=== PATIENT | female | born 1985 | race Caucasian/White ===

== ENCOUNTER 2016-10-15 13:54 | Inpatient (IN) | payer MEDICAID, OTHER ==
[2016-10-15 13:54] VITALS: BMI 33.5
[2016-10-15] MEDS ORDERED: Sodium Chloride 0.9% 2,000 ML IV ONE (14:35)
[2016-10-15 14:48] LABS: BASO # 0.1 K/uL (0.0-0.2); BASO % 0.8 % (0.0-2.0); EOS % 0.3 % (0.0-4.0); HEMATOCRIT 39.5 % (34.0-47.0); LYMPH # 0.7 K/uL (1.0-4.3); LYMPH % 10.8 % (20.0-40.0); MEAN CELL VOLUME 84.7 fL (81.0-99.0); MEAN CORPUSCULAR HEMOGLOBIN 28.5 pg (27.0-31.0); MEAN CORPUSCULAR HGB CONC 33.6 g/dL (33.0-37.0); MEAN PLATELET VOLUME 8.3 fL (7.2-11.7); MONO # 0.4 K/uL (0.0-0.8); MONO % 6.1 % (0.0-10.0); RED CELL DISTRIBUTION WIDTH 13.5 % (11.5-14.5)
[2016-10-15 14:50] LABS: WHITE BLOOD COUNT 6.9 K/uL (4.8-10.8)
[2016-10-15 14:55] LABS: CHLORIDE 94 mmol/L (98-107); SODIUM 136 mmol/L (132-148)
[2016-10-15 14:56] LABS: POTASSIUM 3.1 mmol/L (3.6-5.2)
[2016-10-15 14:57] LABS: INR 1.3
[2016-10-15 14:58] LABS: ALB/GLOB RATIO 1.3 (1.0-2.1); ALKALINE PHOSPHATASE 117 U/L (38-126); ALT/SGPT 96 U/L (9-52); AST/SGOT 76 U/L (14-36); BILIRUBIN,TOTAL 1.1 mg/dL (0.2-1.3); BLOOD UREA NITROGEN 10 mg/dL (7-17); CARBON DIOXIDE 25 mmol/L (22-30); GFR AFRICAN-AMERICAN > 60; GLUCOSE,RANDOM 154 mg/dL (65-105); TOTAL PROTEIN 7.4 g/dL (6.3-8.3)
[2016-10-15 14:59] LABS: CALCIUM 9.6 mg/dl (8.6-10.4)
[2016-10-15] MEDS ORDERED: Metoprolol 1 mg/ml Inj IVP ONE (15:03)
[2016-10-15] MEDS ORDERED: Sodium Chloride 0.9% 1,000 ML IV ONE (15:05)
--- NOTE | 2016-10-15 15:19 | C.PDOC ---
History Of Present Illness 30-year-old female (), PMHx includes Gastritis and Anemia, presents to the emergency department with complaints of recurring syncope x2 days. Patient has prior eval in ER for nausea/vomiting. Prior ultrasound showed (+)IUP. Patient is hypotensive and tachycardic. No vaginal bleeding. Time Seen by Provider: 10/15/16 14:30 Chief Complaint (Nursing): Dizziness/Lightheaded History Per: Patient History/Exam Limitations: no limitations Past Medical History Reviewed: Historical Data, Nursing Documentation, Vital Signs Vital Signs: Last Vital Signs Temp 97.9 F 10/16/16 00:00 Pulse 103 H 10/15/16 23:23 Resp 22 10/15/16 23:23 BP 101/63 10/15/16 23:23 Pulse Ox 100 10/15/16 23:23 - Medical History PMH: Anemia (Takes iron; No h/o transfusion), Gastritis Surgical History: Endoscopy Family History: States: Unknown Family Hx - Social History Hx Tobacco Use: No Hx Alcohol Use: No Hx Substance Use: No - Immunization History Hx Tetanus Toxoid Vaccination: Yes Hx Influenza Vaccination: Yes Hx Pneumococcal Vaccination: Yes Review Of Systems Except As Marked, All Systems Reviewed And Found Negative. Constitutional: Negative for: Fever Respiratory: Negative for: Shortness of Breath Gastrointestinal: Positive for: Nausea, Vomiting Musculoskeletal: Negative for: Back Pain Skin: Negative for: Rash Neurological: Positive for: Dizziness, Other (SYNCOPE). Negative for: Weakness , Numbness, Headache Physical Exam - Physical Exam Appears: Non-toxic, No Acute Distress, Other (HYPOTENSIVE) Skin: Warm, Dry, Pale, No Rash Head: Atraumatic, Normacephalic Eye(s): bilateral: Normal Inspection Nose: Normal Oral Mucosa: Moist Lips: Normal Appearing Neck: Normal ROM Chest: Symmetrical Cardiovascular: Rhythm Regular (TACHYCARDIC) Respiratory: Other (TACHYPNEA CONSISTENT W/ SHOCK) Gastrointestinal/Abdominal: Soft, No Tenderness (OBESE. NON-GRAVID) Extremity: Normal ROM Neurological/Psych: Oriented x3, Normal Speech ED Course And Treatment - Laboratory Results Result Diagrams: 10/15/16 14:43 10/15/16 14:43 Lab Interpretation: Abnormal (trop 1.85H) ECG: Interpreted By Me ECG Rhythm: Sinus Rhythm, Atrial Flutter ECG Interpretation: Abnormal Rate From EC (after Cardizem IV bolus became NST @ [address] depressions in II, III, AVF) O2 Sat by Pulse Oximetry: 95 Pulse Ox Interpretation: Abnormal - Radiology CXR: Interpreted by Me CXR Interpretation: Yes: No Acute Disease - CT Scan/US OBSTETRICS US Other Rad Studies (CT/US): Read By Radiologist, Radiology Report Reviewed CT/US Interpretation: Accession No. : [id number]. Patient Name / ID : BAUDILIO CLANCY / [id number]. Exam Date : 10/15/2016 14:53:37 ( Approved ). Study Comment : Sex / Age : F / 30Y. Creator : Asha Reed MD. Dictator : Asha Reed MD. Station Agent : Grain Elevator Man : Asha Reed MD. Approver2 : Report Date : 10/15/2016 15:23:08. My Comment : . PROCEDURE: OB Pelvic Ultrasound. HISTORY: shock- ? ectopic preg. COMPARISON: None available. FINDINGS: UTERUS: Gestational sac: Single intrauterine gestation. Heart rate: 163 bpm. age (Ultrasound estimated): The crown-rump length measures 2.6 cm corresponding to 9 weeks and 3 days of gestational age. June- gestational hemorrhage: None. Date of delivery (Ultrasound estimated) : 2016. Uterus measures 11.0 x 6.6 x 9.1 cm. Normal in size. There is a small subchorionic hemorrhage measuring 2.1 x 1.9 x 1.0 cm. RIGHT OVARY: Measures 3.9 x 2.8 x 4.4 cm. No mass lesion. Normal flow. There is a 3.6 cm corpus luteum cyst. LEFT OVARY: Measures 2.6 x 1.6 x 2.2 cm. No solid mass. Normal flow. FREE FLUID: None. OTHER FINDINGS: None. IMPRESSION: Single live intrauterine gestation with mean gestational age of 9 weeks and 3 days. Estimated date of delivery is 05/17/2017. Small subchorionic hemorrhage measuring 2.1 x 1.9 x 1.0 cm. Clinical follow-up is advised. CT CHEST Other Rad Studies (CT/US): Read By Radiologist, Radiology Report Reviewed CT/US Interpretation: Accession No. : [id number]. Patient Name / ID : BAUDILIO CLANCY / [id number]. Exam Date : 10/15/2016 14:53:37 ( Approved ). Study Comment : Sex / Age : F / 30Y. Creator : Asha Reed MD. Dictator : Asha Reed MD. Station Agent : Grain Elevator Man : Asha Reed MD. Approver2 : Report Date : 10/15/2016 15:23:08. My Comment : . PROCEDURE: OB Pelvic Ultrasound. HISTORY: shock- ? ectopic preg. COMPARISON: None available. FINDINGS: UTERUS: Gestational sac: Single intrauterine gestation. Heart rate: 163 bpm. age (Ultrasound estimated): The crown-rump length measures 2.6 cm corresponding to 9 weeks and 3 days of gestational age. June- gestational hemorrhage: None. Date of delivery (Ultrasound estimated) : 2016. Uterus measures 11.0 x 6.6 x 9.1 cm. Normal in size. There is a small subchorionic hemorrhage measuring 2.1 x 1.9 x 1.0 cm. RIGHT OVARY: Measures 3.9 x 2.8 x 4.4 cm. No mass lesion. Normal flow. There is a 3.6 cm corpus luteum cyst. LEFT OVARY: Measures 2.6 x 1.6 x 2.2 cm. No solid mass. Normal flow. FREE FLUID: None. OTHER FINDINGS: None. IMPRESSION: Single live intrauterine gestation with mean gestational age of 9 weeks and 3 days. Estimated date of delivery is 05/17/2017. Small subchorionic hemorrhage measuring 2.1 x 1.9 x 1.0 cm. Clinical follow-up is advised. Progress Note: 1430: pt seen and examined. 1435: d/w Dr. Bah- OB Chief Of Safety And Protection- will advise Surgical team of suspected ectopic . 1610: d/w Dr. Burks- Cardio Chief Of Safety And Protection- defers to Dr. Hanson. 1610: d/w Dr. Hanson- aware of abnormal trop and pending CTA. 1615: d/w Dr. Thompson- IR- will evaluate. 1645: d/w Dr. Sethi- ICU- ok to ICU. 1650: d/w Dr. Barbosa- Hospitalist Chief Of Safety And Protection- ok to ICU. discussion with pt, IR, ICU, and Cards pending to decide best course of action of pt (9 wks) with large acute symptomatic b/l pulmonary emboli. Critical Care Time - Critical Care Note Total Time (in mins): 120 Documented critical care: time excludes all time spent performing seperately billable procedures. Medical Decision Making Medical Decision Making: Initial EKG Rate 150bpm Rate Sinus Tachycardia vs Aflutter Rhythm No acute ST/T wave changes Patient required my immediate attention. STAT bedside echo shows +iup and no free fluid. Patients HGB is 18 1435 The case was discussed w/ Dr Bah. Pending CT Scan. Disposition Doctor Will See Patient In The: Hospital Counseled Patient/Family Regarding: Studies Performed, Diagnosis - Disposition Disposition: HOSPITALIZED Disposition Time: 17:00 Condition: CRITICAL - Clinical Impression Clinical Impression: Pulmonary embolism affecting - Scribe Statement The provider has reviewed the documentation as recorded by the Paresh Smart All medical record entries made by the Armondibjing were at my direction and personally dictated by me. I have reviewed the chart and agree that the record accurately reflects my personal performance of the history, physical exam, medical decision making, and the department course for this patient. I have also personally directed, reviewed, and agree with the discharge instructions and disposition.
--- NOTE | 2016-10-15 15:24 | US ---
PROCEDURE: OB Pelvic Ultrasound HISTORY: shock- ? ectopic preg COMPARISON: None available. FINDINGS: UTERUS: Gestational sac: Single intrauterine gestation. Heart rate: 163 bpm. age (Ultrasound estimated): The crown-rump length measures 2.6 cm corresponding to 9 weeks and 3 days of gestational age. June-gestational hemorrhage: None. Date of delivery (Ultrasound estimated) : 05/17/2017 Uterus measures 11.0 x 6.6 x 9.1 cm. Normal in size. There is a small subchorionic hemorrhage measuring 2.1 x 1.9 x 1.0 cm. RIGHT OVARY: Measures 3.9 x 2.8 x 4.4 cm. No mass lesion. Normal flow. There is a 3.6 cm corpus luteum cyst. LEFT OVARY: Measures 2.6 x 1.6 x 2.2 cm. No solid mass. Normal flow. FREE FLUID: None. OTHER FINDINGS: None. IMPRESSION: Single live intrauterine gestation with mean gestational age of 9 weeks and 3 days. Estimated date of delivery is 05/17/2017. Small subchorionic hemorrhage measuring 2.1 x 1.9 x 1.0 cm. Clinical follow-up is advised.
[2016-10-15 15:26] LABS: RBC URINE 1 /hpf (0-3); URINE BACTERIA FEW (<OCC); URINE BILIRUBIN 2+ (NEGATIVE); URINE BLOOD 1+ (NEGATIVE); URINE COLOR Amber (YELLOW); URINE GLUCOSE (UA) 1+ mg/dL (Normal); URINE KETONE 1+ mg/dL (NEGATIVE); URINE LEUKOCYTE ESTERASE TRACE Leu/uL (Negative); URINE PROTEIN 3+ mg/dL (NEGATIVE); WBC URINE 8 /hpf (0-5)
--- NOTE | 2016-10-15 15:31 | CP.PCM.CON ---
History of Present Illness - History of Present Illness History of Present Illness: Chief complaint-light headedness, diziness HPI 30 Y/O female with LMP 08/21/2016 , presents to er with c/o having lightheadedness and dizziness at home.States that she had lower abdominal pain this morning which is resolved now but she still feels light headed and cold. In the ER patient hypotensive and heart rate in 150s. Patient denies any vaginal bleeding Review of records indicated that patient was admitted at [facility] for nausea and vomiting and discharge on 10/07/2016 pmh -anemia, gastritis PSH endoscopy OBGYN HX ; [id number] Social hx denies tobacco,alcohol or illicit drug use Review of Systems - Constitutional Constitutional: Chills - Reproductive: Female Reproductive:Female: Amenorrhea Past Patient History - Infectious Disease Hx of Infectious Diseases: None - Past Medical History & Family History Past Medical History?: Yes - Past Social History Smoking Status: Never Smoked - CARDIAC Hx Cardiac Disorders: No - PULMONARY Hx Respiratory Disorders: No - NEUROLOGICAL Hx Neurological Disorder: No - HEENT Hx HEENT Problems: No - RENAL Hx Chronic Kidney Disease: No - ENDOCRINE/METABOLIC Hx Endocrine Disorders: No - HEMATOLOGICAL/ONCOLOGICAL Hx Anemia: Yes (Takes iron; No h/o transfusion) - INTEGUMENTARY Hx Dermatological Problems: No - MUSCULOSKELETAL/RHEUMATOLOGICAL Hx Musculoskeletal Disorders: No Hx Falls: No - GASTROINTESTINAL Hx Gastritis: Yes - GENITOURINARY/GYNECOLOGICAL Hx Genitourinary Disorders: Yes Hx Urinary Tract Infection: Yes LMP:: 08/21/2016 : 4 Para: 3 Termination of : 0 - PSYCHIATRIC Hx Substance Use: No - SURGICAL HISTORY Hx Surgeries: Yes Other/Comment: Endoscopy - ANESTHESIA Hx Anesthesia: Yes Hx Anesthesia Reactions: No Hx Malignant Hyperthermia: No Meds Allergies/Adverse Reactions: Allergies Allergy/AdvReac Type Severity Reaction Status Date / Time tramadol HCl [From [facility]] Allergy Intermediate DIZZINESS Verified 10/15/16 14: 24 - Medications Medications: Current Medications Sodium Chloride (Sodium Chloride 0.9%) 2,000 mls @ 1,000 mls/hr IV .Q2H ONE Stop: 10/15/16 16:34 Physical Exam - Constitutional Appears: Non-toxic - Head Exam Head Exam: ATRAUMATIC - Cardiovascular Exam Cardiovascular Exam: Tachycardia - GI/Abdominal Exam GI & Abdominal Exam: Soft. absent: Guarding, Rebound, Rigid, Tenderness - Extremities Exam Extremities exam: Negative for: calf tenderness - Skin Skin Exam: Normal Color Results - Vital Signs Recent Vital Signs: Last Vital Signs Temp 98.5 F 10/15/16 14:24 Pulse 153 H 10/15/16 14:24 Resp 22 10/15/16 14:24 BP 114/69 10/15/16 14:24 Pulse Ox 98 10/15/16 15:19 - Labs Result Diagrams: 10/15/16 14:43 10/15/16 14:43 Labs: Laboratory Results - last 24 hr 10/15/16 14:43 WBC 6.9 D RBC 4.66 Hgb 13.3 Hct 39.5 MCV 84.7 MCH 28.5 MCHC 33.6 RDW 13.5 Plt Count 258 MPV 8.3 Neut % (Auto) 82.0 H Lymph % (Auto) 10.8 L [place] % (Auto) 6.1 Eos % (Auto) 0.3 Baso % (Auto) 0.8 Neut # 5.6 Lymph # 0.7 L [place] # 0.4 Eos # 0.0 Baso # 0.1 PT 14.3 H INR 1.3 APTT 29 Sodium 136 Potassium 3.1 L Chloride 94 L Carbon Dioxide 25 Anion Gap 20 BUN 10 Creatinine 0.8 Est GFR ( Amer) > 60 Est GFR (Non-Af Amer) > 60 Random Glucose 154 H Calcium 9.6 Total Bilirubin 1.1 AST 76 H D ALT 96 H D Alkaline Phosphatase 117 Total Protein 7.4 Albumin 4.2 Globulin 3.2 Albumin/Globulin Ratio 1.3 Beta HCG, Quant 505873.00 Urine HCG, Qual Positive Assessment & Plan (1) Status: Acute Comment: 30 y/o female with lmp 08/21/2016.Limited ob ultrasound done today shows viable IUP. (2) Hypotension Status: Acute Comment: Patient with hypotension and tachycardia on presentation to ER.BP improved with iv fluids.UA 1+Ketones.?dehydration.Hematocrit stable.Continue management as per ER team (3) Tachycardia Status: Acute Comment: patient persistently tachycardiac despite improved bp.patient given diltiazem after which the heart rate improved.Continue management as per ER team
[2016-10-15] MEDS ORDERED: Sodium Chloride 0.9% 3,000 ML ONE (15:52)
[2016-10-15] MEDS ORDERED: Heparin 25,000units in D5W 250 ML IV ONE (16:29)
--- NOTE | 2016-10-15 16:45 | CT ---
PROCEDURE: CT Chest with contrast (Pulmonary Angiogram) HISTORY: ? PE COMPARISON: None available. TECHNIQUE: Axial computed tomography images were obtained of the chest in the pulmonary arterial phase of enhancement. Coronal and sagittal reformatted images were created and reviewed. Intravenous contrast dose: 100 mL Visipaque Radiation dose: Total exam DLP = 449.62 mGy-cm. FINDINGS: PULMONARY ARTERIES: There are large central filling defects in the distal right pulmonary artery and distal left pulmonary artery. On the right, there are also filling defects in the right upper lobe pulmonary arteries and on the left, there are filling defects in the lobar and segmental pulmonary arteries. AORTA: The aorta is normal in caliber without evidence of aneurysm or dissection. LUNGS: There is a small peripheral calcification in the right lower lobe. No nodule, mass or pulmonary consolidation. PLEURAL SPACES: Unremarkable. No effusion or pneumothorax. HEART: No cardiomegaly. No significant pericardial effusion. LYMPH NODES: No pathologic lymphadenopathy. BONES, CHEST WALL: Within normal limits. No fracture or destructive lesion OTHER FINDINGS: Unremarkable. IMPRESSION: Acute pulmonary embolism in distal right and left pulmonary arteries, right upper lobe and left lobar and segmental branches with larger burden of embolism on the left. Critical findings were discussed with Dr. Ignacio Reyes on 10/15/2016 at 4:35 p.m.
[2016-10-15] MEDS ORDERED: Heparin25000 units/250ml 1/2NS 250 ML IV PRN (16:51)
--- NOTE | 2016-10-15 18:43 | CP.PCM.HP ---
History of Present Illness - History of Present Illness History of Present Illness: ICU Note Patient is a 30 y/o female, , currently 9 weeks and 3 days confirmed on ultrasound who presents to the ED for history of chest pain, shortness of breath, lightheadedness and dizziness x1 week. Patient states she was home with her mother when she became dizzy this morning and fainted. She admits to similar episodes x 1 week. Pt admits to lower abdominal pain earlier today which has since resolved. She describes chest pain as sharp and exacerbated with deep inspiration, radiating to her back. Pt notes she was seen at [facility] for chest pain and was told low potassium was the cause of her symptoms. She currently continues to feel lightheaded, cold, and nauseated. Pt is having multiple episodes of emesis of clear fluid at bedside. She denies vaginal bleeding. Patient states she has not had a bowel movement in 2 weeks. PMH: Anemia, Gastritis Medications: multivitamin Allergies: Tramadol HCl PSH: Endoscopy Social history: denies tobacco, alcohol, drug use Present on Admission - Present on Admission Any Indicators Present on Admission: Yes History of DVT/PE: Yes History of Uncontrolled Diabetes: No Urinary Catheter: No Decubitus Ulcer Present: No Review of Systems - Constitutional Constitutional: Chills. absent: Headache - EENT Eyes: absent: Blurred Vision - Cardiovascular Cardiovascular: Chest Pain, Chest Pain at Rest, Dyspnea, Lightheadedness, Syncope - Respiratory Respiratory: Dyspnea on Exertion - Gastrointestinal Gastrointestinal: Change in Bowel Habits, Constipation, Nausea, Vomiting. absent: Abdominal Pain - Genitourinary Genitourinary: absent: Change in Urinary Stream - Reproductive: Female Reproductive:Female: Amenorrhea Additional comments: 9 weeks - Integumentary Integumentary: absent: New Lesions, Rash - Neurological Neurological: Dizziness, Syncope - Psychiatric Psychiatric: absent: Anxiety Past Patient History - Infectious Disease Hx of Infectious Diseases: None - Past Medical History & Family History Past Medical History?: Yes - Past Social History Smoking Status: Never Smoked - CARDIAC Hx Cardiac Disorders: No - PULMONARY Hx Respiratory Disorders: No - NEUROLOGICAL Hx Neurological Disorder: No - HEENT Hx HEENT Problems: No - RENAL Hx Chronic Kidney Disease: No - ENDOCRINE/METABOLIC Hx Endocrine Disorders: No - HEMATOLOGICAL/ONCOLOGICAL Hx Anemia: Yes (Takes iron; No h/o transfusion) - INTEGUMENTARY Hx Dermatological Problems: No - MUSCULOSKELETAL/RHEUMATOLOGICAL Hx Musculoskeletal Disorders: No Hx Falls: No - GASTROINTESTINAL Hx Gastritis: Yes - GENITOURINARY/GYNECOLOGICAL Hx Genitourinary Disorders: Yes Hx Urinary Tract Infection: Yes LMP:: 08/21/2016 : 4 Para: 3 Termination of : 0 - PSYCHIATRIC Hx Substance Use: No - SURGICAL HISTORY Hx Surgeries: Yes Other/Comment: Endoscopy - ANESTHESIA Hx Anesthesia: Yes Hx Anesthesia Reactions: No Hx Malignant Hyperthermia: No Meds Allergies/Adverse Reactions: Allergies Allergy/AdvReac Type Severity Reaction Status Date / Time tramadol HCl [From Ultram] Allergy Intermediate DIZZINESS Verified 10/15/16 14: 24 Physical Exam - Constitutional Appears: No Acute Distress, Other - Head Exam Head Exam: ATRAUMATIC, NORMOCEPHALIC - Eye Exam Eye Exam: EOMI, Normal appearance - ENT Exam ENT Exam: Mucous Membranes Moist - Neck Exam Neck exam: Positive for: Normal Inspection - Respiratory Exam Respiratory Exam: absent: NORMAL BREATHING PATTERN Additional comments: tachypnea - Cardiovascular Exam Cardiovascular Exam: Tachycardia, +S1, +S2 - GI/Abdominal Exam GI & Abdominal Exam: Normal Bowel Sounds, Soft. absent: Tenderness - Extremities Exam Extremities exam: Positive for: normal inspection - Back Exam Back exam: tenderness - Neurological Exam Neurological exam: Alert, Oriented x3 - Psychiatric Exam Psychiatric exam: Anxious - Skin Skin Exam: Intact, Normal Color Results - Vital Signs Recent Vital Signs: Last Vital Signs Temp 98.3 F 10/15/16 17:53 Pulse 128 H 10/15/16 17:53 Resp 26 H 10/15/16 17:53 BP 105/75 10/15/16 17:53 Pulse Ox 98 10/15/16 18:28 - Labs Result Diagrams: 10/15/16 14:43 10/15/16 14:43 Assessment & Plan - Assessment and Plan (Free Text) Assessment: Pt is a 30 F, 9 weeks , with bilateral pulmonary embolism Plan: 1. Bilateral Pulmonary Embolism - CT angio: Acute PE, distal right and left pulmonary artery to RUL and L lobe and segmental branches; larger burden on left. - IRDr. Thompson, consulted - Patient to have thrombectomy by IR , systemic tPA - patient understands risks - Start Heparin drip - Monitor Vitals 2. Shock secondary to bilateral PE tachycardia, tachypnea, temperature 97.4 F Continue to monitor vitals 3. Positive troponin trop I 1.8500 f/u ANATOLIY x 3 f/u Echocargiogram Cardiology Consult: Dr. Frias 4. Nausea Start Zofran 4 mg IVP q6h 5. Intrauterine - Obstetric Ultrasound: 9 weeks, 3 days IUP - Discussed critical state with patient and associated risks to . Pt in agreement with therapy. - OBGYN consult, Dr. Bah - Date & Time Date: 10/15/16 Time: 19:18
[2016-10-15] MEDS ORDERED: Iodixanol 320 mg/ml 150 ml Bottle IV ONE (18:55)
[2016-10-15] MEDS ORDERED: Sodium Chloride 0.9% 1,000 ML IV SCH ×2 (19:00→19:30)
[2016-10-15] MEDS ORDERED: [UNRECOGNIZED DRUG - OTHER] IV ONE (19:09)
--- NOTE | 2016-10-15 19:16 | CP.CCUPN ---
CCU Subjective - Physician Review Events Since Last Encounter (Free Text): 10/15/16 19:10 30-year-old female came to the emergency room with the repeated episodes of syncopal attack, and near passing out today, and brought in to the emergency room with the family member. Initially in the emergency room patient was severely tachycardic, and also hypotensive, and tachypneic. During the evaluation patient was found to have a large pulmonary embolism bilateral major pulmonary arteries. Patient received at least 3 L of fluid. Blood pressure is slightly stabilized. But patient is having increasing episodes of shortness of breath, and tachypnea , acute cardiac, and also the blood pressure is systolic is in 100. Troponin was positive. There are there was no echocardiogram I spoke to the resource director. Most likely patient has a right heart strain with a large pulmonary embolism bilaterally, and resource director agreed that the patient did definitely need a form of . thrombolysis. But patient is currently 9 weeks with the 4 I spoke to the yard jacker. I also spoke to the high-risk medical attending for , With the experts opinion saying that patient is at high risk for high mortality , and cardiac event. She will definitely need thrombolysis. Though there is a risk of demise, bleeding, family's understanding him a and the and patient is understanding the situation. They agreed to have the catheter directed thrombolysis and equals. She understands that there is a risk of radiation, and also risk of fatal risk with the TPA and radiation and bleeding. Definitely there is a definitely the benefit is higher than the risk and patient will be going to have catheter directed thrombolysis immediately. I spoke to the interventional radiologist. CCU Objective - Vital Signs / Intake & Output Vital Signs (Last 4 hours): Vital Signs Temp Pulse Resp BP Pulse Ox 10/15/16 18:49 27 H 95 10/15/16 18:28 98 10/15/16 18:15 97.4 F L 126 H 27 H 111/70 98 10/15/16 17:53 98.3 F 128 H 26 H 105/75 100 10/15/16 17:32 130 H 26 H 103/74 97 10/15/16 17:00 129 H 26 H 91/59 L 96 Intake and Output (Last 8hrs): Intake & Output 10/15/16 10/15/16 10/15/16 06:59 14:59 22:59 Weight 193 lb 6.4 oz - Medications Active Medications: Active Medications Generic Name Dose Route Start Last Admin Trade Name Freq PRN Reason Stop Dose Admin Heparin Sodium/Sodium Chloride 250 mls @ 4 mls/hr 10/15/16 16:51 10/15/16 16:59 Heparin 31770 Units/250ml 1/2 Normal Saline IV 4 mls/hr ONCE PRN Administration Sodium Chloride 1,000 mls @ 100 mls/hr 10/15/16 19:00 Sodium Chloride 0.9% IV .Q10H RAVEN
[2016-10-15] MEDS ORDERED: SODIUM CHLORIDE 0.9% IV ONE ×3 (19:21→20:06)
[2016-10-15] MEDS ORDERED: ALTEPLASE IV ONE (19:21)
[2016-10-15] MEDS ORDERED: HEPARIN IV ONE ×2 (19:25→20:06)
--- NOTE | 2016-10-15 19:27 | PCM.IRPREO ---
Pre Procedure Note - History Proposed Procedure: Catheter directed thrombolysis for symptomatic PE with hemodynamic instability. Pre-Op Diagnosis: Pulmonary embolism. - Previous Medical/Surgical History Misc: (Pt is 9 weeks . ) - Pre Procedure Were any radiologic studies performed in the last 12 months: Yes (Pulmonary CT angiogram showed RIGHT AND LEFT main PA embolissm.) List of radiologic studies performed: CT angiogram PE protocol. Was medical management performed in the past 24 months: Not Applicable Clinical indication for the procedure: Pulmonary embolism and hemodynamic instability. Have risks and benefits been explained to the patient: Yes (Risk are bleeding, loss of baby, placental bleed, subchorionic hemorrhage. Benefits include improved clot burden and decrease right heart strain.) Risks and benefits been explained to the patient: Risk are bleeding, loss of baby, placental bleed, subchorionic hemorrhage. Benefits include improved clot burden and decrease right heart strain. Have alternatives to surgery explained to the patient as applicable: Yes ( Heparin IV. Catheter directed maceration of blood clot without use of TPA. Pt and would like TPA.) - Allergies Allergies: Allergies tramadol HCl [From Ultram] Allergy (Intermediate, Verified 10/15/16 14:24) DIZZINESS - Physical Exam Vital Signs: Vital Signs 10/15/16 10/15/16 10/15/16 17:00 17:32 17:53 Temperature 98.3 F Pulse Rate 129 H 130 H 128 H Respiratory 26 H 26 H 26 H Rate Blood Pressure 91/59 L 103/74 105/75 O2 Sat by Pulse 96 97 100 Oximetry 10/15/16 10/15/16 10/15/16 18:15 18:28 18:49 Temperature 97.4 F L Pulse Rate 126 H Respiratory 27 H 27 H Rate Blood Pressure 111/70 O2 Sat by Pulse 98 98 95 Oximetry
[2016-10-15] MEDS ORDERED: Lidocaine 2% Inj (20ml) ONE (19:33)
--- NOTE | 2016-10-15 19:55 | PCM.SURG1 ---
Surgeon's Initial Post Op Note - Surgeon's Notes Surgeon: Richard Thompson MD Firestopper Technician: NONE Type of Anesthesia: Local Pre-Operative Diagnosis: Pulmonary embolism Operative Findings: Pulmonary angiogram showed right main PA thrombus with flow to lower lobe. Increased perfusion to left lung. Post-Operative Diagnosis: Pulmonary embolism Operation Performed: EKOS catheter placement for catheter directed thrombolysis. Specimen/Specimens Removed: none Estimated Blood Loss: EBL {In ML}: 2 Blood Products Given: N/A Drains Used: No Drains Post-Op Condition: Poor Date of Surgery/Procedure: 10/15/16 Time of Surgery/Procedure: 19:50
[2016-10-15] MEDS: Sodium Chloride 0.9% 1,000 ML IV SCH (20:56)
--- NOTE | 2016-10-15 21:27 | CP.PCM.CON ---
History of Present Illness - History of Present Illness History of Present Illness: ICU Consult Note Patient is a 30 y/o female, , currently 9 weeks and 3 days confirmed on ultrasound who presents to the ED for history of chest pain, shortness of breath, lightheadedness and dizziness x1 week. Patient states she was home with her mother when she became dizzy this morning and fainted. She admits to similar episodes x 1 week. Pt admits to lower abdominal pain earlier today which has since resolved. She describes chest pain as sharp and exacerbated with deep inspiration, radiating to her back. Pt notes she was seen at [facility] for chest pain and was told low potassium was the cause of her symptoms. She currently continues to feel lightheaded, cold, and nauseated. Pt is having multiple episodes of emesis of clear fluid at bedside. She denies vaginal bleeding. Patient states she has not had a bowel movement in 2 weeks. PMH: Anemia, Gastritis Medications: multivitamin Allergies: Tramadol HCl PSH: Endoscopy Social history: denies tobacco, alcohol, drug use Review of Systems - Constitutional Constitutional: Chills. absent: Headache - EENT Eyes: absent: Change in Vision - Cardiovascular Cardiovascular: Chest Pain, Dyspnea, Lightheadedness, Palpitations, Syncope Additional comments: Chest Pain with deep inspiration - Respiratory Respiratory: Dyspnea - Gastrointestinal Gastrointestinal: Abdominal Pain, Constipation - Genitourinary Genitourinary: absent: Change in Urinary Stream - Reproductive: Female Reproductive:Female: Amenorrhea Additional comments: 9 weeks - Menstruation Menstruation: Amenorrhea. absent: Abnormal Vaginal Bleeding - Integumentary Integumentary: absent: New Lesions, Non-Healing Lesions - Neurological Neurological: Dizziness, Headaches, Syncope Past Patient History - Infectious Disease Hx of Infectious Diseases: None - Past Medical History & Family History Past Medical History?: Yes - Past Social History Smoking Status: Never Smoked - CARDIAC Hx Cardiac Disorders: No - PULMONARY Hx Respiratory Disorders: No - NEUROLOGICAL Hx Neurological Disorder: No - HEENT Hx HEENT Problems: No - RENAL Hx Chronic Kidney Disease: No - ENDOCRINE/METABOLIC Hx Endocrine Disorders: No - HEMATOLOGICAL/ONCOLOGICAL Hx Anemia: Yes (Takes iron; No h/o transfusion) - INTEGUMENTARY Hx Dermatological Problems: No - MUSCULOSKELETAL/RHEUMATOLOGICAL Hx Musculoskeletal Disorders: No Hx Falls: No - GASTROINTESTINAL Hx Gastritis: Yes - GENITOURINARY/GYNECOLOGICAL Hx Genitourinary Disorders: Yes Hx Urinary Tract Infection: Yes LMP:: 08/21/2016 : 4 Para: 3 Termination of : 0 - PSYCHIATRIC Hx Substance Use: No - SURGICAL HISTORY Hx Surgeries: Yes Other/Comment: Endoscopy - ANESTHESIA Hx Anesthesia: Yes Hx Anesthesia Reactions: No Hx Malignant Hyperthermia: No Meds Allergies/Adverse Reactions: Allergies Allergy/AdvReac Type Severity Reaction Status Date / Time tramadol HCl [From Ultra] Allergy Intermediate DIZZINESS Verified 10/15/16 14: 24 - Medications Medications: Current Medications Alteplase, Recombinant 12.5 mg (/ Sodium Chloride) 250 mls @ 25 mls/hr IV ONCE ONE Stop: 10/16/16 05:20 Sodium Chloride (Sodium Chloride 0.9%) 1,000 mls @ 35 mls/hr IV .Q24H RAVEN Heparin Sodium (Porcine) 1,000 (units/ Sodium Chloride) 1,000 mls @ 5 mls/hr IV ONCE ONE Stop: 10/24/16 04:05 Sodium Chloride (Sodium Chloride 0.9%) 1,000 mls @ 50 mls/hr IV .Q20H RAVEN Last Admin: 10/15/16 20:56 Dose: 50 mls/hr Ondansetron HCl (Zofran Inj) 4 mg IVP Q6 PRN PRN Reason: Nausea/Vomiting Last Admin: 10/15/16 20:56 Dose: 4 mg Physical Exam - Constitutional Appears: No Acute Distress Additional comments: , 9 weeks - Head Exam Head Exam: ATRAUMATIC, NORMAL INSPECTION - Eye Exam Eye Exam: EOMI, Normal appearance - ENT Exam ENT Exam: Mucous Membranes Moist - Neck Exam Neck exam: Positive for: Normal Inspection - Respiratory Exam Respiratory Exam: absent: NORMAL BREATHING PATTERN Additional comments: tachypnea - Cardiovascular Exam Cardiovascular Exam: Tachycardia, +S1, +S2 - GI/Abdominal Exam GI & Abdominal Exam: Normal Bowel Sounds, Soft. absent: Tenderness - Extremities Exam Extremities exam: Positive for: normal inspection - Neurological Exam Neurological exam: Alert, Oriented x3 - Psychiatric Exam Psychiatric exam: Anxious - Skin Skin Exam: Intact, Normal Color Results - Vital Signs Recent Vital Signs: Last Vital Signs Temp 97.4 F L 10/15/16 18:15 Pulse 116 H 10/15/16 21:23 Resp 21 10/15/16 21:23 BP 103/64 10/15/16 21:23 Pulse Ox 100 10/15/16 21:23 - Labs Result Diagrams: 10/15/16 14:43 10/15/16 14:43 Assessment & Plan - Assessment and Plan (Free Text) Assessment: Pt is a 30 F, 9 weeks , with bilateral pulmonary embolism Plan: 1. Bilateral Pulmonary Embolism - CT angio: Acute PE, distal right and left pulmonary artery to RUL and L lobe and segmental branches; larger burden on left. - IR, Dr. Thompson, consulted - Patient to have thrombectomy by IR , systemic tPA - patient understands risks - Start Heparin drip - Monitor Vitals 2. Shock secondary to bilateral PE tachycardia, tachypnea, temperature 97.4 F Continue to monitor vitals 3. Positive troponin trop I 1.8500 f/u ANATOLIY x 3 f/u Echocargiogram Cardiology Consult: Dr. Frias 4. Nausea Start Zofran 4 mg IVP q6h 5. Intrauterine - Obstetric Ultrasound: 9 weeks, 3 days IUP - Discussed critical state with patient and associated risks to . Pt in agreement with therapy. - OBGYN consult, Dr. Bah - Date & Time Date: 10/15/16 Time: 21:33
[2016-10-16 06:19] LABS: BASO % 0.3 % (0.0-2.0); EOS % 0.2 % (0.0-4.0); HEMATOCRIT 31.5 % (34.0-47.0); LYMPH # 1.1 K/uL (1.0-4.3); LYMPH % 19.2 % (20.0-40.0); MEAN CELL VOLUME 85.1 fL (81.0-99.0); MEAN CORPUSCULAR HEMOGLOBIN 28.2 pg (27.0-31.0); MEAN CORPUSCULAR HGB CONC 33.1 g/dL (33.0-37.0); MEAN PLATELET VOLUME 8.4 fL (7.2-11.7); MONO # 0.5 K/uL (0.0-0.8); MONO % 8.1 % (0.0-10.0); NRBC % 0.1 % (0.0-2.0); RED CELL DISTRIBUTION WIDTH 13.4 % (11.5-14.5); WHITE BLOOD COUNT 5.6 K/uL (4.8-10.8)
[2016-10-16 06:26] LABS: CHLORIDE 104 mmol/L (98-107); SODIUM 138 mmol/L (132-148)
[2016-10-16 06:28] LABS: ALB/GLOB RATIO 1.2 (1.0-2.1); ALKALINE PHOSPHATASE 73 U/L (38-126); AST/SGOT 105 U/L (14-36); BLOOD UREA NITROGEN 6 mg/dL (7-17); CARBON DIOXIDE 22 mmol/L (22-30); GFR AFRICAN-AMERICAN > 60; TOTAL PROTEIN 5.4 g/dL (6.3-8.3)
[2016-10-16 06:29] LABS: ALT/SGPT 95 U/L (9-52); CALCIUM 7.9 mg/dl (8.6-10.4); GLUCOSE,RANDOM 97 mg/dL (65-105); MAGNESIUM 1.7 mg/dL (1.6-2.3); PHOSPHOROUS 2.7 mg/dL (2.5-4.5)
[2016-10-16] MEDS ORDERED: Potassium Chloride 10 mEq 100 ML IVPB ONE (10:00)
[2016-10-16] MEDS ORDERED: Potassium Chloride 20 mEq ER Tab PO STA ×2 (11:15→18:53)
--- NOTE | 2016-10-16 12:51 | CP.PCM.PN ---
Subjective - Date & Time of Evaluation Date of Evaluation: 10/16/16 Time of Evaluation: 13:30 - Subjective Subjective: Patient was seen and examined at bedside in ICU Patient stated that shortness of breath is improving She denies any abdominal or chest pain. Objective - Vital Signs/Intake and Output Vital Signs (last 24 hours): Temp Pulse Resp BP Pulse Ox 98.7 F 111 H 27 H 127/77 93 L 10/16/16 12:00 10/16/16 12:40 10/16/16 12:40 10/16/16 12:40 10/16/16 12:40 Intake and Output: 10/16/16 10/16/16 06:59 18:59 Intake Total 1355.0 690.6 Output Total 250 150 Balance 1105.0 540.6 - Medications Medications: Current Medications Sodium Chloride (Sodium Chloride 0.9%) 1,000 mls @ 35 mls/hr IV .Q24H RAVEN Heparin Sodium (Porcine) 1,000 (units/ Sodium Chloride) 1,001 mls @ 5 mls/hr IV ONCE ONE Stop: 10/24/16 04:17 Sodium Chloride (Sodium Chloride 0.9%) 1,000 mls @ 50 mls/hr IV .Q20H RAVEN Last Admin: 10/15/16 20:56 Dose: 50 mls/hr Ondansetron HCl (Zofran Inj) 4 mg IVP Q6 PRN PRN Reason: Nausea/Vomiting Last Admin: 10/16/16 08:06 Dose: 4 mg - Labs Labs: 10/16/16 06:08 10/16/16 06:08 PT 14.3 SECONDS (9.7-12.2) H 10/15/16 14:43 INR 1.3 10/15/16 14:43 APTT 29 SECONDS (21-34) 10/15/16 14:43 - Head Exam Head Exam: ATRAUMATIC, NORMOCEPHALIC - Eye Exam Eye Exam: Normal appearance, PERRL - ENT Exam ENT Exam: Mucous Membranes Moist - Neck Exam Neck Exam: Normal Inspection - Respiratory Exam Respiratory Exam: Clear to Ausculation Bilateral - Cardiovascular Exam Cardiovascular Exam: Tachycardia, +S1, +S2 - GI/Abdominal Exam GI & Abdominal Exam: Soft. absent: Tenderness - Extremities Exam Extremities Exam: absent: Pedal Edema - Neurological Exam Neurological Exam: Alert, Awake, Oriented x3 Assessment and Plan (1) Pulmonary embolism affecting Assessment & Plan: Patient was admitted to ICU and catheter directed the thrombolytic therapy was administered. Patient will be started on long-term anticoagulation Current management as per ICU team Status: Acute
[2016-10-16] MEDS ORDERED: Iodixanol 320 MG/ML 100 ML BOTTLE IV ONE (14:46)
[2016-10-16] MEDS ORDERED: Lidocaine 2% Inj (20ml) ONE (14:46)
--- NOTE | 2016-10-16 15:28 | CP.CCUPN ---
<Candice Jordan - Last Filed: 10/16/16 15:24> CCU Subjective - Physician Review Subjective (Free Text): 10/16/16 15:24 Pt seen and examined at bedside. Pt states her condition feels improved since last night. She denies shortness of breath, chest pain, dizziness, palpitations , headache, abdominal pain or vaginal bleeding. Pt admits to nausea and emesis. Pt states she has non-radiating tenderness rated 8/10 to post-auricular region that started when she presented to the ED. Pt states she has not had a bowel movement in 2 weeks. Pt continues on catheter directed thrombolysis Critical Care Time Spent (in minutes): 31 CCU Objective - Vital Signs / Intake & Output Vital Signs (Last 4 hours): Vital Signs Temp Pulse Resp BP Pulse Ox 10/16/16 13:00 103 H 22 93 L 10/16/16 12:59 104 H 31 H 103/77 94 L 10/16/16 12:46 100 H 16 99 10/16/16 12:40 111 H 27 H 127/77 93 L 10/16/16 12:00 98.7 F 99 H 27 H 100 Intake and Output (Last 8hrs): Intake & Output 10/16/16 10/16/16 10/16/16 06:59 14:59 22:59 Intake Total 1020.8 805.7 Output Total 200 350 Balance 820.8 455.7 Weight 193 lb 3.2 oz Intake: Intake, IV Amount 920.8 805.7 Left Antecubital 400 350 Right Femoral 40.8 35.7 Right Femoral- EKOS 200 175 Rt Femoral 280 245 Oral 100 Output: Urine 200 350 Urine, Voided 200 350 - Physical Exam Head: Positive for: Atraumatic, Normocephalic Pupils: Positive for: PERRL Extroacular Muscles: Positive for: EOMI Conjunctiva: Positive for: Normal Ears: Positive for: Other (postauricular tenderness to palpation ) Mouth: Positive for: Moist Mucous Membranes Nose (Internal): Positive for: Normal Inspection Neck: Positive for: Normal Range of Motion Respiratory/Chest: Positive for: Clear to Auscultation. Negative for: Respiratory Distress, Wheezes, Rhonchi Cardiovascular: Positive for: Normal S1, S2 Abdomen: Positive for: Tenderness (RLQ abdominal tenderness to deep palpation ) , Normal Bowel Sounds. Negative for: Distention Upper Extremity: Positive for: Normal Inspection Lower Extremity: Positive for: Normal Inspection Skin: Positive for: Warm, Normal Color Psychiatric: Positive for: Alert, Oriented x 3, Normal Insight, Normal Concentration Other physical findings (Free Text): EKOS catheter for thrombolysis to right inguinal region - Medications Active Medications: Active Medications Generic Name Dose Route Start Last Admin Trade Name Freq PRN Reason Stop Dose Admin Sodium Chloride 1,000 mls @ 35 mls/hr 10/15/16 19:30 Sodium Chloride 0.9% IV .Q24H RAVEN Heparin Sodium (Porcine) 1,000 1,001 mls @ 5 mls/hr 10/15/16 20:06 units/ Sodium Chloride IV 10/24/16 04:17 ONCE ONE Sodium Chloride 1,000 mls @ 50 mls/hr 10/15/16 20:43 10/15/16 20:56 Sodium Chloride 0.9% IV 50 mls/hr .Q20H RAVEN Administration Ondansetron HCl 4 mg 10/15/16 19:11 10/16/16 08:06 Zofran Inj IVP 4 mg Q6 PRN Administration Nausea/Vomiting - Patient Studies Lab Studies: Lab Studies 10/16/16 10/15/16 Range/Units 06:08 22:17 WBC 5.6 (4.8-10.8) K/uL RBC 3.71 L (3.80-5.20) Mil/uL Hgb 10.4 L D (11.0-16.0) g/dL Hct 31.5 L (34.0-47.0) % MCV 85.1 (81.0-99.0) fL MCH 28.2 (27.0-31.0) pg MCHC 33.1 (33.0-37.0) g/dL RDW 13.4 (11.5-14.5) % Plt Count 213 (130-400) K/uL MPV 8.4 (7.2-11.7) fL Neut % (Auto) 72.2 (50.0-75.0) % Lymph % (Auto) 19.2 L (20.0-40.0) % Marin % (Auto) 8.1 (0.0-10.0) % Eos % (Auto) 0.2 (0.0-4.0) % Baso % (Auto) 0.3 (0.0-2.0) % Neut # 4.0 (1.8-7.0) K/uL Lymph # 1.1 (1.0-4.3) K/uL Marin # 0.5 (0.0-0.8) K/uL Eos # 0.0 (0.0-0.7) K/uL Baso # 0.0 (0.0-0.2) K/uL Sodium 138 (132-148) mmol/L Potassium 3.0 L (3.6-5.2) mmol/L Chloride 104 (98-107) mmol/L Carbon Dioxide 22 (22-30) mmol/L Anion Gap 15 (10-20) BUN 6 L (7-17) mg/dL Creatinine 0.5 L (0.7-1.2) MG/DL Est GFR ( Amer) > 60 Est GFR (Non-Af Amer) > 60 Random Glucose 97 (65-105) mg/dL Calcium 7.9 L (8.6-10.4) mg/dl Phosphorus 2.7 (2.5-4.5) mg/dL Magnesium 1.7 (1.6-2.3) mg/dL Total Bilirubin 1.0 (0.2-1.3) mg/dL AST 105 H D (14-36) U/L ALT 95 H (9-52) U/L Alkaline Phosphatase 73 (38-126) U/L Total Creatine Kinase 144 H 164 H (30-135) U/L CK-MB (Mass) 7.14 H 6.55 H (0.0-3.38) ng/mL Troponin I, Quant 1.1700 H* 1.7500 H* (0.00-0.120) ng/mL Total Protein 5.4 L (6.3-8.3) g/dL Albumin 3.0 L D (3.5-5.0) g/dL Globulin 2.5 (2.2-3.9) gm/dL Albumin/Globulin Ratio 1.2 (1.0-2.1) Laboratory Results - last 24 hr 10/15/16 10/16/16 22:17 06:08 WBC 5.6 RBC 3.71 L Hgb 10.4 L D Hct 31.5 L MCV 85.1 MCH 28.2 MCHC 33.1 RDW 13.4 Plt Count 213 MPV 8.4 Neut % (Auto) 72.2 Lymph % (Auto) 19.2 L Marin % (Auto) 8.1 Eos % (Auto) 0.2 Baso % (Auto) 0.3 Neut # 4.0 Lymph # 1.1 Marin # 0.5 Eos # 0.0 Baso # 0.0 Sodium 138 Potassium 3.0 L Chloride 104 Carbon Dioxide 22 Anion Gap 15 BUN 6 L Creatinine 0.5 L Est GFR ( Amer) > 60 Est GFR (Non-Af Amer) > 60 Random Glucose 97 Calcium 7.9 L Phosphorus 2.7 Magnesium 1.7 Total Bilirubin 1.0 AST 105 H D ALT 95 H Alkaline Phosphatase 73 Total Creatine Kinase 164 H 144 H CK-MB (Mass) 6.55 H 7.14 H Troponin I, Quant 1.7500 H* 1.1700 H* Total Protein 5.4 L Albumin 3.0 L D Globulin 2.5 Albumin/Globulin Ratio 1.2 Review of Systems - Constitutional Constitutional: absent: Fever, Chills - EENT Eyes: absent: Change in Vision Ears: Other (post-auricular tenderness ) - Cardiovascular Cardiovascular: absent: Chest Pain - Respiratory Respiratory: absent: Dyspnea, Wheezing - Gastrointestinal Gastrointestinal: Constipation, Nausea, Vomiting. absent: Abdominal Pain - Genitourinary Genitourinary: absent: Difficulty Urinating - Reproductive: Female Reproductive:Female: Amenorrhea Additional comments: 9 weeks, 4 days - Integumentary Integumentary: absent: New Lesions, Rash - Neurological Neurological: absent: Dizziness Critical Care Progress Note - Extremities/Vascular Does the Patient have a Central Venous Catheter?: Yes (EKOS catheter right inguinal region ) - Prophylaxis DVT Prophylaxis DVT: Heparin SQ, Not Indicated (Heparin drip ) - Nutrition Nutrition: Nutrition Category Date Time Status Liquid Diet [DIET] Diets 10/15/16 Dinner Active Assessment/Plan - Assessment and Plan (Free Text) Assessment: Pt is a 30 F, 9 weeks 4 days , with bilateral pulmonary embolism s/p EKOS catheter placement by IR for thrombolysis Plan: Neuro: Awake, alert, and oriented x3 Monitor Cardiac: Elevated troponins - trending down 1.8 1.75 1.117 f/u ECHO Pulmonary: Bilateral PE confirmed via CT angiogram Heparin drip Continue catheter directed thrombolysis, s/p removal of EKOS catheter start Lovenox, which will be continued throughout term of F/U Venous dopplers b/l LE Nephro: BUN/CR:6/6.5 K+ 3.0, Mg+ 1.7, replete : Monitor UOP GI: Nausea - Zofran Lactulose - Category B Prophylaxis Heparin drip Zofran - Date & Time Date: 10/16/16 Time: 15:43 <Gordy Mena S - Last Filed: 10/16/16 16:36> CCU Objective - Vital Signs / Intake & Output Vital Signs (Last 4 hours): Vital Signs Temp Pulse Resp BP Pulse Ox 10/16/16 16:13 103 H 24 114/78 97 10/16/16 16:00 98.3 F 101 H 28 H 96 10/16/16 15:57 114 H 28 H 112/77 85 L 10/16/16 15:49 102 H 20 112/77 97 10/16/16 15:47 98 H 21 98 10/16/16 15:44 105 H 23 110/74 96 10/16/16 15:35 106 H 21 120/75 95 10/16/16 15:34 111 H 19 113/74 95 10/16/16 15:33 111 H 16 95 10/16/16 14:00 117 H 37 H 97 10/16/16 13:58 119 H 23 91 L 10/16/16 13:00 103 H 22 93 L 10/16/16 12:59 104 H 31 H 103/77 94 L 10/16/16 12:46 100 H 16 99 10/16/16 12:40 111 H 27 H 127/77 93 L Intake and Output (Last 8hrs): Intake & Output 10/16/16 10/16/16 10/16/16 06:59 14:59 22:59 Intake Total 1020.8 805.7 50 Output Total 200 350 Balance 820.8 455.7 50 Weight 193 lb 3.2 oz Intake: Intake, IV Amount 920.8 805.7 50 Left Antecubital 400 350 50 Right Femoral 40.8 35.7 Right Femoral- EKOS 200 175 Rt Femoral 280 245 Oral 100 Output: Urine 200 350 Urine, Voided 200 350 - Medications Active Medications: Active Medications Generic Name Dose Route Start Last Admin Trade Name Freq PRN Reason Stop Dose Admin Sodium Chloride 1,000 mls @ 35 mls/hr 10/15/16 19:30 Sodium Chloride 0.9% IV .Q24H [facility]EN Heparin Sodium (Porcine) 1,000 1,001 mls @ 5 mls/hr 10/15/16 20:06 units/ Sodium Chloride IV 10/24/16 04:17 ONCE ONE Sodium Chloride 1,000 mls @ 50 mls/hr 10/15/16 20:43 10/15/16 20:56 Sodium Chloride 0.9% IV 50 mls/hr .Q20H [facility]EN Administration Heparin Sodium/Sodium Chloride 250 mls @ 10.516 mls/hr 10/16/16 16:27 Heparin 68683 Units/250ml 1/2 Normal Saline IV .[id number] PRN PROTOCOL Protocol 12 UNITS/KG/HR Ondansetron HCl 4 mg 10/15/16 19:11 10/16/16 15:38 Zofran Inj IVP 4 mg Q6 PRN Administration Nausea/Vomiting - Patient Studies Lab Studies: Lab Studies 10/16/16 10/15/16 Range/Units 06:08 22:17 WBC 5.6 (4.8-10.8) K/uL RBC 3.71 L (3.80-5.20) Mil/uL Hgb 10.4 L D (11.0-16.0) g/dL Hct 31.5 L (34.0-47.0) % MCV 85.1 (81.0-99.0) fL MCH 28.2 (27.0-31.0) pg MCHC 33.1 (33.0-37.0) g/dL RDW 13.4 (11.5-14.5) % Plt Count 213 (130-400) K/uL MPV 8.4 (7.2-11.7) fL Neut % (Auto) 72.2 (50.0-75.0) % Lymph % (Auto) 19.2 L (20.0-40.0) % Marin % (Auto) 8.1 (0.0-10.0) % Eos % (Auto) 0.2 (0.0-4.0) % Baso % (Auto) 0.3 (0.0-2.0) % Neut # 4.0 (1.8-7.0) K/uL Lymph # 1.1 (1.0-4.3) K/uL Marin # 0.5 (0.0-0.8) K/uL Eos # 0.0 (0.0-0.7) K/uL Baso # 0.0 (0.0-0.2) K/uL Sodium 138 (132-148) mmol/L Potassium 3.0 L (3.6-5.2) mmol/L Chloride 104 (98-107) mmol/L Carbon Dioxide 22 (22-30) mmol/L Anion Gap 15 (10-20) BUN 6 L (7-17) mg/dL Creatinine 0.5 L (0.7-1.2) MG/DL Est GFR ( Amer) > 60 Est GFR (Non-Af Amer) > 60 Random Glucose 97 (65-105) mg/dL Calcium 7.9 L (8.6-10.4) mg/dl Phosphorus 2.7 (2.5-4.5) mg/dL Magnesium 1.7 (1.6-2.3) mg/dL Total Bilirubin 1.0 (0.2-1.3) mg/dL AST 105 H D (14-36) U/L ALT 95 H (9-52) U/L Alkaline Phosphatase 73 (38-126) U/L Total Creatine Kinase 144 H 164 H (30-135) U/L CK-MB (Mass) 7.14 H 6.55 H (0.0-3.38) ng/mL Troponin I, Quant 1.1700 H* 1.7500 H* (0.00-0.120) ng/mL Total Protein 5.4 L (6.3-8.3) g/dL Albumin 3.0 L D (3.5-5.0) g/dL Globulin 2.5 (2.2-3.9) gm/dL Albumin/Globulin Ratio 1.2 (1.0-2.1) Laboratory Results - last 24 hr 10/15/16 10/16/16 22:17 06:08 WBC 5.6 RBC 3.71 L Hgb 10.4 L D Hct 31.5 L MCV 85.1 MCH 28.2 MCHC 33.1 RDW 13.4 Plt Count 213 MPV 8.4 Neut % (Auto) 72.2 Lymph % (Auto) 19.2 L Marin % (Auto) 8.1 Eos % (Auto) 0.2 Baso % (Auto) 0.3 Neut # 4.0 Lymph # 1.1 Marin # 0.5 Eos # 0.0 Baso # 0.0 Sodium 138 Potassium 3.0 L Chloride 104 Carbon Dioxide 22 Anion Gap 15 BUN 6 L Creatinine 0.5 L Est GFR ( Amer) > 60 Est GFR (Non-Af Amer) > 60 Random Glucose 97 Calcium 7.9 L Phosphorus 2.7 Magnesium 1.7 Total Bilirubin 1.0 AST 105 H D ALT 95 H Alkaline Phosphatase 73 Total Creatine Kinase 164 H 144 H CK-MB (Mass) 6.55 H 7.14 H Troponin I, Quant 1.7500 H* 1.1700 H* Total Protein 5.4 L Albumin 3.0 L D Globulin 2.5 Albumin/Globulin Ratio 1.2 Critical Care Progress Note - Nutrition Nutrition: Nutrition Category Date Time Status Liquid Diet [DIET] Diets 10/15/16 Dinner Active Attending/Attestation - Attestation I have personally seen and examined this patient.: Yes I have fully participated in the care of the patient.: Yes I have reviewed all pertinent clinical information: Yes Notes (Text): 10/16/16 16:35 Patient seen and examined in the intensive care unit. Case discussed with house staff in the morning rounds Previous events noted. status post catheter directed thrombolysis for submassive PE Echo consistent with right-sided dilatation Continue heparin and follow-up normogram
--- NOTE | 2016-10-16 15:32 | PCM.SURG1 ---
Surgeon's Initial Post Op Note - Surgeon's Notes Surgeon: Richard Thompson MD Jewelry Salesperson: None Type of Anesthesia: Local Pre-Operative Diagnosis: Pulmonary embolism Operative Findings: Follow up pulmonary artery angiogram showed moderate persistent right pulmonary artery embolism. There is improved flow to the upper and mid lung. There is great perfusion to the left lung. Catheter macerate was attempted to break up the clot. Given increased risk of bleed, further catheter directed thrombolysis was not performed. Post-Operative Diagnosis: Pulmonary embolism Operation Performed: Pulmonary artery angiogram. Specimen/Specimens Removed: none Estimated Blood Loss: EBL {In ML}: 2 Blood Products Given: N/A Drains Used: No Drains Post-Op Condition: Poor Date of Surgery/Procedure: 10/16/16 Time of Surgery/Procedure: 15:25
[2016-10-16] MEDS ORDERED: Heparin25000 units/250ml 1/2NS 250 ML IV PRN (16:27)
[2016-10-16 17:51] LABS: POTASSIUM 3.7 mmol/L (3.6-5.2)
[2016-10-16 17:54] LABS: MAGNESIUM 1.6 mg/dL (1.6-2.3)
[2016-10-16] MEDS: Sodium Chloride 0.9% 1,000 ML IV SCH (18:08)
[2016-10-17 00:04] LABS: INR 1.3
[2016-10-17 06:25] LABS: CHLORIDE 103 mmol/L (98-107); SODIUM 135 mmol/L (132-148)
[2016-10-17 06:26] LABS: POTASSIUM 3.2 mmol/L (3.6-5.2)
[2016-10-17 06:27] LABS: GFR AFRICAN-AMERICAN > 60
[2016-10-17 06:28] LABS: ALKALINE PHOSPHATASE 70 U/L (38-126); ALT/SGPT 99 U/L (9-52); AST/SGOT 89 U/L (14-36); BILIRUBIN,TOTAL 0.6 mg/dL (0.2-1.3); BLOOD UREA NITROGEN 4 mg/dL (7-17); CARBON DIOXIDE 22 mmol/L (22-30); GLUCOSE,RANDOM 85 mg/dL (65-105); TOTAL PROTEIN 5.5 g/dL (6.3-8.3)
[2016-10-17 06:29] LABS: MAGNESIUM 1.9 mg/dL (1.6-2.3); PHOSPHOROUS 2.5 mg/dL (2.5-4.5)
[2016-10-17 06:32] LABS: INR 1.2
[2016-10-17 07:06] LABS: BASO % 0.4 % (0.0-2.0); EOS % 0.7 % (0.0-4.0); HEMATOCRIT 28.9 % (34.0-47.0); LYMPH # 0.9 K/uL (1.0-4.3); LYMPH % 18.3 % (20.0-40.0); MEAN CORPUSCULAR HEMOGLOBIN 28.6 pg (27.0-31.0); MEAN CORPUSCULAR HGB CONC 33.7 g/dL (33.0-37.0); MEAN PLATELET VOLUME 8.4 fL (7.2-11.7); MONO # 0.3 K/uL (0.0-0.8); MONO % 6.9 % (0.0-10.0); NRBC % 0.3 % (0.0-2.0); RED CELL DISTRIBUTION WIDTH 13.2 % (11.5-14.5)
[2016-10-17] MEDS ORDERED: Potassium Chloride 20 mEq ER Tab PO ONE (08:00)
[2016-10-17] MEDS: Enoxaparin 80 mg Syringe SC SCH ×2 (11:43→22:27)
--- NOTE | 2016-10-17 13:26 | CP.PCM.PN ---
Subjective - Date & Time of Evaluation Date of Evaluation: 10/17/16 Time of Evaluation: 13:30 - Subjective Subjective: Patient was seen and examined at bedside in ICU Still complains of for pain in the chest upon breathing However clinically improving Objective - Vital Signs/Intake and Output Vital Signs (last 24 hours): Temp Pulse Resp BP Pulse Ox 97.8 F 100 H 22 117/70 99 10/17/16 08:00 10/17/16 13:00 10/17/16 13:00 10/17/16 12:50 10/17/16 13:00 Intake and Output: 10/17/16 10/17/16 06:59 18:59 Intake Total 1475.8 402.5 Output Total 200 150 Balance 1275.8 252.5 - Medications Medications: Current Medications Enoxaparin Sodium (Lovenox) 80 mg SC Q12 [facility] Last Admin: 10/17/16 11:43 Dose: 80 mg Sodium Chloride (Sodium Chloride 0.9%) 1,000 mls @ 50 mls/hr IV .Q20H [facility] Last Admin: 10/16/16 18:08 Dose: 50 mls/hr Ondansetron HCl (Zofran Inj) 4 mg IVP Q6 [facility] Stop: 10/19/16 00:01 Last Admin: 10/17/16 11:40 Dose: 4 mg Pantoprazole Sodium (Protonix Ec Tab) 40 mg PO DAILY RAVEN - Labs Labs: 10/17/16 06:02 10/17/16 06:02 PT 13.9 SECONDS (9.7-12.2) H 10/17/16 06:00 INR 1.2 10/17/16 06:00 APTT 53 SECONDS (21-34) H D 10/17/16 06:00 - Head Exam Head Exam: ATRAUMATIC, NORMOCEPHALIC - Eye Exam Eye Exam: Normal appearance - ENT Exam ENT Exam: Mucous Membranes Moist - Respiratory Exam Respiratory Exam: Clear to Ausculation Bilateral - Cardiovascular Exam Cardiovascular Exam: Tachycardia, REGULAR RHYTHM, +S1, +S2 - GI/Abdominal Exam GI & Abdominal Exam: Soft. 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
--- NOTE | 2016-10-17 14:26 | CP.CCUPN ---
<ZachCandice smith - Last Filed: 10/17/16 14:20> CCU Subjective - Physician Review Subjective (Free Text): 10/17/16 14:20 Pt examined at bedside. Pt states her condition has stayed the same since last night. She denies vomiting, chest pain, palpitations, headache, dizziness, abdominal pain and vaginal bleeding. Pt is nauseous and has shortness of breath on exertion. Pt had small BM but still feels constipated. Pt continues to have pre-auricular pain that is unchanged since the ED. Critical Care Time Spent (in minutes): 31 CCU Objective - Vital Signs / Intake & Output Vital Signs (Last 4 hours): Vital Signs Pulse Resp BP Pulse Ox 10/17/16 13:00 100 H 22 99 10/17/16 12:50 107 H 24 117/70 97 10/17/16 12:35 102 H 19 116/80 96 10/17/16 12:20 100 H 16 122/80 100 10/17/16 12:09 95 H 23 95 10/17/16 12:08 100 H 22 96 10/17/16 12:05 103 H 21 121/76 98 10/17/16 12:00 100 H 25 H 98 10/17/16 11:49 113 H 21 119/83 88 L 10/17/16 11:35 100 H 20 111/81 94 L 10/17/16 11:20 99 H 17 111/74 95 10/17/16 11:11 99 H 19 91 L 10/17/16 11:05 103 H 31 H 116/75 97 10/17/16 11:00 102 H 21 92 L 10/17/16 10:49 109 H 21 118/81 96 10/17/16 10:34 97 H 23 111/74 96 Intake and Output (Last 8hrs): Intake & Output 10/16/16 10/17/16 10/17/16 22:59 06:59 14:59 Intake Total 662.6 984.0 402.5 Output Total 200 150 Balance 662.6 784.0 252.5 Weight 193 lb Intake: Intake, IV Amount 462.6 484.0 402.5 Left Antecubital 400 400 350 Right Forearm 62.6 84.0 52.5 Oral 200 500 Output: Urine 200 150 Urine, Voided 200 150 Other: # Bowel Movements 1 - Physical Exam Head: Positive for: Atraumatic, Normocephalic Pupils: Positive for: PERRL Extroacular Muscles: Positive for: EOMI Conjunctiva: Positive for: Normal Ears: Positive for: Other (postauricular tenderness to palpation ) Mouth: Positive for: Moist Mucous Membranes Nose (Internal): Positive for: Normal Inspection Neck: Positive for: Normal Range of Motion Respiratory/Chest: Positive for: Clear to Auscultation. Negative for: Respiratory Distress, Wheezes, Rhonchi Cardiovascular: Positive for: Normal S1, S2 Abdomen: Positive for: Tenderness (RLQ abdominal tenderness to deep palpation ) , Normal Bowel Sounds. Negative for: Distention Upper Extremity: Positive for: Normal Inspection Lower Extremity: Positive for: Normal Inspection Skin: Positive for: Warm, Normal Color Psychiatric: Positive for: Alert, Oriented x 3, Normal Insight, Normal Concentration - Medications Active Medications: Active Medications Generic Name Dose Route Start Last Admin Trade Name Freq PRN Reason Stop Dose Admin Enoxaparin Sodium 80 mg 10/17/16 11:30 10/17/16 11:43 Lovenox SC 80 mg Q12 RAVEN Administration Sodium Chloride 1,000 mls @ 50 mls/hr 10/15/16 20:43 10/16/16 18:08 Sodium Chloride 0.9% IV 50 mls/hr .Q20H RAVEN Administration Ondansetron HCl 4 mg 10/17/16 00:00 10/17/16 11:40 Zofran Inj IVP 10/19/16 00:01 4 mg Q6 RAVEN Administration Pantoprazole Sodium 40 mg 10/18/16 10:00 Protonix Ec Tab PO DAILY RAVEN - Patient Studies Lab Studies: Microbiology Studies 10/15/16 18:26 MRSA Culture (Admit) - Final Naris MRSA NOT DETECTED Lab Studies 10/17/16 10/17/16 10/16/16 Range/Units 06:02 06:00 23:58 WBC 5.0 (4.8-10.8) K/uL RBC 3.40 L (3.80-5.20) Mil/uL Hgb 9.7 L (11.0-16.0) g/dL Hct 28.9 L (34.0-47.0) % MCV 85.0 (81.0-99.0) fL MCH 28.6 (27.0-31.0) pg MCHC 33.7 (33.0-37.0) g/dL RDW 13.2 (11.5-14.5) % Plt Count 183 (130-400) K/uL MPV 8.4 (7.2-11.7) fL Neut % (Auto) 73.7 (50.0-75.0) % Lymph % (Auto) 18.3 L (20.0-40.0) % Sargent % (Auto) 6.9 (0.0-10.0) % Eos % (Auto) 0.7 (0.0-4.0) % Baso % (Auto) 0.4 (0.0-2.0) % Neut # 3.7 (1.8-7.0) K/uL Lymph # 0.9 L (1.0-4.3) K/uL Sargent # 0.3 (0.0-0.8) K/uL Eos # 0.0 (0.0-0.7) K/uL Baso # 0.0 (0.0-0.2) K/uL PT 13.9 H 14.3 H (9.7-12.2) SECONDS INR 1.2 1.3 APTT 53 H D 64 H D (21-34) SECONDS Sodium 135 (132-148) mmol/L Potassium 3.2 L (3.6-5.2) mmol/L Chloride 103 (98-107) mmol/L Carbon Dioxide 22 (22-30) mmol/L Anion Gap 13 (10-20) BUN 4 L (7-17) mg/dL Creatinine 0.5 L (0.7-1.2) MG/DL Est GFR ( Amer) > 60 Est GFR (Non-Af Amer) > 60 Random Glucose 85 (65-105) mg/dL Calcium 8.0 L (8.6-10.4) mg/dl Phosphorus 2.5 (2.5-4.5) mg/dL Magnesium 1.9 (1.6-2.3) mg/dL Total Bilirubin 0.6 (0.2-1.3) mg/dL AST 89 H (14-36) U/L ALT 99 H (9-52) U/L Alkaline Phosphatase 70 (38-126) U/L Total Protein 5.5 L (6.3-8.3) g/dL Albumin 2.8 L (3.5-5.0) g/dL Globulin 2.7 (2.2-3.9) gm/dL Albumin/Globulin Ratio 1.0 (1.0-2.1) 10/16/16 Range/Units 17:39 WBC (4.8-10.8) K/uL RBC (3.80-5.20) Mil/uL Hgb (11.0-16.0) g/dL Hct (34.0-47.0) % MCV (81.0-99.0) fL MCH (27.0-31.0) pg MCHC (33.0-37.0) g/dL RDW (11.5-14.5) % Plt Count (130-400) K/uL MPV (7.2-11.7) fL Neut % (Auto) (50.0-75.0) % Lymph % (Auto) (20.0-40.0) % Sargent % (Auto) (0.0-10.0) % Eos % (Auto) (0.0-4.0) % Baso % (Auto) (0.0-2.0) % Neut # (1.8-7.0) K/uL Lymph # (1.0-4.3) K/uL Sargent # (0.0-0.8) K/uL Eos # (0.0-0.7) K/uL Baso # (0.0-0.2) K/uL PT (9.7-12.2) SECONDS INR APTT (21-34) SECONDS Sodium (132-148) mmol/L Potassium 3.7 (3.6-5.2) mmol/L Chloride (98-107) mmol/L Carbon Dioxide (22-30) mmol/L Anion Gap (10-20) BUN (7-17) mg/dL Creatinine (0.7-1.2) MG/DL Est GFR ( Amer) Est GFR (Non-Af Amer) Random Glucose (65-105) mg/dL Calcium (8.6-10.4) mg/dl Phosphorus (2.5-4.5) mg/dL Magnesium 1.6 (1.6-2.3) mg/dL Total Bilirubin (0.2-1.3) mg/dL AST (14-36) U/L ALT (9-52) U/L Alkaline Phosphatase (38-126) U/L Total Protein (6.3-8.3) g/dL Albumin (3.5-5.0) g/dL Globulin (2.2-3.9) gm/dL Albumin/Globulin Ratio (1.0-2.1) Laboratory Results - last 24 hr 10/16/16 10/16/16 10/17/16 17:39 23:58 06:00 WBC RBC Hgb Hct MCV MCH MCHC RDW Plt Count MPV Neut % (Auto) Lymph % (Auto) Sargent % (Auto) Eos % (Auto) Baso % (Auto) Neut # Lymph # Sargent # Eos # Baso # PT 14.3 H 13.9 H INR 1.3 1.2 APTT 64 H D 53 H D Sodium Potassium 3.7 Chloride Carbon Dioxide Anion Gap BUN Creatinine Est GFR ( Amer) Est GFR (Non-Af Amer) Random Glucose Calcium Phosphorus Magnesium 1.6 Total Bilirubin AST ALT Alkaline Phosphatase Total Protein Albumin Globulin Albumin/Globulin Ratio 10/17/16 06:02 WBC 5.0 RBC 3.40 L Hgb 9.7 L Hct 28.9 L MCV 85.0 MCH 28.6 MCHC 33.7 RDW 13.2 Plt Count 183 MPV 8.4 Neut % (Auto) 73.7 Lymph % (Auto) 18.3 L Sargent % (Auto) 6.9 Eos % (Auto) 0.7 Baso % (Auto) 0.4 Neut # 3.7 Lymph # 0.9 L Sargent # 0.3 Eos # 0.0 Baso # 0.0 PT INR APTT Sodium 135 Potassium 3.2 L Chloride 103 Carbon Dioxide 22 Anion Gap 13 BUN 4 L Creatinine 0.5 L Est GFR ( Amer) > 60 Est GFR (Non-Af Amer) > 60 Random Glucose 85 Calcium 8.0 L Phosphorus 2.5 Magnesium 1.9 Total Bilirubin 0.6 AST 89 H ALT 99 H Alkaline Phosphatase 70 Total Protein 5.5 L Albumin 2.8 L Globulin 2.7 Albumin/Globulin Ratio 1.0 Critical Care Progress Note - Extremities/Vascular Does the Patient have a Garcia Catheter?: No Does the Patient need a Garcia Catheter?: No - Prophylaxis GI Prophylaxis GI: PPI - Prophylaxis DVT Prophylaxis DVT: Lovenox - Nutrition Nutrition: Nutrition Category Date Time Status Liquid Diet [DIET] Diets 10/15/16 Dinner Active Assessment/Plan - Assessment and Plan (Free Text) Assessment: Pt is a 30 F, 9 weeks 5 days, with bilateral pulmonary embolism with heparin drip. Plan: Neuro Alert Awake Conversational CVS: normal heart rate f/u ECHO Pulmonary: d/c heparin drip Start Therapeutic Lovenox f/u Venous dopplers b/l LE : Monitor Output GI: Liquid Diet Lactulose for constipation Protonix for GERD Zofran - nausea Nephro: BUN/CR: 4/0.5 K+3.2, Mg+ 1.9 - replete Prophylaxis: Lovenox Zofran - Date & Time Date: 10/17/16 Time: 14:36 <Gordy Mena - Last Filed: 10/17/16 17:36> CCU Objective - Vital Signs / Intake & Output Vital Signs (Last 4 hours): Vital Signs Pulse Resp BP Pulse Ox 10/17/16 16:17 107 H 28 H 99 10/17/16 16:00 100 H 22 93 L 10/17/16 15:50 103 H 18 108/71 95 10/17/16 15:35 101 H 19 113/68 94 L 10/17/16 15:22 102 H 20 113/75 93 L 10/17/16 15:13 100 H 17 95 10/17/16 15:00 97 H 17 95 10/17/16 14:25 99 H 22 93 L 10/17/16 14:00 99 H 21 95 Intake and Output (Last 8hrs): Intake & Output 10/17/16 10/17/16 10/17/16 06:59 14:59 22:59 Intake Total 984.0 452.5 100 Output Total 200 150 Balance 784.0 302.5 100 Weight 193 lb Intake: Intake, IV Amount 484.0 452.5 100 Left Antecubital 400 400 100 Right Forearm 84.0 52.5 Oral 500 Output: Urine 200 150 Urine, Voided 200 150 Other: # Bowel Movements 1 - Medications Active Medications: Active Medications Generic Name Dose Route Start Last Admin Trade Name Freq PRN Reason Stop Dose Admin Enoxaparin Sodium 80 mg 02/15/17 11:30 10/17/16 11:43 Lovenox SC 80 mg Q12 RAVEN Administration Sodium Chloride 1,000 mls @ 50 mls/hr 10/15/16 20:43 10/17/16 15:09 Sodium Chloride 0.9% IV 50 mls/hr .Q20H RAVEN Administration Ondansetron HCl 4 mg 10/17/16 00:00 10/17/16 11:40 Zofran Inj IVP 10/19/16 00:01 4 mg Q6 RAVEN Administration Pantoprazole Sodium 40 mg 10/18/16 10:00 Protonix Ec Tab PO DAILY RAVEN Pantoprazole Sodium 40 mg 10/17/16 14:45 10/17/16 15:07 Protonix Ec Tab PO 40 mg DAILY RAVEN Administration - Patient Studies Lab Studies: Microbiology Studies 10/15/16 18:26 MRSA Culture (Admit) - Final Naris MRSA NOT DETECTED Lab Studies 10/17/16 10/17/16 10/16/16 Range/Units 06:02 06:00 23:58 WBC 5.0 (4.8-10.8) K/uL RBC 3.40 L (3.80-5.20) Mil/uL Hgb 9.7 L (11.0-16.0) g/dL Hct 28.9 L (34.0-47.0) % MCV 85.0 (81.0-99.0) fL MCH 28.6 (27.0-31.0) pg MCHC 33.7 (33.0-37.0) g/dL RDW 13.2 (11.5-14.5) % Plt Count 183 (130-400) K/uL MPV 8.4 (7.2-11.7) fL Neut % (Auto) 73.7 (50.0-75.0) % Lymph % (Auto) 18.3 L (20.0-40.0) % Sargent % (Auto) 6.9 (0.0-10.0) % Eos % (Auto) 0.7 (0.0-4.0) % Baso % (Auto) 0.4 (0.0-2.0) % Neut # 3.7 (1.8-7.0) K/uL Lymph # 0.9 L (1.0-4.3) K/uL Sargent # 0.3 (0.0-0.8) K/uL Eos # 0.0 (0.0-0.7) K/uL Baso # 0.0 (0.0-0.2) K/uL PT 13.9 H 14.3 H (9.7-12.2) SECONDS INR 1.2 1.3 APTT 53 H D 64 H D (21-34) SECONDS Sodium 135 (132-148) mmol/L Potassium 3.2 L (3.6-5.2) mmol/L Chloride 103 (98-107) mmol/L Carbon Dioxide 22 (22-30) mmol/L Anion Gap 13 (10-20) BUN 4 L (7-17) mg/dL Creatinine 0.5 L (0.7-1.2) MG/DL Est GFR ( Amer) > 60 Est GFR (Non-Af Amer) > 60 Random Glucose 85 (65-105) mg/dL Calcium 8.0 L (8.6-10.4) mg/dl Phosphorus 2.5 (2.5-4.5) mg/dL Magnesium 1.9 (1.6-2.3) mg/dL Total Bilirubin 0.6 (0.2-1.3) mg/dL AST 89 H (14-36) U/L ALT 99 H (9-52) U/L Alkaline Phosphatase 70 (38-126) U/L Total Protein 5.5 L (6.3-8.3) g/dL Albumin 2.8 L (3.5-5.0) g/dL Globulin 2.7 (2.2-3.9) gm/dL Albumin/Globulin Ratio 1.0 (1.0-2.1) 10/16/16 Range/Units 17:39 WBC (4.8-10.8) K/uL RBC (3.80-5.20) Mil/uL Hgb (11.0-16.0) g/dL Hct (34.0-47.0) % MCV (81.0-99.0) fL MCH (27.0-31.0) pg MCHC (33.0-37.0) g/dL RDW (11.5-14.5) % Plt Count (130-400) K/uL MPV (7.2-11.7) fL Neut % (Auto) (50.0-75.0) % Lymph % (Auto) (20.0-40.0) % Sargent % (Auto) (0.0-10.0) % Eos % (Auto) (0.0-4.0) % Baso % (Auto) (0.0-2.0) % Neut # (1.8-7.0) K/uL Lymph # (1.0-4.3) K/uL Sargent # (0.0-0.8) K/uL Eos # (0.0-0.7) K/uL Baso # (0.0-0.2) K/uL PT (9.7-12.2) SECONDS INR APTT (21-34) SECONDS Sodium (132-148) mmol/L Potassium 3.7 (3.6-5.2) mmol/L Chloride (98-107) mmol/L Carbon Dioxide (22-30) mmol/L Anion Gap (10-20) BUN (7-17) mg/dL Creatinine (0.7-1.2) MG/DL Est GFR ( Amer) Est GFR (Non-Af Amer) Random Glucose (65-105) mg/dL Calcium (8.6-10.4) mg/dl Phosphorus (2.5-4.5) mg/dL Magnesium 1.6 (1.6-2.3) mg/dL Total Bilirubin (0.2-1.3) mg/dL AST (14-36) U/L ALT (9-52) U/L Alkaline Phosphatase (38-126) U/L Total Protein (6.3-8.3) g/dL Albumin (3.5-5.0) g/dL Globulin (2.2-3.9) gm/dL Albumin/Globulin Ratio (1.0-2.1) Laboratory Results - last 24 hr 10/16/16 10/16/16 10/17/16 17:39 23:58 06:00 WBC RBC Hgb Hct MCV MCH MCHC RDW Plt Count MPV Neut % (Auto) Lymph % (Auto) Sargent % (Auto) Eos % (Auto) Baso % (Auto) Neut # Lymph # Sargent # Eos # Baso # PT 14.3 H 13.9 H INR 1.3 1.2 APTT 64 H D 53 H D Sodium Potassium 3.7 Chloride Carbon Dioxide Anion Gap BUN Creatinine Est GFR ( Amer) Est GFR (Non-Af Amer) Random Glucose Calcium Phosphorus Magnesium 1.6 Total Bilirubin AST ALT Alkaline Phosphatase Total Protein Albumin Globulin Albumin/Globulin Ratio 10/17/16 06:02 WBC 5.0 RBC 3.40 L Hgb 9.7 L Hct 28.9 L MCV 85.0 MCH 28.6 MCHC 33.7 RDW 13.2 Plt Count 183 MPV 8.4 Neut % (Auto) 73.7 Lymph % (Auto) 18.3 L Sargent % (Auto) 6.9 Eos % (Auto) 0.7 Baso % (Auto) 0.4 Neut # 3.7 Lymph # 0.9 L Sargent # 0.3 Eos # 0.0 Baso # 0.0 PT INR APTT Sodium 135 Potassium 3.2 L Chloride 103 Carbon Dioxide 22 Anion Gap 13 BUN 4 L Creatinine 0.5 L Est GFR ( Amer) > 60 Est GFR (Non-Af Amer) > 60 Random Glucose 85 Calcium 8.0 L Phosphorus 2.5 Magnesium 1.9 Total Bilirubin 0.6 AST 89 H ALT 99 H Alkaline Phosphatase 70 Total Protein 5.5 L Albumin 2.8 L Globulin 2.7 Albumin/Globulin Ratio 1.0 Critical Care Progress Note - Nutrition Nutrition: Nutrition Category Date Time Status Liquid Diet [DIET] Diets 10/15/16 Dinner Active Attending/Attestation - Attestation I have personally seen and examined this patient.: Yes I have fully participated in the care of the patient.: Yes I have reviewed all pertinent clinical information: Yes Notes (Text): 10/17/16 17:36 Patient seen and examined in the intensive care unit. Case discussed with house staff in the morning rounds. Status post catheter directed thrombolysis Condition much improved Denies shortness of breath, denies fever chills, denies chest pain. Started on Lovenox Echocardiogram noted Continue present treatment
--- NOTE | 2016-10-17 14:30 | CARD ---
APPROVED REPORT EXAM: Two-dimensional and M-mode echocardiogram with Doppler and color Doppler. Other Information Quality : GoodRhythm : INDICATION CVA/TIA Dyspnea Pulmonary Embolism Surgery/Intervention : 9WEEKS RISK FACTORS Hypertension Hyperlipidemia M-Mode DIMENSIONS Left Atrium (MM)3.23 (2.5-4.0cm)IVSd0.73 (0.7-1.1cm) Aortic Root2.71 (2.2-3.7cm)LVDd3.19 (4.0-5.6cm) Aortic Cusp Exc.2.19 (1.5-2.0cm)PWd1.18 (0.7-1.1cm) FS (%) 17 %LVDs2.64 (2.0-3.8cm) LVEF (%)37 (>50%) Mitral Valve MV E Qrryslug43.5cm/sMV A Yptxaado89.4cm/sE/A ratio0.8 TDI E/Lateral E'0.0E/Medial E'0.0 Tricuspid Valve TR Peak [id number] Peak [id number] LEFT VENTRICLE The left ventricle is normal size. There is normal left ventricular wall thickness. The left ventricular function is normal. The left ventricular ejection fraction is within the normal range. No regional wall motion abnormalities noted. Transmitral Doppler flow pattern is Grade I-abnormal relaxation pattern. No left ventricle thrombus noted on this study. There is no ventricular septal defect visualized. There is no left ventricular aneurysm. There is no mass noted in the left ventricle. RIGHT VENTRICLE The right ventricle is moderately dilated. There is normal right ventricular wall thickness. .Systolic function is moderately reduced.TAPSE IS REDUCED Right Ventricular septal motion is consistent with pressure overload. BASE IS HYPOKINETIC AND APEX APPEARS NORMAL, Tse SIGN, SUGGEST PULM. EMBOLI ATRIA The left atrium size is normal. The right atrium is moderately dilated. The interatrial septum is intact with no evidence for an atrial septal defect. AORTIC VALVE The aortic valve is normal in structure and function. No aortic regurgitation is present. There is no aortic valvular stenosis. There is no aortic valvular vegetation. MITRAL VALVE The mitral valve is normal in structure and function. There is no evidence of mitral valve prolapse. There is no mitral valve stenosis. There is no mitral valve regurgitation noted. TRICUSPID VALVE The tricuspid valve is normal in structure and function. There is moderate tricuspid regurgitation. Right ventricular systolic pressure is estimated at greater than 60 mmHg. There is no tricuspid valve prolapse or vegetation. There is no tricuspid valve stenosis. PULMONIC VALVE The pulmonary valve is normal in structure and function. There is no pulmonic valvular regurgitation. There is no pulmonic valvular stenosis. GREAT VESSELS The aortic root is normal in size. The ascending aorta is normal in size. The pulmonary artery is normal. The IVC is normal in size and collapses >50% with inspiration. PERICARDIAL EFFUSION The pericardium appears normal. There is no pleural effusion. <Conclusion> The left ventricular function is normal. The left ventricular ejection fraction is within the normal range. No regional wall motion abnormalities noted. .Systolic function is moderately reduced.TAPSE IS REDUCED Right Ventricular septal motion is consistent with pressure overload. BASE IS HYPOKINETIC AND APEX APPEARS NORMAL, Tse SIGN, SUGGEST PULM. EMBOLI The right atrium is moderately dilated. There is moderate tricuspid regurgitation. Right ventricular systolic pressure is estimated at greater than 60 mmHg. ASD was not demonstrated in the present study.( ) due to CVA and Pulm. emboli , ASD should be ruled out with SOMMER
[2016-10-17] MEDS: Pantoprazole 40 mg EC Tab PO SCH (15:07)
[2016-10-17] MEDS: Sodium Chloride 0.9% 1,000 ML IV SCH (15:09)
--- NOTE | 2016-10-17 17:03 | VASCLAB ---
PROCEDURE: Lower Extremity Venous Duplex Exam. HISTORY: PE PRIORS: None. TECHNIQUE: Bilateral common femoral, femoral, popliteal and posterior tibial, peroneal and great saphenous veins were evaluated. Flow was assessed with color Doppler, compressibility, assessment of phasic flow and augmentation response. Report prepared by James Jean, LÓPEZ, RVT FINDINGS: RIGHT: 1. Common Femoral Vein: 1.1. Compressibility - Fully compressible: Thrombus - None : Flow - Phasic: Augmentation -Normal: Reflux - None. 2. Femoral Vein: 2.1. Compressibility - Fully compressible: Thrombus - None : Flow - Phasic: Augmentation -Normal: Reflux - None. 3. Popliteal Vein: 3.1. Compressibility - Fully compressible: Thrombus - None : Flow - Phasic: Augmentation -Normal: Reflux - None. 4. Posterior Tibial Vein: 4.1. Compressibility - Fully compressible: Thrombus - None: Flow - Phasic: Augmentation -Normal: Reflux - None. 5. Peroneal Vein: 5.1. Compressibility - Fully compressible: Thrombus - None: Flow - Phasic: Augmentation -Normal: Reflux - None. 6. Great Saphenous Vein: 6.1. Compressibility - Fully compressible: Thrombus - None: Flow - Phasic: Augmentation - Normal: Reflux - None. LEFT: 1. Common Femoral Vein: 1.1. Compressibility - Fully compressible: Thrombus - None: Flow - Phasic: Augmentation -Normal: Reflux - None. 2. Femoral Vein: 2.1. Compressibility - Fully compressible: Thrombus - None: Flow - Phasic: Augmentation -Normal: Reflux - None. 3. Popliteal Vein: 3.1. Compressibility - Fully compressible: Thrombus - None : Flow - Phasic: Augmentation -Normal: Reflux - None. 4. Posterior Tibial Vein: 4.1. Compressibility - Fully compressible: Thrombus - None: Flow - Phasic: Augmentation -Normal: Reflux - None. 5. Peroneal Vein: 5.1. Compressibility - Fully compressible: Thrombus - None: Flow - Phasic: Augmentation -Normal: Reflux - None. 6. Great Saphenous Vein: 6.1. Compressibility - Fully compressible: Thrombus - None: Flow - Phasic: Augmentation - Normal: Reflux - None. OTHER FINDINGS: Right: None significant. Left: None significant. IMPRESSION: Right: No evidence of deep or superficial vein thrombosis of the right lower extremity. Normal valve function noted of the right side. Left: No evidence of deep or superficial vein thrombosis of the left lower extremity. Normal valve function noted of the left side.
--- NOTE | 2016-10-18 05:30 | CP.CCUPN ---
<Candice Jordan - Last Filed: 10/18/16 15:36> CCU Subjective - Physician Review Events Since Last Encounter (Free Text): 10/18/16 08:11 Pt seen and examined at bedside. She continues to complain of chest pain exacerbated with deep inspiration. She is anxious regarding her medical state. Pt denies vaginal bleeding. She did not have a BM yesterday. Subjective (Free Text): 10/17/16 14:20 Pt examined at bedside. Pt states her condition has stayed the same since last night. She denies vomiting, chest pain, palpitations, headache, dizziness, abdominal pain and vaginal bleeding. Pt is nauseous and has shortness of breath on exertion. Pt had small BM but still feels constipated. Pt continues to have pre-auricular pain that is unchanged since the ED. 10/18/16 15:36 Pt S&E at bedside. Pt states she continues to have chest pain radiating to her back with movement and deep inspiration. She also complains of right upper abdominal pain. Pt admits to nausea with liquid diet. Denies BM. Critical Care Time Spent (in minutes): 31 CCU Objective - Vital Signs / Intake & Output Vital Signs (Last 4 hours): Vital Signs Pulse Resp BP Pulse Ox 10/18/16 03:07 81 14 116/84 100 10/18/16 02:07 80 20 115/81 100 Intake and Output (Last 8hrs): Intake & Output 10/17/16 10/17/16 10/18/16 14:59 22:59 06:59 Intake Total 452.5 550 375 Output Total 150 750 100 Balance 302.5 -200 275 Intake: Intake, IV Amount 452.5 400 250 Left Antecubital 400 250 Right Forearm 52.5 150 250 Oral 150 125 Output: Urine 150 750 Urine, Voided 150 750 Emesis 100 Other: # Bowel Movements 1 0 0 - Physical Exam Head: Positive for: Atraumatic, Normocephalic Pupils: Positive for: PERRL Extroacular Muscles: Positive for: EOMI Conjunctiva: Positive for: Normal Ears: Positive for: Other (postauricular tenderness to palpation ) Mouth: Positive for: Moist Mucous Membranes Nose (Internal): Positive for: Normal Inspection Neck: Positive for: Normal Range of Motion Respiratory/Chest: Positive for: Clear to Auscultation. Negative for: Respiratory Distress, Accessory Muscle Use, Wheezes, Rhonchi, Tachypneic Cardiovascular: Positive for: Normal S1, S2. Negative for: Tachycardic Abdomen: Positive for: Tenderness (RLQ abdominal tenderness to deep palpation ) , Normal Bowel Sounds, Other (RUQ abdominal pain ). Negative for: Distention Genitourinary/Pelvic Exam: Positive for: Other (right dressing to catheter site c/d/i) Upper Extremity: Positive for: Normal Inspection Lower Extremity: Positive for: Normal Inspection. Negative for: Edema Skin: Positive for: Warm, Normal Color Psychiatric: Positive for: Alert, Oriented x 3, Normal Insight, Normal Concentration - Medications Active Medications: Active Medications Generic Name Dose Route Start Last Admin Trade Name Freq PRN Reason Stop Dose Admin Enoxaparin Sodium 80 mg 10/17/16 11:30 10/17/16 22:27 Lovenox SC 80 mg Q12 [facility] Administration Sodium Chloride 1,000 mls @ 50 mls/hr 10/15/16 20:43 10/17/16 15:09 Sodium Chloride 0.9% IV 50 mls/hr .Q20H [facility] Administration Ondansetron HCl 4 mg 10/17/16 00:00 10/17/16 23:52 Zofran Inj IVP 10/19/16 00:01 4 mg Q6 [facility] Administration Pantoprazole Sodium 40 mg 10/18/16 10:00 Protonix Ec Tab PO DAILY [facility] Pantoprazole Sodium 40 mg 10/17/16 14:45 10/17/16 15:07 Protonix Ec Tab PO 40 mg DAILY [facility] Administration - Patient Studies Lab Studies: Lab Studies 10/17/16 10/17/16 Range/Units 06:02 06:00 WBC 5.0 (4.8-10.8) K/uL RBC 3.40 L (3.80-5.20) Mil/uL Hgb 9.7 L (11.0-16.0) g/dL Hct 28.9 L (34.0-47.0) % MCV 85.0 (81.0-99.0) fL MCH 28.6 (27.0-31.0) pg MCHC 33.7 (33.0-37.0) g/dL RDW 13.2 (11.5-14.5) % Plt Count 183 (130-400) K/uL MPV 8.4 (7.2-11.7) fL Neut % (Auto) 73.7 (50.0-75.0) % Lymph % (Auto) 18.3 L (20.0-40.0) % [place] % (Auto) 6.9 (0.0-10.0) % Eos % (Auto) 0.7 (0.0-4.0) % Baso % (Auto) 0.4 (0.0-2.0) % Neut # 3.7 (1.8-7.0) K/uL Lymph # 0.9 L (1.0-4.3) K/uL [place] # 0.3 (0.0-0.8) K/uL Eos # 0.0 (0.0-0.7) K/uL Baso # 0.0 (0.0-0.2) K/uL PT 13.9 H (9.7-12.2) SECONDS INR 1.2 APTT 53 H D (21-34) SECONDS Sodium 135 (132-148) mmol/L Potassium 3.2 L (3.6-5.2) mmol/L Chloride 103 (98-107) mmol/L Carbon Dioxide 22 (22-30) mmol/L Anion Gap 13 (10-20) BUN 4 L (7-17) mg/dL Creatinine 0.5 L (0.7-1.2) MG/DL Est GFR ( Amer) > 60 Est GFR (Non-Af Amer) > 60 Random Glucose 85 (65-105) mg/dL Calcium 8.0 L (8.6-10.4) mg/dl Phosphorus 2.5 (2.5-4.5) mg/dL Magnesium 1.9 (1.6-2.3) mg/dL Total Bilirubin 0.6 (0.2-1.3) mg/dL AST 89 H (14-36) U/L ALT 99 H (9-52) U/L Alkaline Phosphatase 70 (38-126) U/L Total Protein 5.5 L (6.3-8.3) g/dL Albumin 2.8 L (3.5-5.0) g/dL Globulin 2.7 (2.2-3.9) gm/dL Albumin/Globulin Ratio 1.0 (1.0-2.1) Laboratory Results - last 24 hr 10/17/16 10/17/16 06:00 06:02 WBC 5.0 RBC 3.40 L Hgb 9.7 L Hct 28.9 L MCV 85.0 MCH 28.6 MCHC 33.7 RDW 13.2 Plt Count 183 MPV 8.4 Neut % (Auto) 73.7 Lymph % (Auto) 18.3 L [place] % (Auto) 6.9 Eos % (Auto) 0.7 Baso % (Auto) 0.4 Neut # 3.7 Lymph # 0.9 L [place] # 0.3 Eos # 0.0 Baso # 0.0 PT 13.9 H INR 1.2 APTT 53 H D Sodium 135 Potassium 3.2 L Chloride 103 Carbon Dioxide 22 Anion Gap 13 BUN 4 L Creatinine 0.5 L Est GFR ( Amer) > 60 Est GFR (Non-Af Amer) > 60 Random Glucose 85 Calcium 8.0 L Phosphorus 2.5 Magnesium 1.9 Total Bilirubin 0.6 AST 89 H ALT 99 H Alkaline Phosphatase 70 Total Protein 5.5 L Albumin 2.8 L Globulin 2.7 Albumin/Globulin Ratio 1.0 Review of Systems - Review of Systems Review of Systems: ROS: + CP with deep inspiration, constipation - Constitutional Constitutional: absent: Fever, Chills - EENT Eyes: absent: Change in Vision Ears: Other. absent: Ear Pain - Cardiovascular Cardiovascular: Chest Pain with Activity. absent: Dyspnea, Leg Edema - Gastrointestinal Gastrointestinal: Constipation. absent: Abdominal Pain - Genitourinary Genitourinary: absent: Difficulty Urinating - Reproductive: Female Reproductive:Female: absent: Abnormal Vaginal Bleeding - Neurological Neurological: absent: Dizziness, Headaches - Psychiatric Psychiatric: Anxiety Critical Care Progress Note - Extremities/Vascular Does the Patient have a Garcia Catheter?: No Does the Patient need a Garcia Catheter?: No - Prophylaxis GI Prophylaxis GI: PPI - Prophylaxis DVT Prophylaxis DVT: Lovenox - Nutrition Nutrition: Nutrition Category Date Time Status Liquid Diet [DIET] Diets 10/15/16 Dinner Active Assessment/Plan - Assessment and Plan (Free Text) Assessment: Pt is a 30 F, 9 weeks 6 days, with bilateral pulmonary embolism s/p EKOS catheter directed thrombolysis currently on therapeutic Lovenox Plan: Neuro Alert Awake Conversational but anxious CVS: normal heart rate f/u ECHO Pulmonary: Therapeutic Lovenox Venous dopplers b/l LE - negative OB US: Clot to R internal iliac vein Heme: Hgb/Hemat: 8.4/25.0 PT/PTT: 15.2/37 Monitor Endo: Sugar WNL GI: Liquid Diet -- c/o nausea Lactulose for constipation Protonix for GERD Zofran - nausea : Monitor Output OBGYN: No vaginal bleeding High Risk OBGYN, Dr. Flores, consulted Recommends hypercoagable work up and follow-up in high risk ob clinic Agrees with Lovenox 100 mg SC BID on discharge OB US: Single intrauterine gestation with normal cardiac activity whose US age is approximately 9 weeks 6 days. Msk/Integumentary: Monitor for skin break down Nephro: BUN/CR: 3/0.5 K+2.9, Mg+ 1.5 - replete Monitor Prophylaxis: Lovenox 90 mg SC BID Zofran - Date & Time Date: 10/18/16 Time: 08:22 <Byron Alamo - Last Filed: 10/18/16 18:03> CCU Objective - Vital Signs / Intake & Output Vital Signs (Last 4 hours): Vital Signs Temp Pulse Resp BP Pulse Ox 10/18/16 17:00 94 H 22 108/44 L 98 10/18/16 16:00 98.3 F 104 H 24 117/72 95 10/18/16 15:00 109 H 24 121/78 96 Intake and Output (Last 8hrs): Intake & Output 10/18/16 10/18/16 10/18/16 06:59 14:59 22:59 Intake Total 625 1160 270 Output Total 350 450 0 Balance 275 710 270 Weight 204 lb 8 oz Intake: Intake, IV Amount 400 500 150 Right Forearm 400 500 150 Oral 225 660 120 Output: Urine 250 450 0 Urine, Voided 250 450 0 Emesis 100 Other: # Bowel Movements 0 - Medications Active Medications: Active Medications Generic Name Dose Route Start Last Admin Trade Name Freq PRN Reason Stop Dose Admin Acetaminophen 650 mg 10/18/16 16:59 10/18/16 17:19 Tylenol 325mg Tab PO 650 mg Q6 PRN Administration Pain, moderate (4-7) Enoxaparin Sodium 90 mg 10/18/16 22:00 Lovenox SC Q12H [facility] Sodium Chloride 1,000 mls @ 50 mls/hr 10/15/16 20:43 10/18/16 09:26 Sodium Chloride 0.9% IV 50 mls/hr .Q20H [facility] Administration Ondansetron HCl 4 mg 10/17/16 00:00 10/18/16 17:15 Zofran Inj IVP 10/19/16 00:01 4 mg Q6 [facility] Administration Pantoprazole Sodium 40 mg 10/18/16 10:00 10/18/16 09:20 Protonix Ec Tab PO 40 mg DAILY [facility] Administration Pantoprazole Sodium 40 mg 10/17/16 14:45 10/18/16 09:22 Protonix Ec Tab PO Not Given DAILY [facility] - Patient Studies Lab Studies: Lab Studies 10/18/16 Range/Units 06:24 WBC 3.3 L (4.8-10.8) K/uL RBC 2.97 L (3.80-5.20) Mil/uL Hgb 8.4 L (11.0-16.0) g/dL Hct 25.0 L (34.0-47.0) % MCV 84.2 (81.0-99.0) fL MCH 28.3 (27.0-31.0) pg MCHC 33.6 (33.0-37.0) g/dL RDW 13.2 (11.5-14.5) % Plt Count 178 (130-400) K/uL MPV 8.4 (7.2-11.7) fL Neut % (Auto) 70.1 (50.0-75.0) % Lymph % (Auto) 20.5 (20.0-40.0) % [place] % (Auto) 7.7 (0.0-10.0) % Eos % (Auto) 1.4 (0.0-4.0) % Baso % (Auto) 0.3 (0.0-2.0) % Neut # 2.3 (1.8-7.0) K/uL Lymph # 0.7 L (1.0-4.3) K/uL [place] # 0.3 (0.0-0.8) K/uL Eos # 0.0 (0.0-0.7) K/uL Baso # 0.0 (0.0-0.2) K/uL PT 15.2 H (9.7-12.2) SECONDS INR 1.4 APTT 37 H D (21-34) SECONDS Sodium 137 (132-148) mmol/L Potassium 2.9 L (3.6-5.2) mmol/L Chloride 106 (98-107) mmol/L Carbon Dioxide 25 (22-30) mmol/L Anion Gap 9 L (10-20) BUN 3 L (7-17) mg/dL Creatinine 0.5 L (0.7-1.2) MG/DL Est GFR ( Amer) > 60 Est GFR (Non-Af Amer) > 60 Random Glucose 80 (65-105) mg/dL Calcium 7.4 L (8.6-10.4) mg/dl Phosphorus 2.2 L (2.5-4.5) mg/dL Magnesium 1.5 L (1.6-2.3) mg/dL Total Bilirubin 0.6 (0.2-1.3) mg/dL AST 63 H D (14-36) U/L ALT 92 H (9-52) U/L Alkaline Phosphatase 63 (38-126) U/L Total Protein 4.5 L (6.3-8.3) g/dL Albumin 2.4 L (3.5-5.0) g/dL Globulin 2.0 L (2.2-3.9) gm/dL Albumin/Globulin Ratio 1.2 (1.0-2.1) Laboratory Results - last 24 hr 10/18/16 06:24 WBC 3.3 L RBC 2.97 L Hgb 8.4 L Hct 25.0 L MCV 84.2 MCH 28.3 MCHC 33.6 RDW 13.2 Plt Count 178 MPV 8.4 Neut % (Auto) 70.1 Lymph % (Auto) 20.5 [place] % (Auto) 7.7 Eos % (Auto) 1.4 Baso % (Auto) 0.3 Neut # 2.3 Lymph # 0.7 L [place] # 0.3 Eos # 0.0 Baso # 0.0 PT 15.2 H INR 1.4 APTT 37 H D Sodium 137 Potassium 2.9 L Chloride 106 Carbon Dioxide 25 Anion Gap 9 L BUN 3 L Creatinine 0.5 L Est GFR ( Amer) > 60 Est GFR (Non-Af Amer) > 60 Random Glucose 80 Calcium 7.4 L Phosphorus 2.2 L Magnesium 1.5 L Total Bilirubin 0.6 AST 63 H D ALT 92 H Alkaline Phosphatase 63 Total Protein 4.5 L Albumin 2.4 L Globulin 2.0 L Albumin/Globulin Ratio 1.2 Critical Care Progress Note - Nutrition Nutrition: Nutrition Category Date Time Status Liquid Diet [DIET] Diets 10/15/16 Dinner Active Attending/Attestation - Attestation I have personally seen and examined this patient.: Yes I have fully participated in the care of the patient.: Yes I have reviewed all pertinent clinical information: Yes Notes (Text): 10/18/16 18:03 Today: October Patient seen and examined, Medical records reviewed Pain issues, skin care, head of the bed elevation, GI/DVT prophylaxis, glycemic control were addressed, And management discussed and formulated. Continue current medications, reviewed Agree with above treatment plans as transcribed in Dr. Hwang note
[2016-10-18 06:35] LABS: BASO % 0.3 % (0.0-2.0); EOS % 1.4 % (0.0-4.0); LYMPH # 0.7 K/uL (1.0-4.3); LYMPH % 20.5 % (20.0-40.0); MEAN CELL VOLUME 84.2 fL (81.0-99.0); MEAN CORPUSCULAR HEMOGLOBIN 28.3 pg (27.0-31.0); MEAN CORPUSCULAR HGB CONC 33.6 g/dL (33.0-37.0); MEAN PLATELET VOLUME 8.4 fL (7.2-11.7); MONO # 0.3 K/uL (0.0-0.8); MONO % 7.7 % (0.0-10.0); NRBC % 0.2 % (0.0-2.0); RED CELL DISTRIBUTION WIDTH 13.2 % (11.5-14.5); WHITE BLOOD COUNT 3.3 K/uL (4.8-10.8)
[2016-10-18 06:49] LABS: CHLORIDE 106 mmol/L (98-107); POTASSIUM 2.9 mmol/L (3.6-5.2); SODIUM 137 mmol/L (132-148)
[2016-10-18 06:51] LABS: BILIRUBIN,TOTAL 0.6 mg/dL (0.2-1.3); CARBON DIOXIDE 25 mmol/L (22-30); GFR AFRICAN-AMERICAN > 60
[2016-10-18 06:52] LABS: ALB/GLOB RATIO 1.2 (1.0-2.1); ALKALINE PHOSPHATASE 63 U/L (38-126); ALT/SGPT 92 U/L (9-52); AST/SGOT 63 U/L (14-36); BLOOD UREA NITROGEN 3 mg/dL (7-17); CALCIUM 7.4 mg/dl (8.6-10.4); GLUCOSE,RANDOM 80 mg/dL (65-105); PHOSPHOROUS 2.2 mg/dL (2.5-4.5); TOTAL PROTEIN 4.5 g/dL (6.3-8.3)
[2016-10-18 06:53] LABS: MAGNESIUM 1.5 mg/dL (1.6-2.3)
[2016-10-18 06:55] LABS: INR 1.4
[2016-10-18] MEDS ORDERED: Potassium Chloride 20 mEq ER Tab PO STA (07:26)
[2016-10-18] MEDS: Enoxaparin 80 mg Syringe SC SCH (09:20)
[2016-10-18] MEDS: Pantoprazole 40 mg EC Tab PO SCH ×2 (09:20→09:22)
[2016-10-18] MEDS: Sodium Chloride 0.9% 1,000 ML IV SCH (09:26)
--- NOTE | 2016-10-18 12:38 | CP.PCM.PN ---
Subjective - Date & Time of Evaluation Date of Evaluation: 10/18/16 Time of Evaluation: 11:00 - Subjective Subjective: Patient was seen and examined at bedside in ICU She is complaining of pain in the chest which is radiating to back She appears anxious Objective - Vital Signs/Intake and Output Vital Signs (last 24 hours): Temp Pulse Resp BP Pulse Ox 98.5 F 101 H 24 114/82 94 L 10/18/16 08:00 10/18/16 11:00 10/18/16 11:00 10/18/16 11:00 10/18/16 11:00 Intake and Output: 10/18/16 10/18/16 06:59 18:59 Intake Total 975 830 Output Total 600 200 Balance 375 630 - Medications Medications: Current Medications Enoxaparin Sodium (Lovenox) 80 mg SC Q12 [facility] Last Admin: 10/18/16 09:20 Dose: 80 mg Sodium Chloride (Sodium Chloride 0.9%) 1,000 mls @ 50 mls/hr IV .Q20H [facility] Last Admin: 10/18/16 09:26 Dose: 50 mls/hr Ondansetron HCl (Zofran Inj) 4 mg IVP Q6 [facility] Stop: 10/19/16 00:01 Last Admin: 10/18/16 11:49 Dose: 4 mg Pantoprazole Sodium (Protonix Ec Tab) 40 mg PO DAILY [facility] Last Admin: 10/18/16 09:20 Dose: 40 mg Pantoprazole Sodium (Protonix Ec Tab) 40 mg PO DAILY [facility] Last Admin: 10/18/16 09:22 Dose: Not Given - Labs Labs: 10/18/16 06:24 10/18/16 06:24 PT 15.2 SECONDS (9.7-12.2) H 10/18/16 06:24 INR 1.4 10/18/16 06:24 APTT 37 SECONDS (21-34) H D 10/18/16 06:24 - Head Exam Head Exam: ATRAUMATIC, NORMOCEPHALIC - Eye Exam Eye Exam: Normal appearance - ENT Exam ENT Exam: Mucous Membranes Moist - Respiratory Exam Respiratory Exam: Clear to Ausculation Bilateral - Cardiovascular Exam Cardiovascular Exam: REGULAR RHYTHM, +S1, +S2 - GI/Abdominal Exam GI & Abdominal Exam: Soft. absent: Tenderness - Neurological Exam Neurological Exam: Alert, Awake, Oriented x3 - Psychiatric Exam Psychiatric exam: Anxious Assessment and Plan (1) Pulmonary embolism affecting Assessment & Plan: Status post-catheter directed thrombolysis. Now patient is on therapeutic Lovenox Status: Acute (2) Assessment & Plan: We will request to high risk consultation with Dr. Flores Status: Acute - Assessment and Plan (Free Text) Plan: Discussed the plan of care with the ICU resident
--- NOTE | 2016-10-18 15:18 | US ---
PROCEDURE: OB Pelvic Ultrasound HISTORY: evaluate fetus COMPARISON: None available. FINDINGS: UTERUS: Gestational sac: Single intrauterine gestation. Heart rate: 165 bpm. age (Ultrasound estimated): 9 weeks 6 days June-gestational hemorrhage: None. Date of delivery (Ultrasound estimated) : 05/17/2017 Uterus measures 13.6 by 8.4 x 8.6 cm. No uterine masses noted CERVIX: Long and closed. No cervical abnormality seen. RIGHT OVARY: Measures 4.8 x 3.3 x 4.6 cm. Normal flow. 3.7 x 3.3 x 3.8 cm right ovarian cyst likely a corpus luteal cyst is a trace amount of free fluid around it LEFT OVARY: Not visualized FREE FLUID: Minimal free fluid around the right ovary. No additional free fluid seen OTHER FINDINGS: There is clot seen in the right internal iliac vein. IMPRESSION: Single intrauterine gestation with normal cardiac activity whose ultrasound age is approximately 9 weeks 6 days. Patient's age by LMP is 8 weeks 2 days. Right ovarian cyst as above Clot seen in the right internal iliac vein as noted above. Patient is noted to have acute pulmonary emboli noted on her 10/15/[address] exam. These findings in the right internal iliac vein were called in to the ICU and given directly to Dr. Jordan on 10/18/2016 at 3:13 p.m.
[2016-10-18] MEDS: Enoxaparin 100 mg Syringe SC SCH (22:23)
[2016-10-19] MEDS: Sodium Chloride 0.9% 1,000 ML IV SCH ×2 (05:53→15:05)
[2016-10-19 06:42] LABS: CHLORIDE 107 mmol/L (98-107); SODIUM 137 mmol/L (132-148)
[2016-10-19 06:43] LABS: BASO % 0.9 % (0.0-2.0); EOS # 0.1 K/uL (0.0-0.7); EOS % 1.4 % (0.0-4.0); HEMATOCRIT 25.6 % (34.0-47.0); LYMPH # 0.7 K/uL (1.0-4.3); MEAN CELL VOLUME 84.9 fL (81.0-99.0); MEAN CORPUSCULAR HEMOGLOBIN 29.2 pg (27.0-31.0); MEAN CORPUSCULAR HGB CONC 34.3 g/dL (33.0-37.0); MEAN PLATELET VOLUME 8.5 fL (7.2-11.7); MONO # 0.3 K/uL (0.0-0.8); MONO % 6.6 % (0.0-10.0); NRBC % 0.2 % (0.0-2.0); POTASSIUM 2.9 mmol/L (3.6-5.2); RED CELL DISTRIBUTION WIDTH 13.2 % (11.5-14.5); WHITE BLOOD COUNT 3.8 K/uL (4.8-10.8)
[2016-10-19 06:44] LABS: GFR AFRICAN-AMERICAN > 60
[2016-10-19 06:45] LABS: ALKALINE PHOSPHATASE 61 U/L (38-126); ALT/SGPT 82 U/L (9-52); AST/SGOT 43 U/L (14-36); BILIRUBIN,TOTAL 0.5 mg/dL (0.2-1.3); CALCIUM 7.1 mg/dl (8.6-10.4); CARBON DIOXIDE 22 mmol/L (22-30); GLUCOSE,RANDOM 77 mg/dL (65-105); PHOSPHOROUS 2.5 mg/dL (2.5-4.5); TOTAL PROTEIN 4.8 g/dL (6.3-8.3)
[2016-10-19 06:46] LABS: MAGNESIUM 1.4 mg/dL (1.6-2.3)
[2016-10-19 06:51] LABS: ALB/GLOB RATIO 0.9 (1.0-2.1); BLOOD UREA NITROGEN 2 mg/dL (7-17)
[2016-10-19 06:56] LABS: INR 1.4
[2016-10-19] MEDS ORDERED: Potassium Chloride 20 mEq ER Tab PO STA (07:20)
[2016-10-19] MEDS: Potassium Chloride 20 mEq ER Tab PO SCH ×2 (08:00→13:00)
[2016-10-19] MEDS: Pantoprazole 40 mg EC Tab PO SCH (09:50)
[2016-10-19] MEDS: Enoxaparin 100 mg Syringe SC SCH ×2 (09:55→21:31)
--- NOTE | 2016-10-19 15:58 | CP.PCM.PN ---
Subjective - Date & Time of Evaluation Date of Evaluation: 10/19/16 Time of Evaluation: 16:00 - Subjective Subjective: Patient was seen and examined at bedside in ICU Patient still becomes short of breath on minimal exertion Objective - Vital Signs/Intake and Output Vital Signs (last 24 hours): Temp Pulse Resp BP Pulse Ox 97.4 F L 86 21 121/88 98 10/19/16 08:00 10/19/16 11:00 10/19/16 11:00 10/19/16 11:00 10/19/16 11:00 Intake and Output: 10/19/16 10/19/16 06:59 18:59 Intake Total 700 400 Output Total 850 Balance -150 400 - Medications Medications: Current Medications Enoxaparin Sodium (Lovenox) 90 mg SC [facility]12[facility] Last Admin: 10/19/16 09:55 Dose: 90 mg Sodium Chloride (Sodium Chloride 0.9%) 1,000 mls @ 50 mls/hr IV .Q20H [facility] Last Admin: 10/19/16 05:53 Dose: Not Given Folic Acid 1 mg/ Thiamine HCl 100 mg/ Multivitamins/Vitamin C 10 ml/ Dextrose 1 ,011.2 mls @ 50 mls/hr IV .[id number] [facility] Ondansetron HCl (Zofran Inj) 4 mg IVP Q6 PRN PRN Reason: Nausea/Vomiting Pantoprazole Sodium (Protonix Inj) 40 mg IVP DAILY [facility] - Labs Labs: 10/19/16 06:27 10/19/16 06:27 PT 15.6 SECONDS (9.7-12.2) H 10/19/16 06:27 INR 1.4 10/19/16 06:27 APTT 35 SECONDS (21-34) H 10/19/16 06:27 - Head Exam Head Exam: ATRAUMATIC, NORMOCEPHALIC - Eye Exam Eye Exam: Normal appearance, PERRL - ENT Exam ENT Exam: Mucous Membranes Moist - Respiratory Exam Respiratory Exam: Clear to Ausculation Bilateral - Cardiovascular Exam Cardiovascular Exam: REGULAR RHYTHM, +S1, +S2 - GI/Abdominal Exam GI & Abdominal Exam: Soft. 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
[2016-10-19] MEDS ORDERED: Folic Acid 1 MG, Thiamine 100 MG, Multivitamin (MVI) 10 ML in Dextrose 5% In Water 1,00... IV SCH (16:00)
--- NOTE | 2016-10-19 17:06 | CP.CCUPN ---
CCU Subjective - Physician Review Events Since Last Encounter (Free Text): 10/19/16 16:59 Patient seen and examined in am, anxious, symptomatic, sen she transfers to the chair she gets tachycardia 140 mmhg and desaturatest ot 95% on ra, gets sob. 10 ros asked and negative except for above and nausea with vomiting pe; bp 122/88 mmhg, hr 89 bpm, rr 17 bpm, O2 93% on 2 L NC, afebrile. alert awake, oriented X3 s1, s2 rrr lungs good bilateral air of entry abdomen soft, non tender no edema skin no openings a/p: PE: still cloth burden presnet, for now continue only full anticoagulation with lovenox, avoid transfer to the chair for now nad reevaluate daily. Explain to patient and the management that she has received. Vomit and nausea due to , previous pregnancies have been the same, continue liquid diet and can introduce foods that she likes as tolerated. add MVT to iv fluids and ofirvem X1 given head ache. CCU Objective - Vital Signs / Intake & Output Vital Signs (Last 4 hours): Vital Signs Temp Pulse Resp BP Pulse Ox 10/19/16 16:00 97.3 F L 81 19 124/90 98 10/19/16 15:00 88 21 99 10/19/16 14:00 76 20 98 10/19/16 13:00 91 H 20 123/85 98 Intake and Output (Last 8hrs): Intake & Output 10/19/16 10/19/16 10/19/16 06:59 14:59 22:59 Intake Total 500 820 110 Output Total 450 975 Balance 50 -155 110 Weight 202 lb 3.2 oz Intake: Intake, IV Amount 400 700 50 Right Forearm 400 700 50 Oral 100 120 60 Output: Urine 450 875 Urine, Voided 450 875 Emesis 100 - Physical Exam Head: Positive for: Atraumatic, Normocephalic Pupils: Positive for: PERRL Extroacular Muscles: Positive for: EOMI Conjunctiva: Positive for: Normal Ears: Positive for: Other (postauricular tenderness to palpation ) Mouth: Positive for: Moist Mucous Membranes Nose (Internal): Positive for: Normal Inspection Neck: Positive for: Normal Range of Motion Respiratory/Chest: Positive for: Clear to Auscultation. Negative for: Respiratory Distress, Accessory Muscle Use, Wheezes, Rhonchi, Tachypneic Cardiovascular: Positive for: Normal S1, S2. Negative for: Tachycardic Abdomen: Positive for: Tenderness (RLQ abdominal tenderness to deep palpation ) , Normal Bowel Sounds, Other (RUQ abdominal pain ). Negative for: Distention Genitourinary/Pelvic Exam: Positive for: Other (right dressing to catheter site c/d/i) Upper Extremity: Positive for: Normal Inspection Lower Extremity: Positive for: Normal Inspection. Negative for: Edema Skin: Positive for: Warm, Normal Color Psychiatric: Positive for: Alert, Oriented x 3, Normal Insight, Normal Concentration - Medications Active Medications: Active Medications Generic Name Dose Route Start Last Admin Trade Name Freq PRN Reason Stop Dose Admin Enoxaparin Sodium 90 mg 10/18/16 22:00 10/19/16 09:55 Lovenox SC 90 mg Q12H [facility] Administration Sodium Chloride 1,000 mls @ 50 mls/hr 10/15/16 20:43 10/19/16 05:53 Sodium Chloride 0.9% IV Not Given .Q20H [facility] Folic Acid 1 mg/ Thiamine HCl 1,011.2 mls @ 50 mls/hr 10/19/16 16:00 100 mg/ Multivitamins/Vitamin IV C 10 ml/ Dextrose .[id number] [facility] Ondansetron HCl 4 mg 10/19/16 14:07 Zofran Inj IVP Q6 PRN Nausea/Vomiting Pantoprazole Sodium 40 mg 10/20/16 10:00 Protonix Inj IVP DAILY [facility] - Patient Studies Lab Studies: Lab Studies 10/19/16 10/18/16 Range/Units 06:27 15:32 WBC 3.8 L (4.8-10.8) K/uL RBC 3.01 L (3.80-5.20) Mil/uL Hgb 8.8 L (11.0-16.0) g/dL Hct 25.6 L (34.0-47.0) % MCV 84.9 (81.0-99.0) fL MCH 29.2 (27.0-31.0) pg MCHC 34.3 (33.0-37.0) g/dL RDW 13.2 (11.5-14.5) % Plt Count 202 (130-400) K/uL MPV 8.5 (7.2-11.7) fL Neut % (Auto) 73.1 (50.0-75.0) % Lymph % (Auto) 18.0 L (20.0-40.0) % [place] % (Auto) 6.6 (0.0-10.0) % Eos % (Auto) 1.4 (0.0-4.0) % Baso % (Auto) 0.9 (0.0-2.0) % Neut # 2.8 (1.8-7.0) K/uL Lymph # 0.7 L (1.0-4.3) K/uL [place] # 0.3 (0.0-0.8) K/uL Eos # 0.1 (0.0-0.7) K/uL Baso # 0.0 (0.0-0.2) K/uL PT 15.6 H (9.7-12.2) SECONDS INR 1.4 APTT 35 H (21-34) SECONDS Sodium 137 (132-148) mmol/L Potassium 2.9 L (3.6-5.2) mmol/L Chloride 107 (98-107) mmol/L Carbon Dioxide 22 (22-30) mmol/L Anion Gap 11 (10-20) BUN 2 L (7-17) mg/dL Creatinine 0.5 L (0.7-1.2) MG/DL Est GFR ( Amer) > 60 Est GFR (Non-Af Amer) > 60 Random Glucose 77 (65-105) mg/dL Calcium 7.1 L (8.6-10.4) mg/dl Phosphorus 2.5 (2.5-4.5) mg/dL Magnesium 1.4 L (1.6-2.3) mg/dL Total Bilirubin 0.5 (0.2-1.3) mg/dL AST 43 H D (14-36) U/L ALT 82 H (9-52) U/L Alkaline Phosphatase 61 (38-126) U/L Total Protein 4.8 L (6.3-8.3) g/dL Albumin 2.3 L (3.5-5.0) g/dL Globulin 2.5 (2.2-3.9) gm/dL Albumin/Globulin Ratio 0.9 L (1.0-2.1) Anti-Cardiolipin IgG Ab <14 (<=14) GPL Anti-Cardiolipin IgM Ab <12 (<=12) MPL Laboratory Results - last 24 hr 10/18/16 10/19/16 15:32 06:27 WBC 3.8 L RBC 3.01 L Hgb 8.8 L Hct 25.6 L MCV 84.9 MCH 29.2 MCHC 34.3 RDW 13.2 Plt Count 202 MPV 8.5 Neut % (Auto) 73.1 Lymph % (Auto) 18.0 L [place] % (Auto) 6.6 Eos % (Auto) 1.4 Baso % (Auto) 0.9 Neut # 2.8 Lymph # 0.7 L [place] # 0.3 Eos # 0.1 Baso # 0.0 PT 15.6 H INR 1.4 APTT 35 H Sodium 137 Potassium 2.9 L Chloride 107 Carbon Dioxide 22 Anion Gap 11 BUN 2 L Creatinine 0.5 L Est GFR ( Amer) > 60 Est GFR (Non-Af Amer) > 60 Random Glucose 77 Calcium 7.1 L Phosphorus 2.5 Magnesium 1.4 L Total Bilirubin 0.5 AST 43 H D ALT 82 H Alkaline Phosphatase 61 Total Protein 4.8 L Albumin 2.3 L Globulin 2.5 Albumin/Globulin Ratio 0.9 L Anti-Cardiolipin IgG Ab <14 Anti-Cardiolipin IgM Ab <12 Critical Care Progress Note - Nutrition Nutrition: Nutrition Category Date Time Status Liquid Diet [DIET] Diets 10/15/16 Dinner Active
[2016-10-19] MEDS ORDERED: Potassium Chloride 20 mEq ER Tab PO ONE (18:56)
[2016-10-20 06:59] LABS: BASO % 0.5 % (0.0-2.0); EOS # 0.1 K/uL (0.0-0.7); EOS % 1.6 % (0.0-4.0); HEMATOCRIT 27.4 % (34.0-47.0); INR 1.2; LYMPH # 0.7 K/uL (1.0-4.3); LYMPH % 16.6 % (20.0-40.0); MEAN CELL VOLUME 84.7 fL (81.0-99.0); MEAN CORPUSCULAR HEMOGLOBIN 28.4 pg (27.0-31.0); MEAN CORPUSCULAR HGB CONC 33.5 g/dL (33.0-37.0); MEAN PLATELET VOLUME 8.4 fL (7.2-11.7); MONO # 0.3 K/uL (0.0-0.8); MONO % 7.8 % (0.0-10.0); NRBC % 0.6 % (0.0-2.0); RED CELL DISTRIBUTION WIDTH 13.3 % (11.5-14.5); WHITE BLOOD COUNT 4.3 K/uL (4.8-10.8)
[2016-10-20 07:02] LABS: CHLORIDE 101 mmol/L (98-107); POTASSIUM 3.5 mmol/L (3.6-5.2); SODIUM 134 mmol/L (132-148)
[2016-10-20 07:04] LABS: BILIRUBIN,TOTAL 0.7 mg/dL (0.2-1.3); GFR AFRICAN-AMERICAN > 60
[2016-10-20 07:05] LABS: ALB/GLOB RATIO 0.8 (1.0-2.1); ALKALINE PHOSPHATASE 71 U/L (38-126); ALT/SGPT 78 U/L (9-52); AST/SGOT 38 U/L (14-36); BLOOD UREA NITROGEN < 2 mg/dL (7-17); CARBON DIOXIDE 26 mmol/L (22-30); GLUCOSE,RANDOM 113 mg/dL (65-105); PHOSPHOROUS 2.4 mg/dL (2.5-4.5); TOTAL PROTEIN 5.7 g/dL (6.3-8.3)
[2016-10-20 07:06] LABS: MAGNESIUM 1.7 mg/dL (1.6-2.3)
[2016-10-20] MEDS ORDERED: Potassium Chloride 20 mEq/15 ml LIQ UD PO ONE (08:56)
[2016-10-20] MEDS: Enoxaparin 100 mg Syringe SC SCH ×2 (10:48→21:30)
--- NOTE | 2016-10-20 14:10 | CP.PCM.PN ---
Subjective - Date & Time of Evaluation Date of Evaluation: 10/20/16 Time of Evaluation: 13:00 - Subjective Subjective: Patient was seen and examined at bedside in ICU She is feeling slightly better today Patient is sitting in the reclining chair Objective - Vital Signs/Intake and Output Vital Signs (last 24 hours): Temp Pulse Resp BP Pulse Ox 98.2 F 107 H 28 H 117/74 95 10/20/16 00:00 10/20/16 12:00 10/20/16 12:00 10/20/16 10:13 10/20/16 12:00 Intake and Output: 10/20/16 10/20/16 06:59 18:59 Intake Total 1135 580 Output Total 650 200 Balance 485 380 - Medications Medications: Current Medications Acetaminophen (Tylenol 325mg Tab) 650 mg PO Q6 PRN PRN Reason: Pain, Mild (1-3) Enoxaparin Sodium (Lovenox) 90 mg SC Q12H [facility] Last Admin: 10/20/16 10:48 Dose: 90 mg Ondansetron HCl (Zofran Inj) 4 mg IVP Q6 PRN PRN Reason: Nausea/Vomiting Last Admin: 10/20/16 13:40 Dose: 4 mg Pantoprazole Sodium (Protonix Inj) 40 mg IVP DAILY [facility] Last Admin: 10/20/16 10:48 Dose: 40 mg - Labs Labs: 10/20/16 06:46 10/20/16 06:46 PT 13.9 SECONDS (9.7-12.2) H 10/20/16 06:46 INR 1.2 10/20/16 06:46 APTT 32 SECONDS (21-34) 10/20/16 06:46 - Head Exam Head Exam: ATRAUMATIC, NORMOCEPHALIC - Eye Exam Eye Exam: Normal appearance - ENT Exam ENT Exam: Mucous Membranes Moist - Respiratory Exam Respiratory Exam: Clear to Ausculation Bilateral - Cardiovascular Exam Cardiovascular Exam: REGULAR RHYTHM, +S1, +S2 - GI/Abdominal Exam GI & Abdominal Exam: Soft. absent: Tenderness - Extremities Exam Extremities Exam: absent: Pedal Edema Assessment and Plan (1) Pulmonary embolism affecting Assessment & Plan: Continue therapeutic anticoagulation Patient to follow-up the with high-risk OB after discharge Status: Acute (2) Assessment & Plan: Patient to follow with high-risk OB after discharge Status: Acute (3) Iliac vein thrombosis, right Assessment & Plan: Continue therapeutic anticoagulant Status: Acute - Assessment and Plan (Free Text) Plan: Discussed with ICU staff. Advance diet as tolerated
--- NOTE | 2016-10-20 21:28 | CP.CCUPN ---
CCU Subjective - Physician Review Events Since Last Encounter (Free Text): 10/20/16 21:27 30-year-old female with history of 9 weeks , complicated with acute pulmonary embolism. Patient is able to status post a TPA, and also currently on Lovenox. Patient is currently stable currently. But still having exertional dyspnea. Mild exertional tachycardia noted Temp Pulse Resp BP Pulse Ox 98.8 F 87 19 109/73 100 10/20/16 12:06 10/20/16 20:00 10/20/16 20:00 10/20/16 18:13 10/20/16 20:00 Chest bilateral good air entry. Regular heart sound. Nontender abdomen. 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 Currently stable. Monitor the H&H, and a platelets CCU Objective - Vital Signs / Intake & Output Vital Signs (Last 4 hours): Vital Signs Pulse Resp BP Pulse Ox 10/20/16 20:00 87 19 100 10/20/16 19:00 92 H 18 94 L 10/20/16 18:13 89 22 109/73 95 10/20/16 18:00 94 H 21 94 L 10/20/16 17:57 102 H 24 105/71 96 10/20/16 17:29 87 13 95 Intake and Output (Last 8hrs): Intake & Output 10/20/16 10/20/16 10/20/16 06:59 14:59 22:59 Intake Total 675 780 260 Output Total 650 600 100 Balance 25 180 160 Weight 198 lb 14.4 oz Intake: Intake, IV Amount 400 400 200 Right Forearm 400 400 200 Oral 275 380 60 Output: Urine 650 600 Urine, Voided 650 600 Emesis 0 100 - Physical Exam Head: Positive for: Atraumatic, Normocephalic Pupils: Positive for: PERRL Extroacular Muscles: Positive for: EOMI Conjunctiva: Positive for: Normal Ears: Positive for: Other (postauricular tenderness to palpation ) Mouth: Positive for: Moist Mucous Membranes Nose (Internal): Positive for: Normal Inspection Neck: Positive for: Normal Range of Motion Respiratory/Chest: Positive for: Clear to Auscultation. Negative for: Respiratory Distress, Accessory Muscle Use, Wheezes, Rhonchi, Tachypneic Cardiovascular: Positive for: Normal S1, S2. Negative for: Tachycardic Abdomen: Positive for: Tenderness (RLQ abdominal tenderness to deep palpation ) , Normal Bowel Sounds, Other (RUQ abdominal pain ). Negative for: Distention Genitourinary/Pelvic Exam: Positive for: Other (right dressing to catheter site c/d/i) Upper Extremity: Positive for: Normal Inspection Lower Extremity: Positive for: Normal Inspection. Negative for: Edema Skin: Positive for: Warm, Normal Color Psychiatric: Positive for: Alert, Oriented x 3, Normal Insight, Normal Concentration - Medications Active Medications: Active Medications Generic Name Dose Route Start Last Admin Trade Name Freq PRN Reason Stop Dose Admin Acetaminophen 650 mg 10/20/16 12:33 10/20/16 15:02 Tylenol 325mg Tab PO 650 mg Q6 PRN Administration Pain, Mild (1-3) Enoxaparin Sodium 90 mg 10/18/16 22:00 10/20/16 10:48 Lovenox SC 90 mg Q12H [facility] Administration Ondansetron HCl 4 mg 10/19/16 14:07 10/20/16 13:40 Zofran Inj IVP 4 mg Q6 PRN Administration Nausea/Vomiting Pantoprazole Sodium 40 mg 10/20/16 10:00 10/20/16 10:48 Protonix Inj IVP 40 mg DAILY [facility] Administration - Patient Studies Lab Studies: Lab Studies 10/20/16 Range/Units 06:46 WBC 4.3 L (4.8-10.8) K/uL RBC 3.24 L (3.80-5.20) Mil/uL Hgb 9.2 L (11.0-16.0) g/dL Hct 27.4 L (34.0-47.0) % MCV 84.7 (81.0-99.0) fL MCH 28.4 (27.0-31.0) pg MCHC 33.5 (33.0-37.0) g/dL RDW 13.3 (11.5-14.5) % Plt Count 223 (130-400) K/uL MPV 8.4 (7.2-11.7) fL Neut % (Auto) 73.5 (50.0-75.0) % Lymph % (Auto) 16.6 L (20.0-40.0) % [place] % (Auto) 7.8 (0.0-10.0) % Eos % (Auto) 1.6 (0.0-4.0) % Baso % (Auto) 0.5 (0.0-2.0) % Neut # 3.2 (1.8-7.0) K/uL Lymph # 0.7 L (1.0-4.3) K/uL [place] # 0.3 (0.0-0.8) K/uL Eos # 0.1 (0.0-0.7) K/uL Baso # 0.0 (0.0-0.2) K/uL PT 13.9 H (9.7-12.2) SECONDS INR 1.2 APTT 32 (21-34) SECONDS Sodium 134 (132-148) mmol/L Potassium 3.5 L (3.6-5.2) mmol/L Chloride 101 (98-107) mmol/L Carbon Dioxide 26 (22-30) mmol/L Anion Gap 11 (10-20) BUN < 2 L (7-17) mg/dL Creatinine 0.5 L (0.7-1.2) MG/DL Est GFR ( Amer) > 60 Est GFR (Non-Af Amer) > 60 Random Glucose 113 H (65-105) mg/dL Calcium 8.0 L (8.6-10.4) mg/dl Phosphorus 2.4 L (2.5-4.5) mg/dL Magnesium 1.7 (1.6-2.3) mg/dL Total Bilirubin 0.7 (0.2-1.3) mg/dL AST 38 H (14-36) U/L ALT 78 H (9-52) U/L Alkaline Phosphatase 71 (38-126) U/L Total Protein 5.7 L (6.3-8.3) g/dL Albumin 2.6 L (3.5-5.0) g/dL Globulin 3.1 (2.2-3.9) gm/dL Albumin/Globulin Ratio 0.8 L (1.0-2.1) Laboratory Results - last 24 hr 10/20/16 06:46 WBC 4.3 L RBC 3.24 L Hgb 9.2 L Hct 27.4 L MCV 84.7 MCH 28.4 MCHC 33.5 RDW 13.3 Plt Count 223 MPV 8.4 Neut % (Auto) 73.5 Lymph % (Auto) 16.6 L [place] % (Auto) 7.8 Eos % (Auto) 1.6 Baso % (Auto) 0.5 Neut # 3.2 Lymph # 0.7 L [place] # 0.3 Eos # 0.1 Baso # 0.0 PT 13.9 H INR 1.2 APTT 32 Sodium 134 Potassium 3.5 L Chloride 101 Carbon Dioxide 26 Anion Gap 11 BUN < 2 L Creatinine 0.5 L Est GFR ( Amer) > 60 Est GFR (Non-Af Amer) > 60 Random Glucose 113 H Calcium 8.0 L Phosphorus 2.4 L Magnesium 1.7 Total Bilirubin 0.7 AST 38 H ALT 78 H Alkaline Phosphatase 71 Total Protein 5.7 L Albumin 2.6 L Globulin 3.1 Albumin/Globulin Ratio 0.8 L Critical Care Progress Note - Nutrition Nutrition: Nutrition Category Date Time Status Regular Diet [DIET] Diets 10/20/16 Lunch Active
[2016-10-21 06:40] LABS: BASO % 0.3 % (0.0-2.0); EOS # 0.1 K/uL (0.0-0.7); EOS % 1.2 % (0.0-4.0); HEMATOCRIT 29.3 % (34.0-47.0); LYMPH # 0.7 K/uL (1.0-4.3); LYMPH % 13.3 % (20.0-40.0); MEAN CELL VOLUME 84.5 fL (81.0-99.0); MEAN CORPUSCULAR HEMOGLOBIN 28.7 pg (27.0-31.0); MEAN CORPUSCULAR HGB CONC 33.9 g/dL (33.0-37.0); MEAN PLATELET VOLUME 8.2 fL (7.2-11.7); MONO # 0.4 K/uL (0.0-0.8); MONO % 7.6 % (0.0-10.0); NRBC % 0.4 % (0.0-2.0); RED CELL DISTRIBUTION WIDTH 13.5 % (11.5-14.5); WHITE BLOOD COUNT 5.6 K/uL (4.8-10.8)
[2016-10-21 07:07] LABS: CHLORIDE 102 mmol/L (98-107)
[2016-10-21 07:08] LABS: POTASSIUM 3.3 mmol/L (3.6-5.2); SODIUM 136 mmol/L (132-148)
[2016-10-21 07:10] LABS: ALB/GLOB RATIO 0.9 (1.0-2.1); ALKALINE PHOSPHATASE 79 U/L (38-126); ALT/SGPT 75 U/L (9-52); AST/SGOT 55 U/L (14-36); BILIRUBIN,TOTAL 0.5 mg/dL (0.2-1.3); BLOOD UREA NITROGEN 3 mg/dL (7-17); CARBON DIOXIDE 27 mmol/L (22-30); GFR AFRICAN-AMERICAN > 60; GLUCOSE,RANDOM 80 mg/dL (65-105); TOTAL PROTEIN 6.2 g/dL (6.3-8.3)
[2016-10-21 07:11] LABS: CALCIUM 8.5 mg/dl (8.6-10.4); MAGNESIUM 1.5 mg/dL (1.6-2.3); PHOSPHOROUS 2.6 mg/dL (2.5-4.5)
[2016-10-21] MEDS ORDERED: Potassium Chloride 20 mEq ER Tab PO ONE (09:15)
--- NOTE | 2016-10-21 09:20 | CP.CCUPN ---
CCU Subjective - Physician Review Events Since Last Encounter (Free Text): 10/21/16 09:19 Patient is still having episodes of SOB, mild chest discomfort. But vital signs otherwise stable. Yesterday patient was not able to eat well. Nausea noted. 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 Admitted with acute pulmonary embolism, status post a local TPA. On Lovenox. Patient is clinical stable transferred to telemetry. CCU Objective - Vital Signs / Intake & Output Vital Signs (Last 4 hours): Vital Signs Pulse Resp BP Pulse Ox 10/21/16 07:31 115/78 10/21/16 07:30 90 22 10/21/16 07:00 90 21 94 L 10/21/16 06:31 90 15 117/88 99 10/21/16 06:00 91 H 15 10/21/16 05:31 81 20 121/83 98 Intake and Output (Last 8hrs): Intake & Output 10/20/16 10/21/16 10/21/16 22:59 06:59 14:59 Intake Total 410 220 25 Output Total 700 400 0 Balance -290 -180 25 Weight 205 lb Intake: Intake, IV Amount 200 Right Forearm 200 Oral 210 220 25 Output: Urine 600 400 0 Urine, Voided 600 400 0 Emesis 100 0 - Physical Exam Head: Positive for: Atraumatic, Normocephalic Pupils: Positive for: PERRL Extroacular Muscles: Positive for: EOMI Conjunctiva: Positive for: Normal Ears: Positive for: Other (postauricular tenderness to palpation ) Mouth: Positive for: Moist Mucous Membranes Nose (Internal): Positive for: Normal Inspection Neck: Positive for: Normal Range of Motion Respiratory/Chest: Positive for: Clear to Auscultation. Negative for: Respiratory Distress, Accessory Muscle Use, Wheezes, Rhonchi, Tachypneic Cardiovascular: Positive for: Normal S1, S2. Negative for: Tachycardic Abdomen: Positive for: Tenderness (RLQ abdominal tenderness to deep palpation ) , Normal Bowel Sounds, Other (RUQ abdominal pain ). Negative for: Distention Genitourinary/Pelvic Exam: Positive for: Other (right dressing to catheter site c/d/i) Upper Extremity: Positive for: Normal Inspection Lower Extremity: Positive for: Normal Inspection. Negative for: Edema Skin: Positive for: Warm, Normal Color Psychiatric: Positive for: Alert, Oriented x 3, Normal Insight, Normal Concentration - Medications Active Medications: Active Medications Generic Name Dose Route Start Last Admin Trade Name Freq PRN Reason Stop Dose Admin Acetaminophen 650 mg 10/20/16 12:33 10/20/16 15:02 Tylenol 325mg Tab PO 650 mg Q6 PRN Administration Pain, Mild (1-3) Enoxaparin Sodium 90 mg 10/18/16 22:00 10/20/16 21:30 Lovenox SC 90 mg Q12H [facility] Administration Magnesium Sulfate 6 gm/ 262 mls @ 349.333 mls/hr 10/21/16 09:09 Dextrose IVPB 10/21/16 09:53 ONCE ONE Pantoprazole Sodium 40 mg 10/20/16 10:00 10/20/16 10:48 Protonix Inj IVP 40 mg DAILY [facility] Administration - Patient Studies Lab Studies: Lab Studies 10/21/16 Range/Units 06:24 WBC 5.6 (4.8-10.8) K/uL RBC 3.47 L (3.80-5.20) Mil/uL Hgb 9.9 L (11.0-16.0) g/dL Hct 29.3 L (34.0-47.0) % MCV 84.5 (81.0-99.0) fL MCH 28.7 (27.0-31.0) pg MCHC 33.9 (33.0-37.0) g/dL RDW 13.5 (11.5-14.5) % Plt Count 248 (130-400) K/uL MPV 8.2 (7.2-11.7) fL Neut % (Auto) 77.6 H (50.0-75.0) % Lymph % (Auto) 13.3 L (20.0-40.0) % [place] % (Auto) 7.6 (0.0-10.0) % Eos % (Auto) 1.2 (0.0-4.0) % Baso % (Auto) 0.3 (0.0-2.0) % Neut # 4.4 (1.8-7.0) K/uL Lymph # 0.7 L (1.0-4.3) K/uL Yell # 0.4 (0.0-0.8) K/uL Eos # 0.1 (0.0-0.7) K/uL Baso # 0.0 (0.0-0.2) K/uL Sodium 136 (132-148) mmol/L Potassium 3.3 L (3.6-5.2) mmol/L Chloride 102 (98-107) mmol/L Carbon Dioxide 27 (22-30) mmol/L Anion Gap 10 (10-20) BUN 3 L (7-17) mg/dL Creatinine 0.5 L (0.7-1.2) MG/DL Est GFR ( Amer) > 60 Est GFR (Non-Af Amer) > 60 Random Glucose 80 (65-105) mg/dL Calcium 8.5 L (8.6-10.4) mg/dl Phosphorus 2.6 (2.5-4.5) mg/dL Magnesium 1.5 L (1.6-2.3) mg/dL Total Bilirubin 0.5 (0.2-1.3) mg/dL AST 55 H D (14-36) U/L ALT 75 H (9-52) U/L Alkaline Phosphatase 79 (38-126) U/L Total Protein 6.2 L (6.3-8.3) g/dL Albumin 2.9 L (3.5-5.0) g/dL Globulin 3.4 (2.2-3.9) gm/dL Albumin/Globulin Ratio 0.9 L (1.0-2.1) Laboratory Results - last 24 hr 10/21/16 06:24 WBC 5.6 RBC 3.47 L Hgb 9.9 L Hct 29.3 L MCV 84.5 MCH 28.7 MCHC 33.9 RDW 13.5 Plt Count 248 MPV 8.2 Neut % (Auto) 77.6 H Lymph % (Auto) 13.3 L [place] % (Auto) 7.6 Eos % (Auto) 1.2 Baso % (Auto) 0.3 Neut # 4.4 Lymph # 0.7 L [place] # 0.4 Eos # 0.1 Baso # 0.0 Sodium 136 Potassium 3.3 L Chloride 102 Carbon Dioxide 27 Anion Gap 10 BUN 3 L Creatinine 0.5 L Est GFR ( Amer) > 60 Est GFR (Non-Af Amer) > 60 Random Glucose 80 Calcium 8.5 L Phosphorus 2.6 Magnesium 1.5 L Total Bilirubin 0.5 AST 55 H D ALT 75 H Alkaline Phosphatase 79 Total Protein 6.2 L Albumin 2.9 L Globulin 3.4 Albumin/Globulin Ratio 0.9 L Critical Care Progress Note - Nutrition Nutrition: Nutrition Category Date Time Status Regular Diet [DIET] Diets 10/20/16 Lunch Active
--- NOTE | 2016-10-21 09:43 | CP.PCM.PN ---
Subjective - Date & Time of Evaluation Date of Evaluation: 10/21/16 Time of Evaluation: 09:00 - Subjective Subjective: patient was seen and examined at bedside She still complains of chest pain on breathing Objective - Vital Signs/Intake and Output Vital Signs (last 24 hours): Temp Pulse Resp BP Pulse Ox 98.3 F 90 22 115/78 94 L 10/21/16 04:00 10/21/16 07:30 10/21/16 07:30 10/21/16 07:31 10/21/16 07:00 Intake and Output: 10/21/16 10/21/16 06:59 18:59 Intake Total 370 25 Output Total 1000 0 Balance -630 25 - Medications Medications: Current Medications Acetaminophen (Tylenol 325mg Tab) 650 mg PO Q6 PRN PRN Reason: Pain, Mild (1-3) Last Admin: 10/20/16 15:02 Dose: 650 mg Enoxaparin Sodium (Lovenox) 90 mg SC Q12H [facility] Last Admin: 10/20/16 21:30 Dose: 90 mg Magnesium Sulfate 6 gm/ (Dextrose) 262 mls @ 87.333 mls/hr IVPB ONCE ONE Stop: 10/21/16 12:59 Pantoprazole Sodium (Protonix Inj) 40 mg IVP DAILY [facility] Last Admin: 10/20/16 10:48 Dose: 40 mg - Labs Labs: 10/21/16 06:24 10/21/16 06:24 PT 13.9 SECONDS (9.7-12.2) H 10/20/16 06:46 INR 1.2 10/20/16 06:46 APTT 32 SECONDS (21-34) 10/20/16 06:46 - Head Exam Head Exam: ATRAUMATIC, NORMOCEPHALIC - Eye Exam Eye Exam: EOMI, Normal appearance, PERRL - ENT Exam ENT Exam: Mucous Membranes Moist - Respiratory Exam Respiratory Exam: Clear to Ausculation Bilateral. absent: Rales, Rhonchi, Wheezes - Cardiovascular Exam Cardiovascular Exam: REGULAR RHYTHM, +S1, +S2 - Extremities Exam Extremities Exam: absent: Pedal Edema - Neurological Exam Neurological Exam: Alert, Awake, Oriented x3 Assessment and Plan (1) Pulmonary embolism affecting Assessment & Plan: patient is on therapeutic anticoagulation Status post catheter directed thrombolysis Status: Acute (2) Assessment & Plan: patient to follow up with high-risk OB on discharge Status: Acute (3) Iliac vein thrombosis, right Assessment & Plan: on therapeutic anticoagulation Status: Acute (4) Hypokalemia Assessment & Plan: replace and check again Status: Acute (5) Hypomagnesemia Assessment & Plan: replaced Status: Acute
[2016-10-21] MEDS: Enoxaparin 100 mg Syringe SC SCH ×2 (09:49→22:16)
[2016-10-21] MEDS ORDERED: Magnesium Sulfate 6 GM in Dextrose 5% In Water 250 ML IVPB ONE (10:00)
[2016-10-21 16:03] LABS: CARDIOLIPIN AB (IGA) <11 APL (<=11)
[2016-10-21] MEDS: Prenatal Multivit/Folic Acid/Iron Tab PO SCH (18:15)
[2016-10-22 02:49] LABS: PHOSPHATIDYLSERINE AB IGM <25 U/mL (<25)
[2016-10-22 05:49] LABS: B2 GLYCOPROTEIN I AB(IGA) <9 SAU (<=20); B2 GLYCOPROTEIN I AB(IGG) <9 SGU (<=20); B2 GLYCOPROTEIN I AB(IGM) <9 SMU (<=20); PHOSPHATIDYLSERINE AB IGA <20 U/mL (<20)
[2016-10-22] MEDS: Prenatal Multivit/Folic Acid/Iron Tab PO SCH (10:50)
[2016-10-22] MEDS: Enoxaparin 100 mg Syringe SC SCH ×2 (10:50→22:20)
[2016-10-23 07:31] LABS: CHLORIDE 104 mmol/L (98-107)
[2016-10-23 07:32] LABS: SODIUM 136 mmol/L (132-148)
[2016-10-23 07:34] LABS: ALB/GLOB RATIO 1.2 (1.0-2.1); ALKALINE PHOSPHATASE 80 U/L (38-126); ALT/SGPT 60 U/L (9-52); AST/SGOT 49 U/L (14-36); BILIRUBIN,TOTAL 0.3 mg/dL (0.2-1.3); BLOOD UREA NITROGEN 3 mg/dL (7-17); CARBON DIOXIDE 26 mmol/L (22-30); GFR AFRICAN-AMERICAN > 60; GLUCOSE,RANDOM 80 mg/dL (65-105); PHOSPHOROUS 3.5 mg/dL (2.5-4.5); TOTAL PROTEIN 5.2 g/dL (6.3-8.3)
[2016-10-23 07:35] LABS: CALCIUM 8.7 mg/dl (8.6-10.4); MAGNESIUM 1.6 mg/dL (1.6-2.3)
[2016-10-23] MEDS: POLYETHYLENE GLYCOL 3350 17 GM/Dose PACKET PO PRN (11:00)
[2016-10-23] MEDS: Sodium Chloride 0.9% 1,000 ML IV SCH ×3 (11:00→21:15)
[2016-10-23] MEDS: Enoxaparin 100 mg Syringe SC SCH ×2 (11:01→22:00)
[2016-10-23] MEDS: Prenatal Multivit/Folic Acid/Iron Tab PO SCH (11:01)
--- NOTE | 2016-10-23 12:41 | CP.PCM.PN ---
Subjective - Date & Time of Evaluation Date of Evaluation: 10/22/16 Time of Evaluation: 14:57 - Subjective Subjective: still with cp with deep breaths tachy with exertion Objective - Vital Signs/Intake and Output Vital Signs (last 24 hours): Temp Pulse Resp BP Pulse Ox 98.2 F 80 21 107/66 96 10/23/16 04:00 10/23/16 08:15 10/23/16 08:00 10/23/16 04:00 10/23/16 08:00 Intake and Output: 10/23/16 10/23/16 06:59 18:59 Intake Total 120 Output Total 600 Balance -480 - Medications Medications: Current Medications Acetaminophen (Tylenol 325mg Tab) 650 mg PO Q6 PRN PRN Reason: Pain, Mild (1-3) Last Admin: 10/21/16 09:50 Dose: 650 mg Enoxaparin Sodium (Lovenox) 90 mg SC Q12H [facility] Last Admin: 10/23/16 11:01 Dose: 90 mg Sodium Chloride (Sodium Chloride 0.9%) 1,000 mls @ 100 mls/hr IV .Q10H [facility] Last Admin: 10/23/16 11:00 Dose: 100 mls/hr Pantoprazole Sodium (Protonix Inj) 40 mg IVP DAILY [facility] Last Admin: 10/23/16 11:01 Dose: 40 mg Polyethylene Glycol (Miralax) 17 gm PO DAILY PRN PRN Reason: Constipation Last Admin: 10/23/16 11:00 Dose: 17 gm Multivit/Folic Acid/Iron () 1 tab PO DAILY [facility] Last Admin: 10/23/16 11:01 Dose: 1 tab - Labs Labs: 10/21/16 06:24 10/23/16 06:58 PT 13.9 SECONDS (9.7-12.2) H 10/20/16 06:46 INR 1.2 10/20/16 06:46 APTT 32 SECONDS (21-34) 10/20/16 06:46 - Constitutional Appears: Well, No Acute Distress - Head Exam Head Exam: ATRAUMATIC, NORMAL INSPECTION - Eye Exam Eye Exam: Normal appearance - ENT Exam ENT Exam: Mucous Membranes Moist - Neck Exam Neck Exam: Full ROM - Respiratory Exam Respiratory Exam: Clear to Ausculation Bilateral, NORMAL BREATHING PATTERN - Cardiovascular Exam Cardiovascular Exam: Tachycardia, +S1, +S2. absent: Murmur - GI/Abdominal Exam GI & Abdominal Exam: Soft, Normal Bowel Sounds. absent: Tenderness - Neurological Exam Neurological Exam: Alert, Awake, Oriented x3 - Psychiatric Exam Psychiatric exam: Normal Affect, Normal Mood Assessment and Plan - Assessment and Plan (Free Text) Assessment: Assessment and Plan (1) Pulmonary embolism affecting Assessment & Plan: patient is on therapeutic anticoagulation Status post catheter directed thrombolysis Status: Acute (2) Assessment & Plan: patient to follow up with high-risk OB on discharge Status: Acute (3) Iliac vein thrombosis, right Assessment & Plan: on therapeutic anticoagulation Status: Acute (4) Hypokalemia Assessment & Plan: replaced and will monitor Status: Acute (5) Hypomagnesemia Assessment & Plan: replaced Status: Acute
[2016-10-23 15:00] LABS: ARTERIAL BLOOD HGB O2 SAT 96.1 % (95.0-98.0); CARBOXYHEMOGLOBIN 1.8 % (0.5-1.5); DRAW SITE RB; HHB 0.9 % (0.0-5.0); METHEMOGLOBIN 1.2 % (0.0-3.0)
--- NOTE | 2016-10-23 16:25 | CP.PCM.PN ---
<Emerson Thomas - Last Filed: 10/23/16 16:06> Subjective - Date & Time of Evaluation Date of Evaluation: 10/23/16 Time of Evaluation: 16:25 - Subjective Subjective: Internal Medicine Progress Note Dr. Leong Patient seen and examined at the bedside. No acute distress. No acute events overnight. The nursing staff reports no issues. The patient reports continued chest pain, SOB, and nausea. The patient also reports not having had a BM since admission. The patient is concerned about the intermediate manager use of lovenox and how it may affect her bleeding during delivery. The patient was explained all the risks and benefits of her current medication regimen. The patient is in agreement with the current treatment plan, and fully understands and consents to the current medication regimen. The patient denies fever, chills, headache, changes in urination, and extremity paresthesias. Objective - Vital Signs/Intake and Output Vital Signs (last 24 hours): Temp Pulse Resp BP Pulse Ox 98.2 F 80 21 107/66 96 10/23/16 04:00 10/23/16 08:15 10/23/16 08:00 10/23/16 04:00 10/23/16 08:00 Intake and Output: 10/23/16 10/23/16 06:59 18:59 Intake Total 120 Output Total 600 Balance -480 - Medications Medications: Current Medications Acetaminophen (Tylenol 325mg Tab) 650 mg PO Q6 PRN PRN Reason: Pain, Mild (1-3) Last Admin: 10/21/16 09:50 Dose: 650 mg Enoxaparin Sodium (Lovenox) 90 mg SC Q12H [facility] Last Admin: 10/23/16 11:01 Dose: 90 mg Sodium Chloride (Sodium Chloride 0.9%) 1,000 mls @ 100 mls/hr IV .Q10H [facility] Last Admin: 10/23/16 11:00 Dose: 100 mls/hr Metoclopramide HCl (Reglan) 10 mg IVP DAILY@ONCE PRN PRN Reason: Nausea/Vomiting Pantoprazole Sodium (Protonix Inj) 40 mg IVP DAILY [facility] Last Admin: 10/23/16 11:01 Dose: 40 mg Polyethylene Glycol (Miralax) 17 gm PO DAILY PRN PRN Reason: Constipation Last Admin: 10/23/16 11:00 Dose: 17 gm Multivit/Folic Acid/Iron () 1 tab PO DAILY [facility] Last Admin: 10/23/16 11:01 Dose: 1 tab - Labs Labs: 10/21/16 06:24 10/23/16 06:58 PT 13.9 SECONDS (9.7-12.2) H 10/20/16 06:46 INR 1.2 10/20/16 06:46 APTT 32 SECONDS (21-34) 10/20/16 06:46 - Constitutional Appears: Well, No Acute Distress - Head Exam Head Exam: ATRAUMATIC, NORMAL INSPECTION, NORMOCEPHALIC - Eye Exam Eye Exam: EOMI - ENT Exam ENT Exam: Mucous Membranes Moist - Neck Exam Neck Exam: Full ROM, Normal Inspection. absent: Lymphadenopathy - Respiratory Exam Respiratory Exam: Rales (Right sided basilar), NORMAL BREATHING PATTERN. absent : Clear to Ausculation Bilateral, Rhonchi, Wheezes - Cardiovascular Exam Cardiovascular Exam: REGULAR RHYTHM, RRR, +S1, +S2. absent: Diastolic murmur, Murmur - GI/Abdominal Exam GI & Abdominal Exam: Soft, Tenderness, Normal Bowel Sounds. absent: Distended, Firm, Guarding, Rigid - Extremities Exam Extremities Exam: Full ROM, Normal Capillary Refill, Normal Inspection. absent : Joint Swelling, Pedal Edema - Neurological Exam Neurological Exam: Alert, Awake, CN II-XII Intact, Oriented x3 - Skin Skin Exam: Dry, Intact, Normal Color, Warm Assessment and Plan - Assessment and Plan (Free Text) Plan: 1.) Pulmonary embolism affecting - Therapeutic lovenox 90mg SC q12 - s/p catheter directed thrombolysis 10/16/16 - 10/22/16 Echo- report pending - 10/18/16 Obstetrics US- single intrauterine gestation with normal cardiac activity. US age 9wks 6days. Age by LMP 8wks 2 days. Right ovarian cyst. Clot in right internal iliac vein. - 10/16/16 LE Doppler- Right/Left: no evidence of deep/superficial vein thrombosis, normal valve function - 10/15/16 Echo- normal LV function with normal EF. Right ventricular septal motion consistent with pressure overload. Moderate right atrium dilation. Moderate tricuspid regurgitatio. RV systomic pressure estimated >60mmHg. ASD should be ruled out with SOMMER - 10/15/[address]- Acute pulmonary embolism in distal right and left pulmonary arteries, right upper lobe and left lobar and segmental branches with larger burden of embolism on the left. - 10/15/16 Obstetrics US- single intrauterine gestation with normal cardiac activity. US age 9wks 3days. Estimated delivery 05/17/17. Small sub chorionic hemorrhage measuring 2.1x1.9x1.0cm. 2.) - patient to follow up with high-risk OB on discharge - continue nutritional care 3.) Iliac vein thrombosis, right - Therapeutic lovenox 90mg SC q12 4.) Hypokalemia - replace as needed - monitor on CMP 5.) Hypomagnesemia - replace as needed - monitor on CMP 6.) Nausea/Vomiting - Reglan 10mg IV daily PRN - risks discussed with use of reglan vs zofran. Zofran risk of teratogenicity in first trimester explained. Patient fully acknowledged the risks associated with the medication and opted to have reglan PRN since it has not been shown to be associated with teratogenicity or harm. The patient was counselled on all risks and fully understand and agrees with the addition of PRN reglan to her regimen. 7.) Respiratory ALkalosis - mild respiratory alkalosis on 10/23/16 ABG - CO2- 30 - HCO3- 22.6 - O2- 94 - pH- 7.44 8.) Prophylaxis - Lovenox 90mg SC q12 - Protonix 40mg IVP daily - IVF- NS @ 100ml/hr - Constipation- Miralax 17g po daily prn - Pain- tylenol 650mg po q6 prn - PT/OT eval and treat Ramesh Collazondi PGY1 [id number] <Elie Leong - Last Filed: 10/24/16 14:55> Objective - Vital Signs/Intake and Output Vital Signs (last 24 hours): Temp Pulse Resp BP Pulse Ox 97.6 F 84 16 98/49 L 98 10/24/16 06:00 10/24/16 13:48 10/24/16 13:03 10/24/16 13:03 10/24/16 13:48 Intake and Output: 10/24/16 10/24/16 06:59 18:59 Intake Total 1050 700 Output Total 1300 350 Balance -250 350 - Medications Medications: Current Medications Acetaminophen (Tylenol 325mg Tab) 650 mg PO Q6 PRN PRN Reason: Pain, Mild (1-3) Last Admin: 10/24/16 00:42 Dose: 650 mg Enoxaparin Sodium (Lovenox) 90 mg SC Q12H [facility] Last Admin: 10/24/16 10:10 Dose: 90 mg Sodium Chloride (Sodium Chloride 0.9%) 1,000 mls @ 100 mls/hr IV .Q10H [facility] Last Admin: 10/24/16 05:00 Dose: Not Given Metoclopramide HCl (Reglan) 10 mg IVP DAILY PRN PRN Reason: Nausea/Vomiting Pantoprazole Sodium (Protonix Ec Tab) 40 mg PO DAILY [facility] Last Admin: 10/24/16 10:10 Dose: 40 mg Polyethylene Glycol (Miralax) 17 gm PO DAILY PRN PRN Reason: Constipation Last Admin: 10/24/16 11:05 Dose: 17 gm Multivit/Folic Acid/Iron () 1 tab PO DAILY [facility] Last Admin: 10/24/16 10:10 Dose: 1 tab - Labs Labs: 10/24/16 06:12 10/24/16 06:12 PT 13.9 SECONDS (9.7-12.2) H 10/20/16 06:46 INR 1.2 10/20/16 06:46 APTT 32 SECONDS (21-34) 10/20/16 06:46 Attending/Attestation - Attestation I have personally seen and examined this patient.: Yes I have fully participated in the care of the patient.: Yes I have reviewed all pertinent clinical information, including history, physical exam and plan: Yes Notes (Text): patient seen and examined with the resident. agree with the resident's assessment, eval and plan. 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
--- NOTE | 2016-10-23 19:11 | CARD ---
APPROVED REPORT EXAM: LIMITED Two-dimensional and M-mode echocardiogram with Doppler and color Doppler. Other Information Quality : GoodRhythm : INDICATION FOLLOW UP S/P EKOS CATHETER ,COMMENT ON RV FUNCTION Mitral Valve MV E Hrxlyzsu84.0cm/sMV A Gvmchvai80.2cm/sE/A ratio1.2 TDI E/Lateral E'0.0E/Medial E'0.0 Tricuspid Valve TR Peak [id number]/sTR Peak Gr.[id number] LEFT VENTRICLE The left ventricle is normal size. There is normal left ventricular wall thickness. The left ventricular function is normal. The left ventricular ejection fraction is within the normal range. There is normal LV segmental wall motion. The left ventricular diastolic function is normal. RIGHT VENTRICLE The right ventricle is mildly dilated. ATRIA The left atrium size is normal. The right atrium is mildly dilated. TRICUSPID VALVE There is moderate tricuspid regurgitation. <Conclusion> Normal LV systolic function. Dilated RA and RV. Moderat epulmonary hypertension.
--- NOTE | 2016-10-24 02:08 | CP.PCM.CON ---
History of Present Illness - History of Present Illness History of Present Illness: 30 year old female with no past medical history, 8 weeks , admitted with chest pain and shortness of breath, found to have PE. The patient denies abnormal bleeding and bruising. She has never had blood clots before. She has 3 children and denies complications during prior . She is currently receiving therapeutic lovenox and reports to feeling better. Past medical history: None Past surgical history: None Family history: Denies hematologic and oncologic problems Social history: Denies tobacco, alcohol, and illicit drug use. Allergies: Tramadol Review of systems: All remaining review of systems including HEENT, cardiovascular, respiratory, gastrointestinal, genitourinary, musculoskeletal, dermatologic, neurologic, and psychiatric are negative unless mentioned in the HPI. Past Patient History - Infectious Disease Hx of Infectious Diseases: None - Past Medical History & Family History Past Medical History?: Yes - Past Social History Smoking Status: Never Smoked - CARDIAC Hx Cardiac Disorders: No - PULMONARY Hx Respiratory Disorders: No - NEUROLOGICAL Hx Neurological Disorder: No - HEENT Hx HEENT Problems: No - RENAL Hx Chronic Kidney Disease: No - ENDOCRINE/METABOLIC Hx Endocrine Disorders: No - HEMATOLOGICAL/ONCOLOGICAL Hx Anemia: Yes (Takes iron; No h/o transfusion) - INTEGUMENTARY Hx Dermatological Problems: No - MUSCULOSKELETAL/RHEUMATOLOGICAL Hx Musculoskeletal Disorders: No Hx Falls: No - GASTROINTESTINAL Hx Gastritis: Yes - GENITOURINARY/GYNECOLOGICAL Hx Genitourinary Disorders: Yes Hx Urinary Tract Infection: Yes LMP:: 08/21/2016 : 4 Para: 3 Termination of : 0 - PSYCHIATRIC Hx Substance Use: No - SURGICAL HISTORY Hx Surgeries: Yes Other/Comment: Endoscopy - ANESTHESIA Hx Anesthesia: Yes Hx Anesthesia Reactions: No Hx Malignant Hyperthermia: No Meds Allergies/Adverse Reactions: Allergies Allergy/AdvReac Type Severity Reaction Status Date / Time tramadol HCl [From [facility]] Allergy Intermediate DIZZINESS Verified 10/15/16 14: 24 - Medications Medications: Current Medications Acetaminophen (Tylenol 325mg Tab) 650 mg PO Q6 PRN PRN Reason: Pain, Mild (1-3) Last Admin: 10/24/16 00:42 Dose: 650 mg Enoxaparin Sodium (Lovenox) 90 mg SC Q12H [facility] Last Admin: 10/23/16 22:00 Dose: 90 mg Sodium Chloride (Sodium Chloride 0.9%) 1,000 mls @ 100 mls/hr IV .Q10H [facility] Last Admin: 10/23/16 21:15 Dose: 100 mls/hr Metoclopramide HCl (Reglan) 10 mg IVP DAILY PRN PRN Reason: Nausea/Vomiting Pantoprazole Sodium (Protonix Ec Tab) 40 mg PO DAILY [facility] Polyethylene Glycol (Miralax) 17 gm PO DAILY PRN PRN Reason: Constipation Last Admin: 10/23/16 11:00 Dose: 17 gm Multivit/Folic Acid/Iron () 1 tab PO DAILY [facility] Last Admin: 10/23/16 11:01 Dose: 1 tab Physical Exam - Head Exam Head Exam: ATRAUMATIC - Eye Exam Eye Exam: Normal appearance - ENT Exam ENT Exam: Mucous Membranes Dry - Respiratory Exam Respiratory Exam: NORMAL BREATHING PATTERN - Cardiovascular Exam Cardiovascular Exam: +S1, +S2 - GI/Abdominal Exam GI & Abdominal Exam: Normal Bowel Sounds - Extremities Exam Extremities exam: Positive for: normal inspection - Neurological Exam Neurological exam: Oriented x3 - Psychiatric Exam Psychiatric exam: Normal Affect, Normal Mood - Skin Skin Exam: Warm Results - Vital Signs Recent Vital Signs: Last Vital Signs Temp 97.4 F L 10/23/16 20:00 Pulse 65 10/23/16 23:00 Resp 17 10/23/16 23:00 BP 98/73 L 10/23/16 20:10 Pulse Ox 100 10/23/16 23:00 - Labs Result Diagrams: 10/21/16 06:24 10/23/16 06:58 Labs: Laboratory Results - last 24 hr 10/23/16 10/23/16 06:58 14:57 Puncture Site Rb pCO2 30 L pO2 94 HCO3 22.6 ABG pH 7.44 ABG Total CO2 21.3 L ABG O2 Saturation 99.1 H ABG Base Excess -3.0 L ABG Hemoglobin 9.9 L ABG Carboxyhemoglobin 1.8 H POC ABG HHb (Measured) 0.9 ABG Methemoglobin 1.2 Jamarcus Test Na A-a O2 Difference 18.0 Respiratory Index 0.2 Hgb O2 Saturation 96.1 FiO2 21.0 Sodium 136 Potassium 4.0 Chloride 104 Carbon Dioxide 26 Anion Gap 10 BUN 3 L Creatinine 0.5 L Est GFR ( Amer) > 60 Est GFR (Non-Af Amer) > 60 Random Glucose 80 Calcium 8.7 Phosphorus 3.5 Magnesium 1.6 Total Bilirubin 0.3 AST 49 H ALT 60 H Alkaline Phosphatase 80 Total Protein 5.2 L Albumin 2.9 L Globulin 2.4 Albumin/Globulin Ratio 1.2 Assessment & Plan (1) Pulmonary embolism affecting Assessment and Plan: agree with therapeutic lovenox (1mg/kg BID) rule out inherited thrombophilia will require lovenox treatment during entire and 6-12 weeks post delivery coumadin contraindicated during Thank you for this interesting consult. Status: Acute
[2016-10-24] MEDS: Sodium Chloride 0.9% 1,000 ML IV SCH ×2 (05:00→15:46)
[2016-10-24 06:15] LABS: BASO % 0.5 % (0.0-2.0); EOS # 0.1 K/uL (0.0-0.7); EOS % 1.6 % (0.0-4.0); HEMATOCRIT 29.5 % (34.0-47.0); LYMPH # 0.8 K/uL (1.0-4.3); LYMPH % 15.8 % (20.0-40.0); MEAN CELL VOLUME 84.3 fL (81.0-99.0); MEAN CORPUSCULAR HEMOGLOBIN 29.1 pg (27.0-31.0); MEAN CORPUSCULAR HGB CONC 34.6 g/dL (33.0-37.0); MEAN PLATELET VOLUME 7.4 fL (7.2-11.7); MONO # 0.4 K/uL (0.0-0.8); MONO % 7.7 % (0.0-10.0); NRBC % 0.2 % (0.0-2.0); WHITE BLOOD COUNT 5.3 K/uL (4.8-10.8)
[2016-10-24 06:29] LABS: CHLORIDE 104 mmol/L (98-107)
[2016-10-24 06:30] LABS: POTASSIUM 4.1 mmol/L (3.6-5.2); SODIUM 137 mmol/L (132-148)
[2016-10-24 06:32] LABS: GFR AFRICAN-AMERICAN > 60
[2016-10-24 06:33] LABS: ALB/GLOB RATIO 0.9 (1.0-2.1); ALKALINE PHOSPHATASE 71 U/L (38-126); ALT/SGPT 60 U/L (9-52); AST/SGOT 44 U/L (14-36); BILIRUBIN,TOTAL 0.2 mg/dL (0.2-1.3); BLOOD UREA NITROGEN 3 mg/dL (7-17); CARBON DIOXIDE 25 mmol/L (22-30); GLUCOSE,RANDOM 81 mg/dL (65-105); TOTAL PROTEIN 6.4 g/dL (6.3-8.3)
[2016-10-24 06:34] LABS: CALCIUM 8.5 mg/dl (8.6-10.4); MAGNESIUM 1.7 mg/dL (1.6-2.3)
[2016-10-24] MEDS: Prenatal Multivit/Folic Acid/Iron Tab PO SCH (10:10)
[2016-10-24] MEDS: Enoxaparin 100 mg Syringe SC SCH ×2 (10:10→22:00)
[2016-10-24] MEDS: Pantoprazole 40 mg EC Tab PO SCH (10:10)
[2016-10-24] MEDS: POLYETHYLENE GLYCOL 3350 17 GM/Dose PACKET PO PRN (11:05)
--- NOTE | 2016-10-24 15:11 | CP.PCM.PN ---
Subjective - Date & Time of Evaluation Date of Evaluation: 10/24/16 Time of Evaluation: 11:30 - Subjective Subjective: Patient seen and examined at bedside this AM; denies any complaints other than mild pain in her chest in the back that is worse on deep inspiration but markedly improved from when she first found out she had a PE. Denies any other symptoms: fevers/chills, FISHMAN, SOB, abdominal pain, cough, hemoptysis, abdominal pain, N/V/D, dysuria/freq/urg, or lower extremity swelling/pain, vaginal discharge/bleeding, depression/anxiety. Objective - Vital Signs/Intake and Output Vital Signs (last 24 hours): Temp Pulse Resp BP Pulse Ox 97.6 F 84 16 98/49 L 98 10/24/16 06:00 10/24/16 13:48 10/24/16 13:03 10/24/16 13:03 10/24/16 13:48 Intake and Output: 10/24/16 10/24/16 06:59 18:59 Intake Total 1050 700 Output Total 1300 350 Balance -250 350 - Medications Medications: Current Medications Acetaminophen (Tylenol 325mg Tab) 650 mg PO Q6 PRN PRN Reason: Pain, Mild (1-3) Last Admin: 10/24/16 00:42 Dose: 650 mg Enoxaparin Sodium (Lovenox) 90 mg SC Q12H [facility] Last Admin: 10/24/16 10:10 Dose: 90 mg Sodium Chloride (Sodium Chloride 0.9%) 1,000 mls @ 100 mls/hr IV .Q10H [facility] Last Admin: 10/24/16 05:00 Dose: Not Given Metoclopramide HCl (Reglan) 10 mg IVP DAILY PRN PRN Reason: Nausea/Vomiting Pantoprazole Sodium (Protonix Ec Tab) 40 mg PO DAILY [facility] Last Admin: 10/24/16 10:10 Dose: 40 mg Polyethylene Glycol (Miralax) 17 gm PO DAILY PRN PRN Reason: Constipation Last Admin: 10/24/16 11:05 Dose: 17 gm Multivit/Folic Acid/Iron () 1 tab PO DAILY [facility] Last Admin: 10/24/16 10:10 Dose: 1 tab - Labs Labs: 10/24/16 06:12 10/24/16 06:12 PT 13.9 SECONDS (9.7-12.2) H 10/20/16 06:46 INR 1.2 10/20/16 06:46 APTT 32 SECONDS (21-34) 10/20/16 06:46 - Constitutional Appears: Well, Non-toxic - Head Exam Head Exam: ATRAUMATIC, NORMAL INSPECTION - Eye Exam Eye Exam: EOMI - ENT Exam ENT Exam: Mucous Membranes Moist - Neck Exam Neck Exam: Full ROM. absent: Lymphadenopathy - Respiratory Exam Respiratory Exam: Clear to Ausculation Bilateral, NORMAL BREATHING PATTERN. absent: Rales, Rhonchi, Wheezes - Cardiovascular Exam Cardiovascular Exam: REGULAR RHYTHM, +S1, +S2 - GI/Abdominal Exam GI & Abdominal Exam: Soft, Normal Bowel Sounds. absent: Tenderness - Rectal Exam Rectal Exam: Deferred - Extremities Exam Extremities Exam: Full ROM. absent: Calf Tenderness - Back Exam Back Exam: NORMAL INSPECTION. absent: CVA tenderness (L), CVA tenderness (R) - Neurological Exam Neurological Exam: Alert, Awake, CN II-XII Intact, Normal Gait, Oriented x3 - Psychiatric Exam Psychiatric exam: Normal Affect, Normal Mood - Skin Skin Exam: Warm Assessment and Plan - Assessment and Plan (Free Text) Assessment: 1.) Pulmonary embolism affecting - Therapeutic lovenox 90mg SC q12 - s/p catheter directed thrombolysis 10/16/16 - 10/22/16 Echo- shows only mild pulm HTN - 10/18/16 Obstetrics US- single intrauterine gestation with normal cardiac activity. US age 9wks 6days. Age by LMP 8wks 2 days. Right ovarian cyst. Clot in right internal iliac vein. - 10/16/16 LE Doppler- Right/Left: no evidence of deep/superficial vein thrombosis, normal valve function - 10/15/16 Echo- normal LV function with normal EF. Right ventricular septal motion consistent with pressure overload. Moderate right atrium dilation. Moderate tricuspid regurgitatio. RV systomic pressure estimated >60mmHg. ASD should be ruled out with SOMMER - 10/15/[address]- Acute pulmonary embolism in distal right and left pulmonary arteries, right upper lobe and left lobar and segmental branches with larger burden of embolism on the left. - 10/15/16 Obstetrics US- single intrauterine gestation with normal cardiac activity. US age 9wks 3days. Estimated delivery 05/17/17. Small sub chorionic hemorrhage measuring 2.1x1.9x1.0cm. 2.) - patient to follow up with high-risk OB on discharge - continue nutritional care 10/24: no changes in management 3.) Iliac vein thrombosis, right - Therapeutic lovenox 90mg SC q12; continued 10/24 4.) Hypokalemia - replace as needed - monitor on CMP 5.) Hypomagnesemia - replace as needed - monitor on CMP 6.) Nausea/Vomiting - Reglan 10mg IV daily PRN - risks discussed with use of reglan vs zofran. Zofran risk of teratogenicity in first trimester explained. Patient fully acknowledged the risks associated with the medication and opted to have reglan PRN since it has not been shown to be associated with teratogenicity or harm. The patient was counselled on all risks and fully understand and agrees with the addition of PRN reglan to her regimen. 10/24; no changes in management 7.) Respiratory ALkalosis - mild respiratory alkalosis on 10/23/16 ABG; common in - CO2- 30 - HCO3- 22.6 - O2- 94 - pH- 7.44 8.) Prophylaxis - Lovenox 90mg SC q12 - Protonix 40mg IVP daily - IVF- NS @ 100ml/hr - Constipation- Miralax 17g po daily prn - Pain- tylenol 650mg po q6 prn - PT/OT eval and treat Case Discussed and seen with Dr. Nataliya Whitley PGY1 Hospitalist Service
[2016-10-24 16:18] LABS: RBC URINE 1 /hpf (0-3); TRANSITIONAL EPITHIAL < 1 /hpf (0-3); URINE BACTERIA FEW (<OCC); URINE BILIRUBIN NEGATIVE (NEGATIVE); URINE BLOOD NEGATIVE (NEGATIVE); URINE COLOR Yellow (YELLOW); URINE GLUCOSE (UA) NORMAL (Normal); URINE KETONE NEGATIVE (NEGATIVE); URINE PROTEIN NEGATIVE (NEGATIVE); URINE UROBILINOGEN NORMAL mg/dL (0.2-1.0); WBC URINE 16 /hpf (0-5)
[2016-10-24 16:19] LABS: URINE LEUKOCYTE ESTERASE 2+ Leu/uL (Negative)
[2016-10-24 16:29] LABS: CREATININE, RANDOM URINE 56.6 mg/dL
--- NOTE | 2016-10-24 21:20 | CP.PCM.PN ---
Subjective - Date & Time of Evaluation Date of Evaluation: 10/24/16 Time of Evaluation: 14:00 - Subjective Subjective: Feeling better but still has pain radiating to back Objective - Vital Signs/Intake and Output Vital Signs (last 24 hours): Temp Pulse Resp BP Pulse Ox 97.6 F 82 17 110/64 100 10/24/16 06:00 10/24/16 17:00 10/24/16 17:00 10/24/16 16:50 10/24/16 17:00 Intake and Output: 10/24/16 10/25/16 18:59 06:59 Intake Total 850 150 Output Total 600 0 Balance 250 150 - Medications Medications: Current Medications Acetaminophen (Tylenol 325mg Tab) 650 mg PO Q6 PRN PRN Reason: Pain, Mild (1-3) Last Admin: 10/24/16 17:57 Dose: 650 mg Enoxaparin Sodium (Lovenox) 90 mg SC Q12H [facility] Last Admin: 10/24/16 10:10 Dose: 90 mg Sodium Chloride (Sodium Chloride 0.9%) 1,000 mls @ 100 mls/hr IV .Q10H [facility] Last Admin: 10/24/16 15:46 Dose: Not Given Metoclopramide HCl (Reglan) 10 mg IVP DAILY PRN PRN Reason: Nausea/Vomiting Pantoprazole Sodium (Protonix Ec Tab) 40 mg PO DAILY [facility] Last Admin: 10/24/16 10:10 Dose: 40 mg Polyethylene Glycol (Miralax) 17 gm PO DAILY PRN PRN Reason: Constipation Last Admin: 10/24/16 11:05 Dose: 17 gm Multivit/Folic Acid/Iron () 1 tab PO DAILY [facility] Last Admin: 10/24/16 10:10 Dose: 1 tab - Labs Labs: 10/24/16 06:12 10/24/16 06:12 PT 13.9 SECONDS (9.7-12.2) H 10/20/16 06:46 INR 1.2 10/20/16 06:46 APTT 32 SECONDS (21-34) 10/20/16 06:46 - Head Exam Head Exam: ATRAUMATIC - Eye Exam Eye Exam: Normal appearance - ENT Exam ENT Exam: Mucous Membranes Dry - Respiratory Exam Respiratory Exam: NORMAL BREATHING PATTERN - Cardiovascular Exam Cardiovascular Exam: +S1, +S2 - GI/Abdominal Exam GI & Abdominal Exam: Normal Bowel Sounds - Extremities Exam Extremities Exam: Normal Inspection Assessment and Plan (1) Pulmonary embolism affecting Assessment & Plan: inherited thrombophilia w/u sent ? hyperocoagulable from malignancy thereapeutic lovenox/heparin throughout coumadin for 6-12 weeks post delivery Status: Acute
[2016-10-25 06:28] LABS: BASO % 0.5 % (0.0-2.0); EOS # 0.1 K/uL (0.0-0.7); EOS % 1.7 % (0.0-4.0); LYMPH # 0.9 K/uL (1.0-4.3); LYMPH % 17.3 % (20.0-40.0); MEAN CELL VOLUME 84.4 fL (81.0-99.0); MEAN CORPUSCULAR HGB CONC 34.3 g/dL (33.0-37.0); MEAN PLATELET VOLUME 7.7 fL (7.2-11.7); MONO # 0.5 K/uL (0.0-0.8); MONO % 8.9 % (0.0-10.0); NRBC % 0.1 % (0.0-2.0); RED CELL DISTRIBUTION WIDTH 13.9 % (11.5-14.5); WHITE BLOOD COUNT 5.1 K/uL (4.8-10.8)
[2016-10-25 06:52] LABS: CHLORIDE 102 mmol/L (98-107)
[2016-10-25 06:53] LABS: POTASSIUM 3.9 mmol/L (3.6-5.2); SODIUM 137 mmol/L (132-148)
[2016-10-25 06:55] LABS: BILIRUBIN,TOTAL 0.2 mg/dL (0.2-1.3); CARBON DIOXIDE 24 mmol/L (22-30); GFR AFRICAN-AMERICAN > 60
[2016-10-25 06:56] LABS: ALB/GLOB RATIO 1.1 (1.0-2.1); ALKALINE PHOSPHATASE 78 U/L (38-126); ALT/SGPT 47 U/L (9-52); AST/SGOT 34 U/L (14-36); BLOOD UREA NITROGEN 3 mg/dL (7-17); CALCIUM 8.8 mg/dl (8.6-10.4); GLUCOSE,RANDOM 80 mg/dL (65-105); PHOSPHOROUS 4.7 mg/dL (2.5-4.5); TOTAL PROTEIN 6.4 g/dL (6.3-8.3)
[2016-10-25 06:57] LABS: MAGNESIUM 1.7 mg/dL (1.6-2.3)
[2016-10-25] MEDS: Prenatal Multivit/Folic Acid/Iron Tab PO SCH (09:20)
[2016-10-25] MEDS: Pantoprazole 40 mg EC Tab PO SCH (09:20)
[2016-10-25] MEDS: Enoxaparin 100 mg Syringe SC SCH ×2 (12:06→21:45)
--- NOTE | 2016-10-25 14:22 | CP.PCM.PN ---
Subjective - Date & Time of Evaluation Date of Evaluation: 10/25/16 Time of Evaluation: 15:00 - Subjective Subjective: Patient seen and examined at bedside this AM; denies any acute complaints other than continued pain on deep inspiration; denies fevers/chills, FISHMAN, CP, SOB, N/V/ D, abdominal pain, dysuria/freq/urg, or lower extremity pain/swelling, denies SI /HI or depression/anxiety. Objective - Vital Signs/Intake and Output Vital Signs (last 24 hours): Temp Pulse Resp BP Pulse Ox 97.7 F 78 15 128/73 99 10/25/16 07:00 10/25/16 13:00 10/25/16 13:00 10/25/16 07:00 10/25/16 13:00 Intake and Output: 10/25/16 10/25/16 06:59 18:59 Intake Total 500 240 Output Total 1000 Balance -500 240 - Medications Medications: Current Medications Acetaminophen (Tylenol 325mg Tab) 650 mg PO Q6 PRN PRN Reason: Pain, Mild (1-3) Last Admin: 10/25/16 03:45 Dose: 650 mg Enoxaparin Sodium (Lovenox) 90 mg SC Q12 [facility] Last Admin: 10/25/16 12:06 Dose: 90 mg Metoclopramide HCl (Reglan) 10 mg IVP DAILY PRN PRN Reason: Nausea/Vomiting Pantoprazole Sodium (Protonix Ec Tab) 40 mg PO DAILY [facility] Last Admin: 10/25/16 09:20 Dose: 40 mg Polyethylene Glycol (Miralax) 17 gm PO DAILY PRN PRN Reason: Constipation Last Admin: 10/24/16 11:05 Dose: 17 gm Multivit/Folic Acid/Iron () 1 tab PO DAILY [facility] Last Admin: 10/25/16 09:20 Dose: 1 tab - Labs Labs: 10/25/16 06:22 10/25/16 06:22 PT 13.9 SECONDS (9.7-12.2) H 10/20/16 06:46 INR 1.2 10/20/16 06:46 APTT 32 SECONDS (21-34) 10/20/16 06:46 - Constitutional Appears: Well, Non-toxic - Head Exam Head Exam: ATRAUMATIC, NORMAL INSPECTION - Eye Exam Eye Exam: EOMI Pupil Exam: PERRL - ENT Exam ENT Exam: Mucous Membranes Moist - Neck Exam Neck Exam: Full ROM. absent: Lymphadenopathy - Respiratory Exam Respiratory Exam: Clear to Ausculation Bilateral, NORMAL BREATHING PATTERN. absent: Rales, Rhonchi, Wheezes - Cardiovascular Exam Cardiovascular Exam: REGULAR RHYTHM, +S1, +S2 - GI/Abdominal Exam GI & Abdominal Exam: Soft, Normal Bowel Sounds. absent: Tenderness - Rectal Exam Rectal Exam: Deferred - Extremities Exam Extremities Exam: Full ROM. absent: Calf Tenderness - Back Exam Back Exam: NORMAL INSPECTION. absent: CVA tenderness (L), CVA tenderness (R) - Neurological Exam Neurological Exam: Alert, Awake, CN II-XII Intact, Oriented x3 - Psychiatric Exam Psychiatric exam: Normal Affect, Normal Mood - Skin Skin Exam: Warm Assessment and Plan - Assessment and Plan (Free Text) Assessment: 1.) Pulmonary embolism affecting - Therapeutic lovenox 90mg SC q12; c/w treatment during the entirety of -10/25 incentive spirometer - s/p catheter directed thrombolysis 10/16/16 - 10/22/16 Echo- shows only mild pulm HTN - 10/18/16 Obstetrics US- single intrauterine gestation with normal cardiac activity. US age 9wks 6days. Age by LMP 8wks 2 days. Right ovarian cyst. Clot in right internal iliac vein. - 10/16/16 LE Doppler- Right/Left: no evidence of deep/superficial vein thrombosis, normal valve function - 10/15/16 Echo- normal LV function with normal EF. Right ventricular septal motion consistent with pressure overload. Moderate right atrium dilation. Moderate tricuspid regurgitatio. RV systomic pressure estimated >60mmHg. ASD should be ruled out with SOMMER - 10/15/[address]- Acute pulmonary embolism in distal right and left pulmonary arteries, right upper lobe and left lobar and segmental branches with larger burden of embolism on the left. - 10/15/16 Obstetrics US- single intrauterine gestation with normal cardiac activity. US age 9wks 3days. Estimated delivery 05/17/17. Small sub chorionic hemorrhage measuring 2.1x1.9x1.0cm. 2)Asympotmatic Bacturia -+LE on UA 10/24 -will give Augmentin 500mg BID for 5 days -will re-test urine on the 3.) - patient to follow up with high-risk OB on discharge - continue nutritional care 10/24: no changes in management 4.) Iliac vein thrombosis, right - Therapeutic lovenox 90mg SC q12; continued 10/24 5.) Hypokalemia - replace as needed - monitor on CMP 6.) Hypomagnesemia - replace as needed - monitor on CMP 7.) Nausea/Vomiting - Reglan 10mg IV daily PRN - risks discussed with use of reglan vs zofran. Zofran risk of teratogenicity in first trimester explained. Patient fully acknowledged the risks associated with the medication and opted to have reglan PRN since it has not been shown to be associated with teratogenicity or harm. The patient was counselled on all risks and fully understand and agrees with the addition of PRN reglan to her regimen. 10/24; no changes in management 8.) Respiratory ALkalosis - mild respiratory alkalosis on 10/23/16 ABG; common in - CO2- 30 - HCO3- 22.6 - O2- 94 - pH- 7.44 9.) Prophylaxis - Lovenox 90mg SC q12 - Protonix 40mg IVP daily - IVF- NS @ 100ml/hr - Constipation- Miralax 17g po daily prn - Pain- tylenol 650mg po q6 prn - PT/OT eval and treat Case Discussed and seen with Dr. Nataliya Whitley PGY1 Hospitalist Service
--- NOTE | 2016-10-25 20:25 | CP.PCM.PN ---
Subjective - Date & Time of Evaluation Date of Evaluation: 10/25/16 Time of Evaluation: 18:00 - Subjective Subjective: No complaints. Objective - Vital Signs/Intake and Output Vital Signs (last 24 hours): Temp Pulse Resp BP Pulse Ox 97.7 F 65 27 H 116/68 89 L 10/25/16 07:00 10/25/16 20:18 10/25/16 20:11 10/25/16 20:11 10/25/16 20:11 Intake and Output: 10/25/16 10/26/16 18:59 06:59 Intake Total 360 Balance 360 - Medications Medications: Current Medications Acetaminophen (Tylenol 325mg Tab) 650 mg PO Q6 PRN PRN Reason: Pain, Mild (1-3) Last Admin: 10/25/16 18:07 Dose: 650 mg Enoxaparin Sodium (Lovenox) 90 mg SC Q12 [facility] Last Admin: 10/25/16 12:06 Dose: 90 mg Metoclopramide HCl (Reglan) 10 mg IVP DAILY PRN PRN Reason: Nausea/Vomiting Pantoprazole Sodium (Protonix Ec Tab) 40 mg PO DAILY [facility] Last Admin: 10/25/16 09:20 Dose: 40 mg Polyethylene Glycol (Miralax) 17 gm PO DAILY PRN PRN Reason: Constipation Last Admin: 10/24/16 11:05 Dose: 17 gm Multivit/Folic Acid/Iron () 1 tab PO DAILY [facility] Last Admin: 10/25/16 09:20 Dose: 1 tab - Labs Labs: 10/25/16 06:22 10/25/16 06:22 PT 13.9 SECONDS (9.7-12.2) H 10/20/16 06:46 INR 1.2 10/20/16 06:46 APTT 32 SECONDS (21-34) 10/20/16 06:46 - Head Exam Head Exam: ATRAUMATIC - Eye Exam Eye Exam: Normal appearance - ENT Exam ENT Exam: Mucous Membranes Dry - Respiratory Exam Respiratory Exam: NORMAL BREATHING PATTERN - Cardiovascular Exam Cardiovascular Exam: +S1, +S2 - GI/Abdominal Exam GI & Abdominal Exam: Normal Bowel Sounds - Extremities Exam Extremities Exam: Normal Inspection Assessment and Plan (1) Pulmonary embolism affecting Assessment & Plan: Internal iliac DVT on therapeutic lovenox (1mg/kg q12). Coumadin contraindicated throughout . 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
[2016-10-26 06:02] LABS: BASO % 0.7 % (0.0-2.0); EOS # 0.1 K/uL (0.0-0.7); EOS % 1.8 % (0.0-4.0); HEMATOCRIT 27.8 % (34.0-47.0); LYMPH # 0.9 K/uL (1.0-4.3); LYMPH % 19.3 % (20.0-40.0); MEAN CORPUSCULAR HEMOGLOBIN 29.3 pg (27.0-31.0); MEAN CORPUSCULAR HGB CONC 34.9 g/dL (33.0-37.0); MEAN PLATELET VOLUME 7.5 fL (7.2-11.7); MONO # 0.4 K/uL (0.0-0.8); NRBC % 0.1 % (0.0-2.0); RED CELL DISTRIBUTION WIDTH 13.8 % (11.5-14.5); WHITE BLOOD COUNT 4.9 K/uL (4.8-10.8)
[2016-10-26 06:12] LABS: CHLORIDE 96 mmol/L (98-107); POTASSIUM 3.9 mmol/L (3.6-5.2); SODIUM 136 mmol/L (132-148)
[2016-10-26 06:14] LABS: ALKALINE PHOSPHATASE 72 U/L (38-126); ALT/SGPT 40 U/L (9-52); AST/SGOT 33 U/L (14-36); BILIRUBIN,TOTAL 0.2 mg/dL (0.2-1.3); BLOOD UREA NITROGEN 3 mg/dL (7-17); CARBON DIOXIDE 24 mmol/L (22-30); GFR AFRICAN-AMERICAN > 60; TOTAL PROTEIN 6.5 g/dL (6.3-8.3)
[2016-10-26 06:15] LABS: CALCIUM 8.9 mg/dl (8.6-10.4); GLUCOSE,RANDOM 82 mg/dL (65-105); MAGNESIUM 1.8 mg/dL (1.6-2.3); PHOSPHOROUS 4.3 mg/dL (2.5-4.5)
[2016-10-26] MEDS: Pantoprazole 40 mg EC Tab PO SCH (10:23)
[2016-10-26] MEDS: Prenatal Multivit/Folic Acid/Iron Tab PO SCH (10:24)
[2016-10-26] MEDS: Enoxaparin 100 mg Syringe SC SCH ×2 (10:24→21:08)
--- NOTE | 2016-10-26 14:23 | CP.PCM.PN ---
<Venu Whitley - Last Filed: 10/26/16 14:21> Subjective - Date & Time of Evaluation Date of Evaluation: 10/26/16 Time of Evaluation: 10:40 - Subjective Subjective: Pt seen and examined at bedside this AM; no acute complaints and no overnight events. Patient states she feels weak in general from being hospitalized for so long but other than that has no acute or overnight complaitns. Denies fevers/ chills, FISHMAN, CP, SOb, abdominal pain, N/V/D, dysuria/freq/urg, or lower extremity pain/swelling, denies contractions/vaginal bleeding. Objective - Vital Signs/Intake and Output Vital Signs (last 24 hours): Temp Pulse Resp BP Pulse Ox 98.2 F 98 H 21 103/78 99 10/26/16 12:00 10/26/16 12:00 10/26/16 12:00 10/26/16 12:00 10/26/16 12:00 Intake and Output: 10/26/16 10/26/16 06:59 18:59 Intake Total 360 675 Balance 360 675 - Medications Medications: Current Medications Acetaminophen (Tylenol 325mg Tab) 650 mg PO Q6 PRN PRN Reason: Pain, Mild (1-3) Last Admin: 10/25/16 18:07 Dose: 650 mg Enoxaparin Sodium (Lovenox) 90 mg SC Q12 [facility] Last Admin: 10/26/16 10:24 Dose: 90 mg Metoclopramide HCl (Reglan) 10 mg IVP DAILY PRN PRN Reason: Nausea/Vomiting Pantoprazole Sodium (Protonix Ec Tab) 40 mg PO DAILY [facility] Last Admin: 10/26/16 10:23 Dose: 40 mg Polyethylene Glycol (Miralax) 17 gm PO DAILY PRN PRN Reason: Constipation Last Admin: 10/24/16 11:05 Dose: 17 gm Multivit/Folic Acid/Iron () 1 tab PO DAILY [facility] Last Admin: 10/26/16 10:24 Dose: 1 tab - Labs Labs: 10/26/16 05:56 10/26/16 05:56 PT 13.9 SECONDS (9.7-12.2) H 10/20/16 06:46 INR 1.2 10/20/16 06:46 APTT 32 SECONDS (21-34) 10/20/16 06:46 - Constitutional Appears: Well, Non-toxic - Head Exam Head Exam: ATRAUMATIC, NORMAL INSPECTION - Eye Exam Eye Exam: EOMI, Normal appearance Pupil Exam: PERRL - ENT Exam ENT Exam: Mucous Membranes Moist - Neck Exam Neck Exam: Full ROM. absent: Lymphadenopathy - Respiratory Exam Respiratory Exam: Clear to Ausculation Bilateral, NORMAL BREATHING PATTERN. absent: Accessory Muscle Use, Chest Wall Tenderness, Decreased Breath Sounds, Prolonged Expiratory Phase, Rales, Rhonchi, Wheezes, Respiratory Distress, Stridor - Cardiovascular Exam Cardiovascular Exam: REGULAR RHYTHM, +S1, +S2 - GI/Abdominal Exam GI & Abdominal Exam: Soft, Normal Bowel Sounds - Rectal Exam Rectal Exam: Deferred - Extremities Exam Extremities Exam: Full ROM. absent: Calf Tenderness, Pedal Edema - Back Exam Back Exam: NORMAL INSPECTION. absent: CVA tenderness (L), CVA tenderness (R) - Neurological Exam Neurological Exam: Alert, Awake, CN II-XII Intact, Normal Gait (with walker), Oriented x3 - Psychiatric Exam Psychiatric exam: Normal Affect, Normal Mood - Skin Skin Exam: Warm Assessment and Plan - Assessment and Plan (Free Text) Assessment: 1.) Pulmonary embolism affecting - Therapeutic lovenox 90mg SC q12; c/w treatment during the entirety of -10/26: no changes to management; patient is comfortable however somewhat deconditioned from hospital stay and will need more PT -10/25 incentive spirometer - s/p catheter directed thrombolysis 10/16/16 - 10/22/16 Echo- shows only mild pulm HTN - 10/18/16 Obstetrics US- single intrauterine gestation with normal cardiac activity. US age 9wks 6days. Age by LMP 8wks 2 days. Right ovarian cyst. Clot in right internal iliac vein. - 10/16/16 LE Doppler- Right/Left: no evidence of deep/superficial vein thrombosis, normal valve function - 10/15/16 Echo- normal LV function with normal EF. Right ventricular septal motion consistent with pressure overload. Moderate right atrium dilation. Moderate tricuspid regurgitatio. RV systomic pressure estimated >60mmHg. ASD should be ruled out with SOMMER - 10/15/[address]- Acute pulmonary embolism in distal right and left pulmonary arteries, right upper lobe and left lobar and segmental branches with larger burden of embolism on the left. - 10/15/16 Obstetrics US- single intrauterine gestation with normal cardiac activity. US age 9wks 3days. Estimated delivery 05/17/17. Small sub chorionic hemorrhage measuring 2.1x1.9x1.0cm. 2)Asympotmatic Bacturia -+LE on UA 10/24 -will give Augmentin 500mg BID for 5 days -will re-test urine on the 3.) - patient to follow up with high-risk OB on discharge - continue nutritional care 4.) Iliac vein thrombosis, right - Therapeutic lovenox 90mg SC q12; continued 10/24 5.) Hypokalemia - replace as needed - monitor on CMP 6.) Hypomagnesemia - replace as needed - monitor on CMP 7.) Nausea/Vomiting - Reglan 10mg IV daily PRN - risks discussed with use of reglan vs zofran. Zofran risk of teratogenicity in first trimester explained. Patient fully acknowledged the risks associated with the medication and opted to have reglan PRN since it has not been shown to be associated with teratogenicity or harm. The patient was counselled on all risks and fully understand and agrees with the addition of PRN reglan to her regimen. 10/24; no changes in management 8.) Respiratory ALkalosis - mild respiratory alkalosis on 10/23/16 ABG; common in - CO2- 30 - HCO3- 22.6 - O2- 94 - pH- 7.44 9.) Prophylaxis - Lovenox 90mg SC q12 - Protonix 40mg IVP daily - IVF- NS @ 100ml/hr - Constipation- Miralax 17g po daily prn - Pain- tylenol 650mg po q6 prn - PT/OT eval and treat Case Discussed and seen with Dr. Nataliya Whitley PGY1 Hospitalist Service <Chris An - Last Filed: 10/27/16 10:24> Objective - Vital Signs/Intake and Output Vital Signs (last 24 hours): Temp Pulse Resp BP Pulse Ox 98.4 F 90 20 157/89 H 97 10/27/16 08:04 10/27/16 08:04 10/27/16 08:04 10/27/16 08:04 10/27/16 08:04 Intake and Output: 10/27/16 10/27/16 06:59 18:59 Intake Total 240 Output Total 1000 Balance -760 - Medications Medications: Current Medications Acetaminophen (Tylenol 325mg Tab) 650 mg PO Q6 PRN PRN Reason: Pain, Mild (1-3) Last Admin: 10/26/16 20:30 Dose: 650 mg Enoxaparin Sodium (Lovenox) 90 mg SC Q12 [facility] Last Admin: 10/27/16 09:52 Dose: 90 mg Metoclopramide HCl (Reglan) 10 mg IVP DAILY PRN PRN Reason: Nausea/Vomiting Pantoprazole Sodium (Protonix Ec Tab) 40 mg PO DAILY [facility] Last Admin: 10/27/16 09:52 Dose: 40 mg Polyethylene Glycol (Miralax) 17 gm PO DAILY PRN PRN Reason: Constipation Last Admin: 10/24/16 11:05 Dose: 17 gm Multivit/Folic Acid/Iron () 1 tab PO DAILY [facility] Last Admin: 10/27/16 09:52 Dose: 1 tab - Labs Labs: 10/26/16 05:56 10/26/16 05:56 PT 13.9 SECONDS (9.7-12.2) H 10/20/16 06:46 INR 1.2 10/20/16 06:46 APTT 32 SECONDS (21-34) 10/20/16 06:46 Attending/Attestation - Attestation I have personally seen and examined this patient.: Yes I have fully participated in the care of the patient.: Yes I have reviewed all pertinent clinical information, including history, physical exam and plan: Yes Notes (Text): Patient at 11 weeks gestation, admitted with large PE, underwent catheter directed tPA; Patient still with intermittent chest pain, improved with tylenol; per PT, patient became tachycardic into 130's and mildly hypoxic (88% O2 sat) when walking; On therapeutic lovenox for AC; will continue throughout and 6-12 weeks post-; Advised to keep using incentive spirometer; Anemia, iron deficiency, will start PO iron; Dispo: Needs to better tolerate physical activity before being able to d/c home.
[2016-10-27] MEDS: Prenatal Multivit/Folic Acid/Iron Tab PO SCH (09:52)
[2016-10-27] MEDS: Pantoprazole 40 mg EC Tab PO SCH (09:52)
[2016-10-27] MEDS: Enoxaparin 100 mg Syringe SC SCH ×2 (09:52→21:15)
--- NOTE | 2016-10-27 11:59 | CARD ---
APPROVED REPORT EKG Measurement Heart [id number] <Conclusion> Sinus tachycardia ST & T wave abnormality, consider inferior ischemia ST & T wave abnormality, consider anterior ischemia Abnormal ECG
--- NOTE | 2016-10-27 12:00 | CARD ---
APPROVED REPORT EKG Measurement Heart [id number] <Conclusion> Sinus tachycardia with fusion complexes Nonspecific intraventricular conduction delay ST elevation, consider inferior injury or acute infarct ACUTE MD / STEMI Consider right ventricular involvement in acute inferior infarct Abnormal ECG
[2016-10-27] MEDS: Amoxicillin-Clav 500-125 mg Tab PO SCH (12:51)
[2016-10-27 13:55] LABS: BASO % 0.4 % (0.0-2.0); EOS # 0.1 K/uL (0.0-0.7); EOS % 1.6 % (0.0-4.0); HEMATOCRIT 30.8 % (34.0-47.0); LYMPH # 0.9 K/uL (1.0-4.3); LYMPH % 19.3 % (20.0-40.0); MEAN CELL VOLUME 83.1 fL (81.0-99.0); MEAN CORPUSCULAR HEMOGLOBIN 28.4 pg (27.0-31.0); MEAN CORPUSCULAR HGB CONC 34.1 g/dL (33.0-37.0); MEAN PLATELET VOLUME 7.5 fL (7.2-11.7); MONO # 0.3 K/uL (0.0-0.8); MONO % 6.9 % (0.0-10.0); RED CELL DISTRIBUTION WIDTH 14.2 % (11.5-14.5); WHITE BLOOD COUNT 4.8 K/uL (4.8-10.8)
[2016-10-27 14:03] LABS: CHLORIDE 96 mmol/L (98-107); SODIUM 134 mmol/L (132-148)
[2016-10-27 14:04] LABS: POTASSIUM 3.8 mmol/L (3.6-5.2)
[2016-10-27 14:05] LABS: GFR AFRICAN-AMERICAN > 60; IRON 110 ug/dL (37-170)
[2016-10-27 14:06] LABS: ALKALINE PHOSPHATASE 80 U/L (38-126); AST/SGOT 33 U/L (14-36); BILIRUBIN,TOTAL 0.2 mg/dL (0.2-1.3); BLOOD UREA NITROGEN 5 mg/dL (7-17); CARBON DIOXIDE 26 mmol/L (22-30); GLUCOSE,RANDOM 85 mg/dL (65-105); PHOSPHOROUS 3.9 mg/dL (2.5-4.5)
[2016-10-27 14:07] LABS: ALT/SGPT 39 U/L (9-52); CALCIUM 8.9 mg/dl (8.6-10.4); MAGNESIUM 1.7 mg/dL (1.6-2.3)
--- NOTE | 2016-10-27 15:15 | CP.PCM.PN ---
<Analia Silva - Last Filed: 10/27/16 15:16> Subjective - Date & Time of Evaluation Date of Evaluation: 10/27/16 Time of Evaluation: 08:00 - Subjective Subjective: Medicine progress note for Dr. An-Analia Silva, PGY-1 Pt S & E at beside. Pt reports SOB when not using supplemental O2; additionally has dizziness, lightheadedness when ambulating without O2. Continues to have substernal chest pain- constant, pressure like, radiates to back, worsens with cough or deep inspiration. Nausea is improving. Is tolerating a liquid diet. Last BM on after administration of Lactulose. No other complaints. Denies F/C, FISHMAN , abdominal pain, diarrhea, urinary symptoms, LE pain/swelling. Objective - Vital Signs/Intake and Output Vital Signs (last 24 hours): Temp Pulse Resp BP Pulse Ox 98.4 F 90 20 157/89 H 97 10/27/16 08:04 10/27/16 08:04 10/27/16 08:04 10/27/16 08:04 10/27/16 08:04 Intake and Output: 10/27/16 10/27/16 06:59 18:59 Intake Total 240 Output Total 1000 Balance -760 - Medications Medications: Current Medications Acetaminophen (Tylenol 325mg Tab) 650 mg PO Q6 PRN PRN Reason: Pain, Mild (1-3) Last Admin: 10/26/16 20:30 Dose: 650 mg Amoxicillin/Clavulanate Potassium (Augmentin 500 Mg-125 Mg Tab) 1 tab PO Q12H [facility] Stop: 11/01/16 12:16 Last Admin: 10/27/16 12:51 Dose: 1 tab Enoxaparin Sodium (Lovenox) 90 mg SC Q12 [facility] Last Admin: 10/27/16 09:52 Dose: 90 mg Ferrous Sulfate (Feosol) 325 mg PO BID [facility] Last Admin: 10/27/16 11:00 Dose: 325 mg Metoclopramide HCl (Reglan) 10 mg IVP DAILY PRN PRN Reason: Nausea/Vomiting Pantoprazole Sodium (Protonix Ec Tab) 40 mg PO DAILY [facility] Last Admin: 10/27/16 09:52 Dose: 40 mg Polyethylene Glycol (Miralax) 17 gm PO DAILY PRN PRN Reason: Constipation Last Admin: 10/24/16 11:05 Dose: 17 gm Multivit/Folic Acid/Iron () 1 tab PO DAILY [facility] Last Admin: 10/27/16 09:52 Dose: 1 tab - Labs Labs: 10/27/16 13:45 10/27/16 13:45 PT 13.9 SECONDS (9.7-12.2) H 10/20/16 06:46 INR 1.2 10/20/16 06:46 APTT 32 SECONDS (21-34) 10/20/16 06:46 - Constitutional Appears: Non-toxic, No Acute Distress - Head Exam Head Exam: ATRAUMATIC, NORMAL INSPECTION, NORMOCEPHALIC - Eye Exam Eye Exam: EOMI, Normal appearance, PERRL Pupil Exam: NORMAL ACCOMODATION, PERRL - ENT Exam ENT Exam: Mucous Membranes Moist, Normal Exam - Neck Exam Neck Exam: Full ROM, Normal Inspection - Respiratory Exam Respiratory Exam: Chest Wall Tenderness (over mid sternum), NORMAL BREATHING PATTERN. absent: Accessory Muscle Use, Clear to Ausculation Bilateral ( decreased breath sounds B/L), Rales, Rhonchi, Wheezes Additional comments: On 3 L O2 via NC - Cardiovascular Exam Cardiovascular Exam: REGULAR RHYTHM, +S1, +S2 - GI/Abdominal Exam GI & Abdominal Exam: Soft, Normal Bowel Sounds. absent: Distended, Firm, Guarding, Rigid, Tenderness, Rebound - Extremities Exam Extremities Exam: Full ROM, Normal Inspection. absent: Pedal Edema, Tenderness - Neurological Exam Neurological Exam: Alert, Awake, CN II-XII Intact, Oriented x3 - Psychiatric Exam Psychiatric exam: Normal Affect, Normal Mood - Skin Skin Exam: Dry, Intact, Normal Color, Warm Assessment and Plan - Assessment and Plan (Free Text) Assessment: 1- PE in setting of - Continue Therapeutic Lovenox 90mg SC Q12H, to be continued for duration of -10/27: No changes to current mgmt- pt comfortable, to continue PT due to deconditioning -10/26: no changes to management; patient is comfortable however somewhat deconditioned from hospital stay and will need more PT -10/25 incentive spirometer - s/p catheter directed thrombolysis 10/16/16 - 10/22/16 Echo- shows only mild pulm HTN - 10/18/16 Obstetrics US- single intrauterine gestation with normal cardiac activity. US age 9wks 6days. Age by LMP 8wks 2 days. Right ovarian cyst. Clot in right internal iliac vein. - 10/16/16 LE Doppler- Right/Left: no evidence of deep/superficial vein thrombosis, normal valve function - 10/15/16 Echo- normal LV function with normal EF. Right ventricular septal motion consistent with pressure overload. Moderate right atrium dilation. Moderate tricuspid regurgitatio. RV systomic pressure estimated >60mmHg. ASD should be ruled out with SOMMER - 10/15/[address]- Acute pulmonary embolism in distal right and left pulmonary arteries, right upper lobe and left lobar and segmental branches with larger burden of embolism on the left. - 10/15/16 Obstetrics US- single intrauterine gestation with normal cardiac activity. US age 9wks 3days. Estimated delivery 05/17/17. Small sub chorionic hemorrhage measuring 2.1x1.9x1.0cm. 2 - Asympotmatic Bacturia - +LE on UA 10/24 - Started Augmentin 500mg BID x 5 days on 10/27- stop date 10/31 - re-test urine on the 11/01 3- - follow up with high-risk OB on discharge - continue nutritional care 4- Right Iliac vein thrombosis - Therapeutic Lovenox 90mg SC q12 5- Hypokalemia - replace as needed - monitor on CMP 6- Hypomagnesemia - replace as needed - monitor on CMP 7- Nausea/Vomiting- improving - Reglan 10mg IV daily PRN - risks discussed with use of reglan vs zofran. Zofran risk of teratogenicity in first trimester explained. Patient fully acknowledged risks associated with the medication and opted to have reglan PRN since it has not been shown to be associated with teratogenicity or harm. The patient was counselled on all risks and fully understand and agrees with the addition of PRN reglan to her regimen. 10/24; no changes in management 8- Respiratory ALkalosis - mild respiratory alkalosis on 10/23/16 ABG; common in - CO2- 30 - HCO3- 22.6 - O2- 94 - pH- 7.44 9- Prophylaxis - Lovenox 90mg SC q12 - Protonix 40mg IVP daily - IVF- NS @ 100ml/hr - Constipation- Miralax 17g po daily prn - Pain- tylenol 650mg po q6 prn - PT/OT eval and treat D/W Dr. Nataliya Silva, PGY-1 <Chris An - Last Filed: 10/28/16 09:25> Objective - Vital Signs/Intake and Output Vital Signs (last 24 hours): Temp Pulse Resp BP Pulse Ox 98.2 F 80 18 95/58 L 100 10/28/16 07:25 10/28/16 07:25 10/28/16 07:25 10/28/16 07:25 10/28/16 07:25 - Medications Medications: Current Medications Acetaminophen (Tylenol 325mg Tab) 650 mg PO Q6 PRN PRN Reason: Pain, Mild (1-3) Last Admin: 10/28/16 00:46 Dose: 650 mg Enoxaparin Sodium (Lovenox) 90 mg SC Q12 [facility] Last Admin: 10/27/16 21:15 Dose: 90 mg Ferrous Sulfate (Feosol) 325 mg PO BID [facility] Last Admin: 10/27/16 18:00 Dose: 325 mg Metoclopramide HCl (Reglan) 10 mg IVP DAILY PRN PRN Reason: Nausea/Vomiting Pantoprazole Sodium (Protonix Ec Tab) 40 mg PO DAILY [facility] Last Admin: 10/27/16 09:52 Dose: 40 mg Polyethylene Glycol (Miralax) 17 gm PO DAILY PRN PRN Reason: Constipation Last Admin: 10/24/16 11:05 Dose: 17 gm Multivit/Folic Acid/Iron () 1 tab PO DAILY [facility] Last Admin: 10/27/16 09:52 Dose: 1 tab - Labs Labs: 10/28/16 06:01 10/28/16 06:01 PT 13.9 SECONDS (9.7-12.2) H 10/20/16 06:46 INR 1.2 10/20/16 06:46 APTT 32 SECONDS (21-34) 10/20/16 06:46 Attending/Attestation - Attestation I have personally seen and examined this patient.: Yes I have fully participated in the care of the patient.: Yes I have reviewed all pertinent clinical information, including history, physical exam and plan: Yes Notes (Text): Patient at 11 weeks gestation, admitted with large PE causing marked hemodynamic changes, subsequently underwent catheter guided tPA; Condition discussed with patient and her family at length; cause PE is still unclear although APL Ab positive but needs to be repeated after ; on lovenox with duration continuing at least 6-12 weeks after but cannot r/o life long AC based on further testing; On review of echo reports at time of presentation and after thrombolysis, marked improvement seen; patient still tachycardic and hypoxic on exertion (88% per PT yesterday), which may take weeks to improve; Asymptomatic bacteriuria per UA, started on Augmentin for 5 days; Dispo: If tachycardia and hypoxia on walking a few feet (ie. able to go to bathroom at home) don't improve within next 2-3 days, may need to be discharged on home O2.
--- NOTE | 2016-10-27 18:44 | CP.PCM.PN ---
Subjective - Date & Time of Evaluation Date of Evaluation: 10/27/16 Time of Evaluation: 17:00 - Subjective Subjective: [place] dizzy and short of breath when walking around Objective - Vital Signs/Intake and Output Vital Signs (last 24 hours): Temp Pulse Resp BP Pulse Ox 99.0 F 75 20 102/68 97 10/27/16 15:50 10/27/16 15:50 10/27/16 15:50 10/27/16 15:50 10/27/16 15:50 Intake and Output: 10/27/16 10/27/16 06:59 18:59 Intake Total 240 Output Total 1000 Balance -760 - Medications Medications: Current Medications Acetaminophen (Tylenol 325mg Tab) 650 mg PO Q6 PRN PRN Reason: Pain, Mild (1-3) Last Admin: 10/26/16 20:30 Dose: 650 mg Amoxicillin/Clavulanate Potassium (Augmentin 500 Mg-125 Mg Tab) 1 tab PO Q12H [facility] Stop: 11/01/16 12:16 Last Admin: 10/27/16 12:51 Dose: 1 tab Enoxaparin Sodium (Lovenox) 90 mg SC Q12 [facility] Last Admin: 10/27/16 09:52 Dose: 90 mg Ferrous Sulfate (Feosol) 325 mg PO BID [facility] Last Admin: 10/27/16 18:00 Dose: 325 mg Metoclopramide HCl (Reglan) 10 mg IVP DAILY PRN PRN Reason: Nausea/Vomiting Pantoprazole Sodium (Protonix Ec Tab) 40 mg PO DAILY [facility] Last Admin: 10/27/16 09:52 Dose: 40 mg Polyethylene Glycol (Miralax) 17 gm PO DAILY PRN PRN Reason: Constipation Last Admin: 10/24/16 11:05 Dose: 17 gm Multivit/Folic Acid/Iron () 1 tab PO DAILY [facility] Last Admin: 10/27/16 09:52 Dose: 1 tab - Labs Labs: 10/27/16 13:45 10/27/16 13:45 PT 13.9 SECONDS (9.7-12.2) H 10/20/16 06:46 INR 1.2 10/20/16 06:46 APTT 32 SECONDS (21-34) 10/20/16 06:46 - Head Exam Head Exam: ATRAUMATIC - Eye Exam Eye Exam: Normal appearance - ENT Exam ENT Exam: Mucous Membranes Dry - Respiratory Exam Respiratory Exam: NORMAL BREATHING PATTERN - Cardiovascular Exam Cardiovascular Exam: +S1, +S2 - GI/Abdominal Exam GI & Abdominal Exam: Normal Bowel Sounds - Extremities Exam Extremities Exam: Normal Inspection Assessment and Plan (1) Pulmonary embolism affecting Assessment & Plan: Internal iliac DVT on therapeutic lovenox (1mg/kg q12). Coumadin contraindicated throughout . 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
[2016-10-28] MEDS: Amoxicillin-Clav 500-125 mg Tab PO SCH (00:46)
[2016-10-28 06:20] LABS: BASO % 0.9 % (0.0-2.0); EOS # 0.1 K/uL (0.0-0.7); EOS % 1.4 % (0.0-4.0); HEMATOCRIT 29.8 % (34.0-47.0); LYMPH # 1.1 K/uL (1.0-4.3); LYMPH % 27.6 % (20.0-40.0); MEAN CELL VOLUME 82.7 fL (81.0-99.0); MEAN CORPUSCULAR HEMOGLOBIN 29.1 pg (27.0-31.0); MEAN CORPUSCULAR HGB CONC 35.2 g/dL (33.0-37.0); MEAN PLATELET VOLUME 7.4 fL (7.2-11.7); MONO # 0.2 K/uL (0.0-0.8); MONO % 5.7 % (0.0-10.0); NRBC % 0.1 % (0.0-2.0); RED CELL DISTRIBUTION WIDTH 13.9 % (11.5-14.5); WHITE BLOOD COUNT 4.1 K/uL (4.8-10.8)
[2016-10-28 06:25] LABS: CHLORIDE 103 mmol/L (98-107); POTASSIUM 3.8 mmol/L (3.6-5.2); SODIUM 134 mmol/L (132-148)
[2016-10-28 06:27] LABS: ALKALINE PHOSPHATASE 72 U/L (38-126); AST/SGOT 48 U/L (14-36); BILIRUBIN,TOTAL 0.2 mg/dL (0.2-1.3); BLOOD UREA NITROGEN 5 mg/dL (7-17); CARBON DIOXIDE 25 mmol/L (22-30); GFR AFRICAN-AMERICAN > 60; TOTAL PROTEIN 6.7 g/dL (6.3-8.3)
[2016-10-28 06:28] LABS: ALT/SGPT 34 U/L (9-52); CALCIUM 8.8 mg/dl (8.6-10.4); GLUCOSE,RANDOM 83 mg/dL (65-105); MAGNESIUM 1.7 mg/dL (1.6-2.3); PHOSPHOROUS 4.1 mg/dL (2.5-4.5)
[2016-10-28] MEDS: Enoxaparin 100 mg Syringe SC SCH ×2 (10:22→21:08)
[2016-10-28] MEDS: Prenatal Multivit/Folic Acid/Iron Tab PO SCH (10:22)
[2016-10-28] MEDS: Pantoprazole 40 mg EC Tab PO SCH (10:22)
--- NOTE | 2016-10-28 10:56 | CP.PCM.PN ---
Addendum entered and electronically signed by Analia Silva DO 10/28/16 14:45: Per nursing- patient with large volume emesis- nbnb. Pt evaluated- c/o increased suprapubic pain, TTP on exam. Will start D5/NS @100, ordered pelvic U /S, will contact Obgyn for re-evaluation. Original Note: <Analia Silva - Last Filed: 10/28/16 14:45> Subjective - Date & Time of Evaluation Date of Evaluation: 10/28/16 Time of Evaluation: 10:30 - Subjective Subjective: Internal Medicine progress note for Dr. An-Analia Silva, PGY-1 Pt [facility] & E at beside. Pt c/o of poor sleep and anxiety overnight due to loud noises. Additionally, pt had 1 episode of nbnb emesis last night after transfer to 6th floor- declined antiemetic at that time. States her nausea is improving, hasn't needed antiemetic for past 5 days. Pt continues with SOB when off supplemental O2, continues with substernal chest pain that radiates to mid back, worsened by deep inspiration and cough. Pt was instructed to ask for Tylenol for chest pain. Pt reports last BM on with aid of lactulose- would like to have lactulose again. Pt now has complaint of suprapubic pain, decreased urinary frequency. Denies fevers, chills , headache, vision changes. Objective - Vital Signs/Intake and Output Vital Signs (last 24 hours): Temp Pulse Resp BP Pulse Ox 98.2 F 80 18 95/58 L 100 10/28/16 07:25 10/28/16 07:25 10/28/16 07:25 10/28/16 07:25 10/28/16 07:25 - Medications Medications: Current Medications Acetaminophen (Tylenol 325mg Tab) 650 mg PO Q6 PRN PRN Reason: Pain, Mild (1-3) Last Admin: 10/28/16 00:46 Dose: 650 mg Enoxaparin Sodium (Lovenox) 90 mg SC Q12 [facility] Last Admin: 10/28/16 10:22 Dose: 90 mg Ferrous Sulfate (Feosol) 325 mg PO BID [facility] Last Admin: 10/27/16 18:00 Dose: 325 mg Lactulose (Enulose) 20 gm PO ONCE ONE Stop: 10/28/16 10:46 Metoclopramide HCl (Reglan) 10 mg IVP DAILY PRN PRN Reason: Nausea/Vomiting Pantoprazole Sodium (Protonix Ec Tab) 40 mg PO DAILY [facility] Last Admin: 10/28/16 10:22 Dose: 40 mg Polyethylene Glycol (Miralax) 17 gm PO DAILY PRN PRN Reason: Constipation Last Admin: 10/24/16 11:05 Dose: 17 gm Multivit/Folic Acid/Iron () 1 tab PO DAILY [facility] Last Admin: 10/28/16 10:22 Dose: 1 tab - Labs Labs: 10/28/16 06:01 10/28/16 06:01 PT 13.9 SECONDS (9.7-12.2) H 10/20/16 06:46 INR 1.2 10/20/16 06:46 APTT 32 SECONDS (21-34) 10/20/16 06:46 - Constitutional Appears: Non-toxic, No Acute Distress - Head Exam Head Exam: ATRAUMATIC, NORMAL INSPECTION, NORMOCEPHALIC - Eye Exam Eye Exam: EOMI, Normal appearance, PERRL Pupil Exam: NORMAL ACCOMODATION, PERRL - ENT Exam ENT Exam: Mucous Membranes Moist, Normal Exam - Neck Exam Neck Exam: Full ROM, Normal Inspection - Respiratory Exam Respiratory Exam: Chest Wall Tenderness (Substernal), Decreased Breath Sounds ( poor inspiratory effort), Clear to Ausculation Bilateral, NORMAL BREATHING PATTERN. absent: Accessory Muscle Use, Rales, Rhonchi, Wheezes - Cardiovascular Exam Cardiovascular Exam: REGULAR RHYTHM, +S1, +S2 - GI/Abdominal Exam GI & Abdominal Exam: Soft, Tenderness (suprapubic), Normal Bowel Sounds. absent : Distended, Firm, Guarding, Rigid, Mass - Extremities Exam Extremities Exam: Tenderness (over Lower extremities B/L). absent: Pedal Edema - Back Exam Back Exam: NORMAL INSPECTION, tenderness (over midthoracic area) - Neurological Exam Neurological Exam: Alert, Awake, CN II-XII Intact, Oriented x3 - Psychiatric Exam Psychiatric exam: Normal Affect, Normal Mood - Skin Skin Exam: Dry, Normal Color, Warm Assessment and Plan - Assessment and Plan (Free Text) Assessment: 1- PE in setting of - Continue Therapeutic Lovenox 90mg SC Q12H, to be continued for duration of -10/27: No changes to current mgmt- pt comfortable, to continue PT due to deconditioning -10/26: no changes to management; patient is comfortable however somewhat deconditioned from hospital stay and will need more PT -10/25 incentive spirometer - s/p catheter directed thrombolysis 10/16/16 - 10/22/16 Echo- shows only mild pulm HTN - 10/18/16 Obstetrics US- single intrauterine gestation with normal cardiac activity. US age 9wks 6days. Age by LMP 8wks 2 days. Right ovarian cyst. Clot in right internal iliac vein. - 10/16/16 LE Doppler- Right/Left: no evidence of deep/superficial vein thrombosis, normal valve function - 10/15/16 Echo- normal LV function with normal EF. Right ventricular septal motion consistent with pressure overload. Moderate right atrium dilation. Moderate tricuspid regurgitatio. RV systomic pressure estimated >60mmHg. ASD should be ruled out with SOMMER - 10/15/[address]- Acute pulmonary embolism in distal right and left pulmonary arteries, right upper lobe and left lobar and segmental branches with larger burden of embolism on the left. - 10/15/16 Obstetrics US- single intrauterine gestation with normal cardiac activity. US age 9wks 3days. Estimated delivery 05/17/17. Small sub chorionic hemorrhage measuring 2.1x1.9x1.0cm. 2 - Asympotmatic Bacturia - +LE on UA 10/24; but cxr was negative - Will re-check U/A & cxr today to determine if pt needs Augmentin 3- Constipation -Lacutlose 20mg once -Monitor 4- - follow up with high-risk OB on discharge - continue nutritional care 5- Right Iliac vein thrombosis - Therapeutic Lovenox 90mg SC q12 6- Nausea/Vomiting- improving - Reglan 10mg IV daily PRN - risks discussed with use of reglan vs zofran. Zofran risk of teratogenicity in first trimester explained. Patient fully acknowledged risks associated with the medication and opted to have reglan PRN since it has not been shown to be associated with teratogenicity or harm. The patient was counselled on all risks and fully understand and agrees with the addition of PRN reglan to her regimen. 10/24; no changes in management 7- Hypomagnesemia - replace as needed - monitor on CMP 8- Hypokalemia - replace as needed - monitor on CMP 9- Respiratory ALkalosis - mild respiratory alkalosis on 10/23/16 ABG; common in - CO2- 30 - HCO3- 22.6 - O2- 94 - pH- 7.44 10- GI/DVT ppx - Lovenox 90mg SC q12 - Protonix 40mg IVP daily - IVF- NS @ 100ml/hr - Constipation- Miralax 17g po daily prn - Pain- tylenol 650mg po q6 prn - PT/OT eval and treat 11- Dispo -plan to d/c home on home O2 possibly Saturday -Ordered private room D/W Dr. Nataliya Silva, PGY-1 <Chris An - Last Filed: 10/28/16 17:35> Objective - Vital Signs/Intake and Output Vital Signs (last 24 hours): Temp Pulse Resp BP Pulse Ox 97.9 F 78 20 112/77 99 10/28/16 16:57 10/28/16 16:57 10/28/16 16:57 10/28/16 16:57 10/28/16 16:57 Intake and Output: 10/28/16 10/28/16 06:59 18:59 Intake Total 600 Output Total 300 Balance 300 - Medications Medications: Current Medications Acetaminophen (Tylenol 325mg Tab) 650 mg PO Q6 PRN PRN Reason: Pain, Mild (1-3) Last Admin: 10/28/16 00:46 Dose: 650 mg Enoxaparin Sodium (Lovenox) 90 mg SC Q12 [facility] Last Admin: 10/28/16 10:22 Dose: 90 mg Dextrose/Sodium Chloride (Dextrose 5%/0.9% Ns 1000 Ml) 1,000 mls @ 100 mls/hr IV .Q10H [facility] Last Admin: 10/28/16 14:53 Dose: 100 mls/hr Metoclopramide HCl (Reglan) 10 mg IVP AC PRN PRN Reason: Nausea/Vomiting Pantoprazole Sodium (Protonix Ec Tab) 40 mg PO DAILY [facility] Last Admin: 10/28/16 10:22 Dose: 40 mg Polyethylene Glycol (Miralax) 17 gm PO DAILY PRN PRN Reason: Constipation Last Admin: 10/24/16 11:05 Dose: 17 gm Multivit/Folic Acid/Iron () 1 tab PO DAILY [facility] Last Admin: 10/28/16 10:22 Dose: 1 tab - Labs Labs: 10/28/16 06:01 10/28/16 06:01 PT 13.9 SECONDS (9.7-12.2) H 10/20/16 06:46 INR 1.2 10/20/16 06:46 APTT 32 SECONDS (21-34) 10/20/16 06:46 Attending/Attestation - Attestation I have personally seen and examined this patient.: Yes I have fully participated in the care of the patient.: Yes I have reviewed all pertinent clinical information, including history, physical exam and plan: Yes Notes (Text): Patient at 11 weeks gestation, admitted with large PE causing marked hemodynamic changes, subsequently underwent catheter guided tPA; Patient seen this morning, complained of some supra-pubic tenderness; later this afternoon, had episode of vomiting; reports worsened supra-pubic pain going to her back; obstetric US done with no abnormalities noted; will have OB service evaluate patient; checking UA and culture (culture from 3 days ago negative); Concern for hypoxia and tachycardia on mild exertion; will reassess tomorrow; -D5NS at 100 cc/hr -reglan before meals -continue therapeutic lovenox -advised to use incentive spirometry several times daily Dispo: If tachycardia and hypoxia on walking a few feet (ie. able to go to bathroom at home) don't improve, will need to be discharged on home O2; decision needs to be made in conjunction with maternal- medicine; 10/28/16 17:27
[2016-10-28] MEDS: Dextrose 5%/0.9% NS 1,000 ML IV SCH (14:53)
--- NOTE | 2016-10-28 16:39 | US ---
PROCEDURE: OB Pelvic Ultrasound HISTORY: Abdominal pain COMPARISON: None available. FINDINGS: UTERUS: Gestational sac: Single intrauterine gestation. Heart rate: 168 bpm. age (Ultrasound estimated): 11 weeks and 1 day June-gestational hemorrhage: None. Date of delivery (Ultrasound estimated) : 05/14/2017 Uterus measures 11.7 x 7.9 x 4.2 cm. Normal in size and appearance. CERVIX: Long and closed. No cervical abnormality seen. RIGHT OVARY: Measures 4.9 x 3.7 x 4.4 cm. No mass lesion. Normal flow. There is a 3.9 x 2.8 x 3.4 cm corpus luteum cyst. LEFT OVARY: Measures 3.7 x 0.6 x 1.9 cm. No solid mass. Normal flow. FREE FLUID: None. OTHER FINDINGS: None. IMPRESSION: Single live intrauterine gestation with mean gestational age of 11 weeks and 1 day. The ultrasound dates are discordant with the clinical dates by approximately 2 weeks. Clinical follow-up is advised.
[2016-10-28 20:56] LABS: URINE BILIRUBIN NEGATIVE (NEGATIVE); URINE BLOOD NEGATIVE (NEGATIVE); URINE COLOR Yellow (YELLOW); URINE GLUCOSE (UA) NORMAL (Normal); URINE KETONE 1+ mg/dL (NEGATIVE); URINE LEUKOCYTE ESTERASE TRACE Leu/uL (Negative); URINE PROTEIN 1+ mg/dL (NEGATIVE); URINE UROBILINOGEN NORMAL mg/dL (0.2-1.0)
[2016-10-28 21:13] LABS: RBC URINE < 1 /hpf (0-3); URINE BACTERIA RARE (<OCC); WBC URINE 6 /hpf (0-5)
--- NOTE | 2016-10-28 22:31 | CP.PCM.CON ---
History of Present Illness - History of Present Illness History of Present Illness: Lab Head follow up: Sonogram revealed viable 11 weeks Gestation with long, closed cervix Past Patient History - Infectious Disease Hx of Infectious Diseases: None - Past Medical History & Family History Past Medical History?: Yes - Past Social History Smoking Status: Never Smoked - CARDIAC Hx Cardiac Disorders: No - PULMONARY Hx Respiratory Disorders: No - NEUROLOGICAL Hx Neurological Disorder: No - HEENT Hx HEENT Problems: No - RENAL Hx Chronic Kidney Disease: No - ENDOCRINE/METABOLIC Hx Endocrine Disorders: No - HEMATOLOGICAL/ONCOLOGICAL Hx Anemia: Yes (Takes iron; No h/o transfusion) - INTEGUMENTARY Hx Dermatological Problems: No - MUSCULOSKELETAL/RHEUMATOLOGICAL Hx Musculoskeletal Disorders: No Hx Falls: No - GASTROINTESTINAL Hx Gastritis: Yes - GENITOURINARY/GYNECOLOGICAL Hx Genitourinary Disorders: Yes Hx Urinary Tract Infection: Yes LMP:: 08/21/2016 : 4 Para: 3 Termination of : 0 - PSYCHIATRIC Hx Substance Use: No - SURGICAL HISTORY Hx Surgeries: Yes Other/Comment: Endoscopy - ANESTHESIA Hx Anesthesia: Yes Hx Anesthesia Reactions: No Hx Malignant Hyperthermia: No Meds Allergies/Adverse Reactions: Allergies Allergy/AdvReac Type Severity Reaction Status Date / Time tramadol HCl [From [facility]] Allergy Intermediate DIZZINESS Verified 10/15/16 14: 24 - Medications Medications: Current Medications Acetaminophen (Tylenol 325mg Tab) 650 mg PO Q6 PRN PRN Reason: Pain, Mild (1-3) Last Admin: 10/28/16 20:23 Dose: 650 mg Enoxaparin Sodium (Lovenox) 90 mg SC Q12 [facility] Last Admin: 10/28/16 21:08 Dose: 90 mg Dextrose/Sodium Chloride (Dextrose 5%/0.9% Ns 1000 Ml) 1,000 mls @ 100 mls/hr IV .Q10H [facility] Last Admin: 10/28/16 14:53 Dose: 100 mls/hr Metoclopramide HCl (Reglan) 10 mg IVP AC PRN PRN Reason: Nausea/Vomiting Last Admin: 10/28/16 17:35 Dose: 10 mg Pantoprazole Sodium (Protonix Ec Tab) 40 mg PO DAILY [facility] Last Admin: 10/28/16 10:22 Dose: 40 mg Polyethylene Glycol (Miralax) 17 gm PO DAILY PRN PRN Reason: Constipation Last Admin: 10/24/16 11:05 Dose: 17 gm Multivit/Folic Acid/Iron () 1 tab PO DAILY [facility] Last Admin: 10/28/16 10:22 Dose: 1 tab Results - Vital Signs Recent Vital Signs: Last Vital Signs Temp 97.9 F 10/28/16 16:57 Pulse 78 10/28/16 16:57 Resp 20 10/28/16 16:57 BP 112/77 10/28/16 16:57 Pulse Ox 99 10/28/16 16:57 - Labs Result Diagrams: 10/28/16 06:01 10/28/16 06:01 Labs: Laboratory Results - last 24 hr 10/28/16 10/28/16 06:01 20:18 WBC 4.1 L RBC 3.60 L Hgb 10.5 L Hct 29.8 L MCV 82.7 MCH 29.1 MCHC 35.2 RDW 13.9 Plt Count 408 H MPV 7.4 Neut % (Auto) 64.4 Lymph % (Auto) 27.6 Edmunds % (Auto) 5.7 Eos % (Auto) 1.4 Baso % (Auto) 0.9 Neut # 2.6 Lymph # 1.1 Edmunds # 0.2 Eos # 0.1 Baso # 0.0 Sodium 134 Potassium 3.8 Chloride 103 Carbon Dioxide 25 Anion Gap 10 BUN 5 L Creatinine 0.5 L Est GFR ( Amer) > 60 Est GFR (Non-Af Amer) > 60 Random Glucose 83 Calcium 8.8 Phosphorus 4.1 Magnesium 1.7 Total Bilirubin 0.2 AST 48 H D ALT 34 Alkaline Phosphatase 72 Total Protein 6.7 Albumin 3.3 L Globulin 3.4 Albumin/Globulin Ratio 1.0 Urine Color Yellow Urine Clarity Hazy Urine pH 6.0 Ur Specific [place] 1.025 Urine Protein 1+ H Urine Glucose (UA) Normal Urine Ketones 1+ H Urine Blood Negative Urine Nitrate Negative Urine Bilirubin Negative Urine Urobilinogen Normal Ur Leukocyte Esterase Trace Urine WBC (Auto) 6 H Urine RBC (Auto) < 1 Ur Squamous Epith Cells 5 Urine Bacteria Rare Assessment & Plan - Assessment and Plan (Free Text) Assessment: Viable 11 weeks Gestation Plan: Follow up with High Risk Perinatologist on discharge on therapeutic Lovenox. - Date & Time Date: 10/28/16 Time: 22:31
[2016-10-29 06:25] LABS: BASO % 0.6 % (0.0-2.0); EOS # 0.1 K/uL (0.0-0.7); EOS % 1.2 % (0.0-4.0); HEMATOCRIT 32.2 % (34.0-47.0); LYMPH # 1.2 K/uL (1.0-4.3); LYMPH % 22.9 % (20.0-40.0); MEAN CELL VOLUME 83.9 fL (81.0-99.0); MEAN CORPUSCULAR HEMOGLOBIN 28.8 pg (27.0-31.0); MEAN CORPUSCULAR HGB CONC 34.3 g/dL (33.0-37.0); MEAN PLATELET VOLUME 7.6 fL (7.2-11.7); MONO # 0.4 K/uL (0.0-0.8); MONO % 7.6 % (0.0-10.0); NRBC % 0.1 % (0.0-2.0); RED CELL DISTRIBUTION WIDTH 13.9 % (11.5-14.5); WHITE BLOOD COUNT 5.1 K/uL (4.8-10.8)
[2016-10-29 06:40] LABS: CHLORIDE 98 mmol/L (98-107); SODIUM 132 mmol/L (132-148)
[2016-10-29 06:41] LABS: POTASSIUM 4.4 mmol/L (3.6-5.2)
[2016-10-29 06:42] LABS: GFR AFRICAN-AMERICAN > 60
[2016-10-29 06:43] LABS: ALB/GLOB RATIO 1.1 (1.0-2.1); ALKALINE PHOSPHATASE 76 U/L (38-126); ALT/SGPT 38 U/L (9-52); AST/SGOT 33 U/L (14-36); BILIRUBIN,TOTAL 0.2 mg/dL (0.2-1.3); BLOOD UREA NITROGEN 4 mg/dL (7-17); CALCIUM 9.1 mg/dl (8.6-10.4); CARBON DIOXIDE 22 mmol/L (22-30); GLUCOSE,RANDOM 86 mg/dL (65-105); MAGNESIUM 1.6 mg/dL (1.6-2.3); PHOSPHOROUS 4.1 mg/dL (2.5-4.5); TOTAL PROTEIN 7.1 g/dL (6.3-8.3)
[2016-10-29] MEDS: Enoxaparin 100 mg Syringe SC SCH ×2 (09:17→22:11)
[2016-10-29] MEDS: Prenatal Multivit/Folic Acid/Iron Tab PO SCH (09:17)
[2016-10-29] MEDS: Pantoprazole 40 mg EC Tab PO SCH (09:17)
[2016-10-29] MEDS ORDERED: POLYETHYLENE GLYCOL 3350 17 GM/Dose PACKET PO ONE (11:21)
--- NOTE | 2016-10-29 13:17 | CP.PCM.PN ---
<Estefani Emery - Last Filed: 10/29/16 17:13> Subjective - Date & Time of Evaluation Date of Evaluation: 10/29/16 Time of Evaluation: 09:10 - Subjective Subjective: PGY1 on Dr Casey's service: Patient seen and examined. Patient complaining of vomiting twice yesterday. Patient states she tried reglan yesterday for her nausea and had side effects including confusion, anxiety, and flushing and prefers to go back to zofran. Patient reports some PO intake but has been drinking the Boost shakes. Patient reports occasional palpitations and right sided chest pain that radiates to her back with deep inspiration. Patient states no bowel movement in several days. Objective - Vital Signs/Intake and Output Vital Signs (last 24 hours): Temp Pulse Resp BP Pulse Ox 98.6 F 66 17 106/68 100 10/29/16 07:35 10/29/16 07:35 10/29/16 07:35 10/29/16 07:35 10/29/16 07:35 Intake and Output: 10/29/16 10/29/16 06:59 18:59 Intake Total 1400 Output Total 900 Balance 500 - Medications Medications: Current Medications Acetaminophen (Tylenol 325mg Tab) 650 mg PO Q6 PRN PRN Reason: Pain, Mild (1-3) Last Admin: 10/28/16 20:23 Dose: 650 mg Enoxaparin Sodium (Lovenox) 90 mg SC Q12 [facility] Last Admin: 10/29/16 09:17 Dose: 90 mg Dextrose/Sodium Chloride (Dextrose 5%/0.9% Ns 1000 Ml) 1,000 mls @ 100 mls/hr IV .Q10H [facility] Last Admin: 10/28/16 14:53 Dose: 100 mls/hr Ondansetron HCl (Zofran Inj) 4 mg IVP Q6H PRN PRN Reason: Nausea/Vomiting Pantoprazole Sodium (Protonix Ec Tab) 40 mg PO DAILY [facility] Last Admin: 10/29/16 09:17 Dose: 40 mg Polyethylene Glycol (Miralax) 17 gm PO BID [facility] Multivit/Folic Acid/Iron () 1 tab PO DAILY [facility] Last Admin: 10/29/16 09:17 Dose: 1 tab - Labs Labs: 10/29/16 06:10 10/29/16 06:10 PT 13.9 SECONDS (9.7-12.2) H 10/20/16 06:46 INR 1.2 10/20/16 06:46 APTT 32 SECONDS (21-34) 10/20/16 06:46 - Constitutional Appears: Non-toxic, No Acute Distress - Head Exam Head Exam: ATRAUMATIC, NORMOCEPHALIC - Eye Exam Eye Exam: EOMI - ENT Exam ENT Exam: Mucous Membranes Moist - Respiratory Exam Respiratory Exam: Chest Wall Tenderness (right side), Decreased Breath Sounds ( poor inspiratory effort- splinting ), Clear to Ausculation Bilateral - Cardiovascular Exam Cardiovascular Exam: +S1, +S2 - GI/Abdominal Exam GI & Abdominal Exam: Soft, Tenderness (lower abdomn), Normal Bowel Sounds - Extremities Exam Extremities Exam: absent: Pedal Edema - Neurological Exam Neurological Exam: Alert, Awake - Psychiatric Exam Psychiatric exam: Normal Affect, Normal Mood - Skin Skin Exam: Dry, Warm Assessment and Plan - Assessment and Plan (Free Text) Assessment: 1- PE in setting of - Continue Therapeutic Lovenox 90mg SC Q12H, to be continued for duration of -10/27: No changes to current mgmt- pt comfortable, to continue PT due to deconditioning -10/26: no changes to management; patient is comfortable however somewhat deconditioned from hospital stay and will need more PT -10/25 incentive spirometer - s/p catheter directed thrombolysis 10/16/16 - 10/22/16 Echo- shows only mild pulm HTN - 10/18/16 Obstetrics US- single intrauterine gestation with normal cardiac activity. US age 9wks 6days. Age by LMP 8wks 2 days. Right ovarian cyst. Clot in right internal iliac vein. - 10/16/16 LE Doppler- Right/Left: no evidence of deep/superficial vein thrombosis, normal valve function - 10/15/16 Echo- normal LV function with normal EF. Right ventricular septal motion consistent with pressure overload. Moderate right atrium dilation. Moderate tricuspid regurgitatio. RV systomic pressure estimated >60mmHg. ASD should be ruled out with SOMMER - 10/15/[address]- Acute pulmonary embolism in distal right and left pulmonary arteries, right upper lobe and left lobar and segmental branches with larger burden of embolism on the left. - 10/15/16 Obstetrics US- single intrauterine gestation with normal cardiac activity. US age 9wks 3days. Estimated delivery 05/17/17. Small sub chorionic hemorrhage measuring 2.1x1.9x1.0cm. 2 - Asympotmatic Bacturia - +LE on UA 10/24; but cxr was negative - Will re-check U/A & cxr today to determine if pt needs Augmentin 3- Constipation -10/28: Lacutlose 20mg once- no BM -10/29: Miralax 17g po BID until bowel movement -Monitor 4- - follow up with high-risk OB on discharge - continue nutritional care 5- Right Iliac vein thrombosis - Therapeutic Lovenox 90mg SC q12 6- Nausea/Vomiting- improving - 10/29: patient reports bad reaction to reglan. will change back to zofran. - 10/28:risks discussed with use of reglan vs zofran. Zofran risk of teratogenicity in first trimester explained. Patient fully acknowledged risks associated with the medication and opted to have reglan PRN since it has not been shown to be associated with teratogenicity or harm. The patient was counselled on all risks and fully understand and agrees with the addition of PRN reglan to her regimen. 10/24; no changes in management 7- Hypomagnesemia - replace as needed - monitor on CMP 8- Hypokalemia - resolved - replace as needed - monitor on CMP 9- Respiratory ALkalosis - mild respiratory alkalosis on 10/23/16 ABG; common in - CO2- 30 - HCO3- 22.6 - O2- 94 - pH- 7.44 10- GI/DVT ppx - Lovenox 90mg SC q12 - Protonix 40mg IVP daily - IVF- NS @ 100ml/hr - Pain- tylenol 650mg po q6 prn - PT/OT eval and treat 11- Dispo -plan to d/c home on home O2 <Cam Casey - Last Filed: 10/29/16 18:17> Objective - Vital Signs/Intake and Output Vital Signs (last 24 hours): Temp Pulse Resp BP Pulse Ox 98.4 F 78 20 99/64 L 100 10/29/16 16:17 10/29/16 16:17 10/29/16 16:17 10/29/16 16:17 10/29/16 16:17 Intake and Output: 10/29/16 10/29/16 06:59 18:59 Intake Total 1400 800 Output Total 900 Balance 500 800 - Medications Medications: Current Medications Acetaminophen (Tylenol 325mg Tab) 650 mg PO Q6 PRN PRN Reason: Pain, Mild (1-3) Last Admin: 10/29/16 14:46 Dose: 650 mg Enoxaparin Sodium (Lovenox) 90 mg SC Q12 [facility] Last Admin: 10/29/16 09:17 Dose: 90 mg Dextrose/Sodium Chloride (Dextrose 5%/0.9% Ns 1000 Ml) 1,000 mls @ 100 mls/hr IV .Q10H [facility] Last Admin: 10/29/16 13:22 Dose: 100 mls/hr Ondansetron HCl (Zofran Inj) 4 mg IVP Q6H PRN PRN Reason: Nausea/Vomiting Pantoprazole Sodium (Protonix Ec Tab) 40 mg PO DAILY [facility] Last Admin: 10/29/16 09:17 Dose: 40 mg Polyethylene Glycol (Miralax) 17 gm PO BID [facility] Multivit/Folic Acid/Iron () 1 tab PO DAILY [facility] Last Admin: 10/29/16 09:17 Dose: 1 tab - Labs Labs: 10/29/16 06:10 10/29/16 06:10 PT 13.9 SECONDS (9.7-12.2) H 10/20/16 06:46 INR 1.2 10/20/16 06:46 APTT 32 SECONDS (21-34) 10/20/16 06:46 Assessment and Plan (1) Pulmonary embolism affecting Status: Acute (2) Status: Acute (3) Iliac vein thrombosis, right Status: Acute (4) Hypokalemia Status: Acute (5) Hypomagnesemia Status: Acute Attending/Attestation - Attestation I have personally seen and examined this patient.: Yes I have fully participated in the care of the patient.: Yes I have reviewed all pertinent clinical information, including history, physical exam and plan: Yes Notes (Text): 10/29/16 18:15 Patient was seen and examined at bedside with the resident Still complains of for some pain in the chest upon breathing Nausea has improved Patient unable to tolerate Reglan. Switched back to Zofran We will start the patient on physical therapy Continue current management
[2016-10-29] MEDS: Dextrose 5%/0.9% NS 1,000 ML IV SCH ×3 (13:22→22:29)
[2016-10-29] MEDS: POLYETHYLENE GLYCOL 3350 17 GM/Dose PACKET PO SCH (22:13)
[2016-10-30 07:11] LABS: BASO % 0.6 % (0.0-2.0); EOS # 0.1 K/uL (0.0-0.7); EOS % 2.2 % (0.0-4.0); HEMATOCRIT 30.9 % (34.0-47.0); LYMPH # 1.1 K/uL (1.0-4.3); LYMPH % 25.8 % (20.0-40.0); MEAN CELL VOLUME 83.5 fL (81.0-99.0); MEAN CORPUSCULAR HEMOGLOBIN 28.5 pg (27.0-31.0); MEAN CORPUSCULAR HGB CONC 34.1 g/dL (33.0-37.0); MEAN PLATELET VOLUME 7.2 fL (7.2-11.7); MONO # 0.2 K/uL (0.0-0.8); RED CELL DISTRIBUTION WIDTH 14.2 % (11.5-14.5); WHITE BLOOD COUNT 4.1 K/uL (4.8-10.8)
[2016-10-30 07:28] LABS: CHLORIDE 99 mmol/L (98-107); SODIUM 135 mmol/L (132-148)
[2016-10-30 07:29] LABS: POTASSIUM 3.9 mmol/L (3.6-5.2)
[2016-10-30 07:30] LABS: GFR AFRICAN-AMERICAN > 60
[2016-10-30 07:31] LABS: ALKALINE PHOSPHATASE 60 U/L (38-126); ALT/SGPT 33 U/L (9-52); AST/SGOT 33 U/L (14-36); BILIRUBIN,TOTAL 0.2 mg/dL (0.2-1.3); BLOOD UREA NITROGEN 3 mg/dL (7-17); CARBON DIOXIDE 25 mmol/L (22-30); GLUCOSE,RANDOM 84 mg/dL (65-105); PHOSPHOROUS 3.6 mg/dL (2.5-4.5); TOTAL PROTEIN 6.5 g/dL (6.3-8.3)
[2016-10-30 07:32] LABS: CALCIUM 8.8 mg/dl (8.6-10.4); MAGNESIUM 1.6 mg/dL (1.6-2.3)
[2016-10-30] MEDS ORDERED: POLYETHYLENE GLYCOL 3350 17 GM/Dose PACKET PO SCH (10:00)
[2016-10-30] MEDS: Pantoprazole 40 mg EC Tab PO SCH (10:09)
[2016-10-30] MEDS: Prenatal Multivit/Folic Acid/Iron Tab PO SCH (10:09)
[2016-10-30] MEDS: Enoxaparin 100 mg Syringe SC SCH ×2 (10:10→21:56)
[2016-10-30] MEDS: POLYETHYLENE GLYCOL 3350 17 GM/Dose PACKET PO SCH ×2 (10:10→19:14)
--- NOTE | 2016-10-30 14:07 | CP.PCM.PN ---
<Estefani Emery - Last Filed: 10/30/16 13:54> Subjective - Date & Time of Evaluation Date of Evaluation: 10/30/16 Time of Evaluation: 09:10 - Subjective Subjective: PGY1 on Dr. Casey's service: Patient seen and examined. Patient reports less nausea than yesterday and has not requested zofran. Patient denies vomiting but admits to spitting up saliva. Patient states that she is trying to walk around but gets dizzy while walking without oxygen. Patient requesting physical therapy. Patient also complaining of pain to right maldonado. Patient states she has still not had a bowel movement but is passing gas. Will increase miralax to twice daily. Objective - Vital Signs/Intake and Output Vital Signs (last 24 hours): Temp Pulse Resp BP Pulse Ox 98.4 F 64 20 102/66 96 10/30/16 07:59 10/30/16 08:00 10/30/16 07:59 10/30/16 07:59 10/30/16 07:59 Intake and Output: 10/30/16 10/30/16 06:59 18:59 Intake Total 1720 Balance 1720 - Medications Medications: Current Medications Acetaminophen (Tylenol 325mg Tab) 650 mg PO Q6 PRN PRN Reason: Pain, Mild (1-3) Last Admin: 10/29/16 14:46 Dose: 650 mg Enoxaparin Sodium (Lovenox) 90 mg SC Q12 [facility] Last Admin: 10/30/16 10:10 Dose: 90 mg Dextrose/Sodium Chloride (Dextrose 5%/0.9% Ns 1000 Ml) 1,000 mls @ 100 mls/hr IV .Q10H [facility] Last Admin: 10/29/16 22:29 Dose: Not Given Ondansetron HCl (Zofran Inj) 4 mg IVP Q6H PRN PRN Reason: Nausea/Vomiting Pantoprazole Sodium (Protonix Ec Tab) 40 mg PO DAILY [facility] Last Admin: 10/30/16 10:09 Dose: 40 mg Polyethylene Glycol (Miralax) 17 gm PO BID [facility] Last Admin: 10/30/16 10:10 Dose: 17 gm Multivit/Folic Acid/Iron () 1 tab PO DAILY [facility] Last Admin: 10/30/16 10:09 Dose: 1 tab - Labs Labs: 10/30/16 06:57 10/30/16 06:57 PT 13.9 SECONDS (9.7-12.2) H 10/20/16 06:46 INR 1.2 10/20/16 06:46 APTT 32 SECONDS (21-34) 10/20/16 06:46 - Constitutional Appears: Non-toxic, No Acute Distress - Head Exam Head Exam: ATRAUMATIC, NORMOCEPHALIC - Eye Exam Eye Exam: EOMI - ENT Exam ENT Exam: Mucous Membranes Moist - Respiratory Exam Respiratory Exam: Chest Wall Tenderness (right side), Decreased Breath Sounds ( decreased inspiratory effort due to pain) - Cardiovascular Exam Cardiovascular Exam: +S1, +S2 - GI/Abdominal Exam GI & Abdominal Exam: Soft, Normal Bowel Sounds. absent: Tenderness - Extremities Exam Extremities Exam: absent: Pedal Edema Additional comments: tender to palpation of right maldonado - Neurological Exam Neurological Exam: Alert, Awake - Psychiatric Exam Psychiatric exam: Normal Affect - Skin Skin Exam: Dry, Warm Assessment and Plan - Assessment and Plan (Free Text) Assessment: 1- PE in setting of -Continue Therapeutic Lovenox 90mg SC Q12H, to be continued for duration of -10/27: No changes to current mgmt- pt comfortable, to continue PT due to deconditioning -10/26: no changes to management; patient is comfortable however somewhat deconditioned from hospital stay and will need more PT -10/25 incentive spirometer -10/16/16- patient had pulmonary artery angiogram- improved flow to the upper and mid lung. There is great perfusion to the left lung. further thrombolysis not performed. -10/15/16- EKOS catheter for directed thrombolysis -10/22/16 Echo- shows only mild pulm HTN Clot in right internal iliac vein. - 10/16/16 LE Doppler- Right/Left: no evidence of deep/superficial vein thrombosis, normal valve function - 10/15/16 Echo- normal LV function with normal EF. Right ventricular septal motion consistent with pressure overload. Moderate right atrium dilation. Moderate tricuspid regurgitation. RV systomic pressure estimated >60mmHg. ASD should be ruled out with SOMMER - 10/15/[address]- Acute pulmonary embolism in distal right and left pulmonary arteries, right upper lobe and left lobar and segmental branches with larger burden of embolism on the left. 2 - Asympotmatic Bacturia - +LE on UA 10/24; but cxr was negative - Will re-check U/A & cxr today to determine if pt needs Augmentin 3- Constipation -10/28: Lacutlose 20mg once- no BM -10/29: Miralax 17g po BID until bowel movement -Monitor 4- -follow up with high-risk OB on discharge -continue nutritional care -10/28/16 Obstetrics US- mean gestation age 11 weeks 1 day. single live intrauterine gestation. perigestational hemorrhage: none. -10/18/16 Obstetrics US- single intrauterine gestation with normal cardiac activity, approximate age 9 weeks 6 days. Clot seen in right internal iliac vein. -10/15/16- single intrauterine gestation with normal cardiac activity. US age 9wks 3days. Estimated delivery 05/17/17. Small sub chorionic hemorrhage measuring 2.1x1.9x1.0cm. 5- Right Iliac vein thrombosis - Therapeutic Lovenox 90mg SC q12 6- Nausea/Vomiting- improving -patient not currently requiring antiemetic treatment - 10/29: patient reports bad reaction to reglan. will change back to zofran. - 10/28:risks discussed with use of reglan vs zofran. Zofran risk of teratogenicity in first trimester explained. Patient fully acknowledged risks associated with the medication and opted to have reglan PRN since it has not been shown to be associated with teratogenicity or harm. The patient was counselled on all risks and fully understand and agrees with the addition of PRN reglan to her regimen. 10/24; no changes in management 7- Hypomagnesemia - replace as needed - monitor on CMP 8- Hypokalemia - resolved - replace as needed - monitor on CMP 9- Respiratory ALkalosis - mild respiratory alkalosis on 10/23/16 ABG; common in - CO2- 30 - HCO3- 22.6 - O2- 94 - pH- 7.44 10- GI/DVT ppx - Lovenox 90mg SC q12 - Protonix 40mg IVP daily - IVF- NS @ 100ml/hr - Pain- tylenol 650mg po q6 prn - PT/OT eval and treat 11- Dispo -patient will likely need home O2 and continued lovenox therapy -repeat eval with physical therapy pending <Cam Casey - Last Filed: 10/30/16 14:38> Objective - Vital Signs/Intake and Output Vital Signs (last 24 hours): Temp Pulse Resp BP Pulse Ox 98.4 F 64 20 102/66 96 10/30/16 07:59 10/30/16 08:00 10/30/16 07:59 10/30/16 07:59 10/30/16 07:59 Intake and Output: 10/30/16 10/30/16 06:59 18:59 Intake Total 1720 Balance 1720 - Medications Medications: Current Medications Acetaminophen (Tylenol 325mg Tab) 650 mg PO Q6 PRN PRN Reason: Pain, Mild (1-3) Last Admin: 10/29/16 14:46 Dose: 650 mg Enoxaparin Sodium (Lovenox) 90 mg SC Q12 [facility] Last Admin: 10/30/16 10:10 Dose: 90 mg Dextrose/Sodium Chloride (Dextrose 5%/0.9% Ns 1000 Ml) 1,000 mls @ 100 mls/hr IV .Q10H [facility] Last Admin: 10/29/16 22:29 Dose: Not Given Ondansetron HCl (Zofran Inj) 4 mg IVP Q6H PRN PRN Reason: Nausea/Vomiting Pantoprazole Sodium (Protonix Ec Tab) 40 mg PO DAILY [facility] Last Admin: 10/30/16 10:09 Dose: 40 mg Polyethylene Glycol (Miralax) 17 gm PO BID [facility] Last Admin: 10/30/16 10:10 Dose: 17 gm Multivit/Folic Acid/Iron () 1 tab PO DAILY [facility] Last Admin: 10/30/16 10:09 Dose: 1 tab - Labs Labs: 10/30/16 06:57 10/30/16 06:57 PT 13.9 SECONDS (9.7-12.2) H 10/20/16 06:46 INR 1.2 10/20/16 06:46 APTT 32 SECONDS (21-34) 10/20/16 06:46 Assessment and Plan (1) Pulmonary embolism affecting Status: Acute (2) Status: Acute (3) Iliac vein thrombosis, right Status: Acute (4) Hypokalemia Status: Acute (5) Hypomagnesemia Status: Acute Attending/Attestation - Attestation I have personally seen and examined this patient.: Yes I have fully participated in the care of the patient.: Yes I have reviewed all pertinent clinical information, including history, physical exam and plan: Yes Notes (Text): 10/30/16 14:32 Patient was seen and examined at bedside with the resident She appears more comfortable today Still complains of some shortness of breath on ambulation Continue physical therapy daily Discharge planning in progress next and patient will be discharged on Lovenox and home oxygen if needed Patient to follow-up with the high-risk maternal OB upon discharge Discussed with Dr. Osman
[2016-10-30] MEDS: Dextrose 5%/0.9% NS 1,000 ML IV SCH (16:45)
--- NOTE | 2016-10-30 19:43 | CP.PCM.PN ---
Subjective - Date & Time of Evaluation Date of Evaluation: 10/30/16 Time of Evaluation: 18:00 - Subjective Subjective: Has headache Objective - Vital Signs/Intake and Output Vital Signs (last 24 hours): Temp Pulse Resp BP Pulse Ox 98.6 F 71 20 106/65 96 10/30/16 16:30 10/30/16 16:30 10/30/16 16:30 10/30/16 16:30 10/30/16 16:30 - Medications Medications: Current Medications Acetaminophen (Tylenol 325mg Tab) 650 mg PO Q6 PRN PRN Reason: Pain, Mild (1-3) Last Admin: 10/30/16 19:14 Dose: 650 mg Enoxaparin Sodium (Lovenox) 90 mg SC Q12 [facility] Last Admin: 10/30/16 10:10 Dose: 90 mg Dextrose/Sodium Chloride (Dextrose 5%/0.9% Ns 1000 Ml) 1,000 mls @ 100 mls/hr IV .Q10H [facility] Last Admin: 10/30/16 16:45 Dose: Not Given Ondansetron HCl (Zofran Inj) 4 mg IVP Q6H PRN PRN Reason: Nausea/Vomiting Pantoprazole Sodium (Protonix Ec Tab) 40 mg PO DAILY [facility] Last Admin: 10/30/16 10:09 Dose: 40 mg Polyethylene Glycol (Miralax) 17 gm PO BID [facility] Last Admin: 10/30/16 19:14 Dose: 17 gm Multivit/Folic Acid/Iron () 1 tab PO DAILY [facility] Last Admin: 10/30/16 10:09 Dose: 1 tab - Labs Labs: 10/30/16 06:57 10/30/16 06:57 PT 13.9 SECONDS (9.7-12.2) H 10/20/16 06:46 INR 1.2 10/20/16 06:46 APTT 32 SECONDS (21-34) 10/20/16 06:46 - Head Exam Head Exam: ATRAUMATIC - Eye Exam Eye Exam: Normal appearance - ENT Exam ENT Exam: Mucous Membranes Dry - Cardiovascular Exam Cardiovascular Exam: +S1, +S2 - GI/Abdominal Exam GI & Abdominal Exam: Normal Bowel Sounds - Extremities Exam Extremities Exam: Normal Inspection - Neurological Exam Neurological Exam: Oriented x3 Assessment and Plan (1) Pulmonary embolism affecting Assessment & Plan: on therapeutic lovenox 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
[2016-10-31 07:41] LABS: BASO % 0.5 % (0.0-2.0); EOS # 0.1 K/uL (0.0-0.7); EOS % 2.4 % (0.0-4.0); HEMATOCRIT 30.6 % (34.0-47.0); LYMPH % 26.8 % (20.0-40.0); MEAN CELL VOLUME 83.7 fL (81.0-99.0); MEAN CORPUSCULAR HEMOGLOBIN 28.6 pg (27.0-31.0); MEAN CORPUSCULAR HGB CONC 34.2 g/dL (33.0-37.0); MEAN PLATELET VOLUME 7.6 fL (7.2-11.7); MONO # 0.3 K/uL (0.0-0.8); MONO % 6.8 % (0.0-10.0); NRBC % 0.1 % (0.0-2.0); RED CELL DISTRIBUTION WIDTH 14.4 % (11.5-14.5); WHITE BLOOD COUNT 3.7 K/uL (4.8-10.8)
[2016-10-31 08:10] LABS: CHLORIDE 97 mmol/L (98-107); POTASSIUM 3.8 mmol/L (3.6-5.2); SODIUM 134 mmol/L (132-148)
[2016-10-31 08:12] LABS: ALKALINE PHOSPHATASE 62 U/L (38-126); AST/SGOT 24 U/L (14-36); BILIRUBIN,TOTAL 0.6 mg/dL (0.2-1.3); CARBON DIOXIDE 24 mmol/L (22-30); GFR AFRICAN-AMERICAN > 60
[2016-10-31 08:13] LABS: ALB/GLOB RATIO 0.9 (1.0-2.1); ALT/SGPT 27 U/L (9-52); BLOOD UREA NITROGEN 2 mg/dL (7-17); CALCIUM 8.9 mg/dl (8.6-10.4); GLUCOSE,RANDOM 83 mg/dL (65-105); PHOSPHOROUS 3.8 mg/dL (2.5-4.5)
[2016-10-31 08:14] LABS: MAGNESIUM 1.5 mg/dL (1.6-2.3)
[2016-10-31] MEDS: Prenatal Multivit/Folic Acid/Iron Tab PO SCH (10:06)
[2016-10-31] MEDS: Pantoprazole 40 mg EC Tab PO SCH (10:06)
[2016-10-31] MEDS: POLYETHYLENE GLYCOL 3350 17 GM/Dose PACKET PO SCH (10:06)
[2016-10-31] MEDS: Enoxaparin 100 mg Syringe SC SCH ×2 (10:06→21:37)
[2016-10-31] MEDS: Dextrose 5%/0.9% NS 1,000 ML IV SCH (12:00)
--- NOTE | 2016-10-31 14:27 | CP.PCM.PN ---
<Estefani Emery - Last Filed: 10/31/16 16:05> Subjective - Date & Time of Evaluation Date of Evaluation: 10/31/16 Time of Evaluation: 09:15 - Subjective Subjective: PGY1 on Dr. Casey's service: Patient seen and examined. Patient denies vomiting but reports spitting up saliva this morning. Patient states her breathing has improved but she felt some palpitation earlier while trying to ambulate. Objective - Vital Signs/Intake and Output Vital Signs (last 24 hours): Temp Pulse Resp BP Pulse Ox 98.4 F 63 20 104/69 100 10/31/16 08:17 10/31/16 08:54 10/31/16 08:17 10/31/16 08:17 10/31/16 08:17 Intake and Output: 10/31/16 10/31/16 06:59 18:59 Intake Total 1700 Output Total 1450 Balance 250 - Medications Medications: Current Medications Acetaminophen (Tylenol 325mg Tab) 650 mg PO Q6 PRN PRN Reason: Pain, Mild (1-3) Last Admin: 10/30/16 19:14 Dose: 650 mg Enoxaparin Sodium (Lovenox) 90 mg SC Q12 [facility] Last Admin: 10/31/16 10:06 Dose: 90 mg Dextrose/Sodium Chloride (Dextrose 5%/0.9% Ns 1000 Ml) 1,000 mls @ 100 mls/hr IV .Q10H [facility] Last Admin: 10/31/16 12:00 Dose: Not Given Ondansetron HCl (Zofran Inj) 4 mg IVP Q6H PRN PRN Reason: Nausea/Vomiting Pantoprazole Sodium (Protonix Ec Tab) 40 mg PO DAILY [facility] Last Admin: 10/31/16 10:06 Dose: 40 mg Polyethylene Glycol (Miralax) 17 gm PO BID [facility] Last Admin: 10/31/16 10:06 Dose: 17 gm Multivit/Folic Acid/Iron () 1 tab PO DAILY [facility] Last Admin: 10/31/16 10:06 Dose: 1 tab - Labs Labs: 10/31/16 06:30 10/31/16 06:30 PT 13.9 SECONDS (9.7-12.2) H 10/20/16 06:46 INR 1.2 10/20/16 06:46 APTT 32 SECONDS (21-34) 10/20/16 06:46 - Constitutional Appears: Non-toxic, No Acute Distress - Head Exam Head Exam: ATRAUMATIC, NORMOCEPHALIC - Eye Exam Eye Exam: EOMI - ENT Exam ENT Exam: Mucous Membranes Moist - Respiratory Exam Respiratory Exam: Chest Wall Tenderness (right side that radiates to back), Decreased Breath Sounds (decreased inspiratory effort), Clear to Ausculation Bilateral - Cardiovascular Exam Cardiovascular Exam: +S1, +S2 - GI/Abdominal Exam GI & Abdominal Exam: Soft, Normal Bowel Sounds. absent: Tenderness - Extremities Exam Extremities Exam: Normal Inspection. absent: Pedal Edema Additional comments: tenderness to palpation over right maldonado - Neurological Exam Neurological Exam: Alert, Awake - Psychiatric Exam Psychiatric exam: Normal Affect, Normal Mood - Skin Skin Exam: Dry, Warm Assessment and Plan - Assessment and Plan (Free Text) Assessment: 1- PE in setting of -Continue Therapeutic Lovenox 90mg SC Q12H, to be continued for duration of -10/27: No changes to current mgmt- pt comfortable, to continue PT due to deconditioning -10/26: no changes to management; patient is comfortable however somewhat deconditioned from hospital stay and will need more PT -10/25 incentive spirometer -10/16/16- patient had pulmonary artery angiogram- improved flow to the upper and mid lung. There is great perfusion to the left lung. further thrombolysis not performed. -10/15/16- EKOS catheter for directed thrombolysis -10/22/16 Echo- shows only mild pulm HTN Clot in right internal iliac vein. - 10/16/16 LE Doppler- Right/Left: no evidence of deep/superficial vein thrombosis, normal valve function - 10/15/16 Echo- normal LV function with normal EF. Right ventricular septal motion consistent with pressure overload. Moderate right atrium dilation. Moderate tricuspid regurgitation. RV systomic pressure estimated >60mmHg. ASD should be ruled out with SOMMER - 10/15/[address]- Acute pulmonary embolism in distal right and left pulmonary arteries, right upper lobe and left lobar and segmental branches with larger burden of embolism on the left. 2 - Asympotmatic Bacturia - +LE on UA 10/24; but cxr was negative - Will re-check U/A & cxr today to determine if pt needs Augmentin 3- Constipation -10/28: Lacutlose 20mg once- no BM -10/29: Miralax 17g po BID until bowel movement -Monitor 4- -10/31-per inpatient OB-there is nothing to be done while inpatient as it is early in . Patient to follow up with high risk perinatologist once discharged. -follow up with high-risk OB on discharge -continue nutritional care -10/28/16 Obstetrics US- mean gestation age 11 weeks 1 day. single live intrauterine gestation. perigestational hemorrhage: none. -10/18/16 Obstetrics US- single intrauterine gestation with normal cardiac activity, approximate age 9 weeks 6 days. Clot seen in right internal iliac vein. -10/15/16- single intrauterine gestation with normal cardiac activity. US age 9wks 3days. Estimated delivery 05/17/17. Small sub chorionic hemorrhage measuring 2.1x1.9x1.0cm. 5- Right Iliac vein thrombosis - Therapeutic Lovenox 90mg SC q12 6- Nausea/Vomiting- improving -patient not currently requiring antiemetic treatment - 10/29: patient reports bad reaction to reglan. will change back to zofran. - 10/28:risks discussed with use of reglan vs zofran. Zofran risk of teratogenicity in first trimester explained. Patient fully acknowledged risks associated with the medication and opted to have reglan PRN since it has not been shown to be associated with teratogenicity or harm. The patient was counselled on all risks and fully understand and agrees with the addition of PRN reglan to her regimen. 10/24; no changes in management 7- Hypomagnesemia - replace as needed - monitor on CMP 8- Hypokalemia - resolved - replace as needed - monitor on CMP 9- Respiratory ALkalosis - mild respiratory alkalosis on 10/23/16 ABG; common in - CO2- 30 - HCO3- 22.6 - O2- 94 - pH- 7.44 10- GI/DVT ppx - Lovenox 90mg SC q12 - Protonix 40mg IVP daily - IVF- NS @ 100ml/hr - Pain- tylenol 650mg po q6 prn - PT/OT eval and treat 11- Dispo -patient will need continued lovenox therapy for duration of and 6- 12 weeks after delivery -repeat eval with physical therapy- patient 98-100% O2 saturation on room air. Patient maintained O2 saturation after ambulating but did become tachycardic after walking a short distance. -Discharge is pending lovenox delivery which will take 5 days -patient will need to apply for medicaid after discharge <Cam Casey - Last Filed: 10/31/16 17:54> Objective - Vital Signs/Intake and Output Vital Signs (last 24 hours): Temp Pulse Resp BP Pulse Ox 98.2 F 65 19 100/60 99 10/31/16 15:28 10/31/16 15:28 10/31/16 15:28 10/31/16 15:28 10/31/16 15:28 Intake and Output: 10/31/16 10/31/16 06:59 18:59 Intake Total 1700 Output Total 1450 Balance 250 - Medications Medications: Current Medications Acetaminophen (Tylenol 325mg Tab) 650 mg PO Q6 PRN PRN Reason: Pain, Mild (1-3) Last Admin: 10/30/16 19:14 Dose: 650 mg Enoxaparin Sodium (Lovenox) 90 mg SC Q12 [facility] Last Admin: 10/31/16 10:06 Dose: 90 mg Ondansetron HCl (Zofran Inj) 4 mg IVP Q6H PRN PRN Reason: Nausea/Vomiting Pantoprazole Sodium (Protonix Ec Tab) 40 mg PO DAILY [facility] Last Admin: 10/31/16 10:06 Dose: 40 mg Polyethylene Glycol (Miralax) 17 gm PO DAILY [facility] Multivit/Folic Acid/Iron () 1 tab PO DAILY [facility] Last Admin: 10/31/16 10:06 Dose: 1 tab - Labs Labs: 10/31/16 06:30 10/31/16 06:30 PT 13.9 SECONDS (9.7-12.2) H 10/20/16 06:46 INR 1.2 10/20/16 06:46 APTT 32 SECONDS (21-34) 10/20/16 06:46 Assessment and Plan (1) Pulmonary embolism affecting Status: Acute (2) Status: Acute (3) Iliac vein thrombosis, right Status: Acute (4) Hypokalemia Status: Acute (5) Hypomagnesemia Status: Acute Attending/Attestation - Attestation I have personally seen and examined this patient.: Yes I have fully participated in the care of the patient.: Yes I have reviewed all pertinent clinical information, including history, physical exam and plan: Yes Notes (Text): 10/31/16 17:53 Patient was seen and examined at bedside with the resident Patient to has good oxygen saturation at rest and on ambulation however patient became very tachycardic upon physical therapy We will continue physical therapy daily because patient appears to be deconditioned Continue therapeutic Lovenox for pulmonary embolism Discharge planning when patient is medically stable and arrangements have been made for Lovenox at home
[2016-11-01 07:25] LABS: BASO % 0.8 % (0.0-2.0); EOS # 0.1 K/uL (0.0-0.7); EOS % 2.1 % (0.0-4.0); LYMPH # 1.2 K/uL (1.0-4.3); LYMPH % 26.4 % (20.0-40.0); MEAN CELL VOLUME 84.3 fL (81.0-99.0); MEAN CORPUSCULAR HGB CONC 34.4 g/dL (33.0-37.0); MEAN PLATELET VOLUME 7.7 fL (7.2-11.7); MONO # 0.3 K/uL (0.0-0.8); MONO % 6.4 % (0.0-10.0); NRBC % 0.1 % (0.0-2.0); RED CELL DISTRIBUTION WIDTH 14.3 % (11.5-14.5); WHITE BLOOD COUNT 4.4 K/uL (4.8-10.8)
[2016-11-01 07:51] LABS: CHLORIDE 97 mmol/L (98-107); POTASSIUM 4.5 mmol/L (3.6-5.2); SODIUM 136 mmol/L (132-148)
[2016-11-01 07:53] LABS: ALB/GLOB RATIO 1.1 (1.0-2.1); ALKALINE PHOSPHATASE 57 U/L (38-126); AST/SGOT 33 U/L (14-36); BILIRUBIN,TOTAL 0.2 mg/dL (0.2-1.3); CARBON DIOXIDE 26 mmol/L (22-30); GFR AFRICAN-AMERICAN > 60; TOTAL PROTEIN 6.5 g/dL (6.3-8.3)
[2016-11-01 07:54] LABS: ALT/SGPT 26 U/L (9-52); BLOOD UREA NITROGEN 6 mg/dL (7-17); CALCIUM 9.4 mg/dl (8.6-10.4); GLUCOSE,RANDOM 76 mg/dL (65-105); MAGNESIUM 1.6 mg/dL (1.6-2.3); PHOSPHOROUS 4.3 mg/dL (2.5-4.5)
[2016-11-01] MEDS: Pantoprazole 40 mg EC Tab PO SCH (09:46)
[2016-11-01] MEDS: Prenatal Multivit/Folic Acid/Iron Tab PO SCH (09:46)
[2016-11-01] MEDS: Enoxaparin 100 mg Syringe SC SCH ×2 (09:47→21:31)
[2016-11-01] MEDS ORDERED: POLYETHYLENE GLYCOL 3350 17 GM/Dose PACKET PO SCH (10:00)
[2016-11-01] MEDS ORDERED: POLYETHYLENE GLYCOL 3350 17 GM/Dose PACKET PO PRN (11:06)
--- NOTE | 2016-11-01 11:07 | CP.PCM.PN ---
Addendum entered and electronically signed by Estefani Emery 11/01/16 13:25 : Informed by nursing that patient's HR went as high as 160 while ambulating with physical therapy. We will continue to monitor patient. Original Note: <Estefani Emery - Last Filed: 11/01/16 11:02> Subjective - Date & Time of Evaluation Date of Evaluation: 11/01/16 Time of Evaluation: 09:10 - Subjective Subjective: PGY1 on Dr. Casey's service: Patient seen and examined. Patient states she gets palpitations when she tries to move around. Patient states pain in right side of chest with inspiration has improved. Patient denies nausea and vomiting and has not needed zofran. Objective - Vital Signs/Intake and Output Vital Signs (last 24 hours): Temp Pulse Resp BP Pulse Ox 98.5 F 64 17 94/58 L 100 11/01/16 07:25 11/01/16 07:25 11/01/16 07:25 11/01/16 07:25 11/01/16 07:25 Intake and Output: 11/01/16 11/01/16 06:59 18:59 Intake Total 540 Balance 540 - Medications Medications: Current Medications Acetaminophen (Tylenol 325mg Tab) 650 mg PO Q6 PRN PRN Reason: Pain, Mild (1-3) Last Admin: 10/31/16 19:10 Dose: 650 mg Enoxaparin Sodium (Lovenox) 90 mg SC Q12 [facility] Last Admin: 11/01/16 09:47 Dose: 90 mg Ondansetron HCl (Zofran Inj) 4 mg IVP Q6H PRN PRN Reason: Nausea/Vomiting Pantoprazole Sodium (Protonix Ec Tab) 40 mg PO DAILY [facility] Last Admin: 11/01/16 09:46 Dose: 40 mg Polyethylene Glycol (Miralax) 17 gm PO DAILY [facility] Last Admin: 11/01/16 09:46 Dose: 17 gm Multivit/Folic Acid/Iron () 1 tab PO DAILY [facility] Last Admin: 11/01/16 09:46 Dose: 1 tab - Labs Labs: 11/01/16 07:03 11/01/16 07:03 PT 13.9 SECONDS (9.7-12.2) H 10/20/16 06:46 INR 1.2 10/20/16 06:46 APTT 32 SECONDS (21-34) 10/20/16 06:46 - Constitutional Appears: No Acute Distress - Head Exam Head Exam: ATRAUMATIC, NORMOCEPHALIC - Eye Exam Eye Exam: EOMI - ENT Exam ENT Exam: Mucous Membranes Moist - Respiratory Exam Respiratory Exam: Chest Wall Tenderness (mild on right side), Clear to Ausculation Bilateral - Cardiovascular Exam Cardiovascular Exam: +S1, +S2 - GI/Abdominal Exam GI & Abdominal Exam: Soft, Normal Bowel Sounds. absent: Tenderness - Extremities Exam Extremities Exam: Normal Inspection. absent: Pedal Edema - Neurological Exam Neurological Exam: Alert, Awake - Psychiatric Exam Psychiatric exam: Normal Affect - Skin Skin Exam: Dry, Warm Assessment and Plan - Assessment and Plan (Free Text) Assessment: 1- PE in setting of -Continue Therapeutic Lovenox 90mg SC Q12H, to be continued for duration of and 6-12 weeks post-delivery per Dr. Tucker -10/27: No changes to current mgmt- pt comfortable, to continue PT due to deconditioning -10/26: no changes to management; patient is comfortable however somewhat deconditioned from hospital stay and will need more PT -10/25 incentive spirometer -10/16/16- patient had pulmonary artery angiogram- improved flow to the upper and mid lung. There is great perfusion to the left lung. further thrombolysis not performed. -10/15/16- EKOS catheter for directed thrombolysis -10/22/16 Echo- shows only mild pulm HTN 2- Clot in right internal iliac vein - 10/16/16 LE Doppler- Right/Left: no evidence of deep/superficial vein thrombosis, normal valve function - 10/15/16 Echo- normal LV function with normal EF. Right ventricular septal motion consistent with pressure overload. Moderate right atrium dilation. Moderate tricuspid regurgitation. RV systomic pressure estimated >60mmHg. ASD should be ruled out with SOMMER - 10/15/[address]- Acute pulmonary embolism in distal right and left pulmonary arteries, right upper lobe and left lobar and segmental branches with larger burden of embolism on the left. 3 - Asympotmatic Bacturia - +LE on UA 10/24; but cxr was negative - Will re-check U/A & cxr today to determine if pt needs Augmentin 4- Constipation -11/01-resolved -10/28- Lacutlose 20mg once- no BM -10/29- Miralax 17g po BID until bowel movement -Monitor 5- -10/31-per inpatient OB-there is nothing to be done while inpatient as it is early in . Patient to follow up with high risk perinatologist once discharged. -follow up with high-risk OB on discharge -continue nutritional care -10/28/16 Obstetrics US- mean gestation age 11 weeks 1 day. single live intrauterine gestation. perigestational hemorrhage: none. -10/18/16 Obstetrics US- single intrauterine gestation with normal cardiac activity, approximate age 9 weeks 6 days. Clot seen in right internal iliac vein. -10/15/16- single intrauterine gestation with normal cardiac activity. US age 9wks 3days. Estimated delivery 05/17/17. Small sub chorionic hemorrhage measuring 2.1x1.9x1.0cm. 6- Right Iliac vein thrombosis - Therapeutic Lovenox 90mg SC q12 7- Nausea/Vomiting- improving -11/01- patient not currently requiring antiemetic treatment - 10/29- patient reports bad reaction to reglan. will change back to zofran. - 10/28:risks discussed with use of reglan vs zofran. Zofran risk of teratogenicity in first trimester explained. Patient fully acknowledged risks associated with the medication and opted to have reglan PRN since it has not been shown to be associated with teratogenicity or harm. The patient was counselled on all risks and fully understand and agrees with the addition of PRN reglan to her regimen. - 10/24- no changes in management 8- Hypomagnesemia - replace as needed - monitor on CMP 9- Hypokalemia - resolved - replace as needed - monitor on CMP 10- Respiratory ALkalosis - mild respiratory alkalosis on 10/23/16 ABG; common in - CO2- 30 - HCO3- 22.6 - O2- 94 - pH- 7.44 11- Thrombophilia - platelets 482 today, will continue to monitor - inherited thrombophilia workup pending per Dr. Tucker 12- GI/DVT ppx - Lovenox 90mg SC q12 - Protonix 40mg IVP daily - IVF- NS @ 100ml/hr - Pain- tylenol 650mg po q6 prn - PT/OT eval and treat 13- Dispo -patient will need continued lovenox therapy for duration of and 6- 12 weeks after delivery -repeat eval with physical therapy- patient 98-100% O2 saturation on room air. Patient maintained O2 saturation after ambulating but did become tachycardic after walking a short distance. -Discharge is pending lovenox delivery which will take 5 days -patient will need to apply for medicaid after discharge <Cam Casey - Last Filed: 11/01/16 13:41> Objective - Vital Signs/Intake and Output Vital Signs (last 24 hours): Temp Pulse Resp BP Pulse Ox 98.5 F 64 17 94/58 L 100 11/01/16 07:25 11/01/16 07:25 11/01/16 07:25 11/01/16 07:25 11/01/16 07:25 Intake and Output: 11/01/16 11/01/16 06:59 18:59 Intake Total 540 Balance 540 - Medications Medications: Current Medications Acetaminophen (Tylenol 325mg Tab) 650 mg PO Q6 PRN PRN Reason: Pain, Mild (1-3) Last Admin: 10/31/16 19:10 Dose: 650 mg Enoxaparin Sodium (Lovenox) 90 mg SC Q12 [facility] Last Admin: 11/01/16 09:47 Dose: 90 mg Ondansetron HCl (Zofran Inj) 4 mg IVP Q6H PRN PRN Reason: Nausea/Vomiting Pantoprazole Sodium (Protonix Ec Tab) 40 mg PO DAILY [facility] Last Admin: 11/01/16 09:46 Dose: 40 mg Polyethylene Glycol (Miralax) 17 gm PO DAILY PRN PRN Reason: Constipation Multivit/Folic Acid/Iron () 1 tab PO DAILY [facility] Last Admin: 11/01/16 09:46 Dose: 1 tab - Labs Labs: 11/01/16 07:03 11/01/16 07:03 PT 13.9 SECONDS (9.7-12.2) H 10/20/16 06:46 INR 1.2 10/20/16 06:46 APTT 32 SECONDS (21-34) 10/20/16 06:46 Assessment and Plan (1) Pulmonary embolism affecting Status: Acute (2) Status: Acute (3) Iliac vein thrombosis, right Status: Acute (4) Hypokalemia Status: Acute (5) Hypomagnesemia Status: Acute Attending/Attestation - Attestation I have personally seen and examined this patient.: Yes I have fully participated in the care of the patient.: Yes I have reviewed all pertinent clinical information, including history, physical exam and plan: Yes Notes (Text): 11/01/16 13:40 Patient was seen and examined at bedside with the resident Patient is comfortable when resting but becomes tachycardic when ambulating We will continue therapeutic anticoagulation for pulmonary embolism and Iliac vein thrombosis discussed the plan of care with the resident
--- NOTE | 2016-11-01 17:32 | CP.PCM.PN ---
Subjective - Date & Time of Evaluation Date of Evaluation: 11/01/16 Time of Evaluation: 15:45 - Subjective Subjective: Had tachycardia with PT Objective - Vital Signs/Intake and Output Vital Signs (last 24 hours): Temp Pulse Resp BP Pulse Ox 98.1 F 79 20 98/63 L 98 11/01/16 15:14 11/01/16 15:14 11/01/16 15:14 11/01/16 15:14 11/01/16 15:14 Intake and Output: 11/01/16 11/01/16 06:59 18:59 Intake Total 540 Balance 540 - Medications Medications: Current Medications Acetaminophen (Tylenol 325mg Tab) 650 mg PO Q6 PRN PRN Reason: Pain, Mild (1-3) Last Admin: 10/31/16 19:10 Dose: 650 mg Enoxaparin Sodium (Lovenox) 90 mg SC Q12 [facility] Last Admin: 11/01/16 09:47 Dose: 90 mg Ondansetron HCl (Zofran Inj) 4 mg IVP Q6H PRN PRN Reason: Nausea/Vomiting Pantoprazole Sodium (Protonix Ec Tab) 40 mg PO DAILY [facility] Last Admin: 11/01/16 09:46 Dose: 40 mg Polyethylene Glycol (Miralax) 17 gm PO DAILY PRN PRN Reason: Constipation Multivit/Folic Acid/Iron () 1 tab PO DAILY [facility] Last Admin: 11/01/16 09:46 Dose: 1 tab - Labs Labs: 11/01/16 07:03 11/01/16 07:03 PT 13.9 SECONDS (9.7-12.2) H 10/20/16 06:46 INR 1.2 10/20/16 06:46 APTT 32 SECONDS (21-34) 10/20/16 06:46 - Head Exam Head Exam: ATRAUMATIC - Eye Exam Eye Exam: Normal appearance - ENT Exam ENT Exam: Mucous Membranes Dry - Neck Exam Neck Exam: Normal Inspection - Respiratory Exam Respiratory Exam: NORMAL BREATHING PATTERN - Cardiovascular Exam Cardiovascular Exam: +S1, +S2 - GI/Abdominal Exam GI & Abdominal Exam: Normal Bowel Sounds Assessment and Plan (1) Pulmonary embolism affecting Assessment & Plan: 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 hypercoagulable from s/p catheter directed thrombolysis on therapeutic lovenox Status: Acute
[2016-11-02 08:04] LABS: BASO % 0.6 % (0.0-2.0); EOS # 0.1 K/uL (0.0-0.7); EOS % 1.8 % (0.0-4.0); HEMATOCRIT 32.5 % (34.0-47.0); LYMPH # 1.1 K/uL (1.0-4.3); LYMPH % 24.3 % (20.0-40.0); MEAN CELL VOLUME 84.1 fL (81.0-99.0); MEAN CORPUSCULAR HGB CONC 34.5 g/dL (33.0-37.0); MEAN PLATELET VOLUME 7.8 fL (7.2-11.7); MONO # 0.3 K/uL (0.0-0.8); MONO % 6.2 % (0.0-10.0); NRBC % 0.1 % (0.0-2.0); RED CELL DISTRIBUTION WIDTH 14.3 % (11.5-14.5); WHITE BLOOD COUNT 4.4 K/uL (4.8-10.8)
[2016-11-02 08:10] LABS: CHLORIDE 96 mmol/L (98-107); POTASSIUM 3.8 mmol/L (3.6-5.2); SODIUM 133 mmol/L (132-148)
[2016-11-02 08:12] LABS: BILIRUBIN,TOTAL 0.1 mg/dL (0.2-1.3); GFR AFRICAN-AMERICAN > 60
[2016-11-02 08:13] LABS: ALKALINE PHOSPHATASE 57 U/L (38-126); ALT/SGPT 31 U/L (9-52); AST/SGOT 34 U/L (14-36); BLOOD UREA NITROGEN 6 mg/dL (7-17); CARBON DIOXIDE 25 mmol/L (22-30); GLUCOSE,RANDOM 80 mg/dL (65-105); PHOSPHOROUS 3.9 mg/dL (2.5-4.5)
[2016-11-02 08:14] LABS: CALCIUM 9.1 mg/dl (8.6-10.4); MAGNESIUM 1.6 mg/dL (1.6-2.3)
[2016-11-02] MEDS: Prenatal Multivit/Folic Acid/Iron Tab PO SCH (10:26)
[2016-11-02] MEDS: Enoxaparin 100 mg Syringe SC SCH ×2 (10:26→21:39)
--- NOTE | 2016-11-02 11:01 | CP.PCM.CON ---
History of Present Illness - History of Present Illness History of Present Illness: Patient is a 30 y/o female who is and is currently . Gestational age is 11w1d estimated by ultrasound on 10/28, which also indicated normal heart tones. Patient was admitted on 10/15 after suffering 1 week of chest pain and SOB. After a large bilateral PE was discovered, a series of 2 catheter directed thrombolysis procedures were conducted on 10/15 and 10/18. Currently, patient complains of no CP or SOB. However, during her physical therapy session yesterday, patient complained of having symptoms of palpitations , CP, and SOB while she was exerting herself. Upon going back to her bed, her symptoms abated and she has since been symptom-free. Review of Systems - Review of Systems All systems: reviewed and no additional remarkable complaints except - Constitutional Constitutional: Fatigue - Respiratory Respiratory: As Per HPI - Gastrointestinal Gastrointestinal: Constipation Past Patient History - Infectious Disease Hx of Infectious Diseases: None - Past Medical History & Family History Past Medical History?: Yes - Past Social History Smoking Status: Never Smoked - CARDIAC Hx Cardiac Disorders: No - PULMONARY Hx Respiratory Disorders: No - NEUROLOGICAL Hx Neurological Disorder: No - HEENT Hx HEENT Problems: No - RENAL Hx Chronic Kidney Disease: No - ENDOCRINE/METABOLIC Hx Endocrine Disorders: No - HEMATOLOGICAL/ONCOLOGICAL Hx Anemia: Yes (Takes iron; No h/o transfusion) - INTEGUMENTARY Hx Dermatological Problems: No - MUSCULOSKELETAL/RHEUMATOLOGICAL Hx Musculoskeletal Disorders: No Hx Falls: No - GASTROINTESTINAL Hx Gastritis: Yes - GENITOURINARY/GYNECOLOGICAL Hx Genitourinary Disorders: Yes Hx Urinary Tract Infection: Yes LMP:: 08/21/2016 : 4 Para: 3 Termination of : 0 - PSYCHIATRIC Hx Substance Use: No - SURGICAL HISTORY Hx Surgeries: Yes Other/Comment: Endoscopy - ANESTHESIA Hx Anesthesia: Yes Hx Anesthesia Reactions: No Hx Malignant Hyperthermia: No Meds Allergies/Adverse Reactions: Allergies Allergy/AdvReac Type Severity Reaction Status Date / Time tramadol HCl [From [facility]] Allergy Intermediate DIZZINESS Verified 10/15/16 14: 24 - Medications Medications: Current Medications Acetaminophen (Tylenol 325mg Tab) 650 mg PO Q6 PRN PRN Reason: Pain, Mild (1-3) Last Admin: 10/31/16 19:10 Dose: 650 mg Enoxaparin Sodium (Lovenox) 90 mg SC Q12 [facility] Last Admin: 11/02/16 10:26 Dose: 90 mg Ondansetron HCl (Zofran Inj) 4 mg IVP Q6H PRN PRN Reason: Nausea/Vomiting Pantoprazole Sodium (Protonix Ec Tab) 40 mg PO DAILY [facility] Last Admin: 11/01/16 09:46 Dose: 40 mg Polyethylene Glycol (Miralax) 17 gm PO DAILY PRN PRN Reason: Constipation Multivit/Folic Acid/Iron () 1 tab PO DAILY [facility] Last Admin: 11/02/16 10:26 Dose: 1 tab Physical Exam - Constitutional Appears: Non-toxic - Head Exam Head Exam: NORMAL INSPECTION - Eye Exam Eye Exam: Normal appearance - ENT Exam ENT Exam: Mucous Membranes Moist - Respiratory Exam Respiratory Exam: Clear to Auscultation Bilateral - Cardiovascular Exam Cardiovascular Exam: REGULAR RHYTHM, +S1, +S2 - GI/Abdominal Exam GI & Abdominal Exam: Soft - Skin Skin Exam: Dry, Normal Color, Warm Results - Vital Signs Recent Vital Signs: Last Vital Signs Temp 98.2 F 11/02/16 07:40 Pulse 72 11/02/16 07:40 Resp 17 11/02/16 07:40 BP 94/63 L 11/02/16 07:40 Pulse Ox 100 11/02/16 07:40 - Labs Result Diagrams: 11/02/16 07:55 11/02/16 07:55 Labs: Laboratory Results - last 24 hr 11/02/16 07:55 WBC 4.4 L RBC 3.87 Hgb 11.2 Hct 32.5 L MCV 84.1 MCH 29.0 MCHC 34.5 RDW 14.3 Plt Count 513 H MPV 7.8 Neut % (Auto) 67.1 Lymph % (Auto) 24.3 [place] % (Auto) 6.2 Eos % (Auto) 1.8 Baso % (Auto) 0.6 Neut # 3.0 Lymph # 1.1 [place] # 0.3 Eos # 0.1 Baso # 0.0 Sodium 133 Potassium 3.8 Chloride 96 L Carbon Dioxide 25 Anion Gap 16 BUN 6 L Creatinine 0.5 L Est GFR ( Amer) > 60 Est GFR (Non-Af Amer) > 60 Random Glucose 80 Calcium 9.1 Phosphorus 3.9 Magnesium 1.6 Total Bilirubin 0.1 L AST 34 ALT 31 Alkaline Phosphatase 57 Total Protein 7.0 Albumin 3.6 Globulin 3.5 Albumin/Globulin Ratio 1.0 Assessment & Plan (1) Pulmonary embolism affecting Assessment and Plan: Continue to monitor for signs of PE or DVT consider genetic causes of hypercoagulable state continue lovenox and maintain theraputic INR Status: Acute
[2016-11-02] MEDS: Pantoprazole 40 mg EC Tab PO SCH (11:58)
--- NOTE | 2016-11-02 14:15 | CP.PCM.PN ---
<Estefani Emery - Last Filed: 11/02/16 14:12> Subjective - Date & Time of Evaluation Date of Evaluation: 11/02/16 Time of Evaluation: 09:10 - Subjective Subjective: PGY1 on Dr. Casey's service: Patient seen and examined. Patient comfortable resting in bed. Patient states that when she gets up to walk she gets very dizzy and feels short of breath and unsteady on her feet. Patient denies vomiting, admits to spitting up saliva. Patient has not requested prn zofran. Patient states right sided chest pain has improved and she does not have sharp pain on inspiration today. Objective - Vital Signs/Intake and Output Vital Signs (last 24 hours): Temp Pulse Resp BP Pulse Ox 98.2 F 72 17 94/63 L 100 11/02/16 07:40 11/02/16 08:00 11/02/16 07:40 11/02/16 07:40 11/02/16 07:40 Intake and Output: 11/02/16 11/02/16 06:59 18:59 Intake Total 120 Balance 120 - Medications Medications: Current Medications Acetaminophen (Tylenol 325mg Tab) 650 mg PO Q6 PRN PRN Reason: Pain, Mild (1-3) Last Admin: 10/31/16 19:10 Dose: 650 mg Enoxaparin Sodium (Lovenox) 90 mg SC Q12 [facility] Last Admin: 11/02/16 10:26 Dose: 90 mg Ondansetron HCl (Zofran Inj) 4 mg IVP Q6H PRN PRN Reason: Nausea/Vomiting Pantoprazole Sodium (Protonix Ec Tab) 40 mg PO DAILY [facility] Last Admin: 11/02/16 11:58 Dose: 40 mg Polyethylene Glycol (Miralax) 17 gm PO DAILY PRN PRN Reason: Constipation Multivit/Folic Acid/Iron () 1 tab PO DAILY [facility] Last Admin: 11/02/16 10:26 Dose: 1 tab - Labs Labs: 11/02/16 07:55 11/02/16 07:55 PT 13.9 SECONDS (9.7-12.2) H 10/20/16 06:46 INR 1.2 10/20/16 06:46 APTT 32 SECONDS (21-34) 10/20/16 06:46 - Constitutional Appears: Non-toxic, No Acute Distress - Head Exam Head Exam: ATRAUMATIC, NORMOCEPHALIC - Eye Exam Eye Exam: EOMI - ENT Exam ENT Exam: Mucous Membranes Moist - Respiratory Exam Respiratory Exam: Decreased Breath Sounds (decreased inspiratory effort), Clear to Ausculation Bilateral. absent: Chest Wall Tenderness - Cardiovascular Exam Cardiovascular Exam: +S1, +S2 - GI/Abdominal Exam GI & Abdominal Exam: Soft, Normal Bowel Sounds. absent: Tenderness - Extremities Exam Extremities Exam: absent: Pedal Edema - Neurological Exam Neurological Exam: Alert, Awake - Psychiatric Exam Psychiatric exam: Normal Affect - Skin Skin Exam: Dry, Warm Assessment and Plan - Assessment and Plan (Free Text) Assessment: 1- PE in setting of -11/02: Continue Therapeutic Lovenox 90mg SC Q12H, to be continued for duration of and 6-12 weeks post-delivery per Dr. Tucker -10/27: No changes to current mgmt- pt comfortable, to continue PT due to deconditioning -10/26: no changes to management; patient is comfortable however somewhat deconditioned from hospital stay and will need more PT -10/25 incentive spirometer -10/16/16- patient had pulmonary artery angiogram- improved flow to the upper and mid lung. There is great perfusion to the left lung. further thrombolysis not performed. -10/15/16- EKOS catheter for directed thrombolysis -10/22/16 Echo- shows only mild pulm HTN 2- Clot in right internal iliac vein - 10/16/16 LE Doppler- Right/Left: no evidence of deep/superficial vein thrombosis, normal valve function - 10/15/16 Echo- normal LV function with normal EF. Right ventricular septal motion consistent with pressure overload. Moderate right atrium dilation. Moderate tricuspid regurgitation. RV systomic pressure estimated >60mmHg. ASD should be ruled out with SOMMER - 10/15/[address]- Acute pulmonary embolism in distal right and left pulmonary arteries, right upper lobe and left lobar and segmental branches with larger burden of embolism on the left. 3 - Asympotmatic Bacturia - 10/28: UA with trace leuk est, 1+ prot, 1+ ketones - +LE on UA 10/24; but cxr was negative - Will re-check U/A & cxr today to determine if pt needs Augmentin 4- Constipation -11/01-resolved -10/28- Lacutlose 20mg once- no BM -10/29- Miralax 17g po BID until bowel movement -Monitor 5- -10/31-per inpatient OB-there is nothing to be done while inpatient as it is early in . Patient to follow up with high risk perinatologist once discharged. -follow up with high-risk OB on discharge -continue nutritional care -10/28/16 Obstetrics US- mean gestation age 11 weeks 1 day. single live intrauterine gestation. perigestational hemorrhage: none. -10/18/16 Obstetrics US- single intrauterine gestation with normal cardiac activity, approximate age 9 weeks 6 days. Clot seen in right internal iliac vein. -10/15/16- single intrauterine gestation with normal cardiac activity. US age 9wks 3days. Estimated delivery 05/17/17. Small sub chorionic hemorrhage measuring 2.1x1.9x1.0cm. 6- Right Iliac vein thrombosis - Therapeutic Lovenox 90mg SC q12 7- Nausea/Vomiting- improving -11/01- patient not currently requiring antiemetic treatment -10/29- patient reports bad reaction to reglan. will change back to zofran. -10/28:risks discussed with use of reglan vs zofran. Zofran risk of teratogenicity in first trimester explained. Patient fully acknowledged risks associated with the medication and opted to have reglan PRN since it has not been shown to be associated with teratogenicity or harm. The patient was counselled on all risks and fully understand and agrees with the addition of PRN reglan to her regimen. -10/24- no changes in management 8- Hypomagnesemia - replace as needed - monitor on CMP 9- Hypokalemia - resolved - replace as needed - monitor on CMP 10- Respiratory ALkalosis - mild respiratory alkalosis on 10/23/16 ABG; common in - CO2- 30 - HCO3- 22.6 - O2- 94 - pH- 7.44 11- Thrombophilia - 11/02: platelets 513 today, will continue to monitor - inherited thrombophilia workup pending per Dr. Tucker 12- GI/DVT ppx - Lovenox 90mg SC q12 - Protonix 40mg PO daily - Pain- tylenol 650mg po q6 prn - PT/OT eval and treat 13- Dispo -patient tachycardic on ambulation with PT- on 3/2 HR went up to 160. Patient will need to continue working with PT -patient will need continued lovenox therapy for duration of and 6- 12 weeks after delivery -repeat eval with physical therapy- patient 98-100% O2 saturation on room air. Patient maintained O2 saturation after ambulating but did become tachycardic after walking a short distance. -Discharge is pending lovenox delivery which will take 5 days -patient will need to apply for medicaid after discharge <Cam Casey - Last Filed: 11/02/16 15:47> Objective - Vital Signs/Intake and Output Vital Signs (last 24 hours): Temp Pulse Resp BP Pulse Ox 98.2 F 72 17 94/63 L 100 11/02/16 07:40 11/02/16 08:00 11/02/16 07:40 11/02/16 07:40 11/02/16 07:40 Intake and Output: 11/02/16 11/02/16 06:59 18:59 Intake Total 120 Balance 120 - Medications Medications: Current Medications Acetaminophen (Tylenol 325mg Tab) 650 mg PO Q6 PRN PRN Reason: Pain, Mild (1-3) Last Admin: 10/31/16 19:10 Dose: 650 mg Enoxaparin Sodium (Lovenox) 90 mg SC Q12 [facility] Last Admin: 11/02/16 10:26 Dose: 90 mg Ondansetron HCl (Zofran Inj) 4 mg IVP Q6H PRN PRN Reason: Nausea/Vomiting Pantoprazole Sodium (Protonix Ec Tab) 40 mg PO DAILY [facility] Last Admin: 11/02/16 11:58 Dose: 40 mg Polyethylene Glycol (Miralax) 17 gm PO DAILY [facility] Multivit/Folic Acid/Iron () 1 tab PO DAILY [facility] Last Admin: 11/02/16 10:26 Dose: 1 tab - Labs Labs: 11/02/16 07:55 11/02/16 07:55 PT 13.9 SECONDS (9.7-12.2) H 10/20/16 06:46 INR 1.2 10/20/16 06:46 APTT 32 SECONDS (21-34) 10/20/16 06:46 Assessment and Plan (1) Pulmonary embolism affecting Status: Acute (2) Status: Acute (3) Iliac vein thrombosis, right Status: Acute (4) Hypokalemia Status: Acute (5) Hypomagnesemia Status: Acute Attending/Attestation - Attestation I have personally seen and examined this patient.: Yes I have fully participated in the care of the patient.: Yes I have reviewed all pertinent clinical information, including history, physical exam and plan: Yes Notes (Text): 11/02/16 15:46 Patient was seen and examined at bedside with the resident today She appears comfortable We will continue anticoagulation with the Lovenox We will continue physical therapy daily Discharge planning when arrangements are made for Lovenox at home
--- NOTE | 2016-11-02 21:12 | CP.PCM.PN ---
<Venu Preston - Last Filed: 11/03/16 00:07> Subjective - Date & Time of Evaluation Date of Evaluation: 11/03/16 Time of Evaluation: 07:00 - Subjective Subjective: Patient seen and examined at bedside this AM; denies any acute complaints or any new complaints. denies fevers/chills, FISHMAN, CP, SOB, abdominal pain, N/V/D, dysuria/freq/urg, or lower extremity pain/swelling, denies depression/anxiety or AV hallucination.s Objective - Vital Signs/Intake and Output Vital Signs (last 24 hours): Temp Pulse Resp BP Pulse Ox 98.2 F 75 20 95/62 L 98 11/02/16 18:34 11/02/16 18:34 11/02/16 18:34 11/02/16 18:34 11/02/16 18:34 - Medications Medications: Current Medications Acetaminophen (Tylenol 325mg Tab) 650 mg PO Q6 PRN PRN Reason: Pain, Mild (1-3) Last Admin: 11/02/16 16:30 Dose: 650 mg Enoxaparin Sodium (Lovenox) 90 mg SC Q12 [facility] Last Admin: 11/02/16 10:26 Dose: 90 mg Ondansetron HCl (Zofran Inj) 4 mg IVP Q6H PRN PRN Reason: Nausea/Vomiting Pantoprazole Sodium (Protonix Ec Tab) 40 mg PO DAILY [facility] Last Admin: 11/02/16 11:58 Dose: 40 mg Polyethylene Glycol (Miralax) 17 gm PO DAILY [facility] Multivit/Folic Acid/Iron () 1 tab PO DAILY [facility] Last Admin: 11/02/16 10:26 Dose: 1 tab - Labs Labs: 11/02/16 07:55 11/02/16 07:55 PT 13.9 SECONDS (9.7-12.2) H 10/20/16 06:46 INR 1.2 10/20/16 06:46 APTT 32 SECONDS (21-34) 10/20/16 06:46 - Constitutional Appears: Well, Non-toxic - Head Exam Head Exam: absent: ATRAUMATIC, NORMAL INSPECTION - Eye Exam Eye Exam: EOMI, Normal appearance - ENT Exam ENT Exam: Mucous Membranes Moist - Neck Exam Neck Exam: Full ROM. absent: Lymphadenopathy - Respiratory Exam Respiratory Exam: Clear to Ausculation Bilateral, NORMAL BREATHING PATTERN. absent: Rales, Rhonchi, Wheezes - Cardiovascular Exam Cardiovascular Exam: REGULAR RHYTHM, +S1, +S2 - GI/Abdominal Exam GI & Abdominal Exam: Soft, Normal Bowel Sounds - Rectal Exam Rectal Exam: Deferred - Back Exam Back Exam: NORMAL INSPECTION. absent: CVA tenderness (L), CVA tenderness (R), vertebral tenderness - Neurological Exam Neurological Exam: Alert, Awake, CN II-XII Intact, Normal Gait, Oriented x3 - Psychiatric Exam Psychiatric exam: Normal Affect - Skin Skin Exam: Warm Assessment and Plan - Assessment and Plan (Free Text) Assessment: 1- PE in setting of -11/03: no change in management -11/02: Continue Therapeutic Lovenox 90mg SC Q12H, to be continued for duration of and 6-12 weeks post-delivery per Dr. Tucker -10/27: No changes to current mgmt- pt comfortable, to continue PT due to deconditioning -10/26: no changes to management; patient is comfortable however somewhat deconditioned from hospital stay and will need more PT -10/25 incentive spirometer -10/16/16- patient had pulmonary artery angiogram- improved flow to the upper and mid lung. There is great perfusion to the left lung. further thrombolysis not performed. -10/15/16- EKOS catheter for directed thrombolysis -10/22/16 Echo- shows only mild pulm HTN 2- Clot in right internal iliac vein - 10/16/16 LE Doppler- Right/Left: no evidence of deep/superficial vein thrombosis, normal valve function - 10/15/16 Echo- normal LV function with normal EF. Right ventricular septal motion consistent with pressure overload. Moderate right atrium dilation. Moderate tricuspid regurgitation. RV systomic pressure estimated >60mmHg. ASD should be ruled out with SOMMER - 10/15/[address]- Acute pulmonary embolism in distal right and left pulmonary arteries, right upper lobe and left lobar and segmental branches with larger burden of embolism on the left. 3 - Asympotmatic Bacturia - 10/28: UA with trace leuk est, 1+ prot, 1+ ketones - +LE on UA 10/24; but cxr was negative - Will re-check U/A & cxr today to determine if pt needs Augmentin 4- Constipation -11/01-resolved -10/28- Lacutlose 20mg once- no BM -10/29- Miralax 17g po BID until bowel movement -Monitor 5- -10/31-per inpatient OB-there is nothing to be done while inpatient as it is early in . Patient to follow up with high risk perinatologist once discharged. -follow up with high-risk OB on discharge -continue nutritional care -10/28/16 Obstetrics US- mean gestation age 11 weeks 1 day. single live intrauterine gestation. perigestational hemorrhage: none. -10/18/16 Obstetrics US- single intrauterine gestation with normal cardiac activity, approximate age 9 weeks 6 days. Clot seen in right internal iliac vein. -10/15/16- single intrauterine gestation with normal cardiac activity. US age 9wks 3days. Estimated delivery 05/17/17. Small sub chorionic hemorrhage measuring 2.1x1.9x1.0cm. 6- Right Iliac vein thrombosis - Therapeutic Lovenox 90mg SC q12 7- Nausea/Vomiting- improving -11/01- patient not currently requiring antiemetic treatment -10/29- patient reports bad reaction to reglan. will change back to zofran. -10/28:risks discussed with use of reglan vs zofran. Zofran risk of teratogenicity in first trimester explained. Patient fully acknowledged risks associated with the medication and opted to have reglan PRN since it has not been shown to be associated with teratogenicity or harm. The patient was counselled on all risks and fully understand and agrees with the addition of PRN reglan to her regimen. -10/24- no changes in management 8- Hypomagnesemia - replace as needed - monitor on CMP 9- Hypokalemia - resolved - replace as needed - monitor on CMP 10- Respiratory ALkalosis - mild respiratory alkalosis on 10/23/16 ABG; common in - CO2- 30 - HCO3- 22.6 - O2- 94 - pH- 7.44 11- Thrombophilia - 11/02: platelets 513 today, will continue to monitor - inherited thrombophilia workup pending per Dr. Tucker 12- GI/DVT ppx - Lovenox 90mg SC q12 - Protonix 40mg PO daily - Pain- tylenol 650mg po q6 prn - PT/OT eval and treat 13- Dispo -patient tachycardic on ambulation with PT- on 3/2 HR went up to 160. Patient will need to continue working with PT -patient will need continued lovenox therapy for duration of and 6- 12 weeks after delivery -repeat eval with physical therapy- patient 98-100% O2 saturation on room air. Patient maintained O2 saturation after ambulating but did become tachycardic after walking a short distance. -Discharge is pending lovenox delivery which will take 5 days -patient will need to apply for medicaid after discharge Dr. Venu Preston PGY1 Hospitalist Service <JacinotCharlieCam M - Last Filed: 11/03/16 14:51> Objective - Vital Signs/Intake and Output Vital Signs (last 24 hours): Temp Pulse Resp BP Pulse Ox 98.4 F 65 20 188/106 H 100 11/03/16 08:29 11/03/16 08:29 11/03/16 08:29 11/03/16 09:50 11/03/16 08:29 Intake and Output: 11/03/16 11/03/16 06:59 18:59 Intake Total 120 Balance 120 - Medications Medications: Current Medications Acetaminophen (Tylenol 325mg Tab) 650 mg PO Q6 PRN PRN Reason: Pain, Mild (1-3) Last Admin: 11/02/16 16:30 Dose: 650 mg Enoxaparin Sodium (Lovenox) 90 mg SC Q12 [facility] Last Admin: 11/03/16 09:29 Dose: 90 mg Ondansetron HCl (Zofran Inj) 4 mg IVP Q6H PRN PRN Reason: Nausea/Vomiting Pantoprazole Sodium (Protonix Ec Tab) 40 mg PO DAILY [facility] Last Admin: 11/03/16 09:30 Dose: 40 mg Polyethylene Glycol (Miralax) 17 gm PO DAILY [facility] Last Admin: 11/03/16 09:31 Dose: 17 gm Multivit/Folic Acid/Iron () 1 tab PO DAILY [facility] Last Admin: 11/03/16 09:30 Dose: 1 tab - Labs Labs: 11/02/16 07:55 11/02/16 07:55 PT 13.9 SECONDS (9.7-12.2) H 10/20/16 06:46 INR 1.2 10/20/16 06:46 APTT 32 SECONDS (21-34) 10/20/16 06:46 Assessment and Plan (1) Pulmonary embolism affecting Status: Acute (2) Status: Acute (3) Iliac vein thrombosis, right Status: Acute (4) Hypokalemia Status: Acute (5) Hypomagnesemia Status: Acute Attending/Attestation - Attestation I have personally seen and examined this patient.: Yes I have fully participated in the care of the patient.: Yes I have reviewed all pertinent clinical information, including history, physical exam and plan: Yes Notes (Text): 11/03/16 14:50 Patient was seen and examined at bedside Patient said that she is feeling better today Denies any chest pain or abdominal pain We will continue therapeutic Lovenox Patient will continue physical therapy daily Use oxygen as needed
[2016-11-03] MEDS: Enoxaparin 100 mg Syringe SC SCH ×2 (09:29→21:49)
[2016-11-03] MEDS: Pantoprazole 40 mg EC Tab PO SCH (09:30)
[2016-11-03] MEDS: Prenatal Multivit/Folic Acid/Iron Tab PO SCH (09:30)
[2016-11-03] MEDS: POLYETHYLENE GLYCOL 3350 17 GM/Dose PACKET PO SCH (09:31)
--- NOTE | 2016-11-04 07:32 | CP.PCM.PN ---
<Abeba Bourne - Last Filed: 11/04/16 16:17> Subjective - Date & Time of Evaluation Date of Evaluation: 11/04/16 Time of Evaluation: 10:10 - Subjective Subjective: Medicine Progress Note- Dr. Casey's service: Patient seen and examined at bedside this AM. Patient admits to headaches this AM. She states that every morning she wakes up she feels a headache all over her head while she has been in the hospital. She denies a history of elevated blood pressure. She has been taking tylenol for the headaches with some relief. No other complains at this time. Objective - Vital Signs/Intake and Output Vital Signs (last 24 hours): Temp Pulse Resp BP Pulse Ox 98.7 F 56 L 18 94/61 L 100 11/03/16 16:00 11/04/16 06:19 11/03/16 16:00 11/03/16 16:00 11/03/16 16:00 - Medications Medications: Current Medications Acetaminophen (Tylenol 325mg Tab) 650 mg PO Q6 PRN PRN Reason: Pain, Mild (1-3) Last Admin: 11/03/16 18:16 Dose: 650 mg Enoxaparin Sodium (Lovenox) 90 mg SC Q12 [facility] Last Admin: 11/03/16 21:49 Dose: 90 mg Ondansetron HCl (Zofran Inj) 4 mg IVP Q6H PRN PRN Reason: Nausea/Vomiting Pantoprazole Sodium (Protonix Ec Tab) 40 mg PO DAILY [facility] Last Admin: 11/03/16 09:30 Dose: 40 mg Polyethylene Glycol (Miralax) 17 gm PO DAILY [facility] Last Admin: 11/03/16 09:31 Dose: 17 gm Multivit/Folic Acid/Iron () 1 tab PO DAILY [facility] Last Admin: 11/03/16 09:30 Dose: 1 tab - Labs Labs: 11/02/16 07:55 11/02/16 07:55 PT 13.9 SECONDS (9.7-12.2) H 10/20/16 06:46 INR 1.2 10/20/16 06:46 APTT 32 SECONDS (21-34) 10/20/16 06:46 - Constitutional Appears: No Acute Distress - Head Exam Head Exam: NORMAL INSPECTION, NORMOCEPHALIC - Eye Exam Eye Exam: EOMI, Normal appearance - ENT Exam ENT Exam: Mucous Membranes Moist - Neck Exam Neck Exam: Full ROM, Normal Inspection - Respiratory Exam Respiratory Exam: Clear to Ausculation Bilateral, NORMAL BREATHING PATTERN - Cardiovascular Exam Cardiovascular Exam: REGULAR RHYTHM, +S1, +S2 - GI/Abdominal Exam GI & Abdominal Exam: Soft. absent: Distended, Tenderness - Extremities Exam Extremities Exam: Full ROM, Normal Inspection - Back Exam Back Exam: NORMAL INSPECTION - Neurological Exam Neurological Exam: Alert, Awake, Oriented x3 - Psychiatric Exam Psychiatric exam: Normal Affect, Normal Mood - Skin Skin Exam: Dry, Normal Color, Warm Assessment and Plan - Assessment and Plan (Free Text) Assessment: (1) Pulmonary embolism affecting Status: Acute - Patient was admitted to ICU on 10/15/16 and transferred to telemetry on -10/15/[address] showed acute pulmonary embolism in distal right and left pulmonary arteries, right upper lobe and left lobar and segmental branches with larger burden of embolism on the left. -Heme/Onc- Dr. Tucker consulted- help appreciated. -Patient had EKOS cath for directed thrombolysis on 10/15/16. Pulmonary artery angiogram improved flow to the upper and mid lung. There is great perfusion to the left lung. -Therapeutic Lovenox 90mg SC Q12H, to be continued for duration of and 6-12 weeks post-delivery per Dr. Tucker. - 10/15/16 Echo showed normal LV function with normal EF. Right ventricular septal motion consistent with pressure overload. Moderate right atrium dilation. Moderate tricuspid regurgitation. RV systolic pressure estimated >60mmHg. ASD should be ruled out with SOMMER (2) Status: Acute - OB team following. - Patient to follow up with high-risk OB on discharge - Continue nutritional care - 10/28/16 Obstetrics US- mean gestation age 11 weeks 1 day. single live intrauterine gestation. perigestational hemorrhage: none. - f/u Obstetric US report done today (3) Iliac vein thrombosis, right Status: Acute - 10/18/16 Obstetrics US- single intrauterine gestation with normal cardiac activity, approximate age 9 weeks 6 days. Clot seen in right internal iliac vein. - 10/16/16 LE Doppler- Right/Left: no evidence of deep/superficial vein thrombosis, normal valve function. - Therapeutic Lovenox 90mg SC q12, to be continued for duration of and 6-12 weeks post-delivery per Dr. Tucker. (4) Thrombophilia Platelets today 513 on 11/02/16. F/u platelets in the AM Inherited thrombophilia workup pending per Dr. Tucker (5) Elevated RV systolic pressure Status: Acute - Likely secondary to clot burden. As per ECHO report, ASD should be ruled out with SOMMER. - 10/15/16 Echo showed normal LV function with normal EF. Right ventricular septal motion consistent with pressure overload. Moderate right atrium dilation. Moderate tricuspid regurgitation. RV systolic pressure estimated >60mmHg. ASD should be ruled out with SOMMER. (6) Nausea/Vomiting Status: Acute Patient not currently requiring antiemetic treatment (7) Constipation Resolved. Stopped Miralax today. (8) Headaches Pain- Tylenol 650mg po q6 prn Patient's blood pressure is not elevated. Continue to monitor. (9) Prophylactic Measure Lovenox 90mg SC q12 Protonix 40mg PO daily PT/OT eval and treat Discharge is pending Lovenox delivery which will take 5 days Patient will need to apply for medicaid after discharge <Cam Casey - Last Filed: 11/04/16 17:07> Objective - Vital Signs/Intake and Output Vital Signs (last 24 hours): Temp Pulse Resp BP Pulse Ox 98.5 F 77 18 91/58 L 100 11/04/16 15:28 11/04/16 15:28 11/04/16 15:28 11/04/16 15:28 11/04/16 15:28 - Medications Medications: Current Medications Acetaminophen (Tylenol 325mg Tab) 650 mg PO Q6 PRN PRN Reason: Pain, Mild (1-3) Last Admin: 11/03/16 18:16 Dose: 650 mg Enoxaparin Sodium (Lovenox) 90 mg SC Q12 [facility] Last Admin: 11/04/16 09:38 Dose: 90 mg Ondansetron HCl (Zofran Inj) 4 mg IVP Q6H PRN PRN Reason: Nausea/Vomiting Pantoprazole Sodium (Protonix Ec Tab) 40 mg PO DAILY [facility] Last Admin: 11/04/16 09:38 Dose: 40 mg Multivit/Folic Acid/Iron () 1 tab PO DAILY [facility] Last Admin: 11/04/16 09:38 Dose: 1 tab - Labs Labs: 11/02/16 07:55 11/02/16 07:55 PT 13.9 SECONDS (9.7-12.2) H 10/20/16 06:46 INR 1.2 10/20/16 06:46 APTT 32 SECONDS (21-34) 10/20/16 06:46 Assessment and Plan (1) Pulmonary embolism affecting Status: Acute (2) Status: Acute (3) Iliac vein thrombosis, right Status: Acute (4) Hypokalemia Status: Acute (5) Hypomagnesemia Status: Acute Attending/Attestation - Attestation I have personally seen and examined this patient.: Yes I have fully participated in the care of the patient.: Yes I have reviewed all pertinent clinical information, including history, physical exam and plan: Yes Notes (Text): 11/04/16 17:06 Patient was seen and examined at bedside with the resident Patient is awake alert not in any acute distress We will continue therapeutic Lovenox obstetric ultrasound repeated today by OB. Follow-up results Discharge planning when arrangements are made for Lovenox at home and also when patient is able to ambulate without getting tachycardic or hypoxic
[2016-11-04] MEDS: Enoxaparin 100 mg Syringe SC SCH ×2 (09:38→21:09)
[2016-11-04] MEDS: Prenatal Multivit/Folic Acid/Iron Tab PO SCH (09:38)
[2016-11-04] MEDS: POLYETHYLENE GLYCOL 3350 17 GM/Dose PACKET PO SCH (09:38)
[2016-11-04] MEDS: Pantoprazole 40 mg EC Tab PO SCH (09:38)
--- NOTE | 2016-11-04 18:43 | US ---
PROCEDURE: OB Pelvic Ultrasound HISTORY: confirm viability COMPARISON: None available. FINDINGS: UTERUS: Gestational sac: Single intrauterine gestation. Heart rate: 154 bpm. age (Ultrasound estimated): 11 weeks 6 days +/- 0 weeks 6 days June-gestational hemorrhage: None. Date of delivery (Ultrasound estimated) : 05/20/2017 Uterus measures 13.2 x 8.5 x 10.4 cm. Normal in size and appearance. CERVIX: Long and closed. No cervical abnormality seen. RIGHT OVARY: Measures 4.5 x 3.5 x 4.6 cm. No mass lesion. Normal flow. There is a simple cyst seen at the right ovary measures 3.9 x 3 x 3.4 centimeter LEFT OVARY: Measures 3.8 x 2.1 x 3.2 cm. No solid mass. Normal flow. FREE FLUID: None. OTHER FINDINGS: None. IMPRESSION: Single intrauterine live with ultrasound estimated gestational age of 11 weeks 6 days +/-0 weeks 6 day. Estimated date of delivery by ultrasound is 05/20/2017. Whole 3.9 centimeter cyst at the right ovary. If clinically warranted interval follow-up reassessment is suggested.
--- NOTE | 2016-11-05 07:34 | CP.PCM.PN ---
<Estefani Emery - Last Filed: 11/05/16 09:59> Subjective - Date & Time of Evaluation Date of Evaluation: 11/05/16 Time of Evaluation: 07:31 - Subjective Subjective: PGY1 on Dr. Barbosa's Service: Rapid response called on patient this morning for tachycardia in 170s, diaphoresis, lightheadedness while patient was standing and brushing her teeth. Patient was complaining of headache and palpitations at time of rapid response. Patient was placed in chair at bedside and symptoms started to resolve. Patient's vitals: T 98.3/ HR 124/ BP 112/80/ O2 100% on 3LNC. Patient 's heart rate continued to decrease to high 90s/ low 100s upon resting in chair. EKG checked and was sinus tachycardia, no acute changes from prior examinations. Patient states her breathing at rest is improved and her right-sided chest pain resolved. Patient complains of tachycardia and lightheadedness on minimal exertion. Objective - Vital Signs/Intake and Output Vital Signs (last 24 hours): Temp Pulse Resp BP Pulse Ox 97.9 F 61 20 95/55 L 99 11/04/16 23:10 11/05/16 02:12 11/04/16 23:10 11/04/16 23:10 11/04/16 23:10 Intake and Output: 11/05/16 11/05/16 06:59 18:59 Intake Total 570 Balance 570 - Medications Medications: Current Medications Acetaminophen (Tylenol 325mg Tab) 650 mg PO Q6 PRN PRN Reason: Pain, Mild (1-3) Last Admin: 11/03/16 18:16 Dose: 650 mg Enoxaparin Sodium (Lovenox) 90 mg SC Q12 [facility] Last Admin: 11/04/16 21:09 Dose: 90 mg Ondansetron HCl (Zofran Inj) 4 mg IVP Q6H PRN PRN Reason: Nausea/Vomiting Pantoprazole Sodium (Protonix Ec Tab) 40 mg PO DAILY [facility] Last Admin: 11/04/16 09:38 Dose: 40 mg Multivit/Folic Acid/Iron () 1 tab PO DAILY [facility] Last Admin: 11/04/16 09:38 Dose: 1 tab - Labs Labs: 11/02/16 07:55 11/02/16 07:55 PT 13.9 SECONDS (9.7-12.2) H 10/20/16 06:46 INR 1.2 10/20/16 06:46 APTT 32 SECONDS (21-34) 10/20/16 06:46 - Constitutional Appears: Non-toxic, No Acute Distress - Head Exam Head Exam: ATRAUMATIC, NORMOCEPHALIC - Eye Exam Eye Exam: EOMI - ENT Exam ENT Exam: Mucous Membranes Moist - Respiratory Exam Respiratory Exam: Clear to Ausculation Bilateral, NORMAL BREATHING PATTERN - Cardiovascular Exam Cardiovascular Exam: Tachycardia, +S1, +S2 - GI/Abdominal Exam GI & Abdominal Exam: Soft, Normal Bowel Sounds. absent: Tenderness - Extremities Exam Extremities Exam: absent: Pedal Edema Additional comments: mild tenderness to palpation of right maldonado - Neurological Exam Neurological Exam: Alert, Awake, Oriented x3 - Psychiatric Exam Psychiatric exam: Normal Affect - Skin Skin Exam: Dry, Warm Assessment and Plan - Assessment and Plan (Free Text) Assessment: Assessment: (1) Pulmonary embolism affecting Status: Acute - Patient was admitted to ICU on 10/15/16 and transferred to telemetry on -10/15/[address] showed acute pulmonary embolism in distal right and left pulmonary arteries, right upper lobe and left lobar and segmental branches with larger burden of embolism on the left. -Heme/Onc- Dr. Tucker consulted- help appreciated. -Patient had EKOS cath for directed thrombolysis on 10/15/16. Pulmonary artery angiogram improved flow to the upper and mid lung. There is great perfusion to the left lung. -Therapeutic Lovenox 90mg SC Q12H, to be continued for duration of and 6-12 weeks post-delivery per Dr. Tucker. - 10/15/16 Echo showed normal LV function with normal EF. Right ventricular septal motion consistent with pressure overload. Moderate right atrium dilation. Moderate tricuspid regurgitation. RV systolic pressure estimated >60mmHg. ASD should be ruled out with SOMMER (2) Status: Acute - OB team following. - Patient to follow up with high-risk OB on discharge - Continue nutritional care - 10/28/16 Obstetrics US- mean gestation age 11 weeks 1 day. single live intrauterine gestation. perigestational hemorrhage: none. - Obstetric US 11/04/16: single intrauterine live with US estimated gestational age 11 weeks 6 days. 3.9cm cyst at right ovary. (3) Iliac vein thrombosis, right Status: Acute - 10/18/16 Obstetrics US- single intrauterine gestation with normal cardiac activity, approximate age 9 weeks 6 days. Clot seen in right internal iliac vein. - 10/16/16 LE Doppler- Right/Left: no evidence of deep/superficial vein thrombosis, normal valve function. - Therapeutic Lovenox 90mg SC q12, to be continued for duration of and 6-12 weeks post-delivery per Dr. Tucker. (4) Thrombophilia Platelets today 476 on 11/05/16. F/u platelets in the AM Inherited thrombophilia workup pending per Dr. Tucker (5) Elevated RV systolic pressure Status: Acute - Likely secondary to clot burden. As per ECHO report, ASD should be ruled out with SOMMER. - 10/15/16 Echo showed normal LV function with normal EF. Right ventricular septal motion consistent with pressure overload. Moderate right atrium dilation. Moderate tricuspid regurgitation. RV systolic pressure estimated >60mmHg. ASD should be ruled out with SOMMER. (6) Nausea/Vomiting Status: Acute Patient not currently requiring antiemetic treatment (7) Constipation Resolved. Stopped Miralax (8) Headaches Pain- Tylenol 650mg po q6 prn Patient's blood pressure is not elevated. Continue to monitor. (9) Prophylactic Measure Lovenox 90mg SC q12 Protonix 40mg PO daily PT/OT eval and treat Discharge is pending Lovenox delivery as well she is still tachycardic and symptomatic for her PEs Patient will need to apply for medicaid after discharge <Janelle Barbosa V - Last Filed: 11/05/16 17:11> Objective - Vital Signs/Intake and Output Vital Signs (last 24 hours): Temp Pulse Resp BP Pulse Ox 99.0 F 84 20 86/52 L 98 11/05/16 15:56 11/05/16 15:56 11/05/16 15:56 11/05/16 15:56 11/05/16 15:56 Intake and Output: 11/05/16 11/05/16 06:59 18:59 Intake Total 570 Balance 570 - Medications Medications: Current Medications Acetaminophen (Tylenol 325mg Tab) 650 mg PO Q6 PRN PRN Reason: Pain, Mild (1-3) Last Admin: 11/03/16 18:16 Dose: 650 mg Enoxaparin Sodium (Lovenox) 90 mg SC Q12 [facility] Last Admin: 11/05/16 09:11 Dose: 90 mg Ondansetron HCl (Zofran Inj) 4 mg IVP Q6H PRN PRN Reason: Nausea/Vomiting Pantoprazole Sodium (Protonix Ec Tab) 40 mg PO DAILY [facility] Last Admin: 11/05/16 09:11 Dose: 40 mg Multivit/Folic Acid/Iron () 1 tab PO DAILY [facility] Last Admin: 11/05/16 09:11 Dose: 1 tab - Labs Labs: 11/05/16 07:42 11/05/16 07:42 PT 13.9 SECONDS (9.7-12.2) H 10/20/16 06:46 INR 1.2 10/20/16 06:46 APTT 32 SECONDS (21-34) 10/20/16 06:46 Attending/Attestation - Attestation I have personally seen and examined this patient.: Yes I have fully participated in the care of the patient.: Yes I have reviewed all pertinent clinical information, including history, physical exam and plan: Yes Notes (Text): Patient seen, examined and case discussed with day-time resident. Patient was a INSOLE RASPER this morning for HR: 150-170s, on sinus tachycardia while brushing her teeth; resolved when at rest. Discussed with case management, they are working to secure her Lovenox injections. Patient is symptomatic of her PE given her tachycardic while on minimal exertion. Electrolytes repleted today. Patient seen subsequent post INSOLE RASPER, at rest asymptomatic. Concern is that if patient remains hypoxic and/or tachycardic on exertion, remains symptomatic of her pulmonary embolus. Assessment/Plan (1) Pulmonary embolism affecting Status: Acute - Patient was admitted to ICU on 10/15/16 and transferred to telemetry on -10/15/[address] showed acute pulmonary embolism in distal right and left pulmonary arteries, right upper lobe and left lobar and segmental branches with larger burden of embolism on the left. -Heme/Onc- Dr. Tucker consulted- help appreciated. -Patient had EKOS cath for directed thrombolysis on 10/15/16. Pulmonary artery angiogram improved flow to the upper and mid lung. There is great perfusion to the left lung. -Therapeutic Lovenox 90mg SC Q12H, to be continued for duration of and 6-12 weeks post-delivery per Dr. Tucker. - 10/15/16 Echo showed normal LV function with normal EF. Right ventricular septal motion consistent with pressure overload. Moderate right atrium dilation. Moderate tricuspid regurgitation. RV systolic pressure estimated >60mmHg. ASD should be ruled out with SOMMER (2) Status: Acute - OB team following. - Patient to follow up with high-risk OB on discharge - Continue nutritional care - 10/28/16 Obstetrics US- mean gestation age 11 weeks 1 day. single live intrauterine gestation. perigestational hemorrhage: none. - 11/04/16 Obstetrics US- single intrauterine live with ultrasound estimated gestational age of 11 weeks 6 days +/- weeks 6 day. estimated date of delivery by ultrasounds is 05/20/17 3.9 cm at the right ovary. (3) Iliac vein thrombosis, right Status: Acute - 10/18/16 Obstetrics US- single intrauterine gestation with normal cardiac activity, approximate age 9 weeks 6 days. Clot seen in right internal iliac vein. - 10/16/16 LE Doppler- Right/Left: no evidence of deep/superficial vein thrombosis, normal valve function. - Therapeutic Lovenox 90mg SC q12, to be continued for duration of and 6-12 weeks post-delivery per Dr. Tucker. (4) Thrombophilia Platelets today 513 on 11/02/16. F/u platelets in the AM Inherited thrombophilia workup pending per Dr. Tucker (5) Elevated RV systolic pressure Status: Acute - Likely secondary to clot burden. As per ECHO report, ASD should be ruled out with SOMMER. - 10/15/16 Echo showed normal LV function with normal EF. Right ventricular septal motion consistent with pressure overload. Moderate right atrium dilation. Moderate tricuspid regurgitation. RV systolic pressure estimated >60mmHg. ASD should be ruled out with SOMMER. (6) Nausea/Vomiting Status: Acute Patient not currently requiring antiemetic treatment (7) Constipation Resolved. Stopped Miralax today. (8) Headaches Pain- Tylenol 650mg po q6 prn Patient's blood pressure is not elevated. Continue to monitor. (9) Prophylactic Measure Lovenox 90mg SC q12 Protonix 40mg PO daily PT/OT eval and treat Discharge is pending Lovenox delivery which will take 5 days and when patient is not symptomatic in terms of hypoxia/tachycardia on exertion Patient will need to apply for medicaid after discharge
[2016-11-05 07:50] LABS: BASO # 0.1 K/uL (0.0-0.2); BASO % 1.8 % (0.0-2.0); EOS # 0.1 K/uL (0.0-0.7); EOS % 3.2 % (0.0-4.0); HEMATOCRIT 35.4 % (34.0-47.0); LYMPH # 1.3 K/uL (1.0-4.3); LYMPH % 32.6 % (20.0-40.0); MEAN CELL VOLUME 84.1 fL (81.0-99.0); MEAN CORPUSCULAR HEMOGLOBIN 28.2 pg (27.0-31.0); MEAN CORPUSCULAR HGB CONC 33.6 g/dL (33.0-37.0); MEAN PLATELET VOLUME 7.7 fL (7.2-11.7); MONO # 0.3 K/uL (0.0-0.8); MONO % 6.7 % (0.0-10.0); RED CELL DISTRIBUTION WIDTH 14.6 % (11.5-14.5)
[2016-11-05 07:56] LABS: CHLORIDE 96 mmol/L (98-107)
[2016-11-05 07:57] LABS: POTASSIUM 3.4 mmol/L (3.6-5.2); SODIUM 136 mmol/L (132-148)
[2016-11-05 07:59] LABS: ALB/GLOB RATIO 1.1 (1.0-2.1); ALKALINE PHOSPHATASE 58 U/L (38-126); AST/SGOT 33 U/L (14-36); BILIRUBIN,TOTAL 0.2 mg/dL (0.2-1.3); BLOOD UREA NITROGEN 6 mg/dL (7-17); CARBON DIOXIDE 25 mmol/L (22-30); GFR AFRICAN-AMERICAN > 60; GLUCOSE,RANDOM 89 mg/dL (65-105); TOTAL PROTEIN 7.6 g/dL (6.3-8.3)
[2016-11-05 08:00] LABS: ALT/SGPT 31 U/L (9-52); CALCIUM 9.4 mg/dl (8.6-10.4)
[2016-11-05] MEDS ORDERED: Potassium Chloride 20 mEq ER Tab PO ONE ×2 (08:51)
[2016-11-05] MEDS: Prenatal Multivit/Folic Acid/Iron Tab PO SCH (09:11)
[2016-11-05] MEDS: Enoxaparin 100 mg Syringe SC SCH ×2 (09:11→21:55)
[2016-11-05] MEDS: Pantoprazole 40 mg EC Tab PO SCH (09:11)
[2016-11-05 09:42] LABS: MAGNESIUM 1.4 mg/dL (1.6-2.3)
[2016-11-05] MEDS ORDERED: Sodium Chloride 0.9% 500 ML IV ONE (16:33)
--- NOTE | 2016-11-06 10:27 | CP.PCM.PN ---
<Estefani Emery DO - Last Filed: 11/06/16 12:18> Subjective - Date & Time of Evaluation Date of Evaluation: 11/06/16 Time of Evaluation: 09:20 - Subjective Subjective: PGY1 on Dr. An's Service: Patient seen and examined. Patient states she is feeling a little better today. Patient denies dizziness, nausea, vomiting, palpitations. Patient admits to spitting up saliva. Patient states that she has walked around the room a little bit this morning and that she did not get similar symptoms as yesterday when she was tachycardic and light headed. Patient admits to having a headache in the afternoons sometimes that is a dull ache from occiput to forehead. Patient states she does not always have a good appetite. Patient admits to not drinking much water. Objective - Vital Signs/Intake and Output Vital Signs (last 24 hours): Temp Pulse Resp BP Pulse Ox 98.2 F 81 20 100/73 100 11/06/16 08:26 11/06/16 08:26 11/06/16 08:26 11/06/16 08:26 11/06/16 08:26 Intake and Output: 11/06/16 11/06/16 06:59 18:59 Intake Total 120 Balance 120 - Medications Medications: Current Medications Acetaminophen (Tylenol 325mg Tab) 650 mg PO Q6 PRN PRN Reason: Pain, Mild (1-3) Last Admin: 11/03/16 18:16 Dose: 650 mg Enoxaparin Sodium (Lovenox) 90 mg SC Q12 [facility] Last Admin: 11/05/16 21:55 Dose: 90 mg Ondansetron HCl (Zofran Inj) 4 mg IVP Q6H PRN PRN Reason: Nausea/Vomiting Pantoprazole Sodium (Protonix Ec Tab) 40 mg PO DAILY [facility] Last Admin: 11/05/16 09:11 Dose: 40 mg Multivit/Folic Acid/Iron () 1 tab PO DAILY [facility] Last Admin: 11/05/16 09:11 Dose: 1 tab - Labs Labs: 11/05/16 07:42 11/05/16 07:42 PT 13.9 SECONDS (9.7-12.2) H 10/20/16 06:46 INR 1.2 02/18/17 06:46 APTT 32 SECONDS (21-34) 10/20/16 06:46 - Constitutional Appears: No Acute Distress - Head Exam Head Exam: ATRAUMATIC, NORMOCEPHALIC - Eye Exam Eye Exam: EOMI - ENT Exam ENT Exam: Mucous Membranes Dry Additional comments: dry cracked lips - Respiratory Exam Respiratory Exam: Clear to Ausculation Bilateral - Cardiovascular Exam Cardiovascular Exam: +S1, +S2 - GI/Abdominal Exam GI & Abdominal Exam: Soft, Normal Bowel Sounds. absent: Tenderness - Extremities Exam Additional comments: right maldonado pain - Neurological Exam Neurological Exam: Alert, Awake - Skin Skin Exam: Dry, Warm Assessment and Plan - Assessment and Plan (Free Text) Assessment: (1) Pulmonary embolism affecting Status: Acute - Patient was admitted to ICU on 10/15/16 and transferred to telemetry on -10/15/[address] showed acute pulmonary embolism in distal right and left pulmonary arteries, right upper lobe and left lobar and segmental branches with larger burden of embolism on the left. -Heme/Onc- Dr. Tucker consulted- help appreciated. -Patient had EKOS cath for directed thrombolysis on 10/15/16. Pulmonary artery angiogram improved flow to the upper and mid lung. There is great perfusion to the left lung. -Therapeutic Lovenox 90mg SC Q12H, to be continued for duration of and 6-12 weeks post-delivery per Dr. Tucker. - 10/15/16 Echo showed normal LV function with normal EF. Right ventricular septal motion consistent with pressure overload. Moderate right atrium dilation. Moderate tricuspid regurgitation. RV systolic pressure estimated >60mmHg. ASD should be ruled out with SOMMER (2) Status: Acute - OB team following. - Patient to follow up with high-risk OB on discharge - Continue nutritional care - 10/28/16 Obstetrics US- mean gestation age 11 weeks 1 day. single live intrauterine gestation. perigestational hemorrhage: none. - Obstetric US 11/04/16: single intrauterine live with US estimated gestational age 11 weeks 6 days. 3.9cm cyst at right ovary. (3) Iliac vein thrombosis, right Status: Acute - 10/18/16 Obstetrics US- single intrauterine gestation with normal cardiac activity, approximate age 9 weeks 6 days. Clot seen in right internal iliac vein. - 10/16/16 LE Doppler- Right/Left: no evidence of deep/superficial vein thrombosis, normal valve function. - Therapeutic Lovenox 90mg SC q12, to be continued for duration of and 6-12 weeks post-delivery per Dr. Tucker. (4) Thrombocytosis Platelets 476 on 11/05/16. F/u platelets in the AM (5) Thrombophilia Inherited thrombophilia workup negative for inherited prothrombin gene mutation Dr. Tucker, hemo-onc, on board, help appreciated (6) Elevated RV systolic pressure Status: Acute - Likely secondary to clot burden. As per ECHO report, ASD should be ruled out with SOMMER. - 10/15/16 Echo showed normal LV function with normal EF. Right ventricular septal motion consistent with pressure overload. Moderate right atrium dilation. Moderate tricuspid regurgitation. RV systolic pressure estimated >60mmHg. ASD should be ruled out with SOMMER. (7) Nausea/Vomiting Status: Acute Patient not currently requiring antiemetic treatment zofran prn (8) Constipation Resolved. Stopped Miralax (9) Headaches Pain- Tylenol 650mg po q6 prn Patient's blood pressure is not elevated. Continue to monitor. (10) Prophylactic Measure Lovenox 90mg SC q12 Protonix 40mg PO daily PT/OT eval and treat Labs every Saturday, Saturday, Saturday Encourage Spirometer will monitor blood pressure and give IV fluids as needed. patient encouraged to increase PO water intake 11/06: starting NS @ 60cc/h (11) Disposition Discharge is pending Lovenox delivery. Patient was denied lovenox from patient assistance from [employer]. Patient will need to provide proof of income to appeal decision. Patient is also still tachycardic and symptomatic for her PEs Patient will need to apply for medicaid after discharge <Chris An - Last Filed: 11/07/16 07:57> Objective - Vital Signs/Intake and Output Vital Signs (last 24 hours): Temp Pulse Resp BP Pulse Ox 98.4 F 68 20 99/64 L 100 11/07/16 07:00 11/07/16 07:00 11/07/16 07:00 11/07/16 07:00 11/07/16 07:00 Intake and Output: 11/07/16 11/07/16 06:59 18:59 Intake Total 660 Balance 660 - Medications Medications: Current Medications Acetaminophen (Tylenol 325mg Tab) 650 mg PO Q6 PRN PRN Reason: Pain, Mild (1-3) Last Admin: 11/03/16 18:16 Dose: 650 mg Enoxaparin Sodium (Lovenox) 90 mg SC Q12 [facility] Last Admin: 11/06/16 21:28 Dose: 90 mg Sodium Chloride (Sodium Chloride 0.9%) 1,000 mls @ 60 mls/hr IV .[id number] [facility] Last Admin: 11/06/16 12:16 Dose: 60 mls/hr Ondansetron HCl (Zofran Inj) 4 mg IVP Q6H PRN PRN Reason: Nausea/Vomiting Pantoprazole Sodium (Protonix Ec Tab) 40 mg PO DAILY [facility] Last Admin: 11/06/16 10:47 Dose: 40 mg Multivit/Folic Acid/Iron () 1 tab PO DAILY [facility] Last Admin: 11/06/16 10:47 Dose: 1 tab - Labs Labs: 11/07/16 06:03 11/07/16 06:03 PT 13.9 SECONDS (9.7-12.2) H 10/20/16 06:46 INR 1.2 10/20/16 06:46 APTT 32 SECONDS (21-34) 10/20/16 06:46 Attending/Attestation - Attestation I have personally seen and examined this patient.: Yes I have fully participated in the care of the patient.: Yes I have reviewed all pertinent clinical information, including history, physical exam and plan: Yes Notes (Text): Patient with at 12 weeks gestation, admitted for acute PE/DVT, s/p catheter guided tPA due to RV overload/hemodynamic compromise; Patient still tachycardic on minimal exertion; [employer] called yesterday for this reason; has not attempted to walk by herself thereafter; PT to work with her today; On lovenox, to continue for 3-6 months post-; Dispo: Marked tachycardia on minimal exertion very concerning; needs to resolve before patient can be discharged home; still awaiting outpatient lovenox setup.
[2016-11-06] MEDS: Enoxaparin 100 mg Syringe SC SCH ×2 (10:47→21:28)
[2016-11-06] MEDS: Prenatal Multivit/Folic Acid/Iron Tab PO SCH (10:47)
[2016-11-06] MEDS: Pantoprazole 40 mg EC Tab PO SCH (10:47)
[2016-11-06] MEDS: Sodium Chloride 0.9% 1,000 ML IV SCH (12:16)
--- NOTE | 2016-11-06 12:48 | CARD ---
APPROVED REPORT EKG Measurement Heart [id number] <Conclusion> Sinus tachycardia with occasional premature ventricular complexes Right atrial enlargement Minimal voltage criteria for LVH, may be normal variant Borderline ECG
--- NOTE | 2016-11-06 20:29 | CP.PCM.PN ---
Subjective - Date & Time of Evaluation Date of Evaluation: 11/06/16 Time of Evaluation: 15:45 - Subjective Subjective: Feeling better Objective - Vital Signs/Intake and Output Vital Signs (last 24 hours): Temp Pulse Resp BP Pulse Ox 98.2 F 90 20 100/73 100 11/06/16 08:26 11/06/16 18:08 11/06/16 08:26 11/06/16 08:26 11/06/16 08:26 Intake and Output: 11/06/16 11/07/16 18:59 06:59 Intake Total 840 Output Total 1 Balance 839 - Medications Medications: Current Medications Acetaminophen (Tylenol 325mg Tab) 650 mg PO Q6 PRN PRN Reason: Pain, Mild (1-3) Last Admin: 11/03/16 18:16 Dose: 650 mg Enoxaparin Sodium (Lovenox) 90 mg SC Q12 [facility] Last Admin: 11/06/16 10:47 Dose: 90 mg Sodium Chloride (Sodium Chloride 0.9%) 1,000 mls @ 60 mls/hr IV .[id number] [facility] Last Admin: 11/06/16 12:16 Dose: 60 mls/hr Ondansetron HCl (Zofran Inj) 4 mg IVP Q6H PRN PRN Reason: Nausea/Vomiting Pantoprazole Sodium (Protonix Ec Tab) 40 mg PO DAILY [facility] Last Admin: 11/06/16 10:47 Dose: 40 mg Multivit/Folic Acid/Iron () 1 tab PO DAILY [facility] Last Admin: 11/06/16 10:47 Dose: 1 tab - Labs Labs: 11/05/16 07:42 11/05/16 07:42 PT 13.9 SECONDS (9.7-12.2) H 10/20/16 06:46 INR 1.2 10/20/16 06:46 APTT 32 SECONDS (21-34) 10/20/16 06:46 - Head Exam Head Exam: ATRAUMATIC - Eye Exam Eye Exam: Normal appearance - ENT Exam ENT Exam: Mucous Membranes Dry - Respiratory Exam Respiratory Exam: NORMAL BREATHING PATTERN - Cardiovascular Exam Cardiovascular Exam: +S1, +S2 - GI/Abdominal Exam GI & Abdominal Exam: Normal Bowel Sounds - Extremities Exam Extremities Exam: Pedal Edema Assessment and Plan (1) Pulmonary embolism affecting Assessment & Plan: hypecoag w/u negative so far; outpatient Protein C+S and antithrombin III may be provoked from malignancy therapeutic lovenox Status: Acute
[2016-11-07 06:14] LABS: BASO % 0.7 % (0.0-2.0); EOS # 0.1 K/uL (0.0-0.7); EOS % 2.3 % (0.0-4.0); HEMATOCRIT 32.7 % (34.0-47.0); LYMPH # 1.2 K/uL (1.0-4.3); MEAN CELL VOLUME 84.5 fL (81.0-99.0); MEAN CORPUSCULAR HEMOGLOBIN 28.7 pg (27.0-31.0); MEAN CORPUSCULAR HGB CONC 33.9 g/dL (33.0-37.0); MEAN PLATELET VOLUME 7.9 fL (7.2-11.7); MONO # 0.3 K/uL (0.0-0.8); MONO % 8.1 % (0.0-10.0); RED CELL DISTRIBUTION WIDTH 14.5 % (11.5-14.5); WHITE BLOOD COUNT 4.1 K/uL (4.8-10.8)
[2016-11-07 06:32] LABS: CHLORIDE 98 mmol/L (98-107)
[2016-11-07 06:33] LABS: SODIUM 135 mmol/L (132-148)
[2016-11-07 06:35] LABS: ALB/GLOB RATIO 1.1 (1.0-2.1); ALKALINE PHOSPHATASE 47 U/L (38-126); ALT/SGPT 25 U/L (9-52); AST/SGOT 28 U/L (14-36); BILIRUBIN,TOTAL 0.2 mg/dL (0.2-1.3); BLOOD UREA NITROGEN 6 mg/dL (7-17); CARBON DIOXIDE 24 mmol/L (22-30); GFR AFRICAN-AMERICAN > 60; GLUCOSE,RANDOM 76 mg/dL (65-105); TOTAL PROTEIN 6.9 g/dL (6.3-8.3)
[2016-11-07 06:36] LABS: MAGNESIUM 1.6 mg/dL (1.6-2.3); PHOSPHOROUS 4.3 mg/dL (2.5-4.5)
[2016-11-07] MEDS: Pantoprazole 40 mg EC Tab PO SCH (09:20)
[2016-11-07] MEDS: Enoxaparin 100 mg Syringe SC SCH ×2 (09:20→21:32)
[2016-11-07] MEDS: Prenatal Multivit/Folic Acid/Iron Tab PO SCH (09:20)
--- NOTE | 2016-11-07 11:09 | CP.PCM.PN ---
<Estefani Emery DO - Last Filed: 11/07/16 11:05> Subjective - Date & Time of Evaluation Date of Evaluation: 11/07/16 Time of Evaluation: 09:05 - Subjective Subjective: PGY1 on Dr. An's service: Patient seen and examined. Patient states she vomited once after eating lunch yesterday. Patient states her headaches have improved. Patient denies feeling short of breath or dizzy while working with PT yesterday. Per PT, patient's HR from 98-118- improvement from prior. Objective - Vital Signs/Intake and Output Vital Signs (last 24 hours): Temp Pulse Resp BP Pulse Ox 98.4 F 68 20 99/64 L 100 11/07/16 07:00 11/07/16 08:00 11/07/16 07:00 11/07/16 07:00 11/07/16 07:00 Intake and Output: 11/07/16 11/07/16 06:59 18:59 Intake Total 660 Balance 660 - Medications Medications: Current Medications Acetaminophen (Tylenol 325mg Tab) 650 mg PO Q6 PRN PRN Reason: Pain, Mild (1-3) Last Admin: 11/03/16 18:16 Dose: 650 mg Enoxaparin Sodium (Lovenox) 90 mg SC Q12 [facility] Last Admin: 11/07/16 09:20 Dose: 90 mg Sodium Chloride (Sodium Chloride 0.9%) 1,000 mls @ 60 mls/hr IV .[id number] [facility] Last Admin: 11/06/16 12:16 Dose: 60 mls/hr Ondansetron HCl (Zofran Inj) 4 mg IVP Q6H PRN PRN Reason: Nausea/Vomiting Pantoprazole Sodium (Protonix Ec Tab) 40 mg PO DAILY [facility] Last Admin: 11/07/16 09:20 Dose: 40 mg Multivit/Folic Acid/Iron () 1 tab PO DAILY [facility] Last Admin: 11/07/16 09:20 Dose: 1 tab - Labs Labs: 11/07/16 06:03 11/07/16 06:03 PT 13.9 SECONDS (9.7-12.2) H 10/20/16 06:46 INR 1.2 10/20/16 06:46 APTT 32 SECONDS (21-34) 10/20/16 06:46 - Constitutional Appears: Non-toxic, No Acute Distress - Head Exam Head Exam: ATRAUMATIC, NORMOCEPHALIC - Eye Exam Eye Exam: EOMI - ENT Exam ENT Exam: Mucous Membranes Dry Additional comments: lips dry mouth still dry - Respiratory Exam Respiratory Exam: Clear to Ausculation Bilateral - Cardiovascular Exam Cardiovascular Exam: +S1, +S2 - GI/Abdominal Exam GI & Abdominal Exam: Soft, Normal Bowel Sounds. absent: Tenderness - Extremities Exam Extremities Exam: absent: Pedal Edema - Neurological Exam Neurological Exam: Alert, Awake - Skin Additional comments: skin turgor improved Assessment and Plan - Assessment and Plan (Free Text) Assessment: (1) Pulmonary embolism affecting Status: Acute - Patient was admitted to ICU on 10/15/16 and transferred to telemetry on -10/15/[address] showed acute pulmonary embolism in distal right and left pulmonary arteries, right upper lobe and left lobar and segmental branches with larger burden of embolism on the left. -Heme/Onc- Dr. Tucker consulted- help appreciated. -Patient had EKOS cath for directed thrombolysis on 10/15/16. Pulmonary artery angiogram improved flow to the upper and mid lung. There is great perfusion to the left lung. -10/15/16 Echo showed normal LV function with normal EF. Right ventricular septal motion consistent with pressure overload. Moderate right atrium dilation. Moderate tricuspid regurgitation. RV systolic pressure estimated >60mmHg. ASD should be ruled out with SOMMER -Therapeutic Lovenox 90mg SC Q12H, to be continued for duration of and 6-12 weeks post-delivery per Dr. Tucker. (2) Status: Acute - OB team following. - Patient to follow up with high-risk OB on discharge - Continue nutritional care - 10/28/16 Obstetrics US- mean gestation age 11 weeks 1 day. single live intrauterine gestation. perigestational hemorrhage: none. - Obstetric US 11/04/16: single intrauterine live with US estimated gestational age 11 weeks 6 days. 3.9cm cyst at right ovary. (3) Iliac vein thrombosis, right Status: Acute - 10/18/16 Obstetrics US- single intrauterine gestation with normal cardiac activity, approximate age 9 weeks 6 days. Clot seen in right internal iliac vein. - 10/16/16 LE Doppler- Right/Left: no evidence of deep/superficial vein thrombosis, normal valve function. - Therapeutic Lovenox 90mg SC q12, to be continued for duration of and 6-12 weeks post-delivery per Dr. Tucker. (4) Thrombocytosis Platelets 476 on 11/05/16. F/u platelets on labs MWF (5) Thrombophilia Inherited thrombophilia workup negative for inherited prothrombin gene mutation Dr. Tucker, hemo-onc, on board, help appreciated patient will need outpatient C+S and antithrombin III testing (6) Elevated RV systolic pressure Status: Acute - Likely secondary to clot burden. As per ECHO report, ASD should be ruled out with SOMMER. - 10/15/16 Echo showed normal LV function with normal EF. Right ventricular septal motion consistent with pressure overload. Moderate right atrium dilation. Moderate tricuspid regurgitation. RV systolic pressure estimated >60mmHg. ASD should be ruled out with SOMMER. (7) Nausea/Vomiting Status: Acute Patient not currently requiring antiemetic treatment zofran prn (8) Constipation Resolved. Stopped Miralax (9) Headaches Pain- Tylenol 650mg po q6 prn Patient's blood pressure is not elevated. Continue to monitor. (10) Prophylactic Measure Lovenox 90mg SC q12 Protonix 40mg PO daily PT/OT eval and treat Labs every Saturday, Saturday, Saturday Encourage Spirometer will monitor blood pressure and give IV fluids as needed. patient encouraged to increase PO water intake 11/06: starting NS @ 60cc/h (11) Disposition Discharge is pending Lovenox delivery. Patient was denied lovenox from patient assistance from [employer] Patient will need to provide proof of income to appeal decision. Proof of income is still pending. Patient is also still tachycardic and symptomatic for her PEs Patient will need to apply for medicaid after discharge <Chris An - Last Filed: 11/07/16 19:31> Objective - Vital Signs/Intake and Output Vital Signs (last 24 hours): Temp Pulse Resp BP Pulse Ox 97.9 F 87 20 99/65 L 100 11/07/16 16:07 11/07/16 16:21 11/07/16 16:07 11/07/16 16:07 11/07/16 16:07 Intake and Output: 11/07/16 11/08/16 18:59 06:59 Intake Total 900 Balance 900 - Medications Medications: Current Medications Acetaminophen (Tylenol 325mg Tab) 650 mg PO Q6 PRN PRN Reason: Pain, Mild (1-3) Last Admin: 11/03/16 18:16 Dose: 650 mg Enoxaparin Sodium (Lovenox) 90 mg SC Q12 [facility] Last Admin: 11/07/16 09:20 Dose: 90 mg Sodium Chloride (Sodium Chloride 0.9%) 1,000 mls @ 60 mls/hr IV .[id number] [facility] Last Admin: 11/07/16 16:46 Dose: 60 mls/hr Ondansetron HCl (Zofran Inj) 4 mg IVP Q6H PRN PRN Reason: Nausea/Vomiting Pantoprazole Sodium (Protonix Ec Tab) 40 mg PO DAILY [facility] Last Admin: 11/07/16 09:20 Dose: 40 mg Multivit/Folic Acid/Iron () 1 tab PO DAILY [facility] Last Admin: 11/07/16 09:20 Dose: 1 tab - Labs Labs: 11/07/16 06:03 11/07/16 06:03 PT 13.9 SECONDS (9.7-12.2) H 10/20/16 06:46 INR 1.2 10/20/16 06:46 APTT 32 SECONDS (21-34) 10/20/16 06:46 Attending/Attestation - Attestation I have personally seen and examined this patient.: Yes I have fully participated in the care of the patient.: Yes I have reviewed all pertinent clinical information, including history, physical exam and plan: Yes Notes (Text): Patient with at 12 wks gestation admitted w/ PE, with subsequent catheter guided tPA; Tolerating activity better today with amubulation to bathroom; only mild tachycardia yesterday when walked with PT; On therapeutic lovenox, to continue throughout and then 3-6 months thereafter; Had long discussion with patient and her regarding obtaining outpatient lovenox; per case management, patient would be responsible to pay ~$500 a month for the med; patient's was instructed to bring documents proving his income in order to possibly qualify for financial assistance; Dispo: Will talk to PT after next session; if exertional tolerance continues to improve, patient can likely be discharged this week. 11/07/16 19:22
[2016-11-07] MEDS: Sodium Chloride 0.9% 1,000 ML IV SCH (16:46)
[2016-11-08] MEDS: Prenatal Multivit/Folic Acid/Iron Tab PO SCH (09:20)
[2016-11-08] MEDS: Enoxaparin 100 mg Syringe SC SCH ×2 (09:20→21:19)
[2016-11-08] MEDS: Pantoprazole 40 mg EC Tab PO SCH (09:20)
[2016-11-08] MEDS: Sodium Chloride 0.9% 1,000 ML IV SCH (09:45)
--- NOTE | 2016-11-08 17:17 | CP.PCM.PN ---
Subjective - Date & Time of Evaluation Date of Evaluation: 11/08/16 Time of Evaluation: 09:10 - Subjective Subjective: PGY1 on Dr An's service: Patient seen and examined. Patient's brought W2 forms in so they can appeal for coverage of lovenox. Patient less symptomatic of her PEs and is able to ambulate with fewer episodes of palpitations. Objective - Vital Signs/Intake and Output Vital Signs (last 24 hours): Temp Pulse Resp BP Pulse Ox 98.1 F 88 20 105/78 100 11/08/16 16:35 11/08/16 16:35 11/08/16 16:35 11/08/16 16:35 11/08/16 16:35 Intake and Output: 11/08/16 11/08/16 06:59 18:59 Intake Total 830 350 Balance 830 350 - Medications Medications: Current Medications Acetaminophen (Tylenol 325mg Tab) 650 mg PO Q6 PRN PRN Reason: Pain, Mild (1-3) Last Admin: 11/03/16 18:16 Dose: 650 mg Enoxaparin Sodium (Lovenox) 90 mg SC Q12 [facility] Last Admin: 11/08/16 09:20 Dose: 90 mg Sodium Chloride (Sodium Chloride 0.9%) 1,000 mls @ 60 mls/hr IV .[id number] [facility] Last Admin: 11/08/16 09:45 Dose: 60 mls/hr Ondansetron HCl (Zofran Inj) 4 mg IVP Q6H PRN PRN Reason: Nausea/Vomiting Pantoprazole Sodium (Protonix Ec Tab) 40 mg PO DAILY [facility] Last Admin: 11/08/16 09:20 Dose: 40 mg Multivit/Folic Acid/Iron () 1 tab PO DAILY [facility] Last Admin: 11/08/16 09:20 Dose: 1 tab - Labs Labs: 11/07/16 06:03 11/07/16 06:03 PT 13.9 SECONDS (9.7-12.2) H 10/20/16 06:46 INR 1.2 10/20/16 06:46 APTT 32 SECONDS (21-34) 10/20/16 06:46 - Constitutional Appears: Non-toxic, No Acute Distress - Head Exam Head Exam: ATRAUMATIC, NORMOCEPHALIC - Eye Exam Eye Exam: EOMI - ENT Exam ENT Exam: Mucous Membranes Moist - Respiratory Exam Respiratory Exam: Clear to Ausculation Bilateral. absent: Chest Wall Tenderness - Cardiovascular Exam Cardiovascular Exam: +S1, +S2 - GI/Abdominal Exam GI & Abdominal Exam: Soft, Normal Bowel Sounds. absent: Tenderness - Extremities Exam Extremities Exam: absent: Pedal Edema Additional comments: tenderness in bilateral shins - Neurological Exam Neurological Exam: Alert, Awake - Psychiatric Exam Psychiatric exam: Normal Affect - Skin Skin Exam: Dry, Warm Assessment and Plan - Assessment and Plan (Free Text) Assessment: (1) Pulmonary embolism affecting Status: Acute - Patient was admitted to ICU on 10/15/16 and transferred to telemetry on -10/15/[address] showed acute pulmonary embolism in distal right and left pulmonary arteries, right upper lobe and left lobar and segmental branches with larger burden of embolism on the left. -Heme/Onc- Dr. Tucker consulted- help appreciated. -Patient had EKOS cath for directed thrombolysis on 10/15/16. Pulmonary artery angiogram improved flow to the upper and mid lung. There is great perfusion to the left lung. -10/15/16 Echo showed normal LV function with normal EF. Right ventricular septal motion consistent with pressure overload. Moderate right atrium dilation. Moderate tricuspid regurgitation. RV systolic pressure estimated >60mmHg. ASD should be ruled out with SOMMER -Therapeutic Lovenox 90mg SC Q12H, to be continued for duration of and 6-12 weeks post-delivery per Dr. Tucker. (2) Status: Acute - OB team following. - Patient to follow up with high-risk OB on discharge - Continue nutritional care - 10/28/16 Obstetrics US- mean gestation age 11 weeks 1 day. single live intrauterine gestation. perigestational hemorrhage: none. - Obstetric US 11/04/16: single intrauterine live with US estimated gestational age 11 weeks 6 days. 3.9cm cyst at right ovary. (3) Iliac vein thrombosis, right Status: Acute - 10/18/16 Obstetrics US- single intrauterine gestation with normal cardiac activity, approximate age 9 weeks 6 days. Clot seen in right internal iliac vein. - 10/16/16 LE Doppler- Right/Left: no evidence of deep/superficial vein thrombosis, normal valve function. - Therapeutic Lovenox 90mg SC q12, to be continued for duration of and 6-12 weeks post-delivery per Dr. Tucker. (4) Thrombocytosis Platelets 476 on 11/05/16. F/u platelets on labs MWF (5) Thrombophilia Inherited thrombophilia workup negative for inherited prothrombin gene mutation Dr. Tucker, hemo-onc, on board, help appreciated patient will need outpatient C+S and antithrombin III testing (6) Elevated RV systolic pressure Status: Acute - Likely secondary to clot burden. As per ECHO report, ASD should be ruled out with SOMMER. - 10/15/16 Echo showed normal LV function with normal EF. Right ventricular septal motion consistent with pressure overload. Moderate right atrium dilation. Moderate tricuspid regurgitation. RV systolic pressure estimated >60mmHg. ASD should be ruled out with SOMMER. (7) Nausea/Vomiting Status: Acute Patient not currently requiring antiemetic treatment zofran prn (8) Constipation Resolved. Stopped Miralax (9) Headaches Pain- Tylenol 650mg po q6 prn Continue to monitor. (10) Prophylactic Measure Lovenox 90mg SC q12 Protonix 40mg PO daily PT/OT eval and treat Labs every Saturday, Saturday, Saturday Encourage Spirometer will monitor blood pressure and give IV fluids as needed. patient encouraged to increase PO water intake 11/08: continue NS @ 60cc/h (11) Disposition Discharge is pending Lovenox delivery. Patient was denied lovenox from patient assistance from [employer]. Patient's brought in proof of income to appeal decision today. Appeal decision pending. Also discussed with case management the option of discharging patient with heparin 21,500u SC s12h
[2016-11-09] MEDS: Sodium Chloride 0.9% 1,000 ML IV SCH ×2 (04:00→21:24)
[2016-11-09 08:22] LABS: BASO % 0.6 % (0.0-2.0); EOS # 0.1 K/uL (0.0-0.7); HEMATOCRIT 33.7 % (34.0-47.0); LYMPH # 1.7 K/uL (1.0-4.3); LYMPH % 34.2 % (20.0-40.0); MEAN CELL VOLUME 84.8 fL (81.0-99.0); MEAN CORPUSCULAR HEMOGLOBIN 28.7 pg (27.0-31.0); MEAN CORPUSCULAR HGB CONC 33.8 g/dL (33.0-37.0); MEAN PLATELET VOLUME 7.8 fL (7.2-11.7); MONO # 0.3 K/uL (0.0-0.8); MONO % 6.5 % (0.0-10.0); RED CELL DISTRIBUTION WIDTH 14.4 % (11.5-14.5); WHITE BLOOD COUNT 4.8 K/uL (4.8-10.8)
[2016-11-09 09:10] LABS: CHLORIDE 98 mmol/L (98-107); POTASSIUM 3.5 mmol/L (3.6-5.2); SODIUM 137 mmol/L (132-148)
[2016-11-09 09:12] LABS: ALKALINE PHOSPHATASE 44 U/L (38-126); ALT/SGPT 33 U/L (9-52); AST/SGOT 28 U/L (14-36); BILIRUBIN,TOTAL 0.3 mg/dL (0.2-1.3); BLOOD UREA NITROGEN 4 mg/dL (7-17); CARBON DIOXIDE 25 mmol/L (22-30); GFR AFRICAN-AMERICAN > 60; GLUCOSE,RANDOM 81 mg/dL (65-105); TOTAL PROTEIN 7.2 g/dL (6.3-8.3)
[2016-11-09 09:13] LABS: CALCIUM 9.2 mg/dl (8.6-10.4); MAGNESIUM 1.6 mg/dL (1.6-2.3)
[2016-11-09] MEDS: Prenatal Multivit/Folic Acid/Iron Tab PO SCH (09:33)
[2016-11-09] MEDS: Enoxaparin 100 mg Syringe SC SCH ×2 (09:33→21:28)
[2016-11-09] MEDS: Pantoprazole 40 mg EC Tab PO SCH (09:33)
[2016-11-09] MEDS ORDERED: Potassium Chloride 20 mEq ER Tab PO STA (10:05)
--- NOTE | 2016-11-09 18:37 | CP.PCM.PN ---
Subjective - Date & Time of Evaluation Date of Evaluation: 11/09/16 Time of Evaluation: 09:05 - Subjective Subjective: PGY1 on Dr. An's service: Patient seen and examined. Patient states she is feeling better and denies palpitations. Patient states she was able to walk to the bathroom with the walker. Patient admits to one episode of vomiting yesterday but denies current nausea. Objective - Vital Signs/Intake and Output Vital Signs (last 24 hours): Temp Pulse Resp BP Pulse Ox 98.5 F 78 20 109/67 100 11/09/16 16:40 11/09/16 16:40 11/09/16 16:40 11/09/16 16:40 11/09/16 16:40 Intake and Output: 11/09/16 11/09/16 06:59 18:59 Intake Total 1260 400 Output Total 300 Balance 960 400 - Medications Medications: Current Medications Acetaminophen (Tylenol 325mg Tab) 650 mg PO Q6 PRN PRN Reason: Pain, Mild (1-3) Last Admin: 11/03/16 18:16 Dose: 650 mg Enoxaparin Sodium (Lovenox) 90 mg SC Q12 [facility] Last Admin: 11/09/16 09:33 Dose: 90 mg Sodium Chloride (Sodium Chloride 0.9%) 1,000 mls @ 60 mls/hr IV .[id number] [facility] Last Admin: 11/09/16 04:00 Dose: 60 mls/hr Ondansetron HCl (Zofran Inj) 4 mg IVP Q6H PRN PRN Reason: Nausea/Vomiting Pantoprazole Sodium (Protonix Ec Tab) 40 mg PO DAILY [facility] Last Admin: 11/09/16 09:33 Dose: 40 mg Multivit/Folic Acid/Iron () 1 tab PO DAILY [facility] Last Admin: 11/09/16 09:33 Dose: 1 tab - Labs Labs: 11/09/16 08:12 11/09/16 08:12 PT 13.9 SECONDS (9.7-12.2) H 10/20/16 06:46 INR 1.2 10/20/16 06:46 APTT 32 SECONDS (21-34) 10/20/16 06:46 - Constitutional Appears: Non-toxic, No Acute Distress - Head Exam Head Exam: ATRAUMATIC, NORMOCEPHALIC - Eye Exam Eye Exam: EOMI - ENT Exam ENT Exam: Mucous Membranes Moist - Respiratory Exam Respiratory Exam: Clear to Ausculation Bilateral. absent: Chest Wall Tenderness - Cardiovascular Exam Cardiovascular Exam: +S1, +S2 - GI/Abdominal Exam GI & Abdominal Exam: Soft, Normal Bowel Sounds. absent: Tenderness - Extremities Exam Extremities Exam: Normal Inspection. absent: Pedal Edema Additional comments: mild tenderness to palpation of bilateral shins - Neurological Exam Neurological Exam: Alert, Awake - Psychiatric Exam Psychiatric exam: Normal Affect, Normal Mood - Skin Skin Exam: Dry, Warm Assessment and Plan - Assessment and Plan (Free Text) Assessment: (1) Pulmonary embolism affecting Status: Acute - Patient was admitted to ICU on 10/15/16 and transferred to telemetry on -10/15/[address] showed acute pulmonary embolism in distal right and left pulmonary arteries, right upper lobe and left lobar and segmental branches with larger burden of embolism on the left. -Heme/Onc- Dr. Tucker consulted- help appreciated. -Patient had EKOS cath for directed thrombolysis on 10/15/16. Pulmonary artery angiogram improved flow to the upper and mid lung. There is great perfusion to the left lung. -10/15/16 Echo showed normal LV function with normal EF. Right ventricular septal motion consistent with pressure overload. Moderate right atrium dilation. Moderate tricuspid regurgitation. RV systolic pressure estimated >60mmHg. ASD should be ruled out with SOMMER -Therapeutic Lovenox 90mg SC Q12H, to be continued for duration of and 6-12 weeks post-delivery per Dr. Tucker. (2) Status: Acute - OB team following. - Patient to follow up with high-risk OB on discharge - Continue nutritional care - 10/28/16 Obstetrics US- mean gestation age 11 weeks 1 day. single live intrauterine gestation. perigestational hemorrhage: none. - Obstetric US 11/04/16: single intrauterine live with US estimated gestational age 11 weeks 6 days. 3.9cm cyst at right ovary. (3) Iliac vein thrombosis, right Status: Acute - 10/18/16 Obstetrics US- single intrauterine gestation with normal cardiac activity, approximate age 9 weeks 6 days. Clot seen in right internal iliac vein. - 10/16/16 LE Doppler- Right/Left: no evidence of deep/superficial vein thrombosis, normal valve function. - Therapeutic Lovenox 90mg SC q12, to be continued for duration of and 6-12 weeks post-delivery per Dr. Tucker. (4) Thrombocytosis Platelets 382 on 11/09/16. F/u platelets on labs MWF (5) Thrombophilia Inherited thrombophilia workup negative for inherited prothrombin gene mutation Dr. Tucker, hemo-onc, on board, help appreciated patient will need outpatient C+S and antithrombin III testing (6) Elevated RV systolic pressure Status: Acute - Likely secondary to clot burden. As per ECHO report, ASD should be ruled out with SOMMER. - 10/15/16 Echo showed normal LV function with normal EF. Right ventricular septal motion consistent with pressure overload. Moderate right atrium dilation. Moderate tricuspid regurgitation. RV systolic pressure estimated >60mmHg. ASD should be ruled out with SOMMER. (7) Nausea/Vomiting Status: Acute Patient not currently requiring antiemetic treatment zofran prn (8) Constipation Resolved. Stopped Miralax (9) Headaches Pain- Tylenol 650mg po q6 prn Continue to monitor. (10) Prophylactic Measure Lovenox 90mg SC q12 Protonix 40mg PO daily PT/OT eval and treat Labs every Saturday, Saturday, Saturday Encourage Spirometer will monitor blood pressure and give IV fluids as needed. patient encouraged to increase PO water intake 11/08: continue NS @ 60cc/h (11) Disposition Discharge is pending Lovenox delivery. Patient was denied lovenox from patient assistance from [employer]. Patient's brought in proof of income to appeal decision yesterday. Appeal decision pending. Also discussed with case management the option of discharging patient with heparin 21,500u SC s12h
--- NOTE | 2016-11-09 19:51 | CP.PCM.PN ---
Subjective - Date & Time of Evaluation Date of Evaluation: 11/09/16 Time of Evaluation: 18:40 - Subjective Subjective: Feeling better Objective - Vital Signs/Intake and Output Vital Signs (last 24 hours): Temp Pulse Resp BP Pulse Ox 98.5 F 78 20 109/67 100 11/09/16 16:40 11/09/16 16:40 11/09/16 16:40 11/09/16 16:40 11/09/16 16:40 Intake and Output: 11/09/16 11/10/16 18:59 06:59 Intake Total 400 Balance 400 - Medications Medications: Current Medications Acetaminophen (Tylenol 325mg Tab) 650 mg PO Q6 PRN PRN Reason: Pain, Mild (1-3) Last Admin: 11/03/16 18:16 Dose: 650 mg Enoxaparin Sodium (Lovenox) 90 mg SC Q12 [facility] Last Admin: 11/09/16 09:33 Dose: 90 mg Sodium Chloride (Sodium Chloride 0.9%) 1,000 mls @ 60 mls/hr IV .[id number] [facility] Last Admin: 11/09/16 04:00 Dose: 60 mls/hr Ondansetron HCl (Zofran Inj) 4 mg IVP Q6H PRN PRN Reason: Nausea/Vomiting Pantoprazole Sodium (Protonix Ec Tab) 40 mg PO DAILY [facility] Last Admin: 11/09/16 09:33 Dose: 40 mg Multivit/Folic Acid/Iron () 1 tab PO DAILY [facility] Last Admin: 11/09/16 09:33 Dose: 1 tab - Labs Labs: 11/09/16 08:12 11/09/16 08:12 PT 13.9 SECONDS (9.7-12.2) H 10/20/16 06:46 INR 1.2 10/20/16 06:46 APTT 32 SECONDS (21-34) 10/20/16 06:46 - Head Exam Head Exam: ATRAUMATIC - Eye Exam Eye Exam: Normal appearance - ENT Exam ENT Exam: Mucous Membranes Dry - Respiratory Exam Respiratory Exam: NORMAL BREATHING PATTERN - Cardiovascular Exam Cardiovascular Exam: +S1, +S2 - GI/Abdominal Exam GI & Abdominal Exam: Normal Bowel Sounds - Extremities Exam Extremities Exam: Normal Inspection Assessment and Plan (1) Pulmonary embolism affecting Assessment & Plan: hypecoag w/u negative so far; outpatient Protein C+S and antithrombin III may be provoked from therapeutic lovenox Status: Acute
[2016-11-10] MEDS: Pantoprazole 40 mg EC Tab PO SCH (09:24)
[2016-11-10] MEDS: Enoxaparin 100 mg Syringe SC SCH ×2 (09:25→21:51)
[2016-11-10] MEDS: Prenatal Multivit/Folic Acid/Iron Tab PO SCH (09:25)
[2016-11-10] MEDS ORDERED: Potassium Chloride 20 mEq ER Tab PO ONE (09:41)
--- NOTE | 2016-11-10 13:21 | CP.PCM.PN ---
<Estefani Emery DO - Last Filed: 11/10/16 13:04> Subjective - Date & Time of Evaluation Date of Evaluation: 11/10/16 Time of Evaluation: 07:45 - Subjective Subjective: PGY1 on Dr. Barbosa's Service: Patient seen and examined. Patient denies palpitations, states she was able to walk to the bathroom without complications. Patient does report constipation. Objective - Vital Signs/Intake and Output Vital Signs (last 24 hours): Temp Pulse Resp BP Pulse Ox 98.5 F 68 16 98/62 L 100 11/10/16 07:35 11/10/16 08:00 11/10/16 07:35 11/10/16 07:35 11/10/16 07:35 Intake and Output: 11/10/16 11/10/16 06:59 18:59 Intake Total 990 Balance 990 - Medications Medications: Current Medications Acetaminophen (Tylenol 325mg Tab) 650 mg PO Q6 PRN PRN Reason: Pain, Mild (1-3) Last Admin: 11/03/16 18:16 Dose: 650 mg Enoxaparin Sodium (Lovenox) 90 mg SC Q12 [facility] Last Admin: 11/10/16 09:25 Dose: 90 mg Sodium Chloride (Sodium Chloride 0.9%) 1,000 mls @ 60 mls/hr IV .[id number] [facility] Last Admin: 11/09/16 21:24 Dose: 60 mls/hr Ondansetron HCl (Zofran Inj) 4 mg IVP Q6H PRN PRN Reason: Nausea/Vomiting Pantoprazole Sodium (Protonix Ec Tab) 40 mg PO DAILY [facility] Last Admin: 11/10/16 09:24 Dose: 40 mg Polyethylene Glycol (Miralax) 17 gm PO DAILY [facility] Multivit/Folic Acid/Iron () 1 tab PO DAILY [facility] Last Admin: 11/10/16 09:25 Dose: 1 tab - Labs Labs: 11/09/16 08:12 11/09/16 08:12 PT 13.9 SECONDS (9.7-12.2) H 10/20/16 06:46 INR 1.2 10/20/16 06:46 APTT 32 SECONDS (21-34) 10/20/16 06:46 - Constitutional Appears: Non-toxic, No Acute Distress - Head Exam Head Exam: ATRAUMATIC, NORMOCEPHALIC - Eye Exam Eye Exam: EOMI - ENT Exam ENT Exam: Mucous Membranes Moist - Respiratory Exam Respiratory Exam: Clear to Ausculation Bilateral. absent: Chest Wall Tenderness - Cardiovascular Exam Cardiovascular Exam: +S1, +S2 - GI/Abdominal Exam GI & Abdominal Exam: Soft, Normal Bowel Sounds. absent: Tenderness - Extremities Exam Extremities Exam: Normal Inspection. absent: Pedal Edema Additional comments: tenderness to palpation of bilateral shins - Neurological Exam Neurological Exam: Alert, Awake - Psychiatric Exam Psychiatric exam: Normal Affect - Skin Skin Exam: Dry, Warm Assessment and Plan - Assessment and Plan (Free Text) Assessment: (1) Pulmonary embolism affecting Status: Acute - Patient was admitted to ICU on 10/15/16 and transferred to telemetry on -10/15/[address] showed acute pulmonary embolism in distal right and left pulmonary arteries, right upper lobe and left lobar and segmental branches with larger burden of embolism on the left. -Heme/Onc- Dr. Tucker consulted- help appreciated. -Patient had EKOS cath for directed thrombolysis on 10/15/16. Pulmonary artery angiogram improved flow to the upper and mid lung. There is great perfusion to the left lung. -10/15/16 Echo showed normal LV function with normal EF. Right ventricular septal motion consistent with pressure overload. Moderate right atrium dilation. Moderate tricuspid regurgitation. RV systolic pressure estimated >60mmHg. ASD should be ruled out with SOMMER -Therapeutic Lovenox 90mg SC Q12H, to be continued for duration of and 6-12 weeks post-delivery per Dr. Tucker. (2) Status: Acute - OB team following. - Patient to follow up with high-risk OB on discharge - Continue nutritional care - 10/28/16 Obstetrics US- mean gestation age 11 weeks 1 day. single live intrauterine gestation. perigestational hemorrhage: none. - Obstetric US 11/04/16: single intrauterine live with US estimated gestational age 11 weeks 6 days. 3.9cm cyst at right ovary. (3) Iliac vein thrombosis, right Status: Acute - 10/18/16 Obstetrics US- single intrauterine gestation with normal cardiac activity, approximate age 9 weeks 6 days. Clot seen in right internal iliac vein. - 10/16/16 LE Doppler- Right/Left: no evidence of deep/superficial vein thrombosis, normal valve function. - Therapeutic Lovenox 90mg SC q12, to be continued for duration of and 6-12 weeks post-delivery per Dr. Tucker. (4) Thrombocytosis Platelets 382 on 11/09/16. F/u platelets on labs MWF (5) Thrombophilia Inherited thrombophilia workup negative for inherited prothrombin gene mutation Dr. Tucker, hemo-onc, on board, help appreciated patient will need outpatient C+S and antithrombin III testing (6) Elevated RV systolic pressure Status: Acute - Likely secondary to clot burden. As per ECHO report, ASD should be ruled out with SOMMER. - 10/15/16 Echo showed normal LV function with normal EF. Right ventricular septal motion consistent with pressure overload. Moderate right atrium dilation. Moderate tricuspid regurgitation. RV systolic pressure estimated >60mmHg. ASD should be ruled out with SOMMER. (7) Nausea/Vomiting Status: Acute Patient not currently requiring antiemetic treatment zofran prn (8) Constipation 11/10: restart Miralax (9) Headaches Pain- Tylenol 650mg po q6 prn Continue to monitor. (10) Prophylactic Measure Lovenox 90mg SC q12 Protonix 40mg PO daily PT/OT eval and treat Labs every Saturday, Saturday, Saturday Encourage Spirometer will monitor blood pressure and give IV fluids as needed. patient encouraged to increase PO water intake 11/08: continue NS @ 60cc/h (11) Disposition Discharge is pending Lovenox delivery. Patient was denied lovenox from patient assistance from [employer]. Patient's brought in proof of income to appeal decision yesterday. Appeal decision pending. Also discussed with case management the option of discharging patient with heparin 21,500u SC s12h <Janelle Barbosa V - Last Filed: 11/12/16 15:41> Objective - Vital Signs/Intake and Output Vital Signs (last 24 hours): Temp Pulse Resp BP Pulse Ox 98.3 F 72 18 100/65 100 11/12/16 07:25 11/12/16 08:00 11/12/16 07:25 11/12/16 07:25 11/12/16 07:25 Intake and Output: 11/12/16 11/12/16 06:59 18:59 Intake Total 350 940 Balance 350 940 - Medications Medications: Current Medications Acetaminophen (Tylenol 325mg Tab) 650 mg PO Q6 PRN PRN Reason: Pain, Mild (1-3) Last Admin: 11/11/16 16:48 Dose: 650 mg Enoxaparin Sodium (Lovenox) 90 mg SC Q12 [facility] Last Admin: 11/12/16 09:18 Dose: 90 mg Sodium Chloride (Sodium Chloride 0.9%) 1,000 mls @ 60 mls/hr IV .[id number] [facility] Last Admin: 11/12/16 10:40 Dose: 60 mls/hr Ondansetron HCl (Zofran Inj) 4 mg IVP Q6H PRN PRN Reason: Nausea/Vomiting Pantoprazole Sodium (Protonix Ec Tab) 40 mg PO DAILY [facility] Last Admin: 11/12/16 09:18 Dose: 40 mg Polyethylene Glycol (Miralax) 17 gm PO DAILY [facility] Last Admin: 11/12/16 09:18 Dose: 17 gm Multivit/Folic Acid/Iron () 1 tab PO DAILY [facility] Last Admin: 11/12/16 09:18 Dose: 1 tab - Labs Labs: 11/12/16 06:53 11/12/16 06:53 PT 13.9 SECONDS (9.7-12.2) H 10/20/16 06:46 INR 1.2 10/20/16 06:46 APTT 32 SECONDS (21-34) 10/20/16 06:46 Attending/Attestation - Attestation I have personally seen and examined this patient.: Yes I have fully participated in the care of the patient.: Yes I have reviewed all pertinent clinical information, including history, physical exam and plan: Yes Notes (Text): This is late computer entry for 11/10/16. Patient seen, examined and case discussed with day-time resident. Patient seen this morning. No acute complaints. Patient is pending delivery of Lovenox and ability to remain asymptomatic while on exertion in terms of tachycardia and possible hypoxia. Patient is concerned about cost of Lovenox and length of while she is on Lovenox. Advised the patient that she was recommended to take the Lovenox for about 6-12 post delivery per heme-onc and she will follow-up with heme-onc and high-risk ob-ob gyn when she is ready for discharge. Patient concerned about Medicare/insurance. She recently moved from [place].
[2016-11-10] MEDS: POLYETHYLENE GLYCOL 3350 17 GM/Dose PACKET PO SCH (13:23)
[2016-11-10] MEDS: Sodium Chloride 0.9% 1,000 ML IV SCH (13:26)
[2016-11-11] MEDS: Enoxaparin 100 mg Syringe SC SCH ×2 (09:28→21:30)
[2016-11-11] MEDS: Prenatal Multivit/Folic Acid/Iron Tab PO SCH (09:29)
[2016-11-11] MEDS: Pantoprazole 40 mg EC Tab PO SCH (09:29)
[2016-11-11] MEDS: POLYETHYLENE GLYCOL 3350 17 GM/Dose PACKET PO SCH (09:29)
[2016-11-11] MEDS: Sodium Chloride 0.9% 1,000 ML IV SCH ×2 (09:32→16:52)
--- NOTE | 2016-11-11 11:29 | CP.PCM.PN ---
<Estefani Emery DO - Last Filed: 11/11/16 11:34> Subjective - Date & Time of Evaluation Date of Evaluation: 11/11/16 Time of Evaluation: 08:35 - Subjective Subjective: PGY1 on Dr. An's service: Patient seen and examined. Patient concerned about going home. Patient states that she lives in an apartment on the third floor and she is worried about walking up the stairs. Patient also concerned about working. Patient states she will need to get medical leave from her job and her will bring the paper work in Saturday or Saturday. Objective - Vital Signs/Intake and Output Vital Signs (last 24 hours): Temp Pulse Resp BP Pulse Ox 98.5 F 78 17 92/63 L 100 11/11/16 07:50 11/11/16 08:00 11/11/16 07:50 11/11/16 07:50 11/11/16 07:50 Intake and Output: 11/11/16 11/11/16 06:59 18:59 Intake Total Balance - Medications Medications: Current Medications Acetaminophen (Tylenol 325mg Tab) 650 mg PO Q6 PRN PRN Reason: Pain, Mild (1-3) Last Admin: 11/10/16 17:34 Dose: 650 mg Enoxaparin Sodium (Lovenox) 90 mg SC Q12 [facility] Last Admin: 11/11/16 09:28 Dose: 90 mg Ondansetron HCl (Zofran Inj) 4 mg IVP Q6H PRN PRN Reason: Nausea/Vomiting Pantoprazole Sodium (Protonix Ec Tab) 40 mg PO DAILY [facility] Last Admin: 11/11/16 09:29 Dose: 40 mg Polyethylene Glycol (Miralax) 17 gm PO DAILY [facility] Last Admin: 11/11/16 09:29 Dose: 17 gm Multivit/Folic Acid/Iron () 1 tab PO DAILY [facility] Last Admin: 11/11/16 09:29 Dose: 1 tab - Labs Labs: 11/09/16 08:12 11/09/16 08:12 PT 13.9 SECONDS (9.7-12.2) H 10/20/16 06:46 INR 1.2 10/20/16 06:46 APTT 32 SECONDS (21-34) 10/20/16 06:46 - Constitutional Appears: Non-toxic, No Acute Distress - Head Exam Head Exam: ATRAUMATIC, NORMOCEPHALIC - Eye Exam Eye Exam: EOMI - ENT Exam ENT Exam: Mucous Membranes Moist - Respiratory Exam Respiratory Exam: Clear to Ausculation Bilateral, NORMAL BREATHING PATTERN. absent: Chest Wall Tenderness - Cardiovascular Exam Cardiovascular Exam: +S1, +S2 - GI/Abdominal Exam GI & Abdominal Exam: Soft, Normal Bowel Sounds. absent: Distended, Guarding, Rigid, Tenderness - Extremities Exam Extremities Exam: Normal Inspection. absent: Pedal Edema - Neurological Exam Neurological Exam: Alert, Awake - Psychiatric Exam Psychiatric exam: Normal Affect - Skin Skin Exam: Dry, Warm Assessment and Plan - Assessment and Plan (Free Text) Assessment: (1) Pulmonary embolism affecting Status: Acute - Patient was admitted to ICU on 10/15/16 and transferred to telemetry on -10/15/[address] showed acute pulmonary embolism in distal right and left pulmonary arteries, right upper lobe and left lobar and segmental branches with larger burden of embolism on the left. -Heme/Onc- Dr. Tucker consulted- help appreciated. -Patient had EKOS cath for directed thrombolysis on 10/15/16. Pulmonary artery angiogram improved flow to the upper and mid lung. There is great perfusion to the left lung. -10/15/16 Echo showed normal LV function with normal EF. Right ventricular septal motion consistent with pressure overload. Moderate right atrium dilation. Moderate tricuspid regurgitation. RV systolic pressure estimated >60mmHg. ASD should be ruled out with SOMMER -Therapeutic Lovenox 90mg SC Q12H, to be continued for duration of and 6-12 weeks post-delivery per Dr. Tucker. (2) Status: Acute - OB team following. - Patient to follow up with high-risk OB on discharge - Continue nutritional care - 10/28/16 Obstetrics US- mean gestation age 11 weeks 1 day. single live intrauterine gestation. perigestational hemorrhage: none. - Obstetric US 11/04/16: single intrauterine live with US estimated gestational age 11 weeks 6 days. 3.9cm cyst at right ovary. (3) Iliac vein thrombosis, right Status: Acute - 10/18/16 Obstetrics US- single intrauterine gestation with normal cardiac activity, approximate age 9 weeks 6 days. Clot seen in right internal iliac vein. - 10/16/16 LE Doppler- Right/Left: no evidence of deep/superficial vein thrombosis, normal valve function. - Therapeutic Lovenox 90mg SC q12, to be continued for duration of and 6-12 weeks post-delivery per Dr. Tucker. (4) Thrombocytosis Platelets 382 on 11/09/16. F/u platelets on labs MWF (5) Thrombophilia Inherited thrombophilia workup negative for inherited prothrombin gene mutation Dr. Tucker, hemo-onc, on board, help appreciated patient will need outpatient C+S and antithrombin III testing (6) Elevated RV systolic pressure Status: Acute - Likely secondary to clot burden. As per ECHO report, ASD should be ruled out with SOMMER. - 10/15/16 Echo showed normal LV function with normal EF. Right ventricular septal motion consistent with pressure overload. Moderate right atrium dilation. Moderate tricuspid regurgitation. RV systolic pressure estimated >60mmHg. ASD should be ruled out with SOMMER. (7) Nausea/Vomiting Status: Acute Patient not currently requiring antiemetic treatment zofran prn (8) Constipation resumed Miralax (9) Headaches Pain- Tylenol 650mg po q6 prn Continue to monitor. (10) Prophylactic Measure Lovenox 90mg SC q12 Protonix 40mg PO daily PT/OT eval and treat- patient will need evaluation on stairs Labs every Saturday, Saturday, Saturday Encourage Spirometer will monitor blood pressure and give IV fluids as needed. patient encouraged to increase PO water intake 11/11: discontinued IV fluids (11) Disposition Discharge is pending Lovenox delivery. Patient was denied lovenox from patient assistance from [employer]. Patient's brought in proof of income to appeal decision yesterday. Appeal decision pending. Also discussed with case management the option of discharging patient with heparin 21,500u SC s12h Patient will need medical leave forms filled out. <Chris An - Last Filed: 11/11/16 16:18> Objective - Vital Signs/Intake and Output Vital Signs (last 24 hours): Temp Pulse Resp BP Pulse Ox 98.5 F 78 17 92/63 L 100 11/11/16 07:50 11/11/16 08:00 11/11/16 07:50 11/11/16 07:50 11/11/16 07:50 Intake and Output: 11/11/16 11/11/16 06:59 18:59 Intake Total 720 Balance 720 - Medications Medications: Current Medications Acetaminophen (Tylenol 325mg Tab) 650 mg PO Q6 PRN PRN Reason: Pain, Mild (1-3) Last Admin: 11/10/16 17:34 Dose: 650 mg Enoxaparin Sodium (Lovenox) 90 mg SC Q12 [facility] Last Admin: 11/11/16 09:28 Dose: 90 mg Ondansetron HCl (Zofran Inj) 4 mg IVP Q6H PRN PRN Reason: Nausea/Vomiting Pantoprazole Sodium (Protonix Ec Tab) 40 mg PO DAILY [facility] Last Admin: 11/11/16 09:29 Dose: 40 mg Polyethylene Glycol (Miralax) 17 gm PO DAILY [facility] Last Admin: 11/11/16 09:29 Dose: 17 gm Multivit/Folic Acid/Iron () 1 tab PO DAILY [facility] Last Admin: 11/11/16 09:29 Dose: 1 tab - Labs Labs: 11/09/16 08:12 11/09/16 08:12 PT 13.9 SECONDS (9.7-12.2) H 10/20/16 06:46 INR 1.2 10/20/16 06:46 APTT 32 SECONDS (21-34) 10/20/16 06:46 Attending/Attestation - Attestation I have personally seen and examined this patient.: Yes I have fully participated in the care of the patient.: Yes I have reviewed all pertinent clinical information, including history, physical exam and plan: Yes Notes (Text): Patient with at 13 weeks gestation, admitted with PE/DVT, subsequently underwent catheter guided tPA of extensive PE; Patient still feels tachycardic on walking; per PT note from 2 days ago, heart rate in 150's on walking; previously was also desaturating into high 80's while walking on RA; Patient on therapeutic lovenox which needs to be continued throughout ant for 6-12 wks thereafter; Dispo: Patient awaiting decision after appeal to lovenox co[employer] regarding receiving free supply of the med; will also need to clarify with PT whether she can go up stairs (apartment is 3 flights up). 11/11/16 16:01
[2016-11-12 07:18] LABS: CHLORIDE 98 mmol/L (98-107)
[2016-11-12 07:19] LABS: POTASSIUM 3.6 mmol/L (3.6-5.2); SODIUM 135 mmol/L (132-148)
[2016-11-12 07:21] LABS: ALB/GLOB RATIO 1.1 (1.0-2.1); ALKALINE PHOSPHATASE 39 U/L (38-126); AST/SGOT 33 U/L (14-36); BILIRUBIN,TOTAL 0.1 mg/dL (0.2-1.3); BLOOD UREA NITROGEN 4 mg/dL (7-17); CARBON DIOXIDE 25 mmol/L (22-30); GFR AFRICAN-AMERICAN > 60; GLUCOSE,RANDOM 78 mg/dL (65-105); TOTAL PROTEIN 6.6 g/dL (6.3-8.3)
[2016-11-12 07:22] LABS: ALT/SGPT 24 U/L (9-52); MAGNESIUM 1.6 mg/dL (1.6-2.3); PHOSPHOROUS 4.4 mg/dL (2.5-4.5)
[2016-11-12 07:56] LABS: BASO % 0.6 % (0.0-2.0); EOS # 0.1 K/uL (0.0-0.7); EOS % 2.7 % (0.0-4.0); HEMATOCRIT 32.3 % (34.0-47.0); LYMPH # 1.5 K/uL (1.0-4.3); LYMPH % 32.8 % (20.0-40.0); MEAN CORPUSCULAR HEMOGLOBIN 28.8 pg (27.0-31.0); MEAN CORPUSCULAR HGB CONC 33.9 g/dL (33.0-37.0); MEAN PLATELET VOLUME 8.2 fL (7.2-11.7); MONO # 0.4 K/uL (0.0-0.8); MONO % 7.5 % (0.0-10.0); NRBC % 0.1 % (0.0-2.0); RED CELL DISTRIBUTION WIDTH 14.5 % (11.5-14.5); WHITE BLOOD COUNT 4.7 K/uL (4.8-10.8)
[2016-11-12] MEDS: Pantoprazole 40 mg EC Tab PO SCH (09:18)
[2016-11-12] MEDS: POLYETHYLENE GLYCOL 3350 17 GM/Dose PACKET PO SCH (09:18)
[2016-11-12] MEDS: Enoxaparin 100 mg Syringe SC SCH ×2 (09:18→21:25)
[2016-11-12] MEDS: Prenatal Multivit/Folic Acid/Iron Tab PO SCH (09:18)
[2016-11-12] MEDS ORDERED: Potassium Chloride 20 mEq ER Tab PO ONE (10:00)
--- NOTE | 2016-11-12 10:02 | CP.PCM.PN ---
<Vincent Corley - Last Filed: 11/12/16 18:29> Subjective - Date & Time of Evaluation Date of Evaluation: 11/12/16 Time of Evaluation: 07:05 - Subjective Subjective: PGY1 on Dr. Barbosa's service: Patient seen and examined. Patient states that she lives in an apartment on the third floor and she is worried about walking up the stairs. Patient also concerned about working. Awaiting medical leave paper-work (will complete / sign), to be brought in by . Patient is unsteady with rolling walker, becoming tachycardic and light headed after 50 feet. Stairs exercise not yet appropriate. Denies f/c, chest pain, abdominal pain, n/v, d/c, or any additional acute complaints. Objective - Vital Signs/Intake and Output Vital Signs (last 24 hours): Temp Pulse Resp BP Pulse Ox 98.3 F 72 18 100/65 100 11/12/16 07:25 11/12/16 07:25 11/12/16 07:25 11/12/16 07:25 11/12/16 07:25 Intake and Output: 11/12/16 11/12/16 06:59 18:59 Intake Total 350 Balance 350 - Medications Medications: Current Medications Acetaminophen (Tylenol 325mg Tab) 650 mg PO Q6 PRN PRN Reason: Pain, Mild (1-3) Last Admin: 11/11/16 16:48 Dose: 650 mg Enoxaparin Sodium (Lovenox) 90 mg SC Q12 [facility] Last Admin: 11/12/16 09:18 Dose: 90 mg Sodium Chloride (Sodium Chloride 0.9%) 1,000 mls @ 60 mls/hr IV .[id number] [facility] Last Admin: 11/11/16 16:52 Dose: 60 mls/hr Ondansetron HCl (Zofran Inj) 4 mg IVP Q6H PRN PRN Reason: Nausea/Vomiting Pantoprazole Sodium (Protonix Ec Tab) 40 mg PO DAILY [facility] Last Admin: 11/12/16 09:18 Dose: 40 mg Polyethylene Glycol (Miralax) 17 gm PO DAILY [facility] Last Admin: 11/12/16 09:18 Dose: 17 gm Multivit/Folic Acid/Iron () 1 tab PO DAILY [facility] Last Admin: 11/12/16 09:18 Dose: 1 tab - Labs Labs: 11/12/16 06:53 11/12/16 06:53 PT 13.9 SECONDS (9.7-12.2) H 10/20/16 06:46 INR 1.2 10/20/16 06:46 APTT 32 SECONDS (21-34) 10/20/16 06:46 - Additional Findings Additional findings: - Constitutional Appears: Non-toxic, No Acute Distress - Head Exam Head Exam: ATRAUMATIC, NORMOCEPHALIC - Eye Exam Eye Exam: EOMI - ENT Exam ENT Exam: Mucous Membranes Moist - Respiratory Exam Respiratory Exam: Clear to Ausculation Bilateral, NORMAL BREATHING PATTERN. absent: Chest Wall Tenderness - Cardiovascular Exam Cardiovascular Exam: +S1, +S2 - GI/Abdominal Exam GI & Abdominal Exam: Soft, Normal Bowel Sounds. absent: Distended, Guarding, Rigid, Tenderness - Extremities Exam Extremities Exam: Normal Inspection. absent: Pedal Edema - Neurological Exam Neurological Exam: Alert, Awake - Psychiatric Exam Psychiatric exam: Normal Affect - Skin Skin Exam: Dry, Warm Assessment and Plan - Assessment and Plan (Free Text) Assessment: Pulmonary embolism affecting Status: Acute -11/12: Therapeutic Lovenox 90mg SC Q12H, to be continued for duration of and 6-12 weeks post-delivery per Dr. Tucker. - Patient was admitted to ICU on 10/15/16 and transferred to telemetry on -10/15/[address] showed acute pulmonary embolism in distal right and left pulmonary arteries, right upper lobe and left lobar and segmental branches with larger burden of embolism on the left. -Heme/Onc- Dr. Tucker consulted- help appreciated. -Patient had EKOS cath for directed thrombolysis on 10/15/16. Pulmonary artery angiogram improved flow to the upper and mid lung. There is great perfusion to the left lung. -10/15/16 Echo showed normal LV function with normal EF. Right ventricular septal motion consistent with pressure overload. Moderate right atrium dilation. Moderate tricuspid regurgitation. RV systolic pressure estimated >60mmHg. ASD should be ruled out with SOMMER Status: Acute - OB team following. - Patient to follow up with high-risk OB on discharge - Continue nutritional care - 10/28/16 Obstetrics US- mean gestation age 11 weeks 1 day. single live intrauterine gestation. perigestational hemorrhage: none. - Obstetric US 11/04/16: single intrauterine live with US estimated gestational age 11 weeks 6 days. 3.9cm cyst at right ovary. Iliac vein thrombosis, right Status: Acute -11/12: Therapeutic Lovenox 90mg SC q12, to be continued for duration of and 6-12 weeks post-delivery per Dr. Tucker. - 10/18/16 Obstetrics US- single intrauterine gestation with normal cardiac activity, approximate age 9 weeks 6 days. Clot seen in right internal iliac vein. - 10/16/16 LE Doppler- Right/Left: no evidence of deep/superficial vein thrombosis, normal valve function. Thrombocytosis 11/12: Platelets 308 11/09: Platelets 382 F/u platelets on labs MWF Thrombophilia Inherited thrombophilia workup negative for inherited prothrombin gene mutation Dr. Tucker, hemo-onc, on board, help appreciated - patient will need outpatient C +S and antithrombin III testing Elevated RV systolic pressure Status: Acute - Likely secondary to clot burden. As per ECHO report, ASD should be ruled out with SOMMER. - 10/15/16 Echo showed normal LV function with normal EF. Right ventricular septal motion consistent with pressure overload. Moderate right atrium dilation. Moderate tricuspid regurgitation. RV systolic pressure estimated >60mmHg. ASD should be ruled out with SOMMER. Nausea/Vomiting - resolved Status: Acute Patient not currently requiring antiemetic treatment zofran prn Constipation -Continue Miralax -monitor BM's Headaches Pain- Tylenol 650mg po q6 prn Continue to monitor. Electrolyte Abnormality - Hypokalemia, K3.6 - Kdur 20 - Hypomagnesemia, Mg1.6 - Mag Sulfate x1bag Prophylactic Measure Lovenox 90mg SC q12 Protonix 40mg PO daily PT/OT eval and treat- patient will need evaluation on stairs Labs every Saturday, Saturday, Saturday Encourage Spirometer -will monitor blood pressure and give IV fluids as needed. patient encouraged to increase PO water intake 11/11: discontinued IV fluids. Disposition -Discharge is pending Lovenox delivery. Patient was denied lovenox from patient assistance from [employer]. Patient's brought in proof of income to appeal decision yesterday. Appeal decision pending. Also discussed with case management the option of discharging patient with heparin 21,500u SC s12h -Patient will need medical leave forms filled out. <Janelle Barbosa V - Last Filed: 11/12/16 19:16> Objective - Vital Signs/Intake and Output Vital Signs (last 24 hours): Temp Pulse Resp BP Pulse Ox 98 F 86 20 99/64 L 100 11/12/16 16:00 11/12/16 16:00 11/12/16 16:00 11/12/16 16:00 11/12/16 16:00 Intake and Output: 11/12/16 11/13/16 18:59 06:59 Intake Total 940 Balance 940 - Medications Medications: Current Medications Acetaminophen (Tylenol 325mg Tab) 650 mg PO Q6 PRN PRN Reason: Pain, Mild (1-3) Last Admin: 11/11/16 16:48 Dose: 650 mg Enoxaparin Sodium (Lovenox) 90 mg SC Q12 [facility] Last Admin: 11/12/16 09:18 Dose: 90 mg Sodium Chloride (Sodium Chloride 0.9%) 1,000 mls @ 60 mls/hr IV .[id number] [facility] Last Admin: 11/12/16 10:40 Dose: 60 mls/hr Ondansetron HCl (Zofran Inj) 4 mg IVP Q6H PRN PRN Reason: Nausea/Vomiting Pantoprazole Sodium (Protonix Ec Tab) 40 mg PO DAILY [facility] Last Admin: 11/12/16 09:18 Dose: 40 mg Polyethylene Glycol (Miralax) 17 gm PO DAILY [facility] Last Admin: 11/12/16 09:18 Dose: 17 gm Multivit/Folic Acid/Iron () 1 tab PO DAILY [facility] Last Admin: 11/12/16 09:18 Dose: 1 tab - Labs Labs: 11/12/16 06:53 11/12/16 06:53 PT 13.9 SECONDS (9.7-12.2) H 10/20/16 06:46 INR 1.2 10/20/16 06:46 APTT 32 SECONDS (21-34) 10/20/16 06:46 Attending/Attestation - Attestation I have personally seen and examined this patient.: Yes I have fully participated in the care of the patient.: Yes I have reviewed all pertinent clinical information, including history, physical exam and plan: Yes Notes (Text): Patient seen, examined, and case discussed with day-time resident. Patient seen at bedside. Patient denies acute complaints. Pending appeal for Lovenox from the drug company; to be continued for duration of and post delivery 6-12 weeks per heme-onc Patient is pending medical leave forms but none provided today. Electrolytes repleted Discussed with PT, patient has 3 flights of stairs with her appartment; patient is symptomatic while walking on flat surfaces Noted: repeat echocardiogram (10/23/16) normal LV systolic function, dilated RA and RV, moderate pullmonary hypertension in light of prior echocardiogram noted in the resident note.
[2016-11-12] MEDS: Sodium Chloride 0.9% 1,000 ML IV SCH (10:40)
[2016-11-13] MEDS: Sodium Chloride 0.9% 1,000 ML IV SCH (04:34)
[2016-11-13 09:03] LABS: BASO % 0.5 % (0.0-2.0); EOS # 0.1 K/uL (0.0-0.7); EOS % 3.2 % (0.0-4.0); HEMATOCRIT 34.2 % (34.0-47.0); LYMPH # 1.4 K/uL (1.0-4.3); LYMPH % 32.7 % (20.0-40.0); MEAN CELL VOLUME 85.7 fL (81.0-99.0); MEAN CORPUSCULAR HEMOGLOBIN 28.1 pg (27.0-31.0); MEAN CORPUSCULAR HGB CONC 32.8 g/dL (33.0-37.0); MEAN PLATELET VOLUME 7.8 fL (7.2-11.7); MONO # 0.3 K/uL (0.0-0.8); MONO % 7.6 % (0.0-10.0); RED CELL DISTRIBUTION WIDTH 14.6 % (11.5-14.5); WHITE BLOOD COUNT 4.1 K/uL (4.8-10.8)
[2016-11-13 09:24] LABS: CHLORIDE 99 mmol/L (98-107)
[2016-11-13 09:25] LABS: POTASSIUM 3.5 mmol/L (3.6-5.2); SODIUM 134 mmol/L (132-148)
[2016-11-13 09:27] LABS: ALB/GLOB RATIO 1.1 (1.0-2.1); ALKALINE PHOSPHATASE 45 U/L (38-126); ALT/SGPT 34 U/L (9-52); AST/SGOT 38 U/L (14-36); BILIRUBIN,TOTAL 0.2 mg/dL (0.2-1.3); BLOOD UREA NITROGEN 3 mg/dL (7-17); CARBON DIOXIDE 22 mmol/L (22-30); GFR AFRICAN-AMERICAN > 60; TOTAL PROTEIN 6.9 g/dL (6.3-8.3)
[2016-11-13 09:28] LABS: GLUCOSE,RANDOM 85 mg/dL (65-105); PHOSPHOROUS 3.7 mg/dL (2.5-4.5)
[2016-11-13 09:29] LABS: MAGNESIUM 1.5 mg/dL (1.6-2.3)
[2016-11-13] MEDS ORDERED: Potassium Chloride 20 mEq ER Tab PO ONE (09:45)
[2016-11-13] MEDS: Pantoprazole 40 mg EC Tab PO SCH (10:16)
[2016-11-13] MEDS: Prenatal Multivit/Folic Acid/Iron Tab PO SCH (10:16)
[2016-11-13] MEDS: Enoxaparin 100 mg Syringe SC SCH ×2 (10:19→21:54)
[2016-11-13] MEDS: POLYETHYLENE GLYCOL 3350 17 GM/Dose PACKET PO SCH (10:19)
--- NOTE | 2016-11-13 11:51 | CP.PCM.PN ---
<Reji Ramos - Last Filed: 11/13/16 12:01> Subjective - Date & Time of Evaluation Date of Evaluation: 11/13/16 Time of Evaluation: 11:50 - Subjective Subjective: PGY-1 note for medicine service Pt seen and examined at bedside. She was observed to be resting comfortably in NAD. She states that she has no complaints at the moment. Denied any fevers, chills, chest pain, sob, palpitations, nausea or vomiting. Rapid Response Called Time: 08:26 Reason: tachycardia, sob Initial Vitals: HR 176, RR 36, BP 128/80, Sat ~98% A rapid response was called after pt attempted to get up by herself and go use the restroom when her HR increased to in the 170s and she had some associated sob. She was helped back to her bed, repeat labs were drawn and an ekg was obtained. This is a known occurrence by medical team. Pt stabilized with HR returning to the 80's after about 3 min. EKG was NSR with no ST elevations. At the resolution of rapid response, pt was symptomatic and stable. Objective - Vital Signs/Intake and Output Vital Signs (last 24 hours): Temp Pulse Resp BP Pulse Ox 98 F 80 20 103/65 98 11/13/16 10:22 11/13/16 10:22 11/13/16 10:22 11/13/16 10:22 11/13/16 10:22 Intake and Output: 11/13/16 11/13/16 06:59 18:59 Intake Total 930 Balance 930 - Medications Medications: Current Medications Acetaminophen (Tylenol 325mg Tab) 650 mg PO Q6 PRN PRN Reason: Pain, Mild (1-3) Last Admin: 11/11/16 16:48 Dose: 650 mg Enoxaparin Sodium (Lovenox) 90 mg SC Q12 [facility] Last Admin: 11/13/16 10:19 Dose: 90 mg Sodium Chloride (Sodium Chloride 0.9%) 1,000 mls @ 60 mls/hr IV .[id number] [facility] Last Admin: 11/13/16 04:34 Dose: 60 mls/hr Ondansetron HCl (Zofran Inj) 4 mg IVP Q6H PRN PRN Reason: Nausea/Vomiting Pantoprazole Sodium (Protonix Ec Tab) 40 mg PO DAILY [facility] Last Admin: 11/13/16 10:16 Dose: 40 mg Polyethylene Glycol (Miralax) 17 gm PO DAILY [facility] Last Admin: 11/13/16 10:19 Dose: 17 gm Multivit/Folic Acid/Iron () 1 tab PO DAILY [facility] Last Admin: 11/13/16 10:16 Dose: 1 tab - Labs Labs: 11/13/16 08:56 11/13/16 08:56 PT 13.9 SECONDS (9.7-12.2) H 10/20/16 06:46 INR 1.2 10/20/16 06:46 APTT 32 SECONDS (21-34) 10/20/16 06:46 - Constitutional Appears: Non-toxic, No Acute Distress - Head Exam Head Exam: ATRAUMATIC, NORMOCEPHALIC - Eye Exam Eye Exam: Normal appearance Pupil Exam: PERRL - ENT Exam ENT Exam: Mucous Membranes Moist - Respiratory Exam Respiratory Exam: Clear to Ausculation Bilateral, NORMAL BREATHING PATTERN - Cardiovascular Exam Cardiovascular Exam: +S1, +S2 - GI/Abdominal Exam GI & Abdominal Exam: Soft, Normal Bowel Sounds - Neurological Exam Neurological Exam: Alert, Awake - Skin Skin Exam: Dry, Warm Assessment and Plan - Assessment and Plan (Free Text) Assessment: Pulmonary embolism affecting - 11/12: Therapeutic Lovenox 90mg SC Q12H, to be continued for duration of and 6-12 weeks post-delivery per Dr. Tucker. - Patient was admitted to ICU on 10/15/16 and transferred to telemetry on - 10/15/[address] showed acute pulmonary embolism in distal right and left pulmonary arteries, right upper lobe and left lobar and segmental branches with larger burden of embolism on the left. - Heme/Onc- Dr. Tucker consulted- help appreciated. - Patient had EKOS cath for directed thrombolysis on 10/15/16. Pulmonary artery angiogram improved flow to the upper and mid lung. There is great perfusion to the left lung. - 10/15/16 Echo showed normal LV function with normal EF. Right ventricular septal motion consistent with pressure overload. Moderate right atrium dilation. Moderate tricuspid regurgitation. RV systolic pressure estimated >60mmHg. ASD should be ruled out with SOMMER - OB team following, will update team on rapid response this morning - Patient to follow up with high-risk OB on discharge - Continue nutritional care - 10/28/16 Obstetrics US- mean gestation age 11 weeks 1 day. single live intrauterine gestation. perigestational hemorrhage: none. - Obstetric US 11/04/16: single intrauterine live with US estimated gestational age 11 weeks 6 days. 3.9cm cyst at right ovary. Iliac vein thrombosis, right - 11/12: Therapeutic Lovenox 90mg SC q12, to be continued for duration of and 6-12 weeks post-delivery per Dr. Tucker. - 10/18/16 Obstetrics US- single intrauterine gestation with normal cardiac activity, approximate age 9 weeks 6 days. Clot seen in right internal iliac vein. - 10/16/16 LE Doppler- Right/Left: no evidence of deep/superficial vein thrombosis, normal valve function. Thrombocytosis - 11/13: stable - 11/12: Platelets 308 - 11/09: Platelets 382 - F/u platelets on labs MWF Thrombophilia - Inherited thrombophilia workup negative for inherited prothrombin gene mutation - Dr. Tucker, hemo-onc, on board, help appreciated - patient will need outpatient C+S and antithrombin III testing Elevated RV systolic pressure - Likely secondary to clot burden. As per ECHO report, ASD should be ruled out with SOMMER. - 10/15/16 Echo showed normal LV function with normal EF. Right ventricular septal motion consistent with pressure overload. Moderate right atrium dilation. Moderate tricuspid regurgitation. RV systolic pressure estimated >60mmHg. ASD should be ruled out with SOMMER. Nausea/Vomiting - resolved - Patient not currently requiring antiemetic treatment - zofran prn Constipation - Continue Miralax - monitor BM's Headaches - Pain- Tylenol 650mg po q6 prn - Continue to monitor. Electrolyte Abnormality - Hypokalemia - monitor and replete as needed - Hypomagnesemia - monitor and replete as needed Prophylactic Measure - Lovenox 90mg SC q12 - Protonix 40mg PO daily - PT/OT eval and treat- patient will need evaluation on stairs - Labs every Saturday, Saturday, Saturday - Encourage Spirometer - will monitor blood pressure and give IV fluids as needed. patient encouraged to increase PO water intake - 11/11: discontinued IV fluids. Disposition -D ischarge is pending Lovenox delivery. Patient was denied lovenox from patient assistance from [employer]. Patient's brought in proof of income to appeal decision yesterday. Appeal decision pending. Also discussed with case management the option of discharging patient with heparin 21,500u SC s12h - Patient will need medical leave forms filled out. <Janelle Barbosa V - Last Filed: 11/13/16 16:16> Objective - Vital Signs/Intake and Output Vital Signs (last 24 hours): Temp Pulse Resp BP Pulse Ox 98 F 85 20 105/60 98 11/13/16 12:00 11/13/16 12:00 11/13/16 12:00 11/13/16 12:00 11/13/16 12:00 Intake and Output: 11/13/16 11/13/16 06:59 18:59 Intake Total 930 960 Balance 930 960 - Medications Medications: Current Medications Acetaminophen (Tylenol 325mg Tab) 650 mg PO Q6 PRN PRN Reason: Pain, Mild (1-3) Last Admin: 11/11/16 16:48 Dose: 650 mg Enoxaparin Sodium (Lovenox) 90 mg SC Q12 [facility] Last Admin: 11/13/16 10:19 Dose: 90 mg Sodium Chloride (Sodium Chloride 0.9%) 1,000 mls @ 60 mls/hr IV .[id number] [facility] Last Admin: 11/13/16 04:34 Dose: 60 mls/hr Ondansetron HCl (Zofran Inj) 4 mg IVP Q6H PRN PRN Reason: Nausea/Vomiting Pantoprazole Sodium (Protonix Ec Tab) 40 mg PO DAILY [facility] Last Admin: 11/13/16 10:16 Dose: 40 mg Polyethylene Glycol (Miralax) 17 gm PO DAILY [facility] Last Admin: 11/13/16 10:19 Dose: 17 gm Multivit/Folic Acid/Iron () 1 tab PO DAILY [facility] Last Admin: 11/13/16 10:16 Dose: 1 tab - Labs Labs: 11/13/16 08:56 11/13/16 08:56 PT 13.9 SECONDS (9.7-12.2) H 10/20/16 06:46 INR 1.2 10/20/16 06:46 APTT 32 SECONDS (21-34) 10/20/16 06:46 Attending/Attestation - Attestation I have personally seen and examined this patient.: Yes I have fully participated in the care of the patient.: Yes I have reviewed all pertinent clinical information, including history, physical exam and plan: Yes Notes (Text): Patient seen, examined and case discussed with day-time resident. Patient was DITCHER OPERATOR in the morning for associated tachycardia (HR: 170s) whil one exertion while trying to go the bathroom. Patient placed subsequently back to bed HR; 80-90s. patient's EKG at rest showed NSR. Patient on telemetry improved to HR: 80s as well. Patient had blood work collected and electrolytes repleted. Patient is pending appeal for Lovenox shots per [employer] but she continues to be symptomatic of her PE while on exertion. Note: patient has three flights of stairs and she remains tachycardic while on flat surface. Patient seen shortly after with at bedside feeling better and associated symomts of reported palpitations and chest pain resolved DITCHER OPERATOR earlier. today. patient to continue theraputic Lovenox.
[2016-11-14] MEDS: Pantoprazole 40 mg EC Tab PO SCH (09:44)
[2016-11-14] MEDS: Prenatal Multivit/Folic Acid/Iron Tab PO SCH (09:44)
[2016-11-14] MEDS: POLYETHYLENE GLYCOL 3350 17 GM/Dose PACKET PO SCH (09:44)
[2016-11-14] MEDS: Sodium Chloride 0.9% 1,000 ML IV SCH ×2 (09:45→14:40)
[2016-11-14] MEDS: Enoxaparin 100 mg Syringe SC SCH ×2 (09:49→22:07)
--- NOTE | 2016-11-14 10:19 | CP.PCM.PN ---
<Reji Ramos - Last Filed: 11/14/16 15:32> Subjective - Date & Time of Evaluation Date of Evaluation: 11/14/16 Time of Evaluation: 10:16 - Subjective Subjective: PGY-1 note for medicine service Pt seen and examined at bedside. There were no overnight acute events. Pt has no complaints. Has not tried to get up by herself and has had no episodes of tachycardia. Nursing staff concerned that pt might be getting depressed. On questioning, pt denies any symptoms of depression. Denies fevers, chills, chest pain, sob, nausea or vomiting. Objective - Vital Signs/Intake and Output Vital Signs (last 24 hours): Temp Pulse Resp BP Pulse Ox 98.8 F 66 18 99/66 L 100 11/14/16 09:20 11/14/16 09:20 11/14/16 09:20 11/14/16 09:20 11/14/16 09:20 Intake and Output: 11/14/16 11/14/16 06:59 18:59 Intake Total 480 Balance 480 - Medications Medications: Current Medications Acetaminophen (Tylenol 325mg Tab) 650 mg PO Q6 PRN PRN Reason: Pain, Mild (1-3) Last Admin: 11/11/16 16:48 Dose: 650 mg Enoxaparin Sodium (Lovenox) 90 mg SC Q12 [facility] Last Admin: 11/14/16 09:49 Dose: 90 mg Sodium Chloride (Sodium Chloride 0.9%) 1,000 mls @ 100 mls/hr IV .Q10H [facility] Last Admin: 11/14/16 09:45 Dose: Not Given Ondansetron HCl (Zofran Inj) 4 mg IVP Q6H PRN PRN Reason: Nausea/Vomiting Pantoprazole Sodium (Protonix Ec Tab) 40 mg PO DAILY [facility] Last Admin: 11/14/16 09:44 Dose: 40 mg Polyethylene Glycol (Miralax) 17 gm PO DAILY [facility] Last Admin: 11/14/16 09:44 Dose: 17 gm Multivit/Folic Acid/Iron () 1 tab PO DAILY [facility] Last Admin: 11/14/16 09:44 Dose: 1 tab - Labs Labs: 11/13/16 08:56 11/13/16 08:56 PT 13.9 SECONDS (9.7-12.2) H 10/20/16 06:46 INR 1.2 10/20/16 06:46 APTT 32 SECONDS (21-34) 10/20/16 06:46 - Constitutional Appears: Non-toxic, No Acute Distress - Head Exam Head Exam: ATRAUMATIC, NORMOCEPHALIC - Eye Exam Eye Exam: Normal appearance Pupil Exam: PERRL - ENT Exam ENT Exam: Mucous Membranes Moist - Respiratory Exam Respiratory Exam: Clear to Ausculation Bilateral, NORMAL BREATHING PATTERN - Cardiovascular Exam Cardiovascular Exam: +S1, +S2 - GI/Abdominal Exam GI & Abdominal Exam: Soft, Normal Bowel Sounds - Neurological Exam Neurological Exam: Alert, Awake - Psychiatric Exam Psychiatric exam: Normal Affect, Normal Mood. absent: Depressed - Skin Skin Exam: Dry, Warm Assessment and Plan - Assessment and Plan (Free Text) Assessment: Pulmonary embolism affecting - 11/14: Stable - 11/13: MACHINE ETCHER called for tachycardia, resolved with rest - 11/12: Therapeutic Lovenox 90mg SC Q12H, to be continued for duration of and 6-12 weeks post-delivery per Dr. Tucker. - Patient was admitted to ICU on 10/15/16 and transferred to telemetry on - 10/15/[address] showed acute pulmonary embolism in distal right and left pulmonary arteries, right upper lobe and left lobar and segmental branches with larger burden of embolism on the left. - Heme/Onc- Dr. Tucker consulted- help appreciated. - Patient had EKOS cath for directed thrombolysis on 10/15/16. Pulmonary artery angiogram improved flow to the upper and mid lung. There is great perfusion to the left lung. - 10/15/16 Echo showed normal LV function with normal EF. Right ventricular septal motion consistent with pressure overload. Moderate right atrium dilation. Moderate tricuspid regurgitation. RV systolic pressure estimated >60mmHg. ASD should be ruled out with SOMMER - OB team following, will update team on rapid response this morning - aware. Following pt Q 2 weeks - Patient to follow up with high-risk OB on discharge - Continue nutritional care - 10/28/16 Obstetrics US- mean gestation age 11 weeks 1 day. single live intrauterine gestation. perigestational hemorrhage: none. - Obstetric US 11/04/16: single intrauterine live with US estimated gestational age 11 weeks 6 days. 3.9cm cyst at right ovary. Iliac vein thrombosis, right - 11/12: Therapeutic Lovenox 90mg SC q12, to be continued for duration of and 6-12 weeks post-delivery per Dr. Tucker. - 10/18/16 Obstetrics US- single intrauterine gestation with normal cardiac activity, approximate age 9 weeks 6 days. Clot seen in right internal iliac vein. - 10/16/16 LE Doppler- Right/Left: no evidence of deep/superficial vein thrombosis, normal valve function. Thrombocytosis - 11/13: stable - 11/12: Platelets 308 - 11/09: Platelets 382 - F/u platelets on labs MWF Thrombophilia - Inherited thrombophilia workup negative for inherited prothrombin gene mutation - Dr. Tucker, hemo-onc, on board, help appreciated - patient will need outpatient C+S and antithrombin III testing Elevated RV systolic pressure - Will f/u with cardio regarding possible SOMMER - Likely secondary to clot burden. As per ECHO report, ASD should be ruled out with SOMMER. - 10/15/16 Echo showed normal LV function with normal EF. Right ventricular septal motion consistent with pressure overload. Moderate right atrium dilation. Moderate tricuspid regurgitation. RV systolic pressure estimated >60mmHg. ASD should be ruled out with SOMMER. Nausea/Vomiting - resolved - Patient not currently requiring antiemetic treatment - zofran prn Constipation - Continue Miralax - monitor BM's Headaches - Pain- Tylenol 650mg po q6 prn - Continue to monitor. Electrolyte Abnormality - Hypokalemia - monitor and replete as needed - Hypomagnesemia - monitor and replete as needed Prophylactic Measure - Lovenox 90mg SC q12 - Protonix 40mg PO daily - PT/OT eval and treat- patient will need evaluation on stairs - Labs every Saturday, Saturday, Saturday - Encourage Spirometer - will monitor blood pressure and give IV fluids as needed. patient encouraged to increase PO water intake - 11/11: discontinued IV fluids. Disposition -Discharge is pending Lovenox delivery. Patient was denied lovenox from patient assistance from [employer]. Patient's brought in proof of income to appeal decision yesterday. Appeal decision pending. Also discussed with case management the option of discharging patient with heparin 21,500u SC s12h - Patient will need medical leave forms filled out. <Janelle Barbosa V - Last Filed: 11/15/16 07:26> Objective - Vital Signs/Intake and Output Vital Signs (last 24 hours): Temp Pulse Resp BP Pulse Ox 97.9 F 61 20 94/59 L 100 11/14/16 23:10 11/14/16 23:20 11/14/16 23:10 11/14/16 23:10 11/14/16 23:10 Intake and Output: 11/15/16 11/15/16 06:59 18:59 Intake Total 800 Balance 800 - Medications Medications: Current Medications Acetaminophen (Tylenol 325mg Tab) 650 mg PO Q6 PRN PRN Reason: Pain, Mild (1-3) Last Admin: 11/11/16 16:48 Dose: 650 mg Enoxaparin Sodium (Lovenox) 90 mg SC Q12 [facility] Last Admin: 11/14/16 22:07 Dose: 90 mg Sodium Chloride (Sodium Chloride 0.9%) 1,000 mls @ 100 mls/hr IV .Q10H [facility] Last Admin: 11/15/16 00:54 Dose: 100 mls/hr Ondansetron HCl (Zofran Inj) 4 mg IVP Q6H PRN PRN Reason: Nausea/Vomiting Pantoprazole Sodium (Protonix Ec Tab) 40 mg PO DAILY [facility] Last Admin: 11/14/16 09:44 Dose: 40 mg Polyethylene Glycol (Miralax) 17 gm PO DAILY [facility] Last Admin: 11/14/16 09:44 Dose: 17 gm Multivit/Folic Acid/Iron () 1 tab PO DAILY [facility] Last Admin: 11/14/16 09:44 Dose: 1 tab - Labs Labs: 11/14/16 10:48 11/14/16 10:48 PT 13.9 SECONDS (9.7-12.2) H 10/20/16 06:46 INR 1.2 10/20/16 06:46 APTT 32 SECONDS (21-34) 10/20/16 06:46 Attending/Attestation - Attestation I have personally seen and examined this patient.: Yes I have fully participated in the care of the patient.: Yes I have reviewed all pertinent clinical information, including history, physical exam and plan: Yes Notes (Text): This is late computer entry for 11/14/16. Patient seen, examined, and case discussed with day-time resident. Patient denies acute complaints; would like to go home. Patient did not work with physical therapy yesterday because of MACHINE ETCHER. Patient will need to work with physical therapy until deem for discharge. Patient has 3 flights of steps of apartment but has not attempted stairs because she remains symptomatic at flat surfaces. Patient's iV fluids increased to 100c/hr because it is borderline low blood pressure. Discussed with Dr. Beatty (OB), will see patient every two weeks per ob follow -up. Patient pending family medical leave act paperwork which she has not brought in yet and appeal case for lovenox pending.
[2016-11-14 11:00] LABS: BASO % 0.5 % (0.0-2.0); EOS # 0.1 K/uL (0.0-0.7); LYMPH % 26.7 % (20.0-40.0); MEAN CELL VOLUME 85.1 fL (81.0-99.0); MEAN CORPUSCULAR HEMOGLOBIN 28.5 pg (27.0-31.0); MEAN CORPUSCULAR HGB CONC 33.5 g/dL (33.0-37.0); MEAN PLATELET VOLUME 8.4 fL (7.2-11.7); MONO # 0.3 K/uL (0.0-0.8); MONO % 8.3 % (0.0-10.0); RED CELL DISTRIBUTION WIDTH 14.8 % (11.5-14.5); WHITE BLOOD COUNT 3.7 K/uL (4.8-10.8)
[2016-11-14 11:10] LABS: CHLORIDE 98 mmol/L (98-107); POTASSIUM 3.7 mmol/L (3.6-5.2); SODIUM 135 mmol/L (132-148)
[2016-11-14 11:12] LABS: ALKALINE PHOSPHATASE 42 U/L (38-126); AST/SGOT 36 U/L (14-36); BILIRUBIN,TOTAL 0.3 mg/dL (0.2-1.3); CARBON DIOXIDE 27 mmol/L (22-30); GFR AFRICAN-AMERICAN > 60; TOTAL PROTEIN 6.9 g/dL (6.3-8.3)
[2016-11-14 11:13] LABS: ALT/SGPT 47 U/L (9-52); BLOOD UREA NITROGEN 3 mg/dL (7-17); CALCIUM 9.2 mg/dl (8.6-10.4); GLUCOSE,RANDOM 79 mg/dL (65-105); MAGNESIUM 1.6 mg/dL (1.6-2.3)
[2016-11-15] MEDS: Sodium Chloride 0.9% 1,000 ML IV SCH ×3 (00:54→16:39)
--- NOTE | 2016-11-15 08:21 | CP.PCM.PN ---
Subjective - Date & Time of Evaluation Date of Evaluation: 11/15/16 Time of Evaluation: 08:18 - Subjective Subjective: PGY-1 note for medicine service Pt seen and examined at bedside. Pt states that she was nauseous and vomiting yesterday. Nursing staff unaware. Instructed pt to tell staff if she continues to be nauseous as she has antiemetic medications ordered PRN. Denies any fevers , chills, chest pain, sob. Objective - Vital Signs/Intake and Output Vital Signs (last 24 hours): Temp Pulse Resp BP Pulse Ox 97.9 F 61 20 94/59 L 100 11/14/16 23:10 11/14/16 23:20 11/14/16 23:10 11/14/16 23:10 11/14/16 23:10 Intake and Output: 11/15/16 11/15/16 06:59 18:59 Intake Total 800 Balance 800 - Medications Medications: Current Medications Acetaminophen (Tylenol 325mg Tab) 650 mg PO Q6 PRN PRN Reason: Pain, Mild (1-3) Last Admin: 11/11/16 16:48 Dose: 650 mg Enoxaparin Sodium (Lovenox) 90 mg SC Q12 [facility] Last Admin: 11/14/16 22:07 Dose: 90 mg Sodium Chloride (Sodium Chloride 0.9%) 1,000 mls @ 100 mls/hr IV .Q10H [facility] Last Admin: 11/15/16 00:54 Dose: 100 mls/hr Ondansetron HCl (Zofran Inj) 4 mg IVP Q6H PRN PRN Reason: Nausea/Vomiting Pantoprazole Sodium (Protonix Ec Tab) 40 mg PO DAILY [facility] Last Admin: 11/14/16 09:44 Dose: 40 mg Polyethylene Glycol (Miralax) 17 gm PO DAILY [facility] Last Admin: 11/14/16 09:44 Dose: 17 gm Multivit/Folic Acid/Iron () 1 tab PO DAILY [facility] Last Admin: 11/14/16 09:44 Dose: 1 tab - Labs Labs: 11/14/16 10:48 11/14/16 10:48 PT 13.9 SECONDS (9.7-12.2) H 10/20/16 06:46 INR 1.2 10/20/16 06:46 APTT 32 SECONDS (21-34) 10/20/16 06:46 - Constitutional Appears: Non-toxic, No Acute Distress - Head Exam Head Exam: ATRAUMATIC, NORMOCEPHALIC - Eye Exam Eye Exam: Normal appearance - ENT Exam ENT Exam: Mucous Membranes Moist - Respiratory Exam Respiratory Exam: Clear to Ausculation Bilateral, NORMAL BREATHING PATTERN - Cardiovascular Exam Cardiovascular Exam: +S1, +S2 - GI/Abdominal Exam GI & Abdominal Exam: Soft, Normal Bowel Sounds - Extremities Exam Extremities Exam: Normal Capillary Refill, Normal Inspection - Neurological Exam Neurological Exam: Alert, Awake Assessment and Plan - Assessment and Plan (Free Text) Assessment: Pulmonary embolism affecting - 11/14-: Stable - 11/13: BONE PULLER called for tachycardia, resolved with rest - 11/12: Therapeutic Lovenox 90mg SC Q12H, to be continued for duration of and 6-12 weeks post-delivery per Dr. Tucker. - Patient was admitted to ICU on 10/15/16 and transferred to telemetry on - 10/15/[address] showed acute pulmonary embolism in distal right and left pulmonary arteries, right upper lobe and left lobar and segmental branches with larger burden of embolism on the left. - Heme/Onc- Dr. Tucker consulted- help appreciated. - Patient had EKOS cath for directed thrombolysis on 10/15/16. Pulmonary artery angiogram improved flow to the upper and mid lung. There is great perfusion to the left lung. - 10/15/16 Echo showed normal LV function with normal EF. Right ventricular septal motion consistent with pressure overload. Moderate right atrium dilation. Moderate tricuspid regurgitation. RV systolic pressure estimated >60mmHg. ASD should be ruled out with SOMMER - (11/15) Will get OB US today - OB team following, will update team on rapid response this morning - aware. Following pt Q 2 weeks - Patient to follow up with high-risk OB on discharge - Continue nutritional care - 10/28/16 Obstetrics US- mean gestation age 11 weeks 1 day. single live intrauterine gestation. perigestational hemorrhage: none. - Obstetric US 11/04/16: single intrauterine live with US estimated gestational age 11 weeks 6 days. 3.9cm cyst at right ovary. Iliac vein thrombosis, right - 11/12: Therapeutic Lovenox 90mg SC q12, to be continued for duration of and 6-12 weeks post-delivery per Dr. Tucker. - 10/18/16 Obstetrics US- single intrauterine gestation with normal cardiac activity, approximate age 9 weeks 6 days. Clot seen in right internal iliac vein. - 10/16/16 LE Doppler- Right/Left: no evidence of deep/superficial vein thrombosis, normal valve function. Thrombocytosis - 11/13-: stable - 11/12: Platelets 308 - 11/09: Platelets 382 - F/u platelets on labs MWF Thrombophilia - Inherited thrombophilia workup negative for inherited prothrombin gene mutation - Dr. Tucker, hemo-onc, on board, help appreciated - patient will need outpatient C+S and antithrombin III testing Elevated RV systolic pressure - Likely secondary to clot burden. - 10/15/16 Echo showed normal LV function with normal EF. Right ventricular septal motion consistent with pressure overload. Moderate right atrium dilation. Moderate tricuspid regurgitation. RV systolic pressure estimated >60mmHg. Nausea/Vomiting - resolved - Patient not currently requiring antiemetic treatment - zofran prn Constipation - Continue Miralax - monitor BM's Headaches - Pain- Tylenol 650mg po q6 prn - Continue to monitor. Electrolyte Abnormality - Hypokalemia - monitor and replete as needed - Hypomagnesemia - monitor and replete as needed Prophylactic Measure - Lovenox 90mg SC q12 - Protonix 40mg PO daily - PT/OT eval and treat- patient will need evaluation on stairs - Labs every Saturday, Saturday, Saturday - Encourage Spirometer - will monitor blood pressure and give IV fluids as needed. patient encouraged to increase PO water intake - 11/11: discontinued IV fluids. Disposition -Discharge is pending Lovenox delivery. Patient was denied lovenox from patient assistance from [employer]. Patient's brought in proof of income to appeal decision yesterday. Appeal decision pending. Also discussed with case management the option of discharging patient with heparin 21,500u SC s12h - Patient will need medical leave forms filled out.
[2016-11-15] MEDS: Enoxaparin 100 mg Syringe SC SCH ×2 (09:50→21:23)
[2016-11-15] MEDS: Pantoprazole 40 mg EC Tab PO SCH (09:50)
--- NOTE | 2016-11-15 10:19 | CARD ---
APPROVED REPORT EKG Measurement Heart [id number] <Conclusion> Normal sinus rhythm Normal ECG
[2016-11-15] MEDS: POLYETHYLENE GLYCOL 3350 17 GM/Dose PACKET PO SCH (11:17)
[2016-11-15] MEDS: Prenatal Multivit/Folic Acid/Iron Tab PO SCH (11:17)
--- NOTE | 2016-11-15 17:26 | US ---
PROCEDURE: Limited OB . HISTORY: high risk Relevant medical history: Acute pulmonary embolism diagnosed on the prior study 10/15/2016. COMPARISON: 11/04/2016. TECHNIQUE: Standard protocol for this study/examination. FINDINGS: Breech presentation. Posterior Placenta. No evidence of abruption or previa Gestational age derived from LMP 12 weeks 2 days Gestational age derived from the following biometric parameters 13 weeks 6 days . Biparietal diameter 2.47 cm Head circumference9.01 cm Abdominal circumference 7.25 cm Femur length 1.12 cm Estimated weight 79.3 g Calculated cardiac rate 141 beats per min. Closed cervix measuring 5.14 cm SHYANN based on LMP: 05/28/2017. SHYANN based on biometry: 05/17/2017. SHYANN on the prior study 05/20/2017. Right ovary: 3.6 x 4.9 cm containing a simple cyst 32.2 x 4.2 cm. IMPRESSION: Thirteen weeks 6 days live intrauterine gestation. Adequate interval progression compared to the prior study. Gestational concordance remains.
[2016-11-15] MEDS ORDERED: Bisacodyl 5mg EC Tab PO ONE (18:30)
--- NOTE | 2016-11-15 19:11 | CP.PCM.PN ---
Subjective - Date & Time of Evaluation Date of Evaluation: 11/15/16 Time of Evaluation: 19:00 - Subjective Subjective: Called by medicine team to evlaute patient for rlq pain S-patient reports new onset rlq pain this afternoon.Denies nausea, vomiting, fever, chills, chest pain, shortness of breath Objective - Vital Signs/Intake and Output Vital Signs (last 24 hours): Temp Pulse Resp BP Pulse Ox 98.6 F 77 20 108/70 99 11/15/16 15:57 11/15/16 15:57 11/15/16 15:57 11/15/16 15:57 11/15/16 15:57 Intake and Output: 11/15/16 11/16/16 18:59 06:59 Intake Total 1000 Balance 1000 - Medications Medications: Current Medications Acetaminophen (Tylenol 325mg Tab) 650 mg PO Q6 PRN PRN Reason: Pain, Mild (1-3) Last Admin: 11/15/16 17:59 Dose: 650 mg Enoxaparin Sodium (Lovenox) 90 mg SC Q12 [facility] Last Admin: 11/15/16 09:50 Dose: 90 mg Sodium Chloride (Sodium Chloride 0.9%) 1,000 mls @ 100 mls/hr IV .Q10H [facility] Last Admin: 11/15/16 16:39 Dose: Not Given Ondansetron HCl (Zofran Inj) 4 mg IVP Q6H PRN PRN Reason: Nausea/Vomiting Pantoprazole Sodium (Protonix Ec Tab) 40 mg PO DAILY [facility] Last Admin: 11/15/16 09:50 Dose: 40 mg Polyethylene Glycol (Miralax) 17 gm PO DAILY [facility] Last Admin: 11/15/16 11:17 Dose: 17 gm Multivit/Folic Acid/Iron () 1 tab PO DAILY [facility] Last Admin: 11/15/16 11:17 Dose: 1 tab - Labs Labs: 11/14/16 10:48 11/14/16 10:48 PT 13.9 SECONDS (9.7-12.2) H 10/20/16 06:46 INR 1.2 10/20/16 06:46 APTT 32 SECONDS (21-34) 10/20/16 06:46 - Constitutional Appears: No Acute Distress - Respiratory Exam Respiratory Exam: NORMAL BREATHING PATTERN - GI/Abdominal Exam GI & Abdominal Exam: Soft, Tenderness. absent: Guarding, Rigid, Rebound - Extremities Exam Extremities Exam: absent: Calf Tenderness - Neurological Exam Neurological Exam: Alert, Awake, Oriented x3 - Psychiatric Exam Psychiatric exam: Normal Affect, Normal Mood - Skin Skin Exam: Normal Color Assessment and Plan (1) Status: Acute (2) Hypotension Status: Acute (3) Tachycardia Assessment & Plan: 30 y/o female at 12 + wga , admitted with pulmonary embolism.C/o new onset rlq pain.Patient s/p ob ultrasound today which showed cervical length >5 cm and viable IUP.Appendicitis versus round ligament pain.Recommend surgical evaluation Case discussed with dr macias Status: Acute
--- NOTE | 2016-11-15 19:52 | US ---
EXAM: US Abdomen Limited, Appendix. CLINICAL HISTORY: 30 years old, female; Pain; Abdominal pain; Tenderness; Right lower quadrant (rlq); ; Additional info: R/O appendicitis TECHNIQUE: Real-time ultrasound of the right lower quadrant with image documentation. EXAM DATE/TIME: 11/15/2016 6:27 PM COMPARISON: No relevant prior studies available. FINDINGS: Right ovary is seen. It is mildly enlarged, measuring 5.4 x 3.6 x 4.5 cm, secondary to a 4.1 x 3.3 x 3.5 cm cystic lesion. This lesion is most likely simple in nature. Echoes seen within it are felt to represent artifact. No followup is warranted based on the imaging findings, unless otherwise clinically indicated. Flow seen in the right ovarian parenchyma surrounding this lesion on color and Doppler imaging. No abnormal tubular, noncompressible structure is identified to suggest an inflamed appendix. Normal appendix is not seen. IMPRESSION: No sonographic evidence of appendicitis. 4.1 cm right ovarian cyst, as described. No evidence of ovarian torsion. See above for remaining findings.
--- NOTE | 2016-11-15 20:33 | CP.PCM.PN ---
Subjective - Date & Time of Evaluation Date of Evaluation: 11/15/16 Time of Evaluation: 18:00 - Subjective Subjective: Feeling better, family at bedside Objective - Vital Signs/Intake and Output Vital Signs (last 24 hours): Temp Pulse Resp BP Pulse Ox 98.6 F 77 20 108/70 99 11/15/16 15:57 11/15/16 15:57 11/15/16 15:57 11/15/16 15:57 11/15/16 15:57 Intake and Output: 11/15/16 11/16/16 18:59 06:59 Intake Total 1000 Balance 1000 - Medications Medications: Current Medications Acetaminophen (Tylenol 325mg Tab) 650 mg PO Q6 PRN PRN Reason: Pain, Mild (1-3) Last Admin: 11/15/16 17:59 Dose: 650 mg Enoxaparin Sodium (Lovenox) 90 mg SC Q12 [facility] Last Admin: 11/15/16 09:50 Dose: 90 mg Sodium Chloride (Sodium Chloride 0.9%) 1,000 mls @ 100 mls/hr IV .Q10H [facility] Last Admin: 11/15/16 16:39 Dose: Not Given Ondansetron HCl (Zofran Inj) 4 mg IVP Q6H PRN PRN Reason: Nausea/Vomiting Pantoprazole Sodium (Protonix Ec Tab) 40 mg PO DAILY [facility] Last Admin: 11/15/16 09:50 Dose: 40 mg Polyethylene Glycol (Miralax) 17 gm PO DAILY [facility] Last Admin: 11/15/16 11:17 Dose: 17 gm Multivit/Folic Acid/Iron () 1 tab PO DAILY [facility] Last Admin: 11/15/16 11:17 Dose: 1 tab - Labs Labs: 11/14/16 10:48 11/14/16 10:48 PT 13.9 SECONDS (9.7-12.2) H 10/20/16 06:46 INR 1.2 10/20/16 06:46 APTT 32 SECONDS (21-34) 10/20/16 06:46 - Head Exam Head Exam: ATRAUMATIC - Eye Exam Eye Exam: Normal appearance - ENT Exam ENT Exam: Mucous Membranes Dry - Respiratory Exam Respiratory Exam: NORMAL BREATHING PATTERN - Cardiovascular Exam Cardiovascular Exam: +S1, +S2 - GI/Abdominal Exam GI & Abdominal Exam: Normal Bowel Sounds - Extremities Exam Extremities Exam: Normal Inspection Assessment and Plan (1) Pulmonary embolism affecting Assessment & Plan: hypecoag w/u negative so far; outpatient Protein C+S and antithrombin III may be provoked from therapeutic lovenox Status: Acute
[2016-11-16] MEDS: Sodium Chloride 0.9% 1,000 ML IV SCH ×3 (02:00→22:25)
[2016-11-16 06:13] LABS: BASO % 0.7 % (0.0-2.0); EOS # 0.1 K/uL (0.0-0.7); EOS % 3.3 % (0.0-4.0); HEMATOCRIT 32.7 % (34.0-47.0); LYMPH # 1.2 K/uL (1.0-4.3); LYMPH % 32.6 % (20.0-40.0); MEAN CELL VOLUME 85.4 fL (81.0-99.0); MEAN CORPUSCULAR HEMOGLOBIN 28.1 pg (27.0-31.0); MEAN CORPUSCULAR HGB CONC 32.9 g/dL (33.0-37.0); MEAN PLATELET VOLUME 8.4 fL (7.2-11.7); MONO # 0.3 K/uL (0.0-0.8); MONO % 7.5 % (0.0-10.0); NRBC % 0.2 % (0.0-2.0); RED CELL DISTRIBUTION WIDTH 14.9 % (11.5-14.5); WHITE BLOOD COUNT 3.8 K/uL (4.8-10.8)
[2016-11-16 06:27] LABS: CHLORIDE 100 mmol/L (98-107); POTASSIUM 3.6 mmol/L (3.6-5.2); SODIUM 133 mmol/L (132-148)
[2016-11-16 06:29] LABS: ALB/GLOB RATIO 1.1 (1.0-2.1); ALKALINE PHOSPHATASE 40 U/L (38-126); AST/SGOT 41 U/L (14-36); BILIRUBIN,TOTAL 0.5 mg/dL (0.2-1.3); CARBON DIOXIDE 25 mmol/L (22-30); GFR AFRICAN-AMERICAN > 60; TOTAL PROTEIN 6.3 g/dL (6.3-8.3)
[2016-11-16 06:30] LABS: ALT/SGPT 43 U/L (9-52); BLOOD UREA NITROGEN 5 mg/dL (7-17); CALCIUM 8.6 mg/dl (8.6-10.4); GLUCOSE,RANDOM 77 mg/dL (65-105); MAGNESIUM 1.5 mg/dL (1.6-2.3); PHOSPHOROUS 4.1 mg/dL (2.5-4.5)
[2016-11-16] MEDS: Prenatal Multivit/Folic Acid/Iron Tab PO SCH (10:00)
[2016-11-16] MEDS: POLYETHYLENE GLYCOL 3350 17 GM/Dose PACKET PO SCH (10:00)
[2016-11-16] MEDS: Enoxaparin 100 mg Syringe SC SCH ×2 (10:00→22:18)
[2016-11-16] MEDS: Pantoprazole 40 mg EC Tab PO SCH (10:47)
--- NOTE | 2016-11-16 16:07 | CP.PCM.PN ---
<Reji Ramos - Last Filed: 11/16/16 16:03> Subjective - Date & Time of Evaluation Date of Evaluation: 11/16/16 Time of Evaluation: 16:04 - Subjective Subjective: PGY-1 note for medicine service Pt seen and examined at bedside. Last night pt had significant RLQ pain. An US was ordered to r/o appendicitis and CASE ASSEMBLER saw the pt. THe US was negative for US and the pain has since resolved. Pt states that she feels fine this morning. She has not walked with PT up stairs yet but feels ok with short walks. Denies any fevers, chills, chest pain, sob, nausea or vomiting. Objective - Vital Signs/Intake and Output Vital Signs (last 24 hours): Temp Pulse Resp BP Pulse Ox 98.4 F 83 20 108/71 99 11/16/16 16:01 11/16/16 16:01 11/16/16 16:01 11/16/16 16:01 11/16/16 16:01 Intake and Output: 11/16/16 11/16/16 06:59 18:59 Intake Total 800 Balance 800 - Medications Medications: Current Medications Acetaminophen (Tylenol 325mg Tab) 650 mg PO Q6 PRN PRN Reason: Pain, Mild (1-3) Last Admin: 11/15/16 17:59 Dose: 650 mg Enoxaparin Sodium (Lovenox) 90 mg SC Q12 [facility] Last Admin: 11/16/16 10:00 Dose: 90 mg Sodium Chloride (Sodium Chloride 0.9%) 1,000 mls @ 100 mls/hr IV .Q10H [facility] Last Admin: 11/16/16 12:00 Dose: 100 mls/hr Ondansetron HCl (Zofran Inj) 4 mg IVP Q6H PRN PRN Reason: Nausea/Vomiting Pantoprazole Sodium (Protonix Ec Tab) 40 mg PO DAILY [facility] Last Admin: 11/16/16 10:47 Dose: 40 mg Polyethylene Glycol (Miralax) 17 gm PO DAILY [facility] Last Admin: 11/16/16 10:00 Dose: 17 gm Multivit/Folic Acid/Iron () 1 tab PO DAILY [facility] Last Admin: 11/16/16 10:00 Dose: 1 tab - Labs Labs: 11/16/16 06:02 11/16/16 06:02 PT 13.9 SECONDS (9.7-12.2) H 10/20/16 06:46 INR 1.2 10/20/16 06:46 APTT 32 SECONDS (21-34) 10/20/16 06:46 - Constitutional Appears: Non-toxic, No Acute Distress - Head Exam Head Exam: ATRAUMATIC, NORMOCEPHALIC - Eye Exam Eye Exam: Normal appearance - ENT Exam ENT Exam: Mucous Membranes Moist - Respiratory Exam Respiratory Exam: Clear to Ausculation Bilateral, NORMAL BREATHING PATTERN - Cardiovascular Exam Cardiovascular Exam: +S1, +S2 - GI/Abdominal Exam GI & Abdominal Exam: Soft, Normal Bowel Sounds. absent: Tenderness - Extremities Exam Extremities Exam: Normal Capillary Refill - Neurological Exam Neurological Exam: Alert, Awake - Skin Skin Exam: Dry, Warm Assessment and Plan - Assessment and Plan (Free Text) Assessment: Pulmonary embolism affecting - 11/14-: Stable - 11/13: SIGNAL CIRCUIT DESIGNER called for tachycardia, resolved with rest - 11/12: Therapeutic Lovenox 90mg SC Q12H, to be continued for duration of and 6-12 weeks post-delivery per Dr. Tucker. - Patient was admitted to ICU on 10/15/16 and transferred to telemetry on - 10/15/[address] showed acute pulmonary embolism in distal right and left pulmonary arteries, right upper lobe and left lobar and segmental branches with larger burden of embolism on the left. - Heme/Onc- Dr. Tucker consulted- help appreciated. - Patient had EKOS cath for directed thrombolysis on 10/15/16. Pulmonary artery angiogram improved flow to the upper and mid lung. There is great perfusion to the left lung. - 10/15/16 Echo showed normal LV function with normal EF. Right ventricular septal motion consistent with pressure overload. Moderate right atrium dilation. Moderate tricuspid regurgitation. RV systolic pressure estimated >60mmHg. ASD should be ruled out with SOMMER RLQ Pain - RLQ US 11/15 - negative for acute appendicitis, right ovarian cyst noted. - resolved this morning - (11/15) Will get OB US today - OB team following, will update team on rapid response this morning - aware. Following pt Q 2 weeks - Patient to follow up with high-risk OB on discharge - Continue nutritional care - 10/28/16 Obstetrics US- mean gestation age 11 weeks 1 day. single live intrauterine gestation. perigestational hemorrhage: none. - Obstetric US 11/04/16: single intrauterine live with US estimated gestational age 11 weeks 6 days. 3.9cm cyst at right ovary. Iliac vein thrombosis, right - 11/12: Therapeutic Lovenox 90mg SC q12, to be continued for duration of and 6-12 weeks post-delivery per Dr. Tucker. - 10/18/16 Obstetrics US- single intrauterine gestation with normal cardiac activity, approximate age 9 weeks 6 days. Clot seen in right internal iliac vein. - 10/16/16 LE Doppler- Right/Left: no evidence of deep/superficial vein thrombosis, normal valve function. Thrombocytosis - : stable - 11/12: Platelets 308 - 11/09: Platelets 382 - F/u platelets on labs MWF Thrombophilia - Inherited thrombophilia workup negative for inherited prothrombin gene mutation - Dr. Tucker, hemo-onc, on board, help appreciated - patient will need outpatient C+S and antithrombin III testing Elevated RV systolic pressure - Likely secondary to clot burden. - 10/15/16 Echo showed normal LV function with normal EF. Right ventricular septal motion consistent with pressure overload. Moderate right atrium dilation. Moderate tricuspid regurgitation. RV systolic pressure estimated >60mmHg. Nausea/Vomiting - resolved - Patient not currently requiring antiemetic treatment - zofran prn Constipation - Continue Miralax - monitor BM's Headaches - Pain- Tylenol 650mg po q6 prn - Continue to monitor. Electrolyte Abnormality - Hypokalemia - monitor and replete as needed - Hypomagnesemia - monitor and replete as needed Prophylactic Measure - Lovenox 90mg SC q12 - Protonix 40mg PO daily - PT/OT eval and treat- patient will need evaluation on stairs - Labs every Saturday, Saturday, Saturday - Encourage Spirometer - will monitor blood pressure and give IV fluids as needed. patient encouraged to increase PO water intake - 11/11: discontinued IV fluids. Disposition -Discharge is pending pt's ability to tolerate ADLs which includes stairs. Lovenox delivery approved - f/u - Patient will need medical leave forms filled out - has forms, will fill out today <Chris An - Last Filed: 11/17/16 10:28> Objective - Vital Signs/Intake and Output Vital Signs (last 24 hours): Temp Pulse Resp BP Pulse Ox 98.5 F 62 20 96/62 L 100 11/17/16 07:53 11/17/16 07:53 11/17/16 07:53 11/17/16 07:53 11/17/16 07:53 Intake and Output: 11/17/16 11/17/16 06:59 18:59 Intake Total 2140 Output Total 900 Balance 1240 - Medications Medications: Current Medications Acetaminophen (Tylenol 325mg Tab) 650 mg PO Q6 PRN PRN Reason: Pain, Mild (1-3) Last Admin: 11/15/16 17:59 Dose: 650 mg Enoxaparin Sodium (Lovenox) 90 mg SC Q12 [facility] Ondansetron HCl (Zofran Inj) 4 mg IVP Q6H PRN PRN Reason: Nausea/Vomiting Pantoprazole Sodium (Protonix Ec Tab) 40 mg PO DAILY [facility] Last Admin: 11/17/16 09:11 Dose: 40 mg Polyethylene Glycol (Miralax) 17 gm PO DAILY [facility] Last Admin: 11/17/16 09:11 Dose: 17 gm Multivit/Folic Acid/Iron () 1 tab PO DAILY [facility] Last Admin: 11/17/16 09:11 Dose: 1 tab - Labs Labs: 11/16/16 06:02 11/16/16 06:02 PT 13.9 SECONDS (9.7-12.2) H 10/20/16 06:46 INR 1.2 10/20/16 06:46 APTT 32 SECONDS (21-34) 10/20/16 06:46 Attending/Attestation - Attestation I have personally seen and examined this patient.: Yes I have fully participated in the care of the patient.: Yes I have reviewed all pertinent clinical information, including history, physical exam and plan: Yes Notes (Text): Patient with at 14 weeks, admitted for large PE since over 1 month, s/ p catheter guided thrombolysis; prolonged hospital course due to tachycardia and hypoxia on exertion; R pelvic pain resolved; likely round ligament pain per OB; Had stair training today by PT, tolerated well; unclear if any desaturation, will check again on next PT session; overall much improved; Dispo: Appeal for free supply of outpatient Lovenox approved by company, awaiting delivery; if not desaturating on stair climbing, can discharged home ( needs to climb 3 flights of stairs to get to apartment).
[2016-11-17] MEDS: Sodium Chloride 0.9% 1,000 ML IV SCH ×2 (09:09→19:54)
[2016-11-17] MEDS: Prenatal Multivit/Folic Acid/Iron Tab PO SCH (09:11)
[2016-11-17] MEDS: POLYETHYLENE GLYCOL 3350 17 GM/Dose PACKET PO SCH (09:11)
[2016-11-17] MEDS: Pantoprazole 40 mg EC Tab PO SCH (09:11)
[2016-11-17] MEDS: Enoxaparin 80 mg Syringe SC SCH ×2 (11:11→21:53)
--- NOTE | 2016-11-17 22:16 | CP.PCM.PN ---
<Josue Dodd - Last Filed: 11/17/16 22:22> Subjective - Date & Time of Evaluation Date of Evaluation: 11/17/16 Time of Evaluation: 09:30 - Subjective Subjective: PGY-1 note for medicine service Pt seen and examined at bedside. Pt states that she feels fine this morning. She worked with PT and was able to walk up some stairs but feels a little dizzy. Denies any fevers, chills, chest pain, sob, nausea or vomiting. Case management is working to find her Lovenox that will be provided by the [email or web address]. Objective - Vital Signs/Intake and Output Vital Signs (last 24 hours): Temp Pulse Resp BP Pulse Ox 98.7 F 81 20 99/60 L 100 11/17/16 15:00 11/17/16 16:00 11/17/16 15:00 11/17/16 15:00 11/17/16 15:00 Intake and Output: 11/17/16 11/18/16 18:59 06:59 Intake Total 1180 Balance 1180 - Medications Medications: Current Medications Acetaminophen (Tylenol 325mg Tab) 650 mg PO Q6 PRN PRN Reason: Pain, Mild (1-3) Last Admin: 11/15/16 17:59 Dose: 650 mg Enoxaparin Sodium (Lovenox) 90 mg SC Q12 [facility] Last Admin: 11/17/16 21:53 Dose: 90 mg Ondansetron HCl (Zofran Inj) 4 mg IVP Q6H PRN PRN Reason: Nausea/Vomiting Pantoprazole Sodium (Protonix Ec Tab) 40 mg PO DAILY [facility] Last Admin: 11/17/16 09:11 Dose: 40 mg Polyethylene Glycol (Miralax) 17 gm PO DAILY [facility] Last Admin: 11/17/16 09:11 Dose: 17 gm Multivit/Folic Acid/Iron () 1 tab PO DAILY [facility] Last Admin: 11/17/16 09:11 Dose: 1 tab - Labs Labs: 11/16/16 06:02 11/16/16 06:02 PT 13.9 SECONDS (9.7-12.2) H 10/20/16 06:46 INR 1.2 10/20/16 06:46 APTT 32 SECONDS (21-34) 10/20/16 06:46 - Constitutional Appears: Non-toxic, No Acute Distress - Head Exam Head Exam: ATRAUMATIC, NORMOCEPHALIC - Eye Exam Eye Exam: EOMI, Normal appearance - ENT Exam ENT Exam: Mucous Membranes Moist - Neck Exam Neck Exam: Full ROM. absent: Lymphadenopathy - Respiratory Exam Respiratory Exam: Clear to Ausculation Bilateral, NORMAL BREATHING PATTERN - Cardiovascular Exam Cardiovascular Exam: +S1, +S2 - GI/Abdominal Exam GI & Abdominal Exam: Soft, Normal Bowel Sounds. absent: Tenderness - Extremities Exam Extremities Exam: Normal Capillary Refill. absent: Joint Swelling - Neurological Exam Neurological Exam: Alert, Awake, Oriented x3 - Psychiatric Exam Psychiatric exam: Normal Affect, Normal Mood - Skin Skin Exam: Dry, Intact, Normal Color, Warm Assessment and Plan - Assessment and Plan (Free Text) Plan: Pulmonary embolism affecting - 11/14-: Stable - 11/13: BUSINESS ANALYST SALES OPERATIONS called for tachycardia, resolved with rest - 11/12: Therapeutic Lovenox 90mg SC Q12H, to be continued for duration of and 6-12 weeks post-delivery per Dr. Tucker. - Patient was admitted to ICU on 10/15/16 and transferred to telemetry on - 10/15/[address] showed acute pulmonary embolism in distal right and left pulmonary arteries, right upper lobe and left lobar and segmental branches with larger burden of embolism on the left. - Heme/Onc- Dr. Tucker consulted- help appreciated. - Patient had EKOS cath for directed thrombolysis on 10/15/16. Pulmonary artery angiogram improved flow to the upper and mid lung. There is great perfusion to the left lung. - 10/15/16 Echo showed normal LV function with normal EF. Right ventricular septal motion consistent with pressure overload. Moderate right atrium dilation. Moderate tricuspid regurgitation. RV systolic pressure estimated >60mmHg. ASD should be ruled out with SOMMER RLQ Pain - RLQ US 11/15 - negative for acute appendicitis, right ovarian cyst noted. - resolved this morning - (11/15) OB US viable 13 week - OB team following, will update team on rapid response this morning - aware. Following pt Q 2 weeks - Patient to follow up with high-risk OB on discharge - Continue nutritional care - 10/28/16 Obstetrics US- mean gestation age 11 weeks 1 day. single live intrauterine gestation. perigestational hemorrhage: none. - Obstetric US 11/04/16: single intrauterine live with US estimated gestational age 11 weeks 6 days. 3.9cm cyst at right ovary. Iliac vein thrombosis, right - 11/12: Therapeutic Lovenox 90mg SC q12, to be continued for duration of and 6-12 weeks post-delivery per Dr. Tucker. - 10/18/16 Obstetrics US- single intrauterine gestation with normal cardiac activity, approximate age 9 weeks 6 days. Clot seen in right internal iliac vein. - 10/16/16 LE Doppler- Right/Left: no evidence of deep/superficial vein thrombosis, normal valve function. Thrombocytosis - : stable - 11/12: Platelets 308 - 11/09: Platelets 382 - F/u platelets on labs MWF Thrombophilia - Inherited thrombophilia workup negative for inherited prothrombin gene mutation - Dr. Tucker, hemo-onc, on board, help appreciated - patient will need outpatient C+S and antithrombin III testing Elevated RV systolic pressure - Likely secondary to clot burden. - 10/15/16 Echo showed normal LV function with normal EF. Right ventricular septal motion consistent with pressure overload. Moderate right atrium dilation. Moderate tricuspid regurgitation. RV systolic pressure estimated >60mmHg. Nausea/Vomiting - resolved - Patient not currently requiring antiemetic treatment - zofran prn Constipation - Continue Miralax - monitor BM's Headaches - Pain- Tylenol 650mg po q6 prn - Continue to monitor. Electrolyte Abnormality - Hypokalemia - monitor and replete as needed - Hypomagnesemia - monitor and replete as needed Prophylactic Measure - Lovenox 90mg SC q12 - Protonix 40mg PO daily - PT/OT eval and treat- patient will need evaluation on stairs - Labs every Saturday, Saturday, Saturday - Encourage Spirometer - will monitor blood pressure and give IV fluids as needed. patient encouraged to increase PO water intake - 11/11: discontinued IV fluids. Disposition -Discharge is pending pt's ability to tolerate ADLs which includes stairs. Lovenox delivery approved - f/u - Patient will need medical leave forms filled out - has forms, will fill out today <Chris An - Last Filed: 11/18/16 08:46> Objective - Vital Signs/Intake and Output Vital Signs (last 24 hours): Temp Pulse Resp BP Pulse Ox 98.4 F 52 L 20 121/77 100 11/18/16 08:32 11/18/16 08:32 11/18/16 08:32 11/18/16 08:32 11/18/16 08:32 - Medications Medications: Current Medications Acetaminophen (Tylenol 325mg Tab) 650 mg PO Q6 PRN PRN Reason: Pain, Mild (1-3) Last Admin: 11/15/16 17:59 Dose: 650 mg Enoxaparin Sodium (Lovenox) 90 mg SC Q12 [facility] Last Admin: 11/17/16 21:53 Dose: 90 mg Ondansetron HCl (Zofran Inj) 4 mg IVP Q6H PRN PRN Reason: Nausea/Vomiting Pantoprazole Sodium (Protonix Ec Tab) 40 mg PO DAILY [facility] Last Admin: 11/17/16 09:11 Dose: 40 mg Polyethylene Glycol (Miralax) 17 gm PO DAILY [facility] Last Admin: 11/17/16 09:11 Dose: 17 gm Multivit/Folic Acid/Iron () 1 tab PO DAILY [facility] Last Admin: 11/17/16 09:11 Dose: 1 tab - Labs Labs: 11/16/16 06:02 11/16/16 06:02 PT 13.9 SECONDS (9.7-12.2) H 10/20/16 06:46 INR 1.2 10/20/16 06:46 APTT 32 SECONDS (21-34) 10/20/16 06:46 Attending/Attestation - Attestation I have personally seen and examined this patient.: Yes I have fully participated in the care of the patient.: Yes I have reviewed all pertinent clinical information, including history, physical exam and plan: Yes Notes (Text): Patient with prengancy at 14 weeks gestation, admitted with large PE, underwent catheter guided thrombolysis; Reports that she tolerated step training yesterday but describes symptoms of lightheadedness thereafter; Overall, exercise tolerance continues to improve; will have PT continue stair training as patient has to climb 3 flights of stairs to get to her apartment and has been plagued by tachycardia on exertion (although much improved now); On therapeutic dose lovenox for PE, to continue until 6-12 weeks post-; Dispo: Still needs PT sessions as noted above; also, free lovenox supply for outpatient use was supposed to be delivered on Saturday (patient uninsured and reports inability to pay for med) but no record of this being done yet.
[2016-11-18] MEDS: Prenatal Multivit/Folic Acid/Iron Tab PO SCH (09:29)
[2016-11-18] MEDS: Pantoprazole 40 mg EC Tab PO SCH (09:29)
[2016-11-18] MEDS: POLYETHYLENE GLYCOL 3350 17 GM/Dose PACKET PO SCH (09:29)
[2016-11-18] MEDS: Enoxaparin 80 mg Syringe SC SCH (09:29)
[2016-11-18] MEDS: Enoxaparin 100 mg Syringe SC SCH (22:03)
--- NOTE | 2016-11-18 22:05 | CP.PCM.PN ---
Subjective - Date & Time of Evaluation Date of Evaluation: 11/18/16 Time of Evaluation: 08:40 - Subjective Subjective: Pt seen and examined at bedside. Pt states that she feels fine this morning. Denies any fevers, chills, chest pain, sob, nausea or vomiting. Case management is working to find her Lovenox that will be provided by the pharmaceutical [employer]. Objective - Vital Signs/Intake and Output Vital Signs (last 24 hours): Temp Pulse Resp BP Pulse Ox 98.6 F 68 20 91/57 L 100 11/18/16 17:00 11/18/16 17:00 11/18/16 17:00 11/18/16 17:00 11/18/16 17:00 Intake and Output: 11/18/16 11/19/16 18:59 06:59 Intake Total 1230 Balance 1230 - Medications Medications: Current Medications Acetaminophen (Tylenol 325mg Tab) 650 mg PO Q6 PRN PRN Reason: Pain, Mild (1-3) Last Admin: 11/18/16 15:43 Dose: 650 mg Enoxaparin Sodium (Lovenox) 90 mg SC Q12 [facility] Last Admin: 11/18/16 22:03 Dose: 90 mg Ondansetron HCl (Zofran Inj) 4 mg IVP Q6H PRN PRN Reason: Nausea/Vomiting Pantoprazole Sodium (Protonix Ec Tab) 40 mg PO DAILY [facility] Last Admin: 11/18/16 09:29 Dose: 40 mg Polyethylene Glycol (Miralax) 17 gm PO DAILY [facility] Last Admin: 11/18/16 09:29 Dose: 17 gm Multivit/Folic Acid/Iron () 1 tab PO DAILY [facility] Last Admin: 11/18/16 09:29 Dose: 1 tab - Labs Labs: 11/16/16 06:02 11/16/16 06:02 PT 13.9 SECONDS (9.7-12.2) H 10/20/16 06:46 INR 1.2 10/20/16 06:46 APTT 32 SECONDS (21-34) 10/20/16 06:46 - Constitutional Appears: Non-toxic, No Acute Distress - Head Exam Head Exam: ATRAUMATIC, NORMOCEPHALIC - Eye Exam Eye Exam: EOMI - ENT Exam ENT Exam: Mucous Membranes Moist - Respiratory Exam Respiratory Exam: Clear to Ausculation Bilateral, NORMAL BREATHING PATTERN - Cardiovascular Exam Cardiovascular Exam: REGULAR RHYTHM, RRR, +S1, +S2. absent: JVD - GI/Abdominal Exam GI & Abdominal Exam: Soft, Normal Bowel Sounds. absent: Tenderness - Back Exam Back Exam: Full ROM. absent: CVA tenderness (L), CVA tenderness (R) - Neurological Exam Neurological Exam: Alert, Awake, Oriented x3 - Psychiatric Exam Psychiatric exam: Normal Affect, Normal Mood - Skin Skin Exam: Dry, Intact, Normal Color, Warm Assessment and Plan - Assessment and Plan (Free Text) Plan: Pulmonary embolism affecting - 11/14-: Stable - 11/13: LAUNDRY OPERATOR WASH ROOM called for tachycardia, resolved with rest - 11/12: Therapeutic Lovenox 90mg SC Q12H, to be continued for duration of and 6-12 weeks post-delivery per Dr. Tucker. - Patient was admitted to ICU on 10/15/16 and transferred to telemetry on - 10/15/[address] showed acute pulmonary embolism in distal right and left pulmonary arteries, right upper lobe and left lobar and segmental branches with larger burden of embolism on the left. - Heme/Onc- Dr. Tucker consulted- help appreciated. - Patient had EKOS cath for directed thrombolysis on 10/15/16. Pulmonary artery angiogram improved flow to the upper and mid lung. There is great perfusion to the left lung. - 10/15/16 Echo showed normal LV function with normal EF. Right ventricular septal motion consistent with pressure overload. Moderate right atrium dilation. Moderate tricuspid regurgitation. RV systolic pressure estimated >60mmHg. ASD should be ruled out with SOMMER RLQ Pain - RLQ US 11/15 - negative for acute appendicitis, right ovarian cyst noted. - resolved this morning - (11/15) OB US viable 13 week - OB team following, will update team on rapid response this morning - aware. Following pt Q 2 weeks - Patient to follow up with high-risk OB on discharge - Continue nutritional care - 10/28/16 Obstetrics US- mean gestation age 11 weeks 1 day. single live intrauterine gestation. perigestational hemorrhage: none. - Obstetric US 11/04/16: single intrauterine live with US estimated gestational age 11 weeks 6 days. 3.9cm cyst at right ovary. Iliac vein thrombosis, right - 11/12: Therapeutic Lovenox 90mg SC q12, to be continued for duration of and 6-12 weeks post-delivery per Dr. Tucker. - 10/18/16 Obstetrics US- single intrauterine gestation with normal cardiac activity, approximate age 9 weeks 6 days. Clot seen in right internal iliac vein. - 10/16/16 LE Doppler- Right/Left: no evidence of deep/superficial vein thrombosis, normal valve function. Thrombocytosis - : stable - 11/12: Platelets 308 - 11/09: Platelets 382 - F/u platelets on labs MWF Thrombophilia - Inherited thrombophilia workup negative for inherited prothrombin gene mutation - Dr. Tucker, hemo-onc, on board, help appreciated - patient will need outpatient C+S and antithrombin III testing Elevated RV systolic pressure - Likely secondary to clot burden. - 10/15/16 Echo showed normal LV function with normal EF. Right ventricular septal motion consistent with pressure overload. Moderate right atrium dilation. Moderate tricuspid regurgitation. RV systolic pressure estimated >60mmHg. Nausea/Vomiting - resolved - Patient not currently requiring antiemetic treatment - zofran prn Constipation - Continue Miralax - monitor BM's Headaches - Pain- Tylenol 650mg po q6 prn - Continue to monitor. Electrolyte Abnormality - Hypokalemia - monitor and replete as needed - Hypomagnesemia - monitor and replete as needed Prophylactic Measure - Lovenox 90mg SC q12 - Protonix 40mg PO daily - PT/OT eval and treat- patient will need evaluation on stairs - Labs every Saturday, Saturday, Saturday - Encourage Spirometer - will monitor blood pressure and give IV fluids as needed. patient encouraged to increase PO water intake - 11/11: discontinued IV fluids. Disposition -Discharge is pending pt's ability to tolerate ADLs which includes stairs. Lovenox delivery approved - f/u - Patient will need medical leave forms filled out - has forms, will fill out today - Case MGMT will need to follow up with Pharmaceutical company to find the Lovenox.
[2016-11-19] MEDS: Prenatal Multivit/Folic Acid/Iron Tab PO SCH (10:08)
[2016-11-19] MEDS: Pantoprazole 40 mg EC Tab PO SCH (10:08)
[2016-11-19] MEDS: POLYETHYLENE GLYCOL 3350 17 GM/Dose PACKET PO SCH (10:08)
[2016-11-19] MEDS: Enoxaparin 100 mg Syringe SC SCH ×2 (10:11→21:41)
[2016-11-19 11:48] LABS: BASO % 0.7 % (0.0-2.0); EOS # 0.1 K/uL (0.0-0.7); EOS % 2.2 % (0.0-4.0); HEMATOCRIT 33.7 % (34.0-47.0); LYMPH % 26.5 % (20.0-40.0); MEAN CELL VOLUME 86.2 fL (81.0-99.0); MEAN CORPUSCULAR HEMOGLOBIN 27.8 pg (27.0-31.0); MEAN CORPUSCULAR HGB CONC 32.2 g/dL (33.0-37.0); MEAN PLATELET VOLUME 9.1 fL (7.2-11.7); MONO # 0.1 K/uL (0.0-0.8); MONO % 3.6 % (0.0-10.0); NRBC % 0.1 % (0.0-2.0); RED CELL DISTRIBUTION WIDTH 15.5 % (11.5-14.5); WHITE BLOOD COUNT 3.9 K/uL (4.8-10.8)
[2016-11-19 12:12] LABS: CHLORIDE 98 mmol/L (98-107); POTASSIUM 3.2 mmol/L (3.6-5.2); SODIUM 133 mmol/L (132-148)
[2016-11-19 12:14] LABS: BILIRUBIN,TOTAL 0.2 mg/dL (0.2-1.3); GFR AFRICAN-AMERICAN > 60
[2016-11-19 12:15] LABS: ALB/GLOB RATIO 1.1 (1.0-2.1); ALKALINE PHOSPHATASE 41 U/L (38-126); ALT/SGPT 50 U/L (9-52); AST/SGOT 48 U/L (14-36); BLOOD UREA NITROGEN 5 mg/dL (7-17); CALCIUM 8.8 mg/dl (8.6-10.4); CARBON DIOXIDE 22 mmol/L (22-30); GLUCOSE,RANDOM 98 mg/dL (65-105); MAGNESIUM 1.4 mg/dL (1.6-2.3); PHOSPHOROUS 3.5 mg/dL (2.5-4.5); TOTAL PROTEIN 6.8 g/dL (6.3-8.3)
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
[2016-11-19] MEDS ORDERED: Potassium Chloride 20 mEq ER Tab PO ONE (12:45)
[2016-11-20] MEDS ORDERED: Potassium Chloride 20 mEq ER Tab PO ONE ×2 (08:59→18:28)
[2016-11-20] MEDS: POLYETHYLENE GLYCOL 3350 17 GM/Dose PACKET PO SCH (09:58)
[2016-11-20] MEDS: Enoxaparin 100 mg Syringe SC SCH ×2 (09:58→21:49)
[2016-11-20] MEDS: Prenatal Multivit/Folic Acid/Iron Tab PO SCH (09:58)
[2016-11-20] MEDS: Pantoprazole 40 mg EC Tab PO SCH (09:58)
[2016-11-20] MEDS: Sodium Chloride 0.9% 1,000 ML IV SCH ×2 (13:06→21:49)
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
[2016-11-21] MEDS: Sodium Chloride 0.9% 1,000 ML IV SCH ×2 (07:45→18:32)
[2016-11-21] MEDS: POLYETHYLENE GLYCOL 3350 17 GM/Dose PACKET PO SCH (09:28)
[2016-11-21] MEDS: Prenatal Multivit/Folic Acid/Iron Tab PO SCH (09:28)
[2016-11-21] MEDS: Pantoprazole 40 mg EC Tab PO SCH (09:28)
[2016-11-21] MEDS: Enoxaparin 100 mg Syringe SC SCH ×2 (09:28→21:52)
[2016-11-21 13:05] LABS: BASO % 0.8 % (0.0-2.0); EOS # 0.1 K/uL (0.0-0.7); EOS % 2.4 % (0.0-4.0); HEMATOCRIT 32.6 % (34.0-47.0); LYMPH # 1.4 K/uL (1.0-4.3); MEAN CELL VOLUME 85.7 fL (81.0-99.0); MEAN CORPUSCULAR HEMOGLOBIN 28.4 pg (27.0-31.0); MEAN CORPUSCULAR HGB CONC 33.1 g/dL (33.0-37.0); MEAN PLATELET VOLUME 8.2 fL (7.2-11.7); MONO # 0.4 K/uL (0.0-0.8); MONO % 8.2 % (0.0-10.0); RED CELL DISTRIBUTION WIDTH 15.2 % (11.5-14.5); WHITE BLOOD COUNT 4.9 K/uL (4.8-10.8)
[2016-11-21 13:15] LABS: CHLORIDE 103 mmol/L (98-107); POTASSIUM 3.7 mmol/L (3.6-5.2); SODIUM 133 mmol/L (132-148)
[2016-11-21 13:17] LABS: ALKALINE PHOSPHATASE 41 U/L (38-126); AST/SGOT 57 U/L (14-36); BILIRUBIN,TOTAL 0.2 mg/dL (0.2-1.3); CARBON DIOXIDE 19 mmol/L (22-30); GFR AFRICAN-AMERICAN > 60; TOTAL PROTEIN 6.9 g/dL (6.3-8.3)
[2016-11-21 13:18] LABS: ALT/SGPT 74 U/L (9-52); BLOOD UREA NITROGEN 4 mg/dL (7-17); CALCIUM 8.9 mg/dl (8.6-10.4); GLUCOSE,RANDOM 68 mg/dL (65-105); MAGNESIUM 1.6 mg/dL (1.6-2.3); PHOSPHOROUS 3.7 mg/dL (2.5-4.5)
--- NOTE | 2016-11-21 16:04 | CP.PCM.PN ---
Subjective - Date & Time of Evaluation Date of Evaluation: 11/21/16 Time of Evaluation: 16:02 - Subjective Subjective: PGY-1 note for medicine service Pt seen and examined at bedside. Pt states that she feels well and has no complaints. Denies fevers, chills, chest pain, sob, nausea or vomiting. Objective - Vital Signs/Intake and Output Vital Signs (last 24 hours): Temp Pulse Resp BP Pulse Ox 99.2 F 67 17 99/69 L 100 11/21/16 07:25 11/21/16 08:00 11/21/16 07:25 11/21/16 07:25 11/21/16 07:25 Intake and Output: 11/21/16 11/21/16 06:59 18:59 Intake Total 1000 1200 Balance 1000 1200 - Medications Medications: Current Medications Acetaminophen (Tylenol 325mg Tab) 650 mg PO Q6 PRN PRN Reason: Pain, Mild (1-3) Enoxaparin Sodium (Lovenox) 90 mg SC Q12 [facility] Last Admin: 11/21/16 09:28 Dose: 90 mg Sodium Chloride (Sodium Chloride 0.9%) 1,000 mls @ 100 mls/hr IV .Q10H [facility] Last Admin: 11/21/16 07:45 Dose: 100 mls/hr Ondansetron HCl (Zofran Inj) 4 mg IVP Q6H PRN PRN Reason: Nausea/Vomiting Pantoprazole Sodium (Protonix Ec Tab) 20 mg PO DAILY [facility] Polyethylene Glycol (Miralax) 17 gm PO DAILY [facility] Last Admin: 11/21/16 09:28 Dose: 17 gm Multivit/Folic Acid/Iron () 1 tab PO DAILY [facility] Last Admin: 11/21/16 09:28 Dose: 1 tab - Labs Labs: 11/21/16 12:55 11/21/16 12:55 PT 13.9 SECONDS (9.7-12.2) H 10/20/16 06:46 INR 1.2 10/20/16 06:46 APTT 32 SECONDS (21-34) 10/20/16 06:46 - Constitutional Appears: Non-toxic, No Acute Distress - Head Exam Head Exam: ATRAUMATIC, NORMOCEPHALIC - Eye Exam Eye Exam: Normal appearance Pupil Exam: PERRL - ENT Exam ENT Exam: Mucous Membranes Moist - Respiratory Exam Respiratory Exam: Clear to Ausculation Bilateral, NORMAL BREATHING PATTERN - Cardiovascular Exam Cardiovascular Exam: +S1, +S2 - GI/Abdominal Exam GI & Abdominal Exam: Soft, Normal Bowel Sounds - Neurological Exam Neurological Exam: Alert, Awake - Skin Skin Exam: Dry, Warm Assessment and Plan - Assessment and Plan (Free Text) Assessment: Pulmonary embolism affecting - 11/14-: Stable, continue with PT. Able to tolerate ~24 steps with last PT session - 11/13: GORE MAKER called for tachycardia, resolved with rest - 11/12: Therapeutic Lovenox 90mg SC Q12H, to be continued for duration of and 6-12 weeks post-delivery per Dr. Tucker. - Patient was admitted to ICU on 10/15/16 and transferred to telemetry on - 10/15/[address] showed acute pulmonary embolism in distal right and left pulmonary arteries, right upper lobe and left lobar and segmental branches with larger burden of embolism on the left. - Heme/Onc- Dr. Tucker consulted- help appreciated. - Patient had EKOS cath for directed thrombolysis on 10/15/16. Pulmonary artery angiogram improved flow to the upper and mid lung. There is great perfusion to the left lung. - 10/15/16 Echo showed normal LV function with normal EF. Right ventricular septal motion consistent with pressure overload. Moderate right atrium dilation. Moderate tricuspid regurgitation. RV systolic pressure estimated >60mmHg. ASD should be ruled out with SOMMER - (11/15) OB US viable 13 week - OB team following, will update team on rapid response this morning - aware. Following pt Q 2 weeks - Patient to follow up with high-risk OB on discharge - Continue nutritional care - 10/28/16 Obstetrics US- mean gestation age 11 weeks 1 day. single live intrauterine gestation. perigestational hemorrhage: none. - Obstetric US 11/04/16: single intrauterine live with US estimated gestational age 11 weeks 6 days. 3.9cm cyst at right ovary. Iliac vein thrombosis, right - 11/12: Therapeutic Lovenox 90mg SC q12, to be continued for duration of and 6-12 weeks post-delivery per Dr. Tucker. - 10/18/16 Obstetrics US- single intrauterine gestation with normal cardiac activity, approximate age 9 weeks 6 days. Clot seen in right internal iliac vein. - 10/16/16 LE Doppler- Right/Left: no evidence of deep/superficial vein thrombosis, normal valve function. Thrombophilia - Inherited thrombophilia workup negative for inherited prothrombin gene mutation - Dr. Tucker, hemo-onc, on board, help appreciated - patient will need outpatient C+S and antithrombin III testing Elevated RV systolic pressure - Likely secondary to clot burden. - 10/15/16 Echo showed normal LV function with normal EF. Right ventricular septal motion consistent with pressure overload. Moderate right atrium dilation. Moderate tricuspid regurgitation. RV systolic pressure estimated >60mmHg. Constipation - Continue Miralax - monitor BM's Headaches - Pain- Tylenol 650mg po q6 prn - Continue to monitor. Electrolyte Abnormality - Hypokalemia - monitor and replete as needed - Hypomagnesemia - monitor and replete as needed Thrombocytosis - Resolved - Continue to monitor RLQ Pain - Resolved - RLQ US 11/15 - negative for acute appendicitis, right ovarian cyst noted. Nausea/Vomiting - resolved - Patient not currently requiring antiemetic treatment - zofran prn Prophylactic Measure - Lovenox 90mg SC q12 - Protonix 40mg PO daily - PT/OT eval and treat- patient will need work on stairs - Labs every Saturday, Saturday, Saturday - Encourage Spirometer - will monitor blood pressure and give IV fluids as needed. patient encouraged to increase PO water intake - 11/11: discontinued IV fluids. Disposition -Discharge is pending pt's ability to tolerate ADLs which includes stairs. Lovenox delivered - Patient will need medical leave forms filled out - has forms
[2016-11-22] MEDS: Sodium Chloride 0.9% 1,000 ML IV SCH (04:17)
--- NOTE | 2016-11-22 08:12 | CP.PCM.PN ---
<Reji Ramos - Last Filed: 11/22/16 14:14> Subjective - Date & Time of Evaluation Date of Evaluation: 11/22/16 Time of Evaluation: 08:04 - Subjective Subjective: PGY-1 note for medicine service Pt seen and examined at bedside. Pt had no complaints. Denied fevers, chills, chest pain, palpitations, nausea or vomiting. After I saw the pt, HEALTH CONSULTANT was called Time called: 07:24 Reason: tachycardia and tachypnea Initial vitals: HR ~150s, BP 158/89, tachypneic >20, Temp 97.9, 100% o2 sat According to the nursing staff, pt got up to brush her teethe when she began to hyperventilate due to feelings of palpitations. She states that her chest felt uncomfortable and similar to all her previous episodes of tachycardia. She has had multiple HEALTH CONSULTANT called for this same reason. The pt was made to lie down with venti mask on and monitored. As the pt calmed down her HR normalized, dropping down into the 90s and her breathing also slowed down. Pt was visibly upset because of frustration due to her situation. Pt is anxious to go home and nervous about her diagnosis. A repeat echo was ordered that will be followed up. Pt was instructed to ask for help with any activity this morning and she was in stable condition at the resolution of the rapid response. Objective - Vital Signs/Intake and Output Vital Signs (last 24 hours): Temp Pulse Resp BP Pulse Ox 98.3 F 66 20 94/61 L 98 11/21/16 23:15 11/22/16 04:17 11/21/16 23:15 11/21/16 23:15 11/21/16 23:15 Intake and Output: 11/22/16 11/22/16 06:59 18:59 Intake Total 2000 Balance 1999 - Medications Medications: Current Medications Acetaminophen (Tylenol 325mg Tab) 650 mg PO Q6 PRN PRN Reason: Pain, Mild (1-3) Sodium Chloride (Sodium Chloride 0.9%) 1,000 mls @ 100 mls/hr IV .Q10H [facility] Last Admin: 11/22/16 04:17 Dose: 100 mls/hr Ondansetron HCl (Zofran Inj) 4 mg IVP Q6H PRN PRN Reason: Nausea/Vomiting Pantoprazole Sodium (Protonix Ec Tab) 20 mg PO DAILY [facility] Polyethylene Glycol (Miralax) 17 gm PO DAILY [facility] Last Admin: 11/21/16 09:28 Dose: 17 gm Multivit/Folic Acid/Iron () 1 tab PO DAILY [facility] Last Admin: 11/21/16 09:28 Dose: 1 tab - Labs Labs: 11/21/16 12:55 11/21/16 12:55 PT 13.9 SECONDS (9.7-12.2) H 10/20/16 06:46 INR 1.2 10/20/16 06:46 APTT 32 SECONDS (21-34) 10/20/16 06:46 - Constitutional Appears: Non-toxic, No Acute Distress - Head Exam Head Exam: ATRAUMATIC, NORMOCEPHALIC - Eye Exam Eye Exam: Normal appearance - ENT Exam ENT Exam: Mucous Membranes Moist - Respiratory Exam Respiratory Exam: Clear to Ausculation Bilateral, NORMAL BREATHING PATTERN - Cardiovascular Exam Cardiovascular Exam: +S1, +S2 - GI/Abdominal Exam GI & Abdominal Exam: Soft, Normal Bowel Sounds. absent: Tenderness - Neurological Exam Neurological Exam: Alert, Awake - Skin Skin Exam: Dry, Warm Assessment and Plan - Assessment and Plan (Free Text) Assessment: Pulmonary embolism affecting - 11/14-: Stable, continue with PT. Able to tolerate ~24 steps with last PT session - 11/13: HEALTH CONSULTANT called for tachycardia, resolved with rest - 11/12: Therapeutic Lovenox 90mg SC Q12H, to be continued for duration of and 6-12 weeks post-delivery per Dr. Tucker. - Patient was admitted to ICU on 10/15/16 and transferred to telemetry on - 10/15/[address] showed acute pulmonary embolism in distal right and left pulmonary arteries, right upper lobe and left lobar and segmental branches with larger burden of embolism on the left. - Heme/Onc- Dr. Tucker consulted- help appreciated. - Patient had EKOS cath for directed thrombolysis on 10/15/16. Pulmonary artery angiogram improved flow to the upper and mid lung. There is great perfusion to the left lung. - 10/15/16 Echo showed normal LV function with normal EF. Right ventricular septal motion consistent with pressure overload. Moderate right atrium dilation. Moderate tricuspid regurgitation. RV systolic pressure estimated >60mmHg. ASD should be ruled out with SOMMER - (11/15) OB US viable 13 week - OB team following, will update team on rapid response this morning - aware. Following pt Q 2 weeks - Patient to follow up with high-risk OB on discharge - Continue nutritional care - 10/28/16 Obstetrics US- mean gestation age 11 weeks 1 day. single live intrauterine gestation. perigestational hemorrhage: none. - Obstetric US 11/04/16: single intrauterine live with US estimated gestational age 11 weeks 6 days. 3.9cm cyst at right ovary. Iliac vein thrombosis, right - 11/12: Therapeutic Lovenox 90mg SC q12, to be continued for duration of and 6-12 weeks post-delivery per Dr. Tucker. - 10/18/16 Obstetrics US- single intrauterine gestation with normal cardiac activity, approximate age 9 weeks 6 days. Clot seen in right internal iliac vein. - 10/16/16 LE Doppler- Right/Left: no evidence of deep/superficial vein thrombosis, normal valve function. Thrombophilia - Inherited thrombophilia workup negative for inherited prothrombin gene mutation - Dr. Tucker, hemo-onc, on board, help appreciated - patient will need outpatient C+S and antithrombin III testing Elevated RV systolic pressure - Likely secondary to clot burden. - 10/15/16 Echo showed normal LV function with normal EF. Right ventricular septal motion consistent with pressure overload. Moderate right atrium dilation. Moderate tricuspid regurgitation. RV systolic pressure estimated >60mmHg. Constipation - Continue Miralax - monitor BM's Headaches - Pain- Tylenol 650mg po q6 prn - Continue to monitor. Electrolyte Abnormality - Hypokalemia - monitor and replete as needed - Hypomagnesemia - monitor and replete as needed Thrombocytosis - Resolved - Continue to monitor RLQ Pain - Resolved - RLQ US 11/15 - negative for acute appendicitis, right ovarian cyst noted. Nausea/Vomiting - resolved - Patient not currently requiring antiemetic treatment - zofran prn Prophylactic Measure - Lovenox 90mg SC q12 - Protonix 40mg PO daily - PT/OT eval and treat- patient will need work on stairs - Labs every Saturday, Saturday, Saturday - Encourage Spirometer - will monitor blood pressure and give IV fluids as needed. patient encouraged to increase PO water intake - 11/11: discontinued IV fluids. Disposition -Discharge is pending pt's ability to tolerate ADLs which includes stairs - last session pt tolerated 24 steps. Lovenox delivered - Patient will need medical leave forms filled out - has forms <JacintoCam M - Last Filed: 11/22/16 18:10> Objective - Vital Signs/Intake and Output Vital Signs (last 24 hours): Temp Pulse Resp BP Pulse Ox 98.6 F 66 18 98/66 L 100 11/22/16 15:44 11/22/16 15:44 11/22/16 15:44 11/22/16 15:44 11/22/16 15:44 Intake and Output: 11/22/16 11/22/16 06:59 18:59 Intake Total 1999 Balance 1999 - Medications Medications: Current Medications Acetaminophen (Tylenol 325mg Tab) 650 mg PO Q6 PRN PRN Reason: Pain, Mild (1-3) Enoxaparin Sodium (Lovenox) 90 mg SC Q12 [facility] Last Admin: 11/22/16 11:02 Dose: 90 mg Ondansetron HCl (Zofran Inj) 4 mg IVP Q6H PRN PRN Reason: Nausea/Vomiting Pantoprazole Sodium (Protonix Ec Tab) 20 mg PO DAILY [facility] Last Admin: 11/22/16 10:54 Dose: 20 mg Polyethylene Glycol (Miralax) 17 gm PO DAILY [facility] Last Admin: 11/22/16 10:55 Dose: 17 gm Multivit/Folic Acid/Iron () 1 tab PO DAILY [facility] Last Admin: 11/22/16 10:54 Dose: 1 tab - Labs Labs: 11/21/16 12:55 11/21/16 12:55 PT 13.9 SECONDS (9.7-12.2) H 10/20/16 06:46 INR 1.2 10/20/16 06:46 APTT 32 SECONDS (21-34) 10/20/16 06:46 Assessment and Plan (1) Pulmonary embolism affecting Status: Acute (2) Status: Acute (3) Iliac vein thrombosis, right Status: Acute (4) Hypokalemia Status: Acute (5) Hypomagnesemia Status: Acute Attending/Attestation - Attestation I have personally seen and examined this patient.: Yes I have fully participated in the care of the patient.: Yes I have reviewed all pertinent clinical information, including history, physical exam and plan: Yes Notes (Text): 11/22/16 18:07 patient was seen and examined at bedside with the resident. Patient appears comfortable without any shortness of breath Earlier this morning patient had rapid response of because of the tachycardia Currently patient's heart rate is controlled We have the made arrangements for patient to receive Lovenox at home We will continue physical therapy Patient appears to be stronger and is anxious for discharge to home now Likely discharge in the next 24-48 hours.
[2016-11-22] MEDS ORDERED: Enoxaparin 80 mg Syringe SC SCH (10:00)
[2016-11-22] MEDS: Prenatal Multivit/Folic Acid/Iron Tab PO SCH (10:54)
[2016-11-22] MEDS: Pantoprazole 20 mg EC Tab PO SCH (10:54)
[2016-11-22] MEDS: POLYETHYLENE GLYCOL 3350 17 GM/Dose PACKET PO SCH (10:55)
[2016-11-22] MEDS: Enoxaparin 100 mg Syringe SC SCH ×2 (11:02→21:40)
[2016-11-22 17:11] VITALS: O2SAT 100
--- NOTE | 2016-11-23 07:56 | CP.PCM.PN ---
Subjective - Date & Time of Evaluation Date of Evaluation: 11/23/16 Time of Evaluation: 07:53 - Subjective Subjective: PGY-1 note for medicine service Pt seen and examined at bedside. Pt observed to be sleeping comfortably. She has no complaints this morning. Denies any fevers, chills, chest pain, palpitations, sob, nausea or vomiting. Per staff, pt slept throughout the night. Objective - Vital Signs/Intake and Output Vital Signs (last 24 hours): Temp Pulse Resp BP Pulse Ox 98.5 F 70 20 102/62 100 11/22/16 23:15 11/23/16 01:38 11/22/16 23:15 11/22/16 23:15 11/22/16 23:15 Intake and Output: 11/23/16 11/23/16 06:59 18:59 Intake Total 350 Balance 350 - Medications Medications: Current Medications Acetaminophen (Tylenol 325mg Tab) 650 mg PO Q6 PRN PRN Reason: Pain, Mild (1-3) Enoxaparin Sodium (Lovenox) 90 mg SC Q12 [facility] Last Admin: 11/22/16 21:40 Dose: 90 mg Ondansetron HCl (Zofran Inj) 4 mg IVP Q6H PRN PRN Reason: Nausea/Vomiting Pantoprazole Sodium (Protonix Ec Tab) 20 mg PO DAILY [facility] Last Admin: 11/22/16 10:54 Dose: 20 mg Polyethylene Glycol (Miralax) 17 gm PO DAILY [facility] Last Admin: 11/22/16 10:55 Dose: 17 gm Multivit/Folic Acid/Iron () 1 tab PO DAILY [facility] Last Admin: 11/22/16 10:54 Dose: 1 tab - Labs Labs: 11/21/16 12:55 11/21/16 12:55 PT 13.9 SECONDS (9.7-12.2) H 10/20/16 06:46 INR 1.2 10/20/16 06:46 APTT 32 SECONDS (21-34) 10/20/16 06:46 - Constitutional Appears: Non-toxic, No Acute Distress - Head Exam Head Exam: ATRAUMATIC, NORMOCEPHALIC - Eye Exam Eye Exam: Normal appearance - ENT Exam ENT Exam: Mucous Membranes Moist - Respiratory Exam Respiratory Exam: Clear to Ausculation Bilateral, NORMAL BREATHING PATTERN - Cardiovascular Exam Cardiovascular Exam: +S1, +S2 - GI/Abdominal Exam GI & Abdominal Exam: Soft, Normal Bowel Sounds - Neurological Exam Neurological Exam: Alert, Awake - Skin Skin Exam: Dry, Warm Assessment and Plan - Assessment and Plan (Free Text) Assessment: Disposition -Discharge is pending pt's ability to tolerate ADLs which includes stairs - last session pt tolerated 24 steps. Pt anxious to go home - Lovenox delivered - Patient will need medical leave forms filled out - has forms Pulmonary embolism affecting - 11/14-: Stable, continue with PT. Able to tolerate ~24 steps with last PT session - 11/13: REGISTERED NURSE FETAL called for tachycardia, resolved with rest - 11/12: Therapeutic Lovenox 90mg SC Q12H, to be continued for duration of and 6-12 weeks post-delivery per Dr. Tucker. - Patient was admitted to ICU on 10/15/16 and transferred to telemetry on - 10/15/[address] showed acute pulmonary embolism in distal right and left pulmonary arteries, right upper lobe and left lobar and segmental branches with larger burden of embolism on the left. - Heme/Onc- Dr. Tucker consulted- help appreciated. - Patient had EKOS cath for directed thrombolysis on 10/15/16. Pulmonary artery angiogram improved flow to the upper and mid lung. There is great perfusion to the left lung. - 10/15/16 Echo showed normal LV function with normal EF. Right ventricular septal motion consistent with pressure overload. Moderate right atrium dilation. Moderate tricuspid regurgitation. RV systolic pressure estimated >60mmHg. ASD should be ruled out with SOMMER - (11/15) OB US viable 13 week - OB team following, will update team on rapid response this morning - aware. Following pt Q 2 weeks - Patient to follow up with high-risk OB on discharge - Continue nutritional care - 10/28/16 Obstetrics US- mean gestation age 11 weeks 1 day. single live intrauterine gestation. perigestational hemorrhage: none. - Obstetric US 11/04/16: single intrauterine live with US estimated gestational age 11 weeks 6 days. 3.9cm cyst at right ovary. Iliac vein thrombosis, right - 11/12: Therapeutic Lovenox 90mg SC q12, to be continued for duration of and 6-12 weeks post-delivery per Dr. Tucker. - 10/18/16 Obstetrics US- single intrauterine gestation with normal cardiac activity, approximate age 9 weeks 6 days. Clot seen in right internal iliac vein. - 10/16/16 LE Doppler- Right/Left: no evidence of deep/superficial vein thrombosis, normal valve function. Thrombophilia - Inherited thrombophilia workup negative for inherited prothrombin gene mutation - Dr. Tucker, hemo-onc, on board, help appreciated - patient will need outpatient C+S and antithrombin III testing Elevated RV systolic pressure - Likely secondary to clot burden. - 10/15/16 Echo showed normal LV function with normal EF. Right ventricular septal motion consistent with pressure overload. Moderate right atrium dilation. Moderate tricuspid regurgitation. RV systolic pressure estimated >60mmHg. Constipation - Continue Miralax - monitor BM's Headaches - Pain- Tylenol 650mg po q6 prn - Continue to monitor. Electrolyte Abnormality - Hypokalemia - monitor and replete as needed - Hypomagnesemia - monitor and replete as needed Thrombocytosis - Resolved - Continue to monitor RLQ Pain - Resolved - RLQ US 11/15 - negative for acute appendicitis, right ovarian cyst noted. Nausea/Vomiting - resolved - Patient not currently requiring antiemetic treatment - zofran prn Prophylactic Measure - Lovenox 90mg SC q12 - Protonix 40mg PO daily - PT/OT eval and treat- patient will need work on stairs - Labs every Saturday, Saturday, Saturday - Encourage Spirometer - will monitor blood pressure and give IV fluids as needed. patient encouraged to increase PO water intake - 11/11: discontinued IV fluids.
[2016-11-23] MEDS: Enoxaparin 100 mg Syringe SC SCH (11:06)
[2016-11-23] MEDS: POLYETHYLENE GLYCOL 3350 17 GM/Dose PACKET PO SCH (11:06)
[2016-11-23] MEDS: Pantoprazole 20 mg EC Tab PO SCH (11:07)
[2016-11-23] MEDS: Prenatal Multivit/Folic Acid/Iron Tab PO SCH (11:07)
[2016-11-23 11:23] LABS: BASO % 0.4 % (0.0-2.0); EOS # 0.1 K/uL (0.0-0.7); HEMATOCRIT 33.4 % (34.0-47.0); LYMPH % 25.7 % (20.0-40.0); MEAN CELL VOLUME 86.2 fL (81.0-99.0); MEAN CORPUSCULAR HGB CONC 32.5 g/dL (33.0-37.0); MEAN PLATELET VOLUME 7.7 fL (7.2-11.7); MONO # 0.3 K/uL (0.0-0.8); MONO % 8.7 % (0.0-10.0); NRBC % 0.1 % (0.0-2.0); RED CELL DISTRIBUTION WIDTH 14.7 % (11.5-14.5); WHITE BLOOD COUNT 3.8 K/uL (4.8-10.8)
[2016-11-23 11:38] LABS: CHLORIDE 99 mmol/L (98-107); POTASSIUM 3.5 mmol/L (3.6-5.2); SODIUM 134 mmol/L (132-148)
[2016-11-23 11:40] LABS: BILIRUBIN,TOTAL 0.1 mg/dL (0.2-1.3); GFR AFRICAN-AMERICAN > 60
[2016-11-23 11:41] LABS: ALB/GLOB RATIO 1.1 (1.0-2.1); ALKALINE PHOSPHATASE 41 U/L (38-126); ALT/SGPT 60 U/L (9-52); AST/SGOT 45 U/L (14-36); BLOOD UREA NITROGEN 4 mg/dL (7-17); CARBON DIOXIDE 22 mmol/L (22-30); GLUCOSE,RANDOM 82 mg/dL (65-105)
[2016-11-23 11:42] LABS: CALCIUM 9.1 mg/dl (8.6-10.4); MAGNESIUM 1.5 mg/dL (1.6-2.3)
[2016-11-23 16:55] VITALS: BP 105/69; PULSE 96; RESP 20; TEMP 98
--- NOTE | 2016-11-23 17:19 | CP.PCM.DIS ---
Provider - Provider Date of Admission: 10/15/16 16:51 Attending physician: aJnelle Barbosa DO Primary care physician: Lex - Dr Shore Consults: Cardio: Gadhvi Heme/Onc: Parshall [employer]PER[employer]: Mark/Sonia Pulm: Rajesh Time Spent in preparation of Discharge (in minutes): 31 Hospital Course - Lab Results Lab Results: Micro Results 10/28/16 21:00 Urine,Clean Catch Urine Culture - Final No Growth (<1,000 CFU/ML) 10/26/16 Unknown Naris MRSA Culture - Final MRSA NOT DETECTED 10/25/16 03:27 Urine,Clean Catch Urine Culture - Final No Growth (<1,000 CFU/ML) 10/15/16 18:26 Naris MRSA Culture (Admit) - Final MRSA NOT DETECTED Most Recent Lab Values WBC 3.8 K/uL (4.8-10.8) L 11/23/16 11:15 RBC 3.88 Mil/uL (3.80-5.20) 11/23/16 11:15 Hgb 10.9 g/dL (11.0-16.0) L 11/23/16 11:15 Hct 33.4 % (34.0-47.0) L 11/23/16 11:15 MCV 86.2 fL (81.0-99.0) 11/23/16 11:15 MCH 28.0 pg (27.0-31.0) 11/23/16 11:15 MCHC 32.5 g/dL (33.0-37.0) L 11/23/16 11:15 RDW 14.7 % (11.5-14.5) H 11/23/16 11:15 Plt Count 285 K/uL (130-400) 11/23/16 11:15 MPV 7.7 fL (7.2-11.7) 11/23/16 11:15 Neut % (Auto) 62.2 % (50.0-75.0) 11/23/16 11:15 Lymph % (Auto) 25.7 % (20.0-40.0) 11/23/16 11:15 [place] % (Auto) 8.7 % (0.0-10.0) 11/23/16 11:15 Eos % (Auto) 3.0 % (0.0-4.0) 11/23/16 11:15 Baso % (Auto) 0.4 % (0.0-2.0) 11/23/16 11:15 Neut # 2.4 K/uL (1.8-7.0) 11/23/16 11:15 Lymph # 1.0 K/uL (1.0-4.3) 11/23/16 11:15 [place] # 0.3 K/uL (0.0-0.8) 11/23/16 11:15 Eos # 0.1 K/uL (0.0-0.7) 11/23/16 11:15 Baso # 0.0 K/uL (0.0-0.2) 11/23/16 11:15 PT 13.9 SECONDS (9.7-12.2) H 10/20/16 06:46 INR 1.2 10/20/16 06:46 APTT 32 SECONDS (21-34) 10/20/16 06:46 Thrombin Time 19 sec (13-19) 10/18/16 15:35 D-Dimer, Quantitative 6348 ng/mlDDU (0-243) H 10/15/16 15:29 Lupus Anticoagulant see note (()) H 10/18/16 15:35 LA PTT Screen 45 sec (<=40) H 10/18/16 15:35 dRVVT Mixing Study 37 sec (<=45) 10/18/16 15:35 dRVVT Mix Interpret Not indicated (()) 10/18/16 15:35 Hexagonal Phase Confirm Weak positive (Negative) H 10/18/16 15:35 Factor V see note (()) 10/18/16 15:32 Puncture Site Rb 10/23/16 14:57 pCO2 30 mm/Hg (35-45) L 10/23/16 14:57 pO2 94 mm/Hg (80-100) 10/23/16 14:57 HCO3 22.6 mmol/L (21-28) 10/23/16 14:57 ABG pH 7.44 (7.35-7.45) 10/23/16 14:57 ABG Total CO2 21.3 mmol/L (22-28) L 10/23/16 14:57 ABG O2 Saturation 99.1 % (95-98) H 10/23/16 14:57 ABG Base Excess -3.0 mmol/L (-2.0-3.0) L 10/23/16 14:57 ABG Hemoglobin 9.9 g/dL (11.7-17.4) L 10/23/16 14:57 ABG Carboxyhemoglobin 1.8 % (0.5-1.5) H 10/23/16 14:57 POC ABG HHb (Measured) 0.9 % (0.0-5.0) 10/23/16 14:57 ABG Methemoglobin 1.2 % (0.0-3.0) 10/23/16 14:57 Jamarcus Test Na 10/23/16 14:57 A-a O2 Difference 18.0 mm/Hg 10/23/16 14:57 Respiratory Index 0.2 10/23/16 14:57 Hgb O2 Saturation 96.1 % (95.0-98.0) 10/23/16 14:57 FiO2 21.0 % 10/23/16 14:57 Sodium 134 mmol/L (132-148) 11/23/16 11:15 Potassium 3.5 mmol/L (3.6-5.2) L 11/23/16 11:15 Chloride 99 mmol/L (98-107) 11/23/16 11:15 Carbon Dioxide 22 mmol/L (22-30) 11/23/16 11:15 Anion Gap 17 (10-20) 11/23/16 11:15 BUN 4 mg/dL (7-17) L 11/23/16 11:15 Creatinine 0.5 MG/DL (0.7-1.2) L 11/23/16 11:15 Est GFR ( Amer) > 60 11/23/16 11:15 Est GFR (Non-Af Amer) > 60 11/23/16 11:15 POC Glucose (mg/dL) 79 mg/dL (65-110) 11/22/16 21:10 Random Glucose 82 mg/dL (65-105) 11/23/16 11:15 Calcium 9.1 mg/dl (8.6-10.4) 11/23/16 11:15 Phosphorus 4.0 mg/dL (2.5-4.5) 11/23/16 11:15 Magnesium 1.5 mg/dL (1.6-2.3) L 11/23/16 11:15 Iron 110 ug/dL (37-170) 10/27/16 13:45 TIBC 276 ug/dL (250-450) 10/27/16 13:45 % Saturation 40 (20-55) 10/27/16 13:45 Ferritin 47.6 ng/mL 10/24/16 06:12 Total Bilirubin 0.1 mg/dL (0.2-1.3) L 11/23/16 11:15 AST 45 U/L (14-36) H D 11/23/16 11:15 ALT 60 U/L (9-52) H 11/23/16 11:15 Alkaline Phosphatase 41 U/L (38-126) 11/23/16 11:15 Total Creatine Kinase 144 U/L (30-135) H 10/16/16 06:08 CK-MB (Mass) 7.14 ng/mL (0.0-3.38) H 10/16/16 06:08 Troponin I 1.8500 ng/mL (0.00-0.120) H* 10/15/16 15:16 Troponin I, Quant 1.1700 ng/mL (0.00-0.120) H* 10/16/16 06:08 Total Protein 7.0 g/dL (6.3-8.3) 11/23/16 11:15 Albumin 3.7 g/dL (3.5-5.0) 11/23/16 11:15 Globulin 3.3 gm/dL (2.2-3.9) 11/23/16 11:15 Albumin/Globulin Ratio 1.1 (1.0-2.1) 11/23/16 11:15 Beta HCG, Quant 179677.00 mIU/ML 10/15/16 14:43 Urine Color Yellow (YELLOW) 10/28/16 20:18 Urine Clarity Hazy (Clear) 10/28/16 20:18 Urine pH 6.0 (5.0-8.0) 10/28/16 20:18 Ur Specific Penrose 1.025 (1.003-1.030) 10/28/16 20:18 Urine Protein 1+ mg/dL (NEGATIVE) H 10/28/16 20:18 Urine Glucose (UA) Normal mg/dL (Normal) 10/28/16 20:18 Urine Ketones 1+ mg/dL (NEGATIVE) H 10/28/16 20:18 Urine Blood Negative (NEGATIVE) 10/28/16 20:18 Urine Nitrate Negative (NEGATIVE) 10/28/16 20:18 Urine Bilirubin Negative (NEGATIVE) 10/28/16 20:18 Urine Urobilinogen Normal mg/dL (0.2-1.0) 10/28/16 20:18 Ur Leukocyte Esterase Trace Germán/uL (Negative) 10/28/16 20:18 Urine WBC (Auto) 6 /hpf (0-5) H 10/28/16 20:18 Urine RBC (Auto) < 1 /hpf (0-3) 10/28/16 20:18 Ur Squamous Epith Cells 5 /hpf (0-5) 10/28/16 20:18 Ur Transition Epith Cell < 1 /hpf (0-3) 10/24/16 15:58 Urine Bacteria Rare (<OCC) 10/28/16 20:18 Hyaline Casts 6-10 /lpf (0-2) H 10/15/16 14:43 Ur Random Creatinine 56.6 mg/dL 10/24/16 15:58 U Random Total Protein 9.5 mg/dL (0.0-12.0) 10/24/16 15:58 Urine HCG, Qual Positive (NEGATIVE) 10/15/16 14:43 [id number] Ab <9 MADDY (<=20) 10/18/16 15:32 Beta-2 GPI IgG Ab <9 SGU (<=20) 10/18/16 15:32 Beta-2 GPI IgM Ab <9 SMU (<=20) 10/18/16 15:32 Phosphatidylserine IgG <10 U/mL (<10) 10/18/16 15:32 Phosphatidylserine IgA <20 U/mL (<20) 10/18/16 15:32 Phosphatidylserine IgM <25 U/mL (<25) 10/18/16 15:32 Anti-Phospholipid Intrp see note (()) 10/18/16 15:32 Anti-Cardiolipin IgG Ab <14 GPL (<=14) 10/18/16 15:32 Anti-Cardiolipin IgA Ab <11 APL (<=11) 10/18/16 15:32 Anti-Cardiolipin IgM Ab <12 MPL (<=12) 10/18/16 15:32 Prothrombin Mut Interp see note (()) 10/31/16 06:30 Prothrombin Gene Mutate see note (()) 10/31/16 06:30 Prothromb Gene Review see note (()) 10/31/16 06:30 Blood Type B POSITIVE 10/15/16 14:52 Antibody Screen Negative 10/15/16 14:52 - Hospital Course Hospital Course: On hospital admission Patient is a 30 y/o female, , currently 9 weeks and 3 days confirmed on ultrasound who presents to the ED for history of chest pain, shortness of breath, lightheadedness and dizziness x1 week. Patient states she was home with her mother when she became dizzy this morning and fainted. She admits to similar episodes x 1 week. Pt admits to lower abdominal pain earlier today which has since resolved. She describes chest pain as sharp and exacerbated with deep inspiration, radiating to her back. Pt notes she was seen at [facility] for chest pain and was told low potassium was the cause of her symptoms. She currently continues to feel lightheaded, cold, and nauseated. Pt is having multiple episodes of emesis of clear fluid at bedside. She denies vaginal bleeding. Patient states she has not had a bowel movement in 2 weeks. On hospital course Pt was admitted after CT angio of the chest revealed acute bilateral pulmonary embolisms. Interventional radiology was consulted to perform catheter directed thrombolysis. Patient found to have elevated troponin levels so cardiology was consulted as well. Patient was in acute distress necessitating acute thrombolysis. TPA is a category C drug and in that scenario, the benefits outweighed the risks associated with TPA. The patient and family were counseled on the risks of TPA especially bleeding, loss, any defects etc. It was recommended that an M consultation (Dr Flores) be placed as well. Dr Díaz (ICU) discussed case with Dr flores also. The patient tolerated the procedure, however, the follow up pulmonary artery angiogram showed moderate, persistent right pulmonary artery embolism. There was improved flow to the upper and mid lung. There was great perfusion to the left lung. Catheter macerate was attempted to break up the clot, but given the increased risk of bleed, further catheter directed thrombolysis was not performed. Patient was cared for in the ICU until 10/21 when she was transferred out to telemetry. Here the patient continued to receive therapeutic lovenox and work with physical therapy. During the course of her admit, she had several episodes of tachycardia , tachypnea and chest discomfort with minimal exertion. Some of these episodes resulted in rapid responses being called but no intervention was recommended as pt would return to baseline with rest. Pt continued to improve and eventually was able to tolerate stairs which would be necessary since the pt lives on the 3rd floor with stair access only. Working with case management, the patient was able to obtain Lovenox, to be self-administered at home for the 3 months following discharge. Per heme/onc, pt will need to be on the Lovenox for the remainder of the and for 3 months following delivery. She will need follow up with her PCP ([facility]) in order to receive more Lovenox. Pt has form and they are also available in the clinic Pt was discharged on 11/23/16 in stable conditions with instructions to take her new medications and to follow up in the clinic on 11/27/16, who will then orchestrate follow up/give referrals for community worker, MFM (Mark) and Heme/Onc ( Garrett). Medications Lovenox 90mg SC Q12H Protonix 20mg PO daily Zofran 4mg Q6H PRN nausea vitamins Diagnoses Bilateral pulmonary embolism - high risk Thrombophilia Discharge Exam - Head Exam Head Exam: ATRAUMATIC, NORMOCEPHALIC - Eye Exam Eye Exam: Normal appearance Pupil Exam: PERRL - ENT Exam ENT Exam: Mucous Membranes Moist - Respiratory Exam Respiratory Exam: Clear to PA & Lateral, UNREMARKABLE - Cardiovascular Exam Cardiovascular Exam: +S1, +S2 - GI/Abdominal Exam GI & Abdominal Exam: Normal Bowel Sounds, Unremarkable - Neurological Exam Neurological exam: Alert, Oriented x3 - Skin Skin Exam: Dry, Warm Discharge Plan - Discharge Medications Prescriptions: Pantoprazole [Protonix EC Tab] 20 mg PO DAILY #30 ect Ondansetron ODT [Zofran ODT] 4 mg PO Q6H PRN #20 odt PRN Reason: Nausea/Vomiting - Follow Up Plan Condition: CRITICAL Disposition: HOME/ ROUTINE Instructions: Enoxaparin (By injection), Pulmonary Embolism (DC), Deep Venous Thrombosis (DC) Additional Instructions: Pt needs to start her home therapeutic Lovenox starting tonight after discharge. Pt instructed to get plenty of rest and to break up physical activities with small and frequent breaks. If patient feels her heart start to speed up she was taught to stop what she is doing, sit down, and rest. If the patient ever experiences crushing chest pain (like an elephant sitting on her chest) or inability to catch her breath, she was instructed to call 911 immediately. Pt has an apointment at the [facility] here at [facility] on 11/27/16 at 9:00am. Pt needs follow up/referral with MFM (Mark), SUPER[employer] and Hematology/Oncology (Garrett). -f/u Dr. Flores -Therapeutic Lovenox 90mg SC Q12H, to be continued for duration of and 6-12 weeks post-delivery per Dr. Tucker. -Dr. Tucker, hemo-onc, on board, help appreciated - patient will need outpatient C+S and antithrombin III testing -Moderate tricuspid regurgitation. RV systolic pressure estimated >60mmHg. ASD should be ruled out with SOMMER. Referrals: [facility] at [facility] [Outside] Danny Flores MD [Staff Provider] - Brennen Tucker MD [Staff Provider] -
== END 2016-11-23 18:00 | disposition home or self-care (01) | DRG 781 ==
LOC: C.ER 13:54 → C.9E 16:51 → C.9I 17:45 → C.5T 10-26 14:39 → C.6T 10-27 21:33
PROVIDERS: ADMIT Hospitalist; ATTEND Hospitalist
PROC: B30 Imaging, Upper Arteries, Plain Radiography (ICD-10-PCS; principal; 2016-10-16)
PROC: 3E04317 Introduction of Other Thrombolytic into Central Vein, Percutaneous Approach (ICD-10-PCS; 2016-10-16)
DX: O88.811 Other embolism in pregnancy, first trimester (principal); O26.891 Other specified pregnancy related conditions, first trimester; R57.9 Shock, unspecified; I82.421 Acute embolism and thrombosis of right iliac vein; E87.3 Alkalosis; E83.42 Hypomagnesemia; O99.111 Other diseases of the blood and blood-forming organs and certain disorders involving the immune mechanism complicating pregnancy, first trimester; D68.69 Other thrombophilia; Z3A.09 9 weeks gestation of pregnancy; O99.281 Endocrine, nutritional and metabolic diseases complicating pregnancy, first trimester; E87.6 Hypokalemia; R11.2 Nausea with vomiting, unspecified; O21.8 Other vomiting complicating pregnancy; R82.71 Bacteriuria; K59.00 Constipation, unspecified; R51 Headache; R10.31 Right lower quadrant pain

== ENCOUNTER 2016-12-17 12:56 | Emergency (ER) | payer MEDICAID, OTHER, SELFPAY ==
--- NOTE | 2016-12-17 13:01 | C.PDOC ---
History Of Present Illness Patient is a 31 year old female who presents to the ER with a complaint of recurring localized right upper chest pain for the past 2 days. Patient also presents with SOB and NEWMAN. Patient was admitted in 10/2016 for postive B/L PE status post catheter directed thrombolysis. Patient is 17 weeks , is compliant with lovenox. Denies fever and cough. RECUR R UPPER CHEST PAIN X 2 DAYS. LOCALIZED, +SOB/NEWMAN. ADMITTED 10/2016 +B/L PE SP catheter directed thrombolysis. +PREG @ 17 WKS. NO FEVER, COUGH. PS COMPLIANT W LOVENOX EXAM MOD DIST NONTOXIC HEENT NEG LUNGS TACHYPNIC, SPEAKING 4-5 WORD SENTENCES; CTA B/L NO W/R/R CV RRR SINUS TACH PSYCH ANXIOUS BUT CALM REMAINDER NEG Time Seen by Provider: 12/17/16 13:01 History Per: Patient History/Exam Limitations: no limitations Onset/Duration Of Symptoms: Days (2) Current Symptoms Are (Timing): Still Present Past Medical History Reviewed: Historical Data, Nursing Documentation, Vital Signs Vital Signs: Last Vital Signs Temp Pulse 76 12/17/16 14:37 Resp 20 12/17/16 14:37 BP 101/51 L 12/17/16 14:37 Pulse Ox 100 12/17/16 14:37 - Medical History PMH: Anemia (Takes iron; No h/o transfusion), Gastritis Surgical History: Endoscopy - [facility] Procedures INTRODUCE OTH THROMBOLYTIC IN CENTRAL VEIN, PERC (10/15/16) PLAIN RADIOGRAPHY OF L PULM ART USING L OSM CONTRAST (10/15/16) Family History: States: Unknown Family Hx - Social History Hx Tobacco Use: No Hx Alcohol Use: No Hx Substance Use: No - Immunization History Hx Tetanus Toxoid Vaccination: Yes Hx Influenza Vaccination: Yes Hx Pneumococcal Vaccination: Yes Review Of Systems Except As Marked, All Systems Reviewed And Found Negative. Constitutional: Negative for: Fever Respiratory: Positive for: Shortness of Breath, Other (NEWMAN). Negative for: Cough Physical Exam - Physical Exam Appears: Non-toxic, Other (Moderate distress) Skin: Normal Color, Warm, Dry Head: Atraumatic, Normacephalic Eye(s): bilateral: Normal Inspection Ear(s): Bilateral: Normal Nose: Normal, No Flaring, No Discharge Oral Mucosa: Moist Throat: Normal, No Erythema Neck: Normal, Supple Chest: Symmetrical Cardiovascular: Rhythm Regular (Sinus tachycardia), No Murmur Respiratory: No Rales, No Rhonchi, No Wheezing, Other (Tachypnic. Clear to auscultation bilaterally. Speaking 4-5 word sentences.) Gastrointestinal/Abdominal: Soft, No Tenderness Back: No CVA Tenderness Neurological/Psych: Oriented x3, Normal Speech, Normal Cognition, Other ( Anxious but calm. ) ED Course And Treatment - Laboratory Results Result Diagrams: 12/17/16 13:34 12/17/16 14:06 ECG: Interpreted By Me ECG Rhythm: Sinus Rhythm ECG Interpretation: Normal Rate From EC - Radiology CXR: Interpreted by Me CXR Interpretation: Yes: No Acute Disease (NCP) Progress Note: Angio chest PE CT, EKG, blood work, test and urinalysis ordered. IV fluids administered. Progress - Re-Evaluation Re-evaluation Note: 12/17/16 13:09 D/W DR PUGA C/F ICU: PT WELL KNOWN TO HIM FROM PRIOR ADMISSION. PT W HO ANXIETY. AWARE OF ER FINDINGS AND PLAN 12/17/16 14:28 APPEARS COMFORTABLE NARD. TACHYPNEA RESOLVED, VSS. 12/17/16 15:36 PT REFUSED CTA. DIMER NEG. ADVISED FU OBGYN - Data Reviewed Data Reviewed: Lab, Diagnostic imaging, EKG, Old records - Critical Care Citical Care: Excluding Proc Time Critical Care Time: 120 minutes - Continuity of Care Discussed patient case with:: Patient Disposition Counseled Patient/Family Regarding: Studies Performed, Diagnosis, Need For Followup - Disposition Referrals: [facility] [Outside] [facility] [Outside] Disposition: HOME/ ROUTINE Disposition Time: 15:36 Condition: IMPROVED Instructions: Chest Pain (ED) - Clinical Impression Clinical Impression: Chest pain, - Scribe Statement The provider has reviewed the documentation as recorded by the Scribe James Hutton All medical record entries made by the Scribe were at my direction and personally dictated by me. I have reviewed the chart and agree that the record accurately reflects my personal performance of the history, physical exam, medical decision making, and the department course for this patient. I have also personally directed, reviewed, and agree with the discharge instructions and disposition.
[2016-12-17] MEDS ORDERED: Sodium Chloride 0.9% 1,000 ML IV ONE (13:11)
--- NOTE | 2016-12-17 13:29 | RAD ---
PROCEDURE: CHEST RADIOGRAPH, 1 VIEW HISTORY: SOB COMPARISON: 06/13/2016 FINDINGS: LUNGS: Lobulated masslike opacity projecting over the lateral aspect of the right upper lung zone measuring up to 3 centimeters. Correlation with chest CT is recommended if clinically indicated as this was not appreciated on the prior study. PLEURA: No pneumothorax or pleural fluid seen. CARDIOVASCULAR: Normal. OSSEOUS STRUCTURES: No significant abnormalities. VISUALIZED UPPER ABDOMEN: Normal. OTHER FINDINGS: None. IMPRESSION: Lobulated masslike opacity projecting over the lateral aspect of the right upper lung zone measuring up to 3 centimeters. Correlation with chest CT is recommended if clinically indicated as this was not appreciated on the prior study.
[2016-12-17 13:39] LABS: BASO % 0.4 % (0.0-2.0); EOS # 0.1 K/uL (0.0-0.7); EOS % 1.2 % (0.0-4.0); HEMATOCRIT 31.6 % (34.0-47.0); LYMPH # 1.4 K/uL (1.0-4.3); LYMPH % 21.9 % (20.0-40.0); MEAN CELL VOLUME 86.3 fL (81.0-99.0); MEAN CORPUSCULAR HEMOGLOBIN 29.2 pg (27.0-31.0); MEAN CORPUSCULAR HGB CONC 33.8 g/dL (33.0-37.0); MONO # 0.5 K/uL (0.0-0.8)
[2016-12-17 13:40] LABS: WHITE BLOOD COUNT 6.6 K/uL (4.8-10.8)
[2016-12-17 14:19] LABS: CHLORIDE 104 mmol/L (98-107); POTASSIUM 3.5 mmol/L (3.6-5.2); SODIUM 137 mmol/L (132-148)
[2016-12-17 14:22] LABS: ALB/GLOB RATIO 1.1 (1.0-2.1); ALKALINE PHOSPHATASE 55 U/L (38-126); ALT/SGPT 40 U/L (9-52); AST/SGOT 32 U/L (14-36); BILIRUBIN,TOTAL < 0.1 mg/dL (0.2-1.3); BLOOD UREA NITROGEN 7 mg/dL (7-17); CARBON DIOXIDE 19 mmol/L (22-30); GFR AFRICAN-AMERICAN > 60; GLUCOSE,RANDOM 76 mg/dL (65-105); TOTAL PROTEIN 6.6 g/dL (6.3-8.3)
[2016-12-17 14:23] LABS: CALCIUM 8.8 mg/dl (8.6-10.4)
[2016-12-17 14:25] LABS: RBC URINE 1 /hpf (0-3); URINE BACTERIA RARE (<OCC); URINE BILIRUBIN NEGATIVE (NEGATIVE); URINE BLOOD NEGATIVE (NEGATIVE); URINE COLOR Yellow (YELLOW); URINE GLUCOSE (UA) NORMAL (Normal); URINE KETONE 1+ mg/dL (NEGATIVE); URINE LEUKOCYTE ESTERASE 2+ Leu/uL (Negative); URINE PROTEIN 1+ mg/dL (NEGATIVE); URINE UROBILINOGEN NORMAL mg/dL (0.2-1.0); WBC URINE 7 /hpf (0-5)
[2016-12-17 14:38] VITALS: RESP 20; O2SAT 100
[2016-12-17 15:04] LABS: ABG ALLEN TEST A; ARTERIAL BLOOD HGB O2 SAT 96.5 % (95.0-98.0); DRAW SITE RRA; HHB -0.1 % (0.0-5.0); METHEMOGLOBIN 1.6 % (0.0-3.0)
[2016-12-17 15:49] VITALS: BP 108/58; PULSE 78
--- NOTE | 2016-12-20 08:31 | CARD ---
APPROVED REPORT EKG Measurement Heart [id number] <Conclusion> Normal sinus rhythm Normal ECG
== END 2016-12-17 15:50 | disposition home or self-care (01) ==
LOC: C.ER 12:56
DX: R07.89 Other chest pain (principal); Z33.1 Pregnant state, incidental

== ENCOUNTER 2017-07-18 07:22 | Emergency (ER) | payer MEDICAID ==
[2017-07-18 07:26] VITALS: TEMP 97.8; O2SAT 100
--- NOTE | 2017-07-18 08:06 | C.PDOC ---
History Of Present Illness 31 yr old female presents to the ER with complaints of RLQ and right flank pain for the past 2 weeks. Patient is s/p delivery in May, reports normal vaginal delivery, no complications. Patient also notes she is on Lovenox for a DVT, diagnosed in October of this year. Patient denies change in appetite, fever, chills, chest pain, SOB, nausea, vomiting, diarrhea, constipation, dysuria, incontinence, vaginal discharge, vaginal bleeding, weakness or numbness. Time Seen by Provider: 07/18/17 07:43 Chief Complaint (Nursing): Abdominal Pain History Per: Patient History/Exam Limitations: no limitations Onset/Duration Of Symptoms: Days (2 weeks) Location Of Pain/Discomfort: RLQ Associated Symptoms: denies: Fever, Chills, Nausea, Vomiting, Constipation Past Medical History Reviewed: Historical Data, Nursing Documentation, Vital Signs Vital Signs: Last Vital Signs Temp 97.8 F 07/18/17 07:24 Pulse 66 07/18/17 10:39 Resp 16 07/18/17 10:39 BP 129/80 07/18/17 10:39 Pulse Ox 100 07/18/17 10:46 - Medical History PMH: Anemia (Takes iron; No h/o transfusion), Gastritis, Pulmonary Embolism (b/l ) Surgical History: Endoscopy - [facility] Procedures INTRODUCE OTH THROMBOLYTIC IN CENTRAL VEIN, PERC (10/15/16) PLAIN RADIOGRAPHY OF L PULM ART USING L OSM CONTRAST (10/15/16) Family History: States: No Known Family Hx - Social History Hx Tobacco Use: No Hx Alcohol Use: No Hx Substance Use: No - Immunization History Hx Tetanus Toxoid Vaccination: Yes (2014) Hx Influenza Vaccination: Yes (2015) Hx Pneumococcal Vaccination: Yes Review Of Systems Except As Marked, All Systems Reviewed And Found Negative. Constitutional: Negative for: Fever, Chills Cardiovascular: Negative for: Chest Pain Respiratory: Negative for: Shortness of Breath Gastrointestinal: Positive for: Abdominal Pain (RLQ and right flank pain). Negative for: Nausea, Vomiting, Diarrhea, Constipation Genitourinary: Negative for: Dysuria, Incontinence, Vaginal Discharge, Vaginal Bleeding Neurological: Negative for: Weakness, Numbness Physical Exam - Physical Exam Appears: Non-toxic, No Acute Distress Skin: Warm, Dry, No Rash Head: Atraumatic, Normacephalic Oral Mucosa: Moist Respiratory: Normal Breath Sounds, No Rales, No Rhonchi, No Stridor, No Wheezing Gastrointestinal/Abdominal: Soft, Tenderness (RLQ tenderness), No Guarding, No Rebound Back: CVA Tenderness (Right) Extremity: Normal ROM, No Swelling Neurological/Psych: Oriented x3, Normal Speech, Normal Motor ED Course And Treatment - Laboratory Results Result Diagrams: 07/18/17 08:14 07/18/17 08:14 O2 Sat by Pulse Oximetry: 100 (RA) Pulse Ox Interpretation: Normal - CT Scan/US CT - Abd & Pelvis Other Rad Studies (CT/US): Read By Radiologist, Radiology Report Reviewed CT/US Interpretation: PROCEDURE: CT Abdomen and Pelvis without intravenous contrast. HISTORY: abd pain. COMPARISON: 08/31/2016. TECHNIQUE: Without contrast.. Contrast Dose: 0. Radiation dose: Total exam DLP = 848.44 mGy-cm. This CT exam was performed using one or more of the following dose reduction techniques: Automated exposure control, adjustment of the mA and/or kV according to patient size, and/or use of iterative reconstruction technique. FINDINGS: LOWER THORAX: Unremarkable. LIVER: Unremarkable. No gross lesion or ductal dilatation. GALLBLADDER AND BILE DUCTS: Unremarkable. PANCREAS: Unremarkable. No gross lesion or ductal dilatation. SPLEEN: Unremarkable. ADRENALS: Unremarkable. No mass. KIDNEYS AND URETERS: Unremarkable. No hydronephrosis. No solid mass. VASCULATURE: Unremarkable. No aortic aneurysm. BOWEL: Unremarkable. No obstruction. No gross mural thickening. APPENDIX: Not identified. No secondary findings to suggest acute appendicitis. Evaluation limited in the absence of oral contrast administration. PERITONEUM: Trace fluid in the cul-de-sac, nonspecific. Very small umbilical hernia containing only mesenteric fat. LYMPH NODES: Unremarkable. No enlarged lymph nodes. BLADDER: Unremarkable. REPRODUCTIVE: Unremarkable uterus. No adnexal mass appreciated. BONES: No acute fracture. OTHER FINDINGS: None. IMPRESSION: No acute abnormality. Appendix not identified. Trace fluid in cul- de-sac, nonspecific. Medical Decision Making Medical Decision Making: IMPRESSION: Abdominal pain NOTE: * CT - Abd & Pelvis * CBC * CMP * HCG * Urinalysis * Pepcid IVP * Toradol IVP NOTE: * Patient is informed her white blood cells are low. * Patient ANC is 750. * Patient does not have a fever. * Patient states she has been informed before about her white blood cells being low and is constantly being monitored. Patient is being seen by a doctor at [place]. * Patient reports improvement of symptoms and is being discharged home with follow up instructions. Disposition Counseled Patient/Family Regarding: Studies Performed, Diagnosis, Need For Followup, Rx Given - Disposition Disposition Time: 10:42 Additional Instructions: follow up with [facility] in 2 days call to make an appointment take pain medications as needed return to hospital if symptoms worsens or progress you are aware of your low wbc's count and state this is being addressed by your doctor Prescriptions: Naproxen [Naprosyn] 500 mg PO BID PRN #16 tab PRN Reason: Pain, Moderate (4-7) Instructions: Abdominal Pain (ED), Flank Pain (ED) Forms: [facility] ([place]), General Discharge Instructions - Clinical Impression Clinical Impression: Abdominal pain, Flank pain - Scribe Statement The provider has reviewed the documentation as recorded by the Paresh Ford Provider Attestation: All medical record entries made by the Paresh were at my direction and personally dictated by me. I have reviewed the chart and agree that the record accurately reflects my personal performance of the history, physical exam, medical decision making, and the department course for this patient. I have also personally directed, reviewed, and agree with the discharge instructions and disposition.
[2017-07-18 08:22] LABS: BASO % 0.8 % (0.0-2.0); EOS # 0.1 K/uL (0.0-0.7); EOS % 5.5 % (0.0-4.0); HEMATOCRIT 36.4 % (34.0-47.0); LYMPH # 1.2 K/uL (1.0-4.3); LYMPH % 52.1 % (20.0-40.0); MEAN CORPUSCULAR HEMOGLOBIN 29.2 pg (27.0-31.0); MEAN CORPUSCULAR HGB CONC 32.4 g/dL (33.0-37.0); MEAN PLATELET VOLUME 8.3 fL (7.2-11.7); MONO # 0.2 K/uL (0.0-0.8); MONO % 9.2 % (0.0-10.0); NRBC % 0.2 % (0.0-2.0)
[2017-07-18 08:26] LABS: MEAN CELL VOLUME 90.2 fL (81.0-99.0); WHITE BLOOD COUNT 2.3 K/uL (4.8-10.8)
[2017-07-18 08:32] LABS: ALB/GLOB RATIO 1.5 (1.0-2.1); ALKALINE PHOSPHATASE 34 U/L (38-126); ALT/SGPT 31 U/L (9-52); AST/SGOT 23 U/L (14-36); BILIRUBIN,TOTAL 0.5 mg/dL (0.2-1.3); BLOOD UREA NITROGEN 9 mg/dL (7-17); CALCIUM 8.3 mg/dl (8.6-10.4); CARBON DIOXIDE 26 mmol/L (22-30); CHLORIDE 102 mmol/L (98-107); GFR AFRICAN-AMERICAN > 60; GLUCOSE,RANDOM 79 mg/dL (65-105); POTASSIUM 3.8 mmol/L (3.6-5.2); SODIUM 135 mmol/L (132-148); TOTAL PROTEIN 6.5 g/dL (6.3-8.3)
[2017-07-18 08:37] LABS: RBC URINE 1 /hpf (0-3); URINE BILIRUBIN NEGATIVE (NEGATIVE); URINE BLOOD NEGATIVE (NEGATIVE); URINE COLOR Yellow (YELLOW); URINE GLUCOSE (UA) NORMAL (Normal); URINE KETONE NEGATIVE (NEGATIVE); URINE LEUKOCYTE ESTERASE NEG Leu/uL (Negative); URINE PROTEIN NEGATIVE (NEGATIVE); URINE UROBILINOGEN NORMAL mg/dL (0.2-1.0)
--- NOTE | 2017-07-18 10:10 | CT ---
PROCEDURE: CT Abdomen and Pelvis without intravenous contrast HISTORY: abd pain COMPARISON: 08/31/2016 TECHNIQUE: Without contrast.. Contrast Dose: 0 Radiation dose: Total exam DLP = 848.44 mGy-cm. This CT exam was performed using one or more of the following dose reduction techniques: Automated exposure control, adjustment of the mA and/or kV according to patient size, and/or use of iterative reconstruction technique. FINDINGS: LOWER THORAX: Unremarkable. LIVER: Unremarkable. No gross lesion or ductal dilatation. GALLBLADDER AND BILE DUCTS: Unremarkable. PANCREAS: Unremarkable. No gross lesion or ductal dilatation. SPLEEN: Unremarkable. ADRENALS: Unremarkable. No mass. KIDNEYS AND URETERS: Unremarkable. No hydronephrosis. No solid mass. VASCULATURE: Unremarkable. No aortic aneurysm. BOWEL: Unremarkable. No obstruction. No gross mural thickening. APPENDIX: Not identified. No secondary findings to suggest acute appendicitis. Evaluation limited in the absence of oral contrast administration. PERITONEUM: Trace fluid in the cul-de-sac, nonspecific. Very small umbilical hernia containing only mesenteric fat. LYMPH NODES: Unremarkable. No enlarged lymph nodes. BLADDER: Unremarkable. REPRODUCTIVE: Unremarkable uterus. No adnexal mass appreciated. BONES: No acute fracture. OTHER FINDINGS: None. IMPRESSION: No acute abnormality. Appendix not identified. Trace fluid in cul-de-sac, nonspecific.
[2017-07-18 10:41] VITALS: BP 129/80; PULSE 66; RESP 16
== END 2017-07-18 10:54 | disposition home or self-care (01) ==
LOC: C.ER 07:22
DX: R10.31 Right lower quadrant pain (principal)
CPT/HCPCS: 74176; 80053; 81001; 83690; 84702; 84703; 85025; 96374; 96375; 99285; J1885

== ENCOUNTER 2018-05-03 15:49 | Emergency (ER) | payer MEDICAID ==
[2018-05-03 15:59] VITALS: BP 125/84; PULSE 80; RESP 18; TEMP 98.9; O2SAT 99
--- NOTE | 2018-05-03 16:33 | C.PDOC ---
History Of Present Illness 32 y/o female, with PMHx of PE on Eliquis, presents to ED c/o chest pain and palpitations while watching TV today. Notes symptoms have improved now. Pt has known history of PE s/p catheter directed thrombolysis. Denies fever or other complaints. Time Seen by Provider: 05/03/18 15:51 Chief Complaint (Nursing): Palpitations History Per: Patient History/Exam Limitations: no limitations Past Medical History Reviewed: Historical Data, Nursing Documentation, Vital Signs Vital Signs: Last Vital Signs Temp 98.9 F 05/03/18 15:57 Pulse 80 05/03/18 15:57 Resp 18 05/03/18 15:57 BP 125/84 05/03/18 15:57 Pulse Ox 99 05/03/18 19:00 - Medical History PMH: Anemia (Takes iron; No h/o transfusion), Gastritis, Pulmonary Embolism (b/l ) Denies: Chronic Kidney Disease Surgical History: Endoscopy - [facility] Procedures INTRODUCE OTH THROMBOLYTIC IN CENTRAL VEIN, PERC (10/15/16) PLAIN RADIOGRAPHY OF L PULM ART USING L OSM CONTRAST (10/15/16) Family History: States: Unknown Family Hx - Social History Hx Tobacco Use: No Hx Alcohol Use: No Hx Substance Use: No - Immunization History Hx Tetanus Toxoid Vaccination: Yes (2014) Hx Influenza Vaccination: Yes (2015) Hx Pneumococcal Vaccination: Yes Review Of Systems Except As Marked, All Systems Reviewed And Found Negative. Constitutional: Negative for: Fever, Chills Cardiovascular: Positive for: Chest Pain, Palpitations Respiratory: Negative for: Shortness of Breath Physical Exam - Physical Exam Appears: Non-toxic, No Acute Distress Skin: Normal Color, Warm, Dry Head: Atraumatic, Normacephalic Eye(s): bilateral: Normal Inspection Cardiovascular: Rhythm Regular Respiratory: Normal Breath Sounds, No Rales, No Rhonchi, No Wheezing Gastrointestinal/Abdominal: Soft, No Tenderness Extremity: Normal ROM Neurological/Psych: Oriented x3, Normal Speech ED Course And Treatment - Laboratory Results Result Diagrams: 05/03/18 17:08 05/03/18 17:08 ECG: Interpreted By Me, Viewed By Me ECG Rhythm: Sinus Bradycardia Rate From EC O2 Sat by Pulse Oximetry: 99 Pulse Ox Interpretation: Normal Medical Decision Making Medical Decision Making: axneity vs pe Plan: Blood work Urinalysis EKG CXR labs neg. dimer neg. cxr neg. pt feels btter.a sking for dc. Disposition - Disposition Referrals: [facility] [Outside] [facility] at [facility] [Outside] Garfield Schwab MD [Staff Provider] - Disposition: HOME/ ROUTINE Disposition Time: 04:00 Condition: STABLE Additional Instructions: return to er with worsening symptoms or concerns. please discuss your symtposm with your doctor/clinic. Instructions: Palpitations Forms: [employer] ([place]) - Clinical Impression Clinical Impression: Palpitations - Scribe Statement The provider has reviewed the documentation as recorded by the Scribe KP All medical record entries made by the Scribe were at my direction and personally dictated by me. I have reviewed the chart and agree that the record accurately reflects my personal performance of the history, physical exam, medical decision making, and the department course for this patient. I have also personally directed, reviewed, and agree with the discharge instructions and disposition.
[2018-05-03 16:53] LABS: SQUAMOUS EPITHIAL 2 /hpf (0-5); URINE BACTERIA RARE (<OCC); URINE BILIRUBIN NEGATIVE (NEGATIVE); URINE BLOOD NEGATIVE (NEGATIVE); URINE CLARITY Clear (Clear); URINE COLOR Straw (YELLOW); URINE GLUCOSE (UA) NORMAL (Normal); URINE LEUKOCYTE ESTERASE NEG Leu/uL (Negative); URINE PROTEIN NEGATIVE (NEGATIVE); URINE UROBILINOGEN NORMAL mg/dL (0.2-1.0)
[2018-05-03 16:55] LABS: HCG,QUALITATIVE URINE NEGATIVE (NEGATIVE)
--- NOTE | 2018-05-03 17:07 | RAD ---
Date of service: 05/03/2018 HISTORY: chest pain COMPARISON: Comparison chest dated 12/17/2016 TECHNIQUE: Chest PA and lateral FINDINGS: LUNGS: No active pulmonary disease. PLEURA: No significant pleural effusion identified. No pneumothorax apparent. CARDIOVASCULAR: Normal. OSSEOUS STRUCTURES: No significant abnormalities. VISUALIZED UPPER ABDOMEN: Normal. OTHER FINDINGS: None. IMPRESSION: No active disease.
[2018-05-03 17:13] LABS: BASO % 0.8 % (0.0-2.0); EOS # 0.1 K/uL (0.0-0.7); EOS % 2.6 % (0.0-4.0); HEMOGLOBIN 12.6 g/dL (11.0-16.0); LYMPH # 1.2 K/uL (1.0-4.3); LYMPH % 26.9 % (20.0-40.0); MEAN CELL VOLUME 86.5 fL (81.0-99.0); MEAN CORPUSCULAR HEMOGLOBIN 29.6 pg (27.0-31.0); MEAN CORPUSCULAR HGB CONC 34.2 g/dL (33.0-37.0); MEAN PLATELET VOLUME 7.6 fL (7.2-11.7); MONO # 0.2 K/uL (0.0-0.8); MONO % 5.7 % (0.0-10.0); NEUT # 2.8 K/uL (1.8-7.0); NRBC % 0.3 % (0.0-2.0); RBC 4.25 Mil/uL (3.80-5.20); RED CELL DISTRIBUTION WIDTH 13.7 % (11.5-14.5); WHITE BLOOD COUNT 4.3 K/uL (4.8-10.8)
[2018-05-03 17:23] LABS: PARTIAL THROMBOPLASTIN TIME 37 SECONDS (21-34); PROTHROMBIN TIME 11.2 SECONDS (9.7-12.2)
[2018-05-03 17:24] LABS: D DIMER < 200 ng/mlDDU (0-243)
[2018-05-03 17:28] LABS: ALB/GLOB RATIO 1.4 (1.0-2.1); ALBUMIN 4.4 g/dL (3.5-5.0); ALT/SGPT 21 U/L (9-52); AST/SGOT 13 U/L (14-36); BLOOD UREA NITROGEN 13 mg/dL (7-17); CALCIUM 9.6 mg/dl (8.6-10.4); GFR NON-AFRICAN AMERICAN > 60; LIPASE 130 U/L (23-300)
[2018-05-03 17:39] LABS: B-TYPE NATRIURETIC PEPTIDE 46.9 pg/mL (0-450)
== END 2018-05-03 18:30 | disposition home or self-care (01) ==
LOC: C.ER 15:49
DX: R00.2 Palpitations (principal)

== ENCOUNTER 2018-07-30 05:30 | Emergency (ER) | payer MEDICAID ==
[2018-07-30 05:38] VITALS: RESP 20; TEMP 98.3; O2SAT 99
[2018-07-30 05:44] VITALS: BP 134/84; PULSE 94
--- NOTE | 2018-07-30 06:32 | C.PDOC ---
History Of Present Illness 32 year old female presents to the ER with a complaint of sore throat for the past 2 days associated with painful swallowing. Denies cough, runny nose, nasal congestion, fever, headache, or dizziness. Time Seen by Provider: 07/30/18 05:46 Chief Complaint (Nursing): ENT Problem History Per: Patient History/Exam Limitations: None Onset/Duration Of Symptoms: Days (2) Current Symptoms Are (Timing): Still Present Quality (Mouth/Throat): Tenderness Symptoms Have Been: Continuous Past Medical History Reviewed: Historical Data, Nursing Documentation, Vital Signs Vital Signs: Last Vital Signs Temp 98.3 F 07/30/18 05:39 Pulse 94 H 07/30/18 05:39 Resp 20 07/30/18 05:39 BP 134/84 07/30/18 05:39 Pulse Ox 99 07/30/18 05:39 - Medical History PMH: Anemia (Takes iron; No h/o transfusion), Gastritis, Peripheral Edema, Pulmonary Embolism (b/l) Denies: Chronic Kidney Disease Surgical History: Endoscopy - [facility] Procedures INTRODUCE OTH THROMBOLYTIC IN CENTRAL VEIN, PERC (10/15/16) PLAIN RADIOGRAPHY OF L PULM ART USING L OSM CONTRAST (10/15/16) Family History: States: Unknown Family Hx - Social History Hx Tobacco Use: No Hx Alcohol Use: No Hx Substance Use: No - Immunization History Hx Tetanus Toxoid Vaccination: Yes (2014) Hx Influenza Vaccination: Yes (2015) Hx Pneumococcal Vaccination: No Review Of Systems Constitutional: Negative for: Fever, Chills ENT: Positive for: Throat Pain. Negative for: Nose Discharge, Nose Congestion Respiratory: Negative for: Cough Neurological: Negative for: Headache, Dizziness Physical Exam - Physical Exam Appears: Non-toxic Skin: Normal Color, Warm, Dry Head: Atraumatic, Normacephalic Eye(s): bilateral: Normal Inspection Ear(s): Bilateral: Normal Nose: Normal Oral Mucosa: Moist Throat: Normal, No Erythema, No Exudate, No Other (Swelling) Neck: Normal, Supple, No Other (Swelling) Lymphatic: No Adenopathy Neurological/Psych: Oriented x3, Normal Speech ED Course And Treatment O2 Sat by Pulse Oximetry: 99 (Room air) Pulse Ox Interpretation: Normal Progress Note: Rapid strep ordered, results were negative. Throat culture sent. Motrin administered. Patient reports improvement of pain, she is resting comfortably in the ER in no acute distress, vitals are stable, will discharge home with instructions to follow up with PMD. Disposition Counseled Patient/Family Regarding: Diagnosis, Need For Followup, Rx Given - Disposition Referrals: [facility] at [facility] [Outside] Disposition: HOME/ ROUTINE Disposition Time: 06:45 Condition: STABLE Additional Instructions: Increase PO fluids Use Chloraseptic spray for pain Take medications as directed Return to ER if worse Prescriptions: Cetirizine HCl [Zyrtec] 10 mg PO DAILY #10 capsule Ibuprofen [Motrin] 600 mg PO Q6H #20 tab Instructions: Sore Throat, Adult (DC) Forms: [employer] (Hungarian) - Clinical Impression Clinical Impression: Sorethroat - PA / CYTOGENETIC TECHNICIAN / Resident Statement MD/DO has reviewed & agrees with the documentation as recorded. - Scribe Statement The provider has reviewed the documentation as recorded by the Scribe James Hutton All medical record entries made by the Scribe were at my direction and personally dictated by me. I have reviewed the chart and agree that the record accurately reflects my personal performance of the history, physical exam, medical decision making, and the department course for this patient. I have also personally directed, reviewed, and agree with the discharge instructions and disposition.
== END 2018-07-30 07:03 | disposition home or self-care (01) ==
LOC: C.ER 05:30
DX: J02.9 Acute pharyngitis, unspecified (principal)